=== PATIENT | male | born 1960 | race Caucasian/White ===

== ENCOUNTER 2018-03-21 08:05 | Emergency (ER) | payer MEDICARE ==
--- OUTSIDE RECORDS SUMMARY | 2018-03-21 08:07 | XMS REPORT | Clinical Summary ---
:1960 Author Organization [facility] Address [address] [place] [address] Phone Care Team Providers Name Role Phone Unavailable Primary Care Provider Unavailable Allergies No Known Allergies Current Medications Prescription Sig. Disp. Refills Start Date End Date Status clopidogrel (PLAVIX) 75 mg Take 75 mg by Active tabletIndications: mouth daily. 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) Active Problems Problem Noted Date Coronary artery disease Hypertension Peripheral vascular disease (HCC) Hyperlipidemia Myocardial infarction (HCC) Encounters Date Type Specialty Care Team Description 07/15/2017 Office Visit Cardiology Kristofer Mcclain MD 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) (Primary Dx);Coronary artery disease involving [place] coronary artery of [place] heart with unstable angina pectoris (HCC);Essential hypertension;Peripheral vascular disease (HCC);Hyperlipidemia, unspecified hyperlipidemia type after 03/20/2017 Social History Tobacco Use Types Packs/Day Years Used Date Current Every Day Smoker Cigarettes 1 30 Smokeless Tobacco: Never Used Tobacco Cessation: Ready to Quit: Yes; Counseling Given: Yes Alcohol Use Drinks/Week oz/Week Comments Yes social Sex Assigned at Date Recorded Not on file Last Filed Vital Signs Vital Sign Reading Time Taken Blood Pressure 117/64 07/15/2017 7:25 AM [employer] Pulse 60 07/15/2017 7:25 AM [employer] Temperature 35.8 C (96.4 F) 07/15/2017 7:25 AM [employer] Respiratory Rate 14 07/15/2017 7:25 AM [employer] Oxygen Saturation 99% 07/15/2017 7:25 AM [employer] Inhaled Oxygen Concentration - - Weight 106.6 kg (235 lb) 07/15/2017 7:25 AM [employer] Height 180.3 cm (5' 11") 07/15/2017 7:25 AM [employer] Body Mass Index 32.78 07/15/2017 7:25 AM [employer] Plan of Treatment Health Maintenance Due Date Last Done Comments INFLUENZA VACCINE 06/08/2018 Results Not on fileafter 03/20/2017
[2018-03-21] MEDS ORDERED: NA CHLORIDE 0.9% 1,000 ML ONE (08:39)
[2018-03-21] MEDS ORDERED: FENTANYL CITR 100 MCG/2 ML ONE (08:39)
[2018-03-21] MEDS ORDERED: ONDANSETRON 4 MG/2 ML VIAL ONE (08:39)
[2018-03-21 09:00] LABS: Absolute Lymphocytes (CBC) 2.4 K/uL (0.7-4.9); Absolute Monocytes 0.7 K/uL (0.1-1.3); Absolute Neutrophil 2.9 K/uL (1.8-8.0); Basophils % 0.4 % (0-1.3); Eosinophils % 0.8 % (0-4.4); Hematocrit 43.3 % (39.6-49.0); Lymphocytes % 39.3 % (15.3-44.8); MCH 29.3 pg (27.0-35.0); MCV 85.2 fL (80-100); MPV 8.4 fL (7.6-11.3); Monocytes % 11.3 % (3.3-12.3); RBC Red Blood Cell Count 5.08 M/uL (4.33-5.43)
--- NOTE | 2018-03-21 09:16 | RAD REPORT ---
EXAM DESCRIPTION: CT - Stone Protocol - 03/21/2018 8:53 am CLINICAL HISTORY: Left-sided abdominal pain, left-sided flank pain COMPARISON: CT imaging November 2012 TECHNIQUE: Axial 3 mm thick images were obtained without oral or IV contrast. The [id number] span s the entirety of the system including uppermost abdomen and lung bases. All CT scans are performed using dose optimization technique as appropriate and may include automated exposure control or mA/KV adjustment according to patient size. FINDINGS: Mild left-sided hydronephrosis is present secondary to a 3 mm stone in the mid left ureter . This may not be visible on a KUB examination. From a KUB projection the stone is a few mm lateral t o the inferior endplate L3. Trace amount of perinephric stranding is present in each kidney. Cyst in the lateral mid right kidney has not change from comparison. No additional obstructing or nonobstruct ing calculi. No right-sided hydronephrosis. Urinary bladder is mostly contracted. No bladder calculus . Prostate gland and seminal vesicles are not outside of normal range. No suspicious renal masses. Is odense masses and pyelonephritis are not excluded on a stone protocol CT scan. Imaged portions of the liver, spleen and pancreas show no suspicious findings on non-contrast imaging . No gallbladder or biliary tree abnormality identified. No significant adrenal finding. No suspicious bowel findings. No hernia, mass or bulky lymphadenopathy noted. No free air, free fluid or inflammatory stranding. No significant bony abnormality. IMPRESSION: Mild left-sided hydronephrosis secondary to a 3 mm stone mid left ureter. On a KUB projection this small stone is just lateral to the inferior endplate L3. Isodense masses and pyelonephritis are not excluded on stone protocol imaging. No other acute or significant findings noted.
[2018-03-21 09:17] LABS: Albumin 3.3 g/dL (3.4-5.0); Bilirubin Direct 0.1 mg/dL (0-0.2); Bilirubin Total 0.4 mg/dL (0.2-1.0); Protein, Total 7.5 g/dL (6.4-8.2)
--- NOTE | 2018-03-21 09:46 | EDPHYS ---
Physician Documentation [facility] Name: Pool Aden Age: 58 yrs Sex: Male : 1960 Arrival Date: 03/21/2018 Time: 08:09 Bed 14 Private MD: J Luis Gleason ED Physician Rubio Gutierrez HPI: 03/21 08:27 This 58 yrs old Male presents to ER via Ambulatory with complaints of SIDE sandeep PAIN. 08:27 The patient presents with abdominal pain in the left lower quadrant. Onset: The sandeep symptoms/episode began/occurred just prior to arrival, this morning. The patient presents with pain that is acute, with no known mechanism of injury. The symptoms are located in the left low back and left mid back. Onset: The symptoms/episode began/occurred this morning. The pain does not radiate. Associated signs and symptoms: The patient has no apparent associated signs or symptoms. The problem was sustained from unknown cause. Severity of symptoms: At their worst the symptoms were moderate, in the emergency department the symptoms have improved, moderately. Historical: - Allergies: 08:12 No Known Allergies; rb1 - Home Meds: 08:12 aspirin 81 mg Oral TbEC 1 tab once daily [Active]; atorvastatin 80 mg Oral tab 1 tab rb1 once daily [Active]; lisinopril 10 mg Oral tab 1 tab once daily [Active]; metoprolol tartrate 100 mg Oral tab 1 tab 2 times per day [Active]; Pepcid 20 mg Oral tab 1 tab every 12 hours [Active]; Plavix 75 mg Oral tab 1 tab once daily [Active]; - PMHx: 08:12 Hyperlipidemia; Hypertension; pacemaker/defibrillator; rb1 - PSHx: 08:12 Heart stents; CABG; Knee surgery; Shoulder surgery; rb1 - Immunization history:: Adult Immunizations up to date. - Social history:: Smoking status: Patient uses tobacco products, smokes two packs cigarettes per day. - Ebola Screening: : Patient negative for fever greater than or equal to 101.5 degrees Fahrenheit, and additional compatible Ebola Virus Disease symptoms. - Family history:: not pertinent. ROS: 08:27 Constitutional: Negative for fever, chills, and weight loss, Eyes: Negative for injury, sandeep pain, redness, and discharge, ENT: Negative for injury, pain, and discharge, Neck: Negative for injury, pain, and swelling, Cardiovascular: Negative for chest pain, palpitations, and edema, Respiratory: Negative for shortness of breath, cough, wheezing, and pleuritic chest pain, Abdomen/GI: Negative for abdominal pain, nausea, vomiting, diarrhea, and constipation, : Negative for injury, bleeding, discharge, and swelling, MS/Extremity: Negative for injury and deformity, Skin: Negative for injury, rash, and discoloration, Neuro: Negative for headache, weakness, numbness, tingling, and seizure, Psych: Negative for depression, anxiety, suicide ideation, homicidal ideation, and hallucinations, Allergy/Immunology: Negative for hives, rash, and allergies, Endocrine: Negative for neck swelling, polydipsia, polyuria, polyphagia, and marked weight changes, Hematologic/Lymphatic: Negative for swollen nodes, abnormal bleeding, and unusual bruising. 08:27 Back: Positive for pain at rest, pain with movement, flank pain, on the left. Exam: 08:27 Constitutional: This is a well developed, well nourished patient who is awake, alert, sandeep and in no acute distress. Head/Face: Normocephalic, atraumatic. Eyes: Pupils equal round and reactive to light, extra-ocular motions intact. Lids and lashes normal. Conjunctiva and sclera are non-icteric and not injected. Cornea within normal limits. Periorbital areas with no swelling, redness, or edema. ENT: Nares patent. No nasal discharge, no septal abnormalities noted. Tympanic membranes are normal and external auditory canals are clear. Oropharynx with no redness, swelling, or masses, exudates, or evidence of obstruction, uvula midline. Mucous membranes moist. Neck: Trachea midline, no thyromegaly or masses palpated, and no cervical lymphadenopathy. Supple, full range of motion without nuchal rigidity, or vertebral point tenderness. No Meningismus. Chest/axilla: Normal chest wall appearance and motion. Nontender with no deformity. No lesions are appreciated. Cardiovascular: Regular rate and rhythm with a normal S1 and S2. No gallops, murmurs, or rubs. Normal PMI, no JVD. No pulse deficits. Respiratory: Lungs have equal breath sounds bilaterally, clear to auscultation and percussion. No rales, rhonchi or wheezes noted. No increased work of breathing, no retractions or nasal flaring. Abdomen/GI: Soft, non-tender, with normal bowel sounds. No distension or tympany. No guarding or rebound. No evidence of tenderness throughout. Male : Normal genitalia with no discharge or lesions. Skin: Warm, dry with normal turgor. Normal color with no rashes, no lesions, and no evidence of cellulitis. MS/ Extremity: Pulses equal, no cyanosis. Neurovascular intact. Full, normal range of motion. Neuro: Awake and alert, GCS 15, oriented to person, place, time, and situation. Cranial nerves II-XII grossly intact. Motor strength 5/5 in all extremities. Sensory grossly intact. Cerebellar exam normal. Normal gait. Psych: Awake, alert, with orientation to person, place and time. Behavior, mood, and affect are within normal limits. 08:27 Back: pain, that is mild, that is moderate, ROM is painful, normal spinal alignment noted, CVA tenderness, is absent, vertebral tenderness, is not appreciated. Vital Signs: 08:12 BP 126 / 75; Pulse 60; Resp 19; Temp 97.(TE); Pulse Ox 97% on R/A; Weight 106.59 kg; rb1 Height 5 ft. 11 in. (180.34 cm); Pain 6/10; 09:00 BP 139 / 66; Pulse 60; Resp 19; Pulse Ox 99% on R/A; Pain 3/10; rb1 09:30 BP 125 / 67; Pulse 62; Resp 18; Pulse Ox 98% on R/A; rb1 10:30 BP 133 / 88; Pulse 59; Resp 17; Pulse Ox 99% on R/A; rb1 08:12 Body Mass Index 32.78 (106.59 kg, 180.34 cm) rb1 MDM: 08:19 Patient medically screened. [facility] 08:30 Data reviewed: vital signs, nurses notes, lab test result(s), radiologic studies, CT sandeep scan. 03/21 08:26 Order name: Basic Metabolic Panel; Complete Time: :43 [facility] 03/21 08:26 Order name: CBC with Diff; Complete Time: :43 [facility] 03/21 08:26 Order name: Creatinine for Radiology; Complete Time: :43 [facility] 03/21 08:26 Order name: Hepatic Function; Complete Time: :43 [facility] 03/21 08:26 Order name: Lipase; Complete Time: 09:43 [facility] 03/21 08:26 Order name: Urine Microscopic Only [facility] 03/21 08:26 Order name: CT Stone Protocol; Complete Time: 09:43 [facility] 03/21 10:28 Order name: Urine Dipstick--Ancillary (enter results) 03/21 10:58 Order name: Urine Culture [facility] 03/21 08:26 Order name: IV Saline Lock; Complete Time: 08:47 [facility] 03/21 08:26 Order name: Labs collected and sent; Complete Time: 08:47 [facility] Administered Medications: 08:46 Drug: NS 0.9% 1000 ml Route: IV; Rate: 1 bolus; Site: left wrist; rb1 08:46 Drug: fentaNYL (PF) 25 mcg Route: IVP; Site: left wrist; rb1 09:08 Follow up: Response: No adverse reaction; Pain is decreased rb1 08:46 Drug: Zofran 4 mg Route: IVP; Site: left wrist; rb1 09:08 Follow up: Response: No adverse reaction; Nausea is decreased rb1 10:09 Drug: Rocephin - (cefTRIAXone) 1 grams Route: IVPB; Infused Over: 30 mins; Site: left rb1 wrist; 10:25 Follow up: Response: No adverse reaction; IV Status: Completed infusion rb1 10:09 Drug: Flomax 0.4 mg Route: PO; rb1 10:30 Follow up: Response: No adverse reaction rb1 10:09 Drug: TORadol 30 mg Route: IVP; Site: left wrist; rb1 10:30 Follow up: Response: No adverse reaction; Pain is decreased rb1 Disposition: 03/21/18 09:46 Discharged to Home. Impression: Hydronephrosis with renal and ureteral calculous obstruction. - Condition is Stable. - Discharge Instructions: Kidney Stones, Kidney Stones, [id number], Hydronephrosis, Dietary Guidelines to Help Prevent Kidney Stones. - Prescriptions for Tylenol- Codeine #3 300-30 mg Oral Tablet - take 2 tablet by ORAL route every 6 hours As needed; 30 tablet. Zofran 4 mg Oral Tablet - take 1 tablet by ORAL route every 12 hours As needed; 20 tablet. Flomax 0.4 mg Oral Capsule, Sust. Release 24 hr - take 1 capsule by ORAL route once daily 1/2 hour following the same meal each day; 30 capsule. Cipro 500 mg Oral Tablet - take 1 tablet by ORAL route every 12 hours for 7 days; 14 tablet. - Medication Reconciliation Form, Thank You Letter, Antibiotic Education, Prescription Opioid Use form. - Follow up: J Luis Gleason MD; When: 2 - 3 days; Reason: Recheck today's complaints, Continuance of care, Re-evaluation by your physician. Follow up: Lorri Aguilar MD; When: 2 - 3 days; Reason: Recheck today's complaints, Re-evaluation by your physician. - Problem is new. - Symptoms have improved. Signatures: Dispatcher [employer] EDID Rubio Gutierrez MD MD cha Barber, Rebecca, RN RN rb1 Corrections: (The following items were deleted from the chart) 11:16 09:46 03/21/2018 09:46 Discharged to Home. Impression: Hydronephrosis with renal and rb1 ureteral calculous obstruction. Condition is Stable. Forms are Medication Reconciliation Form, Thank You Letter, Antibiotic Education, Prescription Opioid Use. Follow up: J Luis Gleason; When: 2 - 3 days; Reason: Recheck today's complaints, Continuance of care, Re-evaluation by your physician. Follow up: Lorri Aguilar; When: 2 - 3 days; Reason: Recheck today's complaints, Re-evaluation by your physician. Problem is new. Symptoms have improved. sandeep
--- NOTE | 2018-03-21 09:46 | ER ---
Nurse's Notes [facility] Name: Pool Aden Age: 58 yrs Sex: Male : 1960 Arrival Date: 03/21/2018 Time: 08:09 Bed 14 Private MD: J Luis Gleason Diagnosis: Hydronephrosis with renal and ureteral calculous obstruction Presentation: 03/21 08:12 Presenting complaint: Patient states: He woke up this morning with pain on his left rb1 side. Pt. had 2 BM's this morning. Transition of care: patient was not received from another setting of care. 08:12 Method Of Arrival: Ambulatory rb1 08:12 Onset of symptoms was March 21, 2018. Risk Assessment: Do you want to hurt yourself or rb1 someone else? Patient reports no desire to harm self or others. Initial Sepsis Screen: Does the patient meet any 2 criteria? No. Patient's initial sepsis screen is negative. Does the patient have a suspected source of infection? No. Patient's initial sepsis screen is negative. Care prior to arrival: None. 08:12 Acuity: SUSAN 3 rb1 Triage Assessment: 08:12 General: Appears in no apparent distress. comfortable, Behavior is calm, cooperative, rb1 Denies fever. Pain: Complains of pain in left side Pain currently is 6 out of 10 on a pain scale. Neuro: Level of Consciousness is awake, alert, obeys commands, Oriented to person, place, time, situation. Cardiovascular: Capillary refill < 3 seconds is brisk in bilateral fingers. Respiratory: Airway is patent Respiratory effort is even, unlabored, Respiratory pattern is regular, symmetrical. GI: Abdomen is round. : No signs and/or symptoms were reported regarding the genitourinary system. Derm: Skin is pink, warm \T\ dry. Musculoskeletal: Range of motion: intact in all extremities. Historical: - Allergies: 08:12 No Known Allergies; rb1 - Home Meds: 08:12 aspirin 81 mg Oral TbEC 1 tab once daily [Active]; atorvastatin 80 mg Oral tab 1 tab rb1 once daily [Active]; lisinopril 10 mg Oral tab 1 tab once daily [Active]; metoprolol tartrate 100 mg Oral tab 1 tab 2 times per day [Active]; Pepcid 20 mg Oral tab 1 tab every 12 hours [Active]; Plavix 75 mg Oral tab 1 tab once daily [Active]; - PMHx: 08:12 Hyperlipidemia; Hypertension; pacemaker/defibrillator; rb1 - PSHx: 08:12 Heart stents; CABG; Knee surgery; Shoulder surgery; rb1 - Immunization history:: Adult Immunizations up to date. - Social history:: Smoking status: Patient uses tobacco products, smokes two packs cigarettes per day. - Ebola Screening: : Patient negative for fever greater than or equal to 101.5 degrees Fahrenheit, and additional compatible Ebola Virus Disease symptoms. - Family history:: not pertinent. Screenin:12 Abuse screen: Denies threats or abuse. Nutritional screening: No deficits noted. rb1 Tuberculosis screening: No symptoms or risk factors identified. Fall Risk None identified. Assessment: 08:12 General: See triage assessment. rb1 09:12 Reassessment: Patient appears in no apparent distress at this time. Patient and/or rb1 family updated on plan of care and expected duration. Pain level reassessed. Patient is alert, oriented x 3, equal unlabored respirations, skin warm/dry/pink. Patient states symptoms have improved. 10:10 Reassessment: Patient appears in no apparent distress at this time. No changes from [facility] previously documented assessment. 10:20 Reassessment: Discharge pending due to pt. requesting to speak with Dr. Gutierrez. [facility] Provider notified. 10:43 Reassessment: Notified Dr. Gutierrez that the pt. is still waiting for him to come in [facility] and discuss test results. 10:45 Reassessment: Patient appears in no apparent distress at this time. Patient and/or rb1 family updated on plan of care and expected duration. Pain level reassessed. Patient is alert, oriented x 3, equal unlabored respirations, skin warm/dry/pink. Dr. Gutierrez is at bedside. Vital Signs: 08:12 BP 126 / 75; Pulse 60; Resp 19; Temp 97.(TE); Pulse Ox 97% on R/A; Weight 106.59 kg; rb1 Height 5 ft. 11 in. (180.34 cm); Pain 6/10; 09:00 BP 139 / 66; Pulse 60; Resp 19; Pulse Ox 99% on R/A; Pain 3/10; rb1 09:30 BP 125 / 67; Pulse 62; Resp 18; Pulse Ox 98% on R/A; rb1 10:30 BP 133 / 88; Pulse 59; Resp 17; Pulse Ox 99% on R/A; rb1 08:12 Body Mass Index 32.78 (106.59 kg, 180.34 cm) rb1 ED Course: 08:09 Patient arrived in ED. sb2 08:10 J Luis Gleason MD is Private Physician. sb2 08:12 Patient has correct armband on for positive identification. Bed in low position. Call rb1 light in reach. Side rails up X 1. Pulse ox on. NIBP on. Warm blanket given. Pillow given. 08:12 Arm band placed on left wrist. rb1 08:19 Rubio Gutierrez MD is Attending Physician. sandeep 08:21 Marnie Rodriguez, ZINA is Primary Nurse. rb1 08:24 Triage completed. rb1 08:40 Missed attempt(s): 20 gauge in right antecubital area. Bleeding controlled, band aid em applied, catheter tip intact. 08:45 Initial lab(s) drawn, by me, sent to lab. Inserted saline lock: 22 gauge in left wrist, em using aseptic technique. Blood collected. 08:53 CT Stone Protocol In Process Unspecified. EDMS 08:53 CT completed. Patient tolerated procedure well. Patient moved back from CT. bq 09:45 J Luis Gleason MD is Referral Physician. sandeep 09:45 Lorri Aguilar MD is Referral Physician. sandeep 10:47 No provider procedures requiring assistance completed. IV discontinued, intact, rb1 bleeding controlled, No redness/swelling at site. Pressure dressing applied. Administered Medications: 08:46 Drug: NS 0.9% 1000 ml Route: IV; Rate: 1 bolus; Site: left wrist; rb1 08:46 Drug: fentaNYL (PF) 25 mcg Route: IVP; Site: left wrist; rb1 09:08 Follow up: Response: No adverse reaction; Pain is decreased rb1 08:46 Drug: Zofran 4 mg Route: IVP; Site: left wrist; rb1 09:08 Follow up: Response: No adverse reaction; Nausea is decreased rb1 10:09 Drug: Rocephin - (cefTRIAXone) 1 grams Route: IVPB; Infused Over: 30 mins; Site: left rb1 wrist; 10:25 Follow up: Response: No adverse reaction; IV Status: Completed infusion rb1 10:09 Drug: Flomax 0.4 mg Route: PO; rb1 10:30 Follow up: Response: No adverse reaction rb1 10:09 Drug: TORadol 30 mg Route: IVP; Site: left wrist; rb1 10:30 Follow up: Response: No adverse reaction; Pain is decreased rb1 Outcome: :46 Discharge ordered by . sandeep 10:47 Discharged to home ambulatory, with family. rb1 10:47 Condition: stable 10:47 Discharge instructions given to patient, Instructed on discharge instructions, follow up and referral plans. medication usage, Demonstrated understanding of instructions, follow-up care, medications, Prescriptions given X 4. 11:16 Patient left the ED. rb1 Signatures: Dispatcher [employer] EDRubio Drake MD MD cha Quilty, Betty bq Munoz, Edgar, SPEECH AND LANGUAGE CLINICIAN SPEECH AND LANGUAGE CLINICIAN Marnie Daniel, RN RN rb1 Sagrario Ibarra sb2 Corrections: (The following items were deleted from the chart) 08:49 08:46 NS 0.9% 1000 ml IV at 1 bolus in left hand rb1 rb1 08:50 08:46 Zofran 4 mg IVP in left hand rb1 rb1 08:50 08:46 fentaNYL (PF) 25 mcg IVP in left hand rb1 rb1 09:39 09:15 BP 125 / 67; Pulse 62bpm; Resp 18bpm; Pulse Ox 98% RA; rb1 rb1
[2018-03-21] MEDS ORDERED: TAMSULOSIN 0.4 MG SR CAP ONE (10:03)
[2018-03-21] MEDS ORDERED: KETOROLAC 30 MG/ML INJ ONE (10:03)
[2018-03-21] MEDS ORDERED: CEFTRIAXONE/SWI 1gm 1 GM/10 ML SYR ONE (10:04)
[2018-03-21 10:54] LABS: Urine Bacteria 20-50 /HPF (NONE SEEN); Urine Culture Reflex Order REFLEXED; Urine RBC TNTC /HPF (NONE SEEN)
[2018-03-21 11:20] VITALS: TEMP 97
[2018-03-21 11:23] VITALS: BP 133/88; O2SAT 99
[2018-03-21 14:23] LABS: Urine Blood 3+ (NEG); Urine Glucose 1+ (NEG); Urine Protein 2+ (NEG); Urine pH 5.5 (5.0-7.0)
== END 2018-03-21 11:16 | disposition home or self-care (01) ==
LOC: ER 08:05
DX: N13.2 Hydronephrosis with renal and ureteral calculous obstruction (principal); I10 Essential (primary) hypertension; E78.5 Hyperlipidemia, unspecified; Z95.810 Presence of automatic (implantable) cardiac defibrillator; Z95.1 Presence of aortocoronary bypass graft; Z79.01 Long term (current) use of anticoagulants; Z79.82 Long term (current) use of aspirin; F17.210 Nicotine dependence, cigarettes, uncomplicated
CPT/HCPCS: 36415; 74176; 76377; 80048; 80076; 83690; 85025; 87086; 87088; 96365; 96375; 99284; J0696; J2405; J3010; J7030; 81003; 81015

== ENCOUNTER 2018-03-22 16:32 | Observation (INO) | payer MEDICARE ==
--- OUTSIDE RECORDS SUMMARY | 2018-03-22 16:34 | XMS REPORT | Clinical Summary ---
:1960 Author Organization [facility] Address [address] [place] [address] Phone Care Team Providers Name Role Phone Unavailable Primary Care Provider Unavailable Allergies No Known Allergies Current Medications Prescription Sig. Disp. Refills Start Date End Date Status clopidogrel (PLAVIX) 75 mg Take 75 mg by Active tabletIndications: mouth daily. 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) Active Problems Problem Noted Date Coronary artery disease Hypertension Peripheral vascular disease (HCC) Hyperlipidemia Myocardial infarction (HCC) Encounters Date Type Specialty Care Team Description 07/15/2017 Office Visit Cardiology Kristofer Mcclain MD 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) (Primary Dx);Coronary artery disease involving [place] coronary artery of [place] heart with unstable angina pectoris (HCC);Essential hypertension;Peripheral vascular disease (HCC);Hyperlipidemia, unspecified hyperlipidemia type after 03/21/2017 Social History Tobacco Use Types Packs/Day Years Used Date Current Every Day Smoker Cigarettes 1 30 Smokeless Tobacco: Never Used Tobacco Cessation: Ready to Quit: Yes; Counseling Given: Yes Alcohol Use Drinks/Week oz/Week Comments Yes social Sex Assigned at Date Recorded Not on file Last Filed Vital Signs Vital Sign Reading Time Taken Blood Pressure 117/64 07/15/2017 7:25 AM [employer]ODUCT [employer]ET[employer] SPECIALIST Pulse 60 07/15/2017 7:25 AM [employer] SPECIALIST Temperature 35.8 C (96.4 F) 07/15/2017 7:25 AM [employer]ODUCT [employer] SPECIALIST Respiratory Rate 14 07/15/2017 7:25 AM PRODUCT SAFETY SPECIALIST Oxygen Saturation 99% 07/15/2017 7:25 AM [employer]ODUCT [employer] SPECIALIST Inhaled Oxygen Concentration - - Weight 106.6 kg (235 lb) 07/15/2017 7:25 AM [employer]ODUCT S[employer]ETY SPECIALIST Height 180.3 cm (5' 11") 07/15/2017 7:25 AM [employer]ODUCT S[employer]ETY SPECIALIST Body Mass Index 32.78 07/15/2017 7:25 AM [employer]ODUCT SAF[employer] SPECIALIST Plan of Treatment Health Maintenance Due Date Last Done Comments INFLUENZA VACCINE 06/08/2018 Results Not on fileafter 03/21/2017
[2018-03-22] MEDS ORDERED: NA CHLORIDE 0.9% 500 ML ONE (17:00)
[2018-03-22] MEDS ORDERED: KETOROLAC 30 MG/ML INJ ONE (17:00)
[2018-03-22] MEDS ORDERED: ONDANSETRON 4 MG/2 ML VIAL ONE (17:00)
[2018-03-22 17:35] LABS: Absolute Lymphocytes (CBC) 2.5 K/uL (0.7-4.9); Absolute Monocytes 0.6 K/uL (0.1-1.3); Absolute Neutrophil 4.4 K/uL (1.8-8.0); Basophils % 0.5 % (0-1.3); Eosinophils % 0.4 % (0-4.4); Hematocrit 45.2 % (39.6-49.0); Lymphocytes % 32.7 % (15.3-44.8); MCH 29.3 pg (27.0-35.0); MPV 8.8 fL (7.6-11.3); Monocytes % 8.2 % (3.3-12.3); RBC Red Blood Cell Count 5.26 M/uL (4.33-5.43)
[2018-03-22 17:57] LABS: ALT/SGPT 21 U/L (12-78); AST/SGOT 23 U/L (15-37); Albumin 3.6 g/dL (3.4-5.0); Alkaline Phosphatase 117 U/L (45-117); Amylase Level 37 U/L (25-115); BUN Blood Urea Nitrogen 20 mg/dL (7-18); Bicarbonate 25 mmol/L (21-32); Bilirubin Direct < 0.1 mg/dL (0-0.2); Bilirubin Total 0.4 mg/dL (0.2-1.0); Glucose Level 158 mg/dL (74-106); Lipase 131 U/L (73-393); Potassium 3.7 mmol/L (3.5-5.1); Protein, Total 8.2 g/dL (6.4-8.2); Sodium Level 139 mmol/L (136-145)
[2018-03-22] MEDS ORDERED: Magnesium Sulfate 1gm IVPB 1 GM/50 ML BAG IV ONE (18:47)
--- NOTE | 2018-03-22 18:47 | RAD REPORT ---
EXAM DESCRIPTION: RAD - Abdomen 1 View (KUB) - 03/22/2018 5:54 pm CLINICAL HISTORY: ICD N 20.0 FINDINGS: Air is present within nondilated small bowel and large bowel in a nonspecific fashion. Previously described ureteral calculus adjacent to the left aspect of L3 is not visualized on this ex am. Calcifications in the pelvis represent phleboliths
--- NOTE | 2018-03-22 18:54 | ER ---
Nurse's Notes [facility] Name: Pool Aden Age: 58 yrs Sex: Male : 1960 Arrival Date: 03/22/2018 Time: 16:33 Bed 30 Private MD: J Luis Gleason Diagnosis: Calculus of ureter-Left;Unspecified abdominal pain-Intractable Presentation: 03/22 16:39 Presenting complaint: Patient states: He was seen here yesterday with the same aj1 complaint and diagnosed with a kidney stone. He was sent home with a Rx for Tylenol #3 but he is still hurting. Reports nausea, denies vomiting. Patient refuses having temperature taken, states that he is in too much pain. Transition of care: patient was not received from another setting of care. Onset of symptoms was March 21, 2018. Risk Assessment: Do you want to hurt yourself or someone else? Patient reports no desire to harm self or others. Initial Sepsis Screen: Does the patient meet any 2 criteria? No. Patient's initial sepsis screen is negative. Does the patient have a suspected source of infection? No. Patient's initial sepsis screen is negative. Care prior to arrival: None. 16:39 Method Of Arrival: Wheelchair aj1 16:39 Acuity: SUSAN 3 aj1 Triage Assessment: 16:41 General: Appears uncomfortable, Behavior is agitated, uncooperative. Pain: Complains of aj1 pain in left low back. 16:41 Neuro: Level of Consciousness is awake, alert. Cardiovascular: Denies chest pain, aj1 Patient's skin is warm and dry. Respiratory: Airway is patent Respiratory effort is even, unlabored, Respiratory pattern is regular, symmetrical. Historical: - Allergies: 16:41 No Known Allergies; aj1 - Home Meds: 16:41 aspirin 81 mg Oral TbEC 1 tab once daily [Active]; atorvastatin 80 mg Oral tab 1 tab aj1 once daily [Active]; lisinopril 10 mg Oral tab 1 tab once daily [Active]; metoprolol tartrate 100 mg Oral tab 1 tab 2 times per day [Active]; Pepcid 20 mg Oral tab 1 tab every 12 hours [Active]; Plavix 75 mg Oral tab 1 tab once daily [Active]; - PMHx: 16:41 Hyperlipidemia; Hypertension; pacemaker/defibrillator; aj1 - Immunization history:: Flu vaccine is not up to date. - Social history:: Smoking status: . - Ebola Screening: : Patient negative for fever greater than or equal to 101.5 degrees Fahrenheit, and additional compatible Ebola Virus Disease symptoms Patient denies exposure to infectious person Patient denies travel to an Ebola-affected area in the 21 days before illness onset No symptoms or risks identified at this time. Screenin:39 Abuse screen: Denies threats or abuse. Nutritional screening: No deficits noted. mb3 Tuberculosis screening: No symptoms or risk factors identified. Fall Risk None identified. Assessment: 16:48 Reassessment: During triage assessment patient's becomes agitated, screaming at [facility] staff. States that we need to take her back now, because he has a heart condition. Patient was asked if he was having any chest pain. remains agitated screaming "HE HAS A HEART CONDITION ITS AGGRAVATED BY THINGS!!!" Patient is agitated as well, states "Well I'm in pain!!" Explained to patient that he is being triaged and then we will get him back to a room. Pt's continues yelling "IF HE HAS A HEART ATTACK RIGHT NOW THIS IS ON YOU!!!!! HE NEEDS A COLD RAG RIGHT NOW!!!!" Then begins trying to force her way back into the ER before grabbing a paper towel from behind the triage desk. Patient was asked again if he was having chest pain. Patient denies chest pain, states that he is having pain in his left lower back. Patient refuses to answer any more questions in triage. Patient taken to room 30, placed in stretcher. 17:00 General: Appears distressed, uncomfortable, Behavior is agitated, fussy. Pain: mb3 Complains of pain in left lower quadrant Pain does not radiate. Neuro: No deficits noted. Cardiovascular: No deficits noted. Respiratory: No deficits noted. GI: Bowel sounds present X 4 quads. Abd is soft Abdomen is tender to palpation in left lower quadrant Reports lower abdominal pain, nausea. : Reports pain lower quadrant(s). EENT: No signs and/or symptoms were reported regarding the EENT system. Derm: No signs and/or symptoms reported regarding the dermatologic system. 17:40 Reassessment: Patient and/or family updated on plan of care and expected duration. Pain mb3 level reassessed. Patient is alert, oriented x 3, equal unlabored respirations, skin warm/dry/pink. Patient states feeling better. Patient states symptoms have improved. 18:56 Reassessment: Patient and/or family updated on plan of care and expected duration. Pain mb3 level reassessed. Patient is alert, oriented x 3, equal unlabored respirations, skin warm/dry/pink. 19:54 Reassessment: Patient and/or family updated on plan of care and expected duration. Pain mb3 level reassessed. Patient is alert, oriented x 3, equal unlabored respirations, skin warm/dry/pink. Patient states feeling better. Vital Signs: 16:41 BP 132 / 74; Pulse 74; Resp 18; Pulse Ox 99% on R/A; Pain 10/10; aj1 17:39 BP 166 / 77; Pulse 76; Resp 18; Pulse Ox 100% on R/A; mb3 18:56 BP 131 / 59; Pulse 86; Resp 18; Pulse Ox 100% on R/A; mb3 19:54 BP 110 / 54; Pulse 73; Resp 18; Pulse Ox 93% on R/A; mb3 ED Course: 16:33 Patient arrived in ED. sb2 16:33 J Luis Gleason MD is Private Physician. sb2 16:40 Triage completed. aj1 16:41 Arm band placed on Patient placed in an exam room. aj1 16:43 Isaias Allen, ZINA is Primary Nurse. mb3 16:43 Rubio Michael PA is PHCP. cp 16:43 Keyonna Pierson MD is Attending Physician. cp 17:07 Initial lab(s) drawn, by me, sent to lab. Inserted saline lock: 20 gauge in right cb2 antecubital area, using aseptic technique. Blood collected. 17:39 Patient has correct armband on for positive identification. mb3 17:54 XRAY Abdomen 1 View (KUB) In Process Unspecified. EDMS 18:51 Lorri Aguilar MD is Referral Physician. cp 19:13 Nas Interiano MD is Hospitalizing Provider. cp 20:32 No provider procedures requiring assistance completed. Patient admitted, IV remains in mb3 place. 20:38 Urine Dipstick--Ancillary (enter results) Sent. mb3 20:38 Amylase, Serum Sent. mb3 20:38 Basic Metabolic Panel Sent. mb3 Administered Medications: 17:12 Drug: NS 0.9% 500 ml Route: IV; Rate: bolus; Site: right antecubital; mb3 18:55 Follow up: Response: No adverse reaction; IV Status: Completed infusion; IV Intake: mb3 500ml 17:12 Drug: Zofran 4 mg Route: IVP; Site: right antecubital; mb3 18:55 Follow up: Response: No adverse reaction mb3 17:12 Drug: TORadol 30 mg Route: IVP; Site: right antecubital; mb3 18:55 Follow up: Response: No adverse reaction mb3 18:47 Drug: Magnesium Sulfate 1 grams Route: IVPB; Infused Over: 1 hrs; Site: right rv antecubital; 19:53 Follow up: Response: No adverse reaction; IV Status: Completed infusion; IV Intake: mb3 100ml 19:03 Drug: fentaNYL (PF) 50 mcg Route: IVP; Site: right antecubital; mb3 19:53 Follow up: Response: No adverse reaction mb3 19:19 Drug: Rocephin - (cefTRIAXone) 1 grams Route: IVPB; Infused Over: 30 mins; Site: right rv antecubital; 19:52 Follow up: Response: No adverse reaction; IV Status: Completed infusion; IV Intake: [id number] Intake: 18:55 IV: 500ml; Total: 500ml. mb3 19:52 IV: 50ml; Total: 550ml. mb3 19:53 IV: 100ml; Total: 650ml. mb3 Outcome: 18:54 Discharge ordered by MD. cp 19:14 Decision to Hospitalize by Provider. cp 20:33 Admitted to Med/surg accompanied by tech, via wheelchair, room 429, with chart, Report mb3 called to Archana Mixon RN 20:34 Condition: stable mb3 20:34 Instructed on the need for admit. 20:57 Patient left the ED. mb3 Signatures: Dispatcher [employer] EDSloane Tellez RN RN aj1 Rubio Michael PA PA Kong Raedr Sheri sb2 Isaias Allen, RN RN mb3 Brooks Kyle RN RN rv
--- NOTE | 2018-03-22 18:55 | EDPHYS ---
Physician Documentation [facility] Name: Pool Aden Age: 58 yrs Sex: Male : 1960 Arrival Date: 03/22/2018 Time: 16:33 Bed 30 Private MD: J Luis Gleason ED Physician Keyonna Pierson HPI: 03/22 16:53 This 58 yrs old Male presents to ER via Wheelchair with complaints of cp Possible Kidney Stone. 16:53 The patient presents with abdominal pain left lower back pain. Onset: The cp symptoms/episode began/occurred yesterday, and became worse today. Associated signs and symptoms: Pertinent positives: nausea. 16:53 The patient has been recently seen at the [facility] Emergency cp Department, yesterday, for similar complaints labs were performed, CT scan was performed, diagnosed with left side kidney stone. Historical: - Allergies: 16:41 No Known Allergies; aj1 - Home Meds: 16:41 aspirin 81 mg Oral TbEC 1 tab once daily [Active]; atorvastatin 80 mg Oral tab 1 tab aj1 once daily [Active]; lisinopril 10 mg Oral tab 1 tab once daily [Active]; metoprolol tartrate 100 mg Oral tab 1 tab 2 times per day [Active]; Pepcid 20 mg Oral tab 1 tab every 12 hours [Active]; Plavix 75 mg Oral tab 1 tab once daily [Active]; - PMHx: 16:41 Hyperlipidemia; Hypertension; pacemaker/defibrillator; aj1 - Immunization history:: Flu vaccine is not up to date. - Social history:: Smoking status: . - Ebola Screening: : Patient negative for fever greater than or equal to 101.5 degrees Fahrenheit, and additional compatible Ebola Virus Disease symptoms Patient denies exposure to infectious person Patient denies travel to an Ebola-affected area in the 21 days before illness onset No symptoms or risks identified at this time. ROS: 17:00 Constitutional: Positive for chills, Negative for body aches, fever, poor PO intake. cp 17:00 Eyes: Negative for injury, pain, redness, and discharge. cp 17:00 ENT: Negative for drainage from ear(s), ear pain, sore throat, difficulty swallowing, difficulty handling secretions. 17:00 Cardiovascular: Negative for chest pain, edema, palpitations. 17:00 Respiratory: Negative for cough, shortness of breath, wheezing. 17:00 Abdomen/GI: Positive for abdominal pain, nausea, Negative for vomiting, diarrhea, constipation, black/tarry stool, rectal bleeding. 17:00 Back: Positive for pain at rest, of the left low back. 17:00 : Negative for urinary symptoms. 17:00 Skin: Negative for cellulitis, rash. 17:00 Neuro: Negative for altered mental status, dizziness, headache, weakness. 17:00 All other systems are negative. Exam: 17:05 Constitutional: The patient appears in no acute distress, alert, awake, non-toxic, well cp developed, well nourished, uncomfortable. 17:05 Head/Face: Normocephalic, atraumatic. cp 17:05 Eyes: Periorbital structures: appear normal, Conjunctiva: normal, no exudate, no injection, Sclera: no appreciated abnormality, Lids and lashes: appear normal, bilaterally. 17:05 ENT: External ear(s): are unremarkable, Nose: is normal, Mouth: Lips: moist, Oral mucosa: pink and intact, moist, Posterior pharynx: is normal, airway is patent, no erythema, no exudate. 17:05 Chest/axilla: Inspection: normal, Palpation: is normal, no crepitus, no tenderness. 17:05 Cardiovascular: Rate: normal, Rhythm: regular. 17:05 Respiratory: the patient does not display signs of respiratory distress, Respirations: normal, no use of accessory muscles, no retractions, no splinting, no tachypnea, labored breathing, is not present, Breath sounds: are clear throughout, no decreased breath sounds, no stridor, no wheezing. 17:05 Abdomen/GI: Inspection: abdomen appears normal, Bowel sounds: active, all quadrants, Palpation: moderate abdominal tenderness, in the left upper quadrant and left lower quadrant, rebound tenderness, is not appreciated, voluntary guarding, is not appreciated, involuntary guarding, is not appreciated. 17:05 Skin: cellulitis, is not appreciated, no rash present. 17:05 Neuro: Orientation: to person, place \T\ time. Mentation: lucid, able to follow commands, Cerebellar function: is grossly normal, Motor: moves all fours, strength is normal, Sensation: no obvious gross deficits. Vital Signs: 16:41 BP 132 / 74; Pulse 74; Resp 18; Pulse Ox 99% on R/A; Pain 10/10; aj1 17:39 BP 166 / 77; Pulse 76; Resp 18; Pulse Ox 100% on R/A; mb3 18:56 BP 131 / 59; Pulse 86; Resp 18; Pulse Ox 100% on R/A; mb3 19:54 BP 110 / 54; Pulse 73; Resp 18; Pulse Ox 93% on R/A; mb3 MDM: 16:46 Patient medically screened. cp 17:00 Differential diagnosis: pancreatitis, Pyelonephritis, Ureterolithiasis, urinary tract cp infection, urosepsis. 18:26 Physician consultation: Lorri Aguilar MD was called at 18:26, was contacted at 18:26, regarding patient's condition, and will see patient in office, tomorrow. 18:43 ED course: VSS. Patient reports pain and nausea resolved. Will discharge to home for cp f/u in clinic tomorrow with DR Aguilar. 18:55 Data reviewed: vital signs, nurses notes, old medical records, radiology report, labs cp and note from previous visit lab test result(s), radiologic studies, plain films. 19:12 Physician consultation: Nas Interiano MD was called at 19:12, regarding admission, to the medical/surgical unit. patient's condition. 03/22 16:50 Order name: Amylase, Serum 03/22 16:50 Order name: Basic Metabolic Panel 03/22 16:50 Order name: CBC with Diff; Complete Time: 18:07 03/22 18:08 Interpretation: Reviewed. 03/22 16:50 Order name: Creatinine for Radiology; Complete Time: 18:07 03/22 18:08 Interpretation: GFR 56; Reviewed. 03/22 16:50 Order name: Hepatic Function; Complete Time: 18:07 03/22 18:09 Interpretation: Normal except: GLOB 4.6; A/G 0.8. 03/22 16:50 Order name: Lipase; Complete Time: 18:07 03/22 16:50 Order name: Urine Microscopic Only; Complete Time: 19:14 03/22 16:51 Order name: Amylase Level; Complete Time: 18:07 EDDE 03/22 16:51 Order name: Basic Metabolic Panel; Complete Time: 18:07 EDDE 03/22 18:08 Interpretation: Normal except: GLUC 158; BUN 20; GFR 56. cp 03/22 16:52 Order name: XRAY Abdomen 1 View (KUB); Complete Time: 18:51 03/22 18:26 Order name: Urine Dipstick--Ancillary (enter results) eb 03/22 18:26 Order name: Urine Dipstick-Ancillary; Complete Time: 19:14 EDMS 03/22 16:50 Order name: IV Saline Lock; Complete Time: 17:09 03/22 16:50 Order name: Labs collected and sent; Complete Time: 17:09 03/22 16:50 Order name: Urine Dipstick-Ancillary (obtain specimen); Complete Time: 20:38 03/22 19:38 Order name: CONS Physician Consult; Complete Time: 20:38 EDMS Administered Medications: 17:12 Drug: NS 0.9% 500 ml Route: IV; Rate: bolus; Site: right antecubital; mb3 18:55 Follow up: Response: No adverse reaction; IV Status: Completed infusion; IV Intake: mb3 500ml 17:12 Drug: Zofran 4 mg Route: IVP; Site: right antecubital; mb3 18:55 Follow up: Response: No adverse reaction mb3 17:12 Drug: TORadol 30 mg Route: IVP; Site: right antecubital; mb3 18:55 Follow up: Response: No adverse reaction mb3 18:47 Drug: Magnesium Sulfate 1 grams Route: IVPB; Infused Over: 1 hrs; Site: right rv antecubital; 19:53 Follow up: Response: No adverse reaction; IV Status: Completed infusion; IV Intake: mb3 100ml 19:03 Drug: fentaNYL (PF) 50 mcg Route: IVP; Site: right antecubital; mb3 19:53 Follow up: Response: No adverse reaction mb3 19:19 Drug: Rocephin - (cefTRIAXone) 1 grams Route: IVPB; Infused Over: 30 mins; Site: right rv antecubital; 19:52 Follow up: Response: No adverse reaction; IV Status: Completed infusion; IV Intake: [id number] Disposition: 03/23 20:24 Co-signature as Attending Physician, Keyonna Pierson MD., ma2 Disposition: 07/15/18 19:14 Hospitalization ordered by Nas Interiano for Observation. Preliminary diagnosis are Calculus of ureter - Left, Unspecified abdominal pain - Intractable. - Bed requested for Telemetry/MedSurg (observation). - Status is Observation. mb3 - Condition is Stable. - Problem is an ongoing problem. - Symptoms are unchanged. UTI on Admission? No Signatures: Dispatcher [employer] EDDE Sloane Becker RN RN aj1 Ludy Irvin RN RN Rubio Ortez PA PA cp Keyonna Pierson MD MD ma2 Isaias Allen RN RN mb3 Brooks Kyle RN RN rv Corrections: (The following items were deleted from the chart) 03/22 18:54 18:54 03/22/2018 18:54 Discharged to Home. Impression: Flank Pain with history of cp ureter calculus. Condition is Stable. Prescriptions for ketorolac 10 mg Oral tablet - take 1 tablet by ORAL route every 6 hours As needed for up to 5 days total use; 20 tablet. and Forms are Medication Reconciliation Form, Thank You Letter, Antibiotic Education, Prescription Opioid Use. Follow up: Lorri Aguilar; When: Tomorrow; Reason: in office \T\0800 for reevaluation. Problem is an ongoing problem. Symptoms have improved. cp 18:59 18:54 03/22/2018 18:54 Discharged to Home. Impression: Flank Pain with history of left cp ureter calculus. Condition is Stable. Prescriptions for ketorolac 10 mg Oral tablet - take 1 tablet by ORAL route every 6 hours As needed for up to 5 days total use; 20 tablet. and Forms are Medication Reconciliation Form, Thank You Letter, Antibiotic Education, Prescription Opioid Use. Follow up: Lorri Aguilar; When: Tomorrow; Reason: in office \T\0800 for reevaluation. Problem is an ongoing problem. Symptoms have improved. cp 20:17 19:14 Hospitalization Ordered by Nas Interiano MD for Observation. Preliminary kl diagnosis is Calculus of ureter - Left; Unspecified abdominal pain - Intractable. Bed requested for Telemetry/MedSurg (observation). Status is Observation. Condition is Stable. Problem is an ongoing problem. Symptoms are unchanged. UTI on Admission? No. cp 20:57 20:17 03/22/2018 19:14 Hospitalization Ordered by Nas Interiano MD for Observation. mb3 Preliminary diagnosis is Calculus of ureter - Left; Unspecified abdominal pain - Intractable. Bed requested for Telemetry/MedSurg (observation). Status is Observation. Condition is Stable. Problem is an ongoing problem. Symptoms are unchanged. UTI on Admission? No. kl
[2018-03-22] MEDS ORDERED: FENTANYL CITR 100 MCG/2 ML ONE (19:03)
[2018-03-22 19:10] LABS: Urine Bacteria <20 /HPF (NONE SEEN); Urine Culture Reflex Order NOT NEEDED; Urine RBC TNTC /HPF (NONE SEEN)
[2018-03-22 19:12] LABS: Urine Blood 3+ (NEG); Urine Glucose TRACE (NEG); Urine Protein 2+ (NEG); Urine Specific Gravity 1.025 (1.005-1.030); Urine pH 5.5 (5.0-7.0)
[2018-03-22] MEDS ORDERED: CEFTRIAXONE/SWI 1gm 1 GM/10 ML SYR ONE (19:20)
--- NOTE | 2018-03-22 19:54 | P.HP ---
Certification for Inpatient Patient admitted to: Observation With expected LOS: <2 Midnights Practitioner: I am a practitioner with admitting privileges, knowledge of patient current condition, hospital course, and medical plan of care. Services: Services provided to patient in accordance with Admission requirements found in Title 42 Section 412.3 of the Code of Federal Regulations Patient History Date of Service: 03/22/18 Reason for admission: ureterolithiasis History of Present Illness: Mr Aden is a 58 years old male with history of CAD s/p CABG, ICD placement, HTN, who start with left flank pain yesterday morning. He came to ED and was diagnosed with ureterolithiasis, mild hydronephrosis on the left. He was discharged home with pain medication and advised to follow up with Dr Aguilar on Friday morning. However, the patient pain was not well controlled at home, despite the medication, so he came back to ED for different treatment option. The patient denied fever but has had chills and sweating episodes. He also had nausea but not vomiting. The pain is mostly localized in his right lower quadrant, 10/10 of intensity, colicky like. He has noticed some blood in his urine. WBC WNL, KUB today did not show the stone. Yesterday CT abd/pelvis consistent with 3 mm stone into the left ureter. Allergies No Known Allergies Allergy (Verified 09/09/17 00:51) Home medications list reviewed: Yes Home Medications: Atorvastatin 80 mg PO DAILY 11/29/12 Clopidogrel Bisulfate [Plavix*] 75 mg PO DAILY 07/07/17 Aspirin [Aspirin EC 81 MG] 81 mg PO DAILY #90 tablet. 07/08/17 Lisinopril 20 mg PO DAILY #90 tablet 09/10/17 - Past Medical/Surgical History Diabetic: No -: hypertension -: Coronary artery disease -: Carotid artery disease -: Peripheral arterial disease -: Bilateral knee replacements -: CABG -: Fem-pop bypass -: Carotid artery stent -: Cardiac catheterization -: tumor removed from spine - Family History Father -: Heart disease Brother -: Heart disease Notes: CABG x4 - Social History Smoking Status: Current every day smoker Counseled patient to stop smoking for: less than 10 minutes Smoking therapy provided: Yes Patient receptive to therapy: No Alcohol use: Yes CD- Drugs: No Caffeine use: Yes Place of Residence: Home Review of Systems 10-point ROS is otherwise unremarkable Physical Examination - Physical Exam General: Alert, In no apparent distress HEENT: Atraumatic, PERRLA, Mucous membr. moist/pink, EOMI, Sclerae nonicteric Neck: Supple, 2+ carotid pulse no bruit, No LAD, Without JVD or thyroid abnormality Respiratory: Clear to auscultation bilaterally, Normal air movement Cardiovascular: Regular rate/rhythm, Normal S1 S2 Gastrointestinal: Normal bowel sounds, Tenderness (RLQ, right flank) Musculoskeletal: No tenderness Integumentary: No rashes Neurological: Normal speech, Normal strength at 5/5 x4 extr, Normal tone, Normal affect Lymphatics: No axilla or inguinal lymphadenopathy - Studies Laboratory Data (last 24 hrs) 03/22/18 17:03: Creatinine 1.30 03/22/18 17:03: WBC 7.6 D, Hgb 15.4, Hct 45.2, Plt Count 234 03/22/18 17:03: Sodium 139, Potassium 3.7, BUN 20 H, Creatinine 1.30, Glucose 158 H, Total Bilirubin 0.4, AST 23, ALT 21, Alkaline Phosphatase 117, Amylase 37 , Lipase 131 Assessment and Plan - Problems (Diagnosis) (1) Ureterolithiasis Current Visit: Yes Status: Acute (2) Hydronephrosis Current Visit: Yes Status: Acute Qualifiers: Hydronephrosis type: unspecified Qualified Code(s): N13.30 - Unspecified hydronephrosis (3) CAD (coronary artery disease) Onset Date: 09/10/17 Current Visit: No Status: Acute Qualifiers: Coronary Disease-Associated Artery/Lesion type: bypass graft, autologous vein Associated angina: without angina Qualified Code(s): I25.810 - Atherosclerosis of coronary artery bypass graft(s) without angina pectoris (4) Hx of CABG Onset Date: 09/10/17 Current Visit: No Status: Chronic (5) Hypertension Onset Date: 09/10/17 Current Visit: No Status: Chronic Qualifiers: Hypertension type: essential hypertension (6) Tobacco abuse Onset Date: 09/10/17 Current Visit: No Status: Chronic - Plan The patient will be admitted to the hospital due to uncontrolled pain, secondary to ureterolithiasis. He is not toxic, however, has had chills at home with diaphoretic episodes. Will cover empirically with IV Rocephin, Dr Aguilar was consulted and will see the patient in AM. Will keep NPO after MN for potential invasive procedure. - Advance Directives Does patient have a Living Will: No Does patient have a Durable POA for Healthcare: No - Code Status/Comfort Care Code Status Assessed: Yes Code Status: Full Code
[2018-03-22] MEDS ORDERED: ACETAMINOPHEN 500 MG TAB PO PRN (20:37)
[2018-03-22] MEDS ORDERED: ONDANSETRON 4 MG/2 ML VIAL IV PRN (20:37)
[2018-03-22 21:09] VITALS: BMI 32.7
[2018-03-22] MEDS: KETOROLAC 30 MG/ML INJ IV PRN (21:27)
[2018-03-22] MEDS: NA CHLORIDE 0.9% 1,000 ML IV SCH (21:28)
[2018-03-22] MEDS: MORPHINE 2 MG/ML SYR IV PRN (23:34)
[2018-03-23] MEDS: NA CHLORIDE 0.9% 1,000 ML IV SCH ×2 (05:44→16:37)
[2018-03-23 05:48] LABS: Absolute Lymphocytes (CBC) 2.4 K/uL (0.7-4.9); Absolute Monocytes 0.8 K/uL (0.1-1.3); Absolute Neutrophil 3.3 K/uL (1.8-8.0); Basophils % 0.2 % (0-1.3); Eosinophils % 0.5 % (0-4.4); Hematocrit 42.3 % (39.6-49.0); Lymphocytes % 36.4 % (15.3-44.8); MCH 29.2 pg (27.0-35.0); MCV 84.3 fL (80-100); MPV 8.5 fL (7.6-11.3); Monocytes % 12.1 % (3.3-12.3); RBC Red Blood Cell Count 5.02 M/uL (4.33-5.43)
[2018-03-23 05:57] LABS: Potassium 4.1 mmol/L (3.5-5.1)
[2018-03-23] MEDS: MORPHINE 2 MG/ML SYR IV PRN (07:23)
[2018-03-23] MEDS ORDERED: CEFTRIAXONE 1 GM/NS 50 ML 1 GM/50 ML BAG IV SCH (09:00)
[2018-03-23] MEDS ORDERED: CEFTRIAXONE/SWI 1gm 1 GM/10 ML SYR IV SCH (09:00)
[2018-03-23] MEDS: KETOROLAC 30 MG/ML INJ IV PRN (11:55)
[2018-03-23] MEDS ORDERED: PROPOFOL 200 MG/20 ML VIAL IV ONE (13:03)
[2018-03-23] MEDS ORDERED: MIDAZOLAM HCL 2 MG/2 ML INJ ONE (13:04)
[2018-03-23] MEDS ORDERED: LIDOCAINE 2% MPF 5 ML VIAL ONE (13:04)
[2018-03-23] MEDS ORDERED: FENTANYL CITR 100 MCG/2 ML ONE (13:04)
[2018-03-23] MEDS ORDERED: ONDANSETRON HCL 40 MG/20 ML VIAL ONE (13:05)
[2018-03-23] MEDS ORDERED: GENTAMICIN 100 MG/100 ML BAG 100 MG/100 ML BAG IV ONE (13:18)
[2018-03-23] MEDS ORDERED: Ringers Lactate 1,000 ML IV ONE (13:18)
[2018-03-23] MEDS ORDERED: Mastisol Adhesive Liq ONE (13:55)
[2018-03-23 14:40] VITALS: O2SAT 96
--- NOTE | 2018-03-23 14:55 | RAD REPORT ---
EXAM DESCRIPTION: RAD - Urethrocystogrphy Retrograde - 03/23/2018 2:00 pm CLINICAL HISTORY: Fluoroscopic assisted left ureteral stent placement COMPARISON: CT study March 21. FINDINGS: Three Cine-loop sequences obtained during fluoroscopic assisted placement of a stent and r etrograde ureterogram. Images show placement of the stent. The obstructing mid left ureter calcification not clearly defined on these images. Fluoro time was approximately 40 seconds. Calculated dose was 20.3 mGy. IMPRESSION: Fluoroscopic assisted placement of a left ureteral stent as detailed.
[2018-03-23 16:37] VITALS: BP 158/71; TEMP 96.8
--- NOTE | 2018-03-23 16:46 | CON ---
History Of Present Illness: Mr. 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 He came back yesterday. KUB did not see the stone, but he is still having pain, significant enough. [facility] He was unable to tolerate pain medication in the ER. Because his stone was difficult to see by KUB, difficult to do an ESWL. I gave him the option of placing a stent for a week, then removing th e stent, and hopefully could pass this stone versus doing a cysto retrograde, ESWL tomorrow, and plac ing a stent. Anyway, he wishes to have a stent placed, go home, and then have it removed in a week. 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 Home Medications: Atorvastatin, Plavix, aspirin, lisinopril. Allergies: NO KNOWN DRUG ALLERGIES. Family History: Father had heart disease. Brother, heart disease, CABG x4. Social History: Current everyday smoker. Alcohol use, yes. Drug use, no. Caffeine use, yes. Resi gabrielle at home. Review of Systems: Ten-point review of system is otherwise unremarkable. Physical Examination: General: Alert. Waiting in bed. Said he was waiting for me. HEENT: Atraumatic, normocephalic. Neck: Supple. Respiratory: Clear. Cardiovascular: S1, S2. Gastrointestinal: Bowel sounds. Musculoskeletal: No tenderness. Skin: No rashes. Neurologic: Normal speech. Lymphatic: No lymphadenopathy. Studies: Creatinine 1.3. White count 7.6, H and H 15, hematocrit 45, and count 234. Sodium 139, po tassium 3.1, BUN 20, creatinine 1.3, glucose 158, total bilirubin 0.4, AST 23, ALT 21, alkaline phosp hatase 117, amylase 37, and lipase 31. Assessment And Plan: Urolithiasis, 3 mm on the left at L2. Plan: Cysto and stent placement. Hopefully, the patient can go home from here and follow up with me in a week to have his stent removed. AMARI/KEATON Voice ID: [id number] Report ID: [id number]
== END 2018-03-23 18:44 | disposition home or self-care (01) ==
LOC: ER 16:32 → ERHOLD 19:34 → 4TH 20:48
PROVIDERS: ADMIT Internal Medicine; ATTEND Internal Medicine
PROC: 0T778DZ Dilation of Left Ureter with Intraluminal Device, Via Natural or Artificial Opening Endoscopic (ICD-10-PCS; principal; 2018-03-23 13:00)
DX: N13.2 Hydronephrosis with renal and ureteral calculous obstruction (principal); I25.10 Atherosclerotic heart disease of native coronary artery without angina pectoris; I10 Essential (primary) hypertension; F17.210 Nicotine dependence, cigarettes, uncomplicated; Z96.653 Presence of artificial knee joint, bilateral; Z95.1 Presence of aortocoronary bypass graft
CPT/HCPCS: 36415; 51610; 52332; 74018; 74450; 80048 ×2; 80076; 82150; 83690; 85025 ×2; 96361; 96365; 96375; 99285; J0696 ×2; J1580; J2250; J2270 ×2; J2405 ×2; J3010 ×2; J3475; J7030 ×2; Q9967; 81003; 81015; G0378

== ENCOUNTER 2018-05-22 21:38 | Emergency (ER) | payer MEDICARE ==
--- OUTSIDE RECORDS SUMMARY | 2018-05-22 21:41 | XMS REPORT | Clinical Summary ---
:1960 Author Organization [facility] Address [address] [place] [address] Phone Care Team Providers Name Role Phone Unavailable Primary Care Provider Unavailable Allergies No Known Allergies Current Medications Prescription Sig. Disp. Refills Start Date End Date Status clopidogrel (PLAVIX) 75 mg Take 75 mg by Active tabletIndications: mouth daily. Coronary artery disease of bypass graft of [place] heart with stable angina pectoris (HCC) aspirin 81 MG EC Take 81 mg by Active tabletIndications: mouth daily. Coronary artery disease of bypass graft of [place] heart with stable angina pectoris (HCC) Hospital, Clinic, or Other Ordered Dose Route Frequency Start Date End Date Status Facility Administered Medication chlorhexidine (HIBICLENS) Top Once 07/16/2017 Active external liquid 4%Indications: Coronary artery disease of bypass graft of [place] heart with stable angina pectoris (HCC) chlorhexidine (HIBICLENS) Top Once 07/16/2017 Active external liquid 4%Indications: Coronary artery disease of bypass graft of [place] heart with stable angina pectoris (HCC) Active Problems Problem Noted Date Coronary artery disease Hypertension Peripheral vascular disease (HCC) Hyperlipidemia Myocardial infarction (HCC) Encounters Date Type Specialty Care Team Description 07/15/2017 Office Visit Cardiology Kristofer Mcclain MD Coronary artery disease of bypass graft of [place] heart with stable angina pectoris (HCC) (Primary Dx);Coronary artery disease involving [place] coronary artery of [place] heart with unstable angina pectoris (HCC);Essential hypertension;Peripheral vascular disease (HCC);Hyperlipidemia, unspecified hyperlipidemia type after 05/21/2017 Social History Tobacco Use Types Packs/Day Years Used Date Current Every Day Smoker Cigarettes 1 30 Smokeless Tobacco: Never Used Tobacco Cessation: Ready to Quit: Yes; Counseling Given: Yes Alcohol Use Drinks/Week oz/Week Comments Yes social Sex Assigned at Date Recorded Not on file Last Filed Vital Signs Vital Sign Reading Time Taken Blood Pressure 117/64 07/15/2017 7:25 AM CERTIFIED REGISTERED NURSE ANESTHETIST Pulse 60 07/15/2017 7:25 AM CERTIFIED REGISTERED NURSE ANESTHETIST Temperature 35.8 C (96.4 F) 07/15/2017 7:25 AM CERTIFIED REGISTERED NURSE ANESTHETIST Respiratory Rate 14 07/15/2017 7:25 AM CERTIFIED REGISTERED NURSE ANESTHETIST Oxygen Saturation 99% 07/15/2017 7:25 AM CERTIFIED REGISTERED NURSE ANESTHETIST Inhaled Oxygen Concentration - - Weight 106.6 kg (235 lb) 07/15/2017 7:25 AM CERTIFIED REGISTERED NURSE ANESTHETIST Height 180.3 cm (5' 11") 07/15/2017 7:25 AM CERTIFIED REGISTERED NURSE ANESTHETIST Body Mass Index 32.78 07/15/2017 7:25 AM CERTIFIED REGISTERED NURSE ANESTHETIST Plan of Treatment Health Maintenance Due Date Last Done Comments INFLUENZA VACCINE 06/08/2018 Results Not on fileafter 05/21/2017
[2018-05-22 22:34] LABS: Absolute Lymphocytes (CBC) 3.1 K/uL (0.7-4.9); Absolute Monocytes 0.8 K/uL (0.1-1.3); Absolute Neutrophil 3.6 K/uL (1.8-8.0); Basophils % 0.5 % (0-1.3); Eosinophils % 0.5 % (0-4.4); Hematocrit 43.4 % (39.6-49.0); Lymphocytes % 40.5 % (15.3-44.8); MCH 29.5 pg (27.0-35.0); MCV 85.9 fL (80-100); MPV 8.4 fL (7.6-11.3); Monocytes % 11.1 % (3.3-12.3); RBC Red Blood Cell Count 5.06 M/uL (4.33-5.43)
[2018-05-22 22:46] LABS: Protime INR 1.04
[2018-05-22 23:02] LABS: ALT/SGPT 22 U/L (12-78); AST/SGOT 15 U/L (15-37); Albumin 3.4 g/dL (3.4-5.0); Alkaline Phosphatase 106 U/L (45-117); BUN Blood Urea Nitrogen 21 mg/dL (7-18); Bicarbonate 25 mmol/L (21-32); Bilirubin Direct < 0.1 mg/dL (0-0.2); Bilirubin Total 0.3 mg/dL (0.2-1.0); Glucose Level 210 mg/dL (74-106); NT PRO-BNP 419 pg/mL (<125); Potassium 3.8 mmol/L (3.5-5.1); Protein, Total 7.6 g/dL (6.4-8.2); Sodium Level 136 mmol/L (136-145); Troponin (Emerg Dept Use Only) < 0.02 ng/mL (0.0-0.045)
[2018-05-23 00:52] LABS: Urine Blood TRACE (NEG); Urine Glucose 1+ (NEG); Urine Protein NEGATIVE (NEG); Urine Specific Gravity 1.015 (1.005-1.030); Urine pH 6.5 (5.0-7.0)
--- NOTE | 2018-05-23 01:15 | EDPHYS ---
Physician Documentation [facility] Name: Pool Aden Age: 58 yrs Sex: Male : 1960 Arrival Date: 05/22/2018 Time: 21:39 Bed 8 Private MD: J Luis Gleason ED Physician Tod Steven HPI: 05/23 03:02 This 58 yrs old Male presents to ER via Ambulatory with complaints of sweats, gs Doesn't Feel Right. 03:02 Onset: The symptoms/episode began/occurred gradually, just prior to arrival. Severity gs of symptoms: At their worst the symptoms were moderate in the emergency department the symptoms have improved moderately. The patient has not experienced similar symptoms in the past. says was feeling very bad nauseated sweating chills. Historical: - Allergies: 05/22 21:45 No Known Allergies; aj - Home Meds: 21:45 aspirin 81 mg Oral TbEC 1 tab once daily [Active]; atorvastatin 80 mg Oral tab 1 tab aj once daily [Active]; lisinopril 10 mg Oral tab 1 tab once daily [Active]; metoprolol tartrate 100 mg Oral tab 1 tab 2 times per day [Active]; Pepcid 20 mg Oral tab 1 tab every 12 hours [Active]; Plavix 75 mg Oral tab 1 tab once daily [Active]; - PMHx: 21:45 Hyperlipidemia; Hypertension; pacemaker/defibrillator; aj - PSHx: 21:45 CABG; Heart stents; aj - Immunization history:: Adult Immunizations up to date. - Social history:: Smoking status: Patient uses tobacco products, smokes two packs cigarettes per day. - Ebola Screening: : Patient negative for fever greater than or equal to 101.5 degrees Fahrenheit, and additional compatible Ebola Virus Disease symptoms Patient denies exposure to infectious person Patient denies travel to an Ebola-affected area in the 21 days before illness onset No symptoms or risks identified at this time. ROS: 05/23 03:02 Constitutional: Positive for chills, fatigue, malaise. gs Cardiovascular: Negative for chest pain, palpitations. Respiratory: Negative for pleurisy, shortness of breath. Neuro: Positive for near syncope. All other systems are negative. Exam: 03:02 Head/Face: Normocephalic, atraumatic. Eyes: Pupils equal round and reactive to light, gs extra-ocular motions intact. Lids and lashes normal. Conjunctiva and sclera are non-icteric and not injected. Cornea within normal limits. Periorbital areas with no swelling, redness, or edema. ENT: Nares patent. No nasal discharge, no septal abnormalities noted. Tympanic membranes are normal and external auditory canals are clear. Oropharynx with no redness, swelling, or masses, exudates, or evidence of obstruction, uvula midline. Mucous membranes moist. Neck: Trachea midline, no thyromegaly or masses palpated, and no cervical lymphadenopathy. Supple, full range of motion without nuchal rigidity, or vertebral point tenderness. No Meningismus. Chest/axilla: Normal chest wall appearance and motion. Nontender with no deformity. No lesions are appreciated. 03:02 Respiratory: Lungs have equal breath sounds bilaterally, clear to auscultation and percussion. No rales, rhonchi or wheezes noted. No increased work of breathing, no retractions or nasal flaring. Abdomen/GI: Soft, non-tender, with normal bowel sounds. No distension or tympany. No guarding or rebound. No evidence of tenderness throughout. Back: No spinal tenderness. No costovertebral tenderness. Full range of motion. Skin: Warm, dry with normal turgor. Normal color with no rashes, no lesions, and no evidence of cellulitis. MS/ Extremity: Pulses equal, no cyanosis. Neurovascular intact. Full, normal range of motion. Neuro: Awake and alert, GCS 15, oriented to person, place, time, and situation. Cranial nerves II-XII grossly intact. Motor strength 5/5 in all extremities. Sensory grossly intact. Cerebellar exam normal. Normal gait. 03:02 Constitutional: The patient appears in no acute distress, alert, awake. 03:02 Cardiovascular: Rate: normal, Rhythm: regular, Pulses: no pulse deficits are appreciated, Heart sounds: murmur, systolic, grade 2 over 6, heard in the aortic area, heard in the mitral area. 03:02 ECG was reviewed by the Attending Physician. Vital Signs: 05/22 21:45 BP 127 / 77; Pulse 90; Resp 16; Temp 97.4; Pulse Ox 98% on R/A; Weight 106.59 kg; aj Height 5 ft. 11 in. (180.34 cm); 23:05 BP 131 / 69; Pulse 68; Resp 18; Pulse Ox 99% on R/A; tl2 23:47 BP 109 / 55; Pulse 68; Resp 18; Pulse Ox 97% on R/A; tl2 05/23 01:19 BP 137 / 69; Pulse 64; Resp 20; Pulse Ox 98% on R/A; tl2 05/22 21:45 Body Mass Index 32.78 (106.59 kg, 180.34 cm) aj MDM: 05/22 22:12 Patient medically screened. 05/23 03:02 Differential Diagnosis cad, mi, sepsis. Data reviewed: vital signs, nurses notes. Counseling: I had a detailed discussion with the patient and/or guardian regarding: lab results, radiology results, the need for outpatient follow up, to return to the emergency department if symptoms worsen or persist or if there are any questions or concerns that arise at home. Response to treatment: the patient's symptoms have resolved after treatment, the patient's condition has returned to base line. 05/22 22:05 Order name: Basic Metabolic Panel; Complete Time: 23:08 05/22 22:05 Order name: CBC with Diff; Complete Time: 23:08 05/22 22:05 Order name: LFT's; Complete Time: 23:08 05/22 22:05 Order name: Magnesium; Complete Time: 23:08 05/22 22:05 Order name: NT PRO-BNP; Complete Time: 23:08 05/22 22:05 Order name: PT-INR; Complete Time: 23:08 05/22 22:05 Order name: Troponin (emerg Dept Use Only); Complete Time: 23:08 05/22 22:05 Order name: XRAY Chest (1 view) 05/22 22:05 Order name: EKG; Complete Time: 22:06 05/22 22:05 Order name: Cardiac monitoring; Complete Time: 22:08 05/22 22:05 Order name: EKG - Nurse/Tech; Complete Time: 22:08 05/22 23:49 Order name: Troponin (emerg Dept Use Only) 05/22 23:49 Order name: Troponin (Emerg Dept Use Only); Complete Time: 00:51 EDMS 05/23 00:33 Order name: Urine Dipstick--Ancillary (enter results); Complete Time: 01:14 ms 05/22 22:05 Order name: IV Saline Lock; Complete Time: 22:08 gs 05/22 22:05 Order name: Labs collected and sent; Complete Time: 22: 05/22 22:05 Order name: O2 Per Protocol; Complete Time: 22:08 05/22 22:05 Order name: O2 Sat Monitoring; Complete Time: 22:08 05/22 22:05 Order name: Urine Dipstick-Ancillary (obtain specimen); Complete Time: 00:20 gs EC:02 Rate is 75 beats/min. Rhythm is regular. OH interval is normal. QRS interval is gs prolonged. T waves are Normal. No ST changes noted. Clinical impression: NSR w/ Non-specific ST/T Changes. No change from previous ECG on September 10, 2017. Interpreted by me. Administered Medications: No medications were administered Disposition: 05/23/18 01:14 Discharged to Home. Impression: Weakness. - Condition is Stable. - Discharge Instructions: Weakness, Fatigue. - Medication Reconciliation Form, Thank You Letter, Antibiotic Education, Prescription Opioid Use form. - Follow up: J Luis Gleason MD; When: 2 - 3 days; Reason: Re-evaluation by your physician. Signatures: Dispatcher [employer] EDSavana Huizar RN RN aj Knox, Taylor, RN RN tl2 Tod Steven MD MD Corrections: (The following items were deleted from the chart) 01:22 01:14 05/23/2018 01:14 Discharged to Home. Impression: Weakness. Condition is Stable. tl2 Forms are Medication Reconciliation Form, Thank You Letter, Antibiotic Education, Prescription Opioid Use. Follow up: J Luis Gleason; When: 2 - 3 days; Reason: Re-evaluation by your physician. gs
--- NOTE | 2018-05-23 01:15 | ER ---
Nurse's Notes [facility] Name: Pool Aden Age: 58 yrs Sex: Male : 1960 Arrival Date: 05/22/2018 Time: 21:39 Bed 8 Private MD: J Luis Gleason Diagnosis: Weakness Presentation: 05/22 21:43 Presenting complaint: Patient states: Reports feeling flushed and diaphoretic after aj getting out of the shower at 2100 tonight. Patient reports "not feeling right". Transition of care: patient was not received from another setting of care. Onset of symptoms was May 22, 2018. Risk Assessment: Do you want to hurt yourself or someone else? Patient reports no desire to harm self or others. Initial Sepsis Screen: Does the patient meet any 2 criteria? No. Patient's initial sepsis screen is negative. Does the patient have a suspected source of infection? No. Patient's initial sepsis screen is negative. Care prior to arrival: None. 21:43 Method Of Arrival: Ambulatory aj 21:43 Acuity: SUSAN 3 aj Triage Assessment: 21:45 General: Appears in no apparent distress. comfortable, Behavior is calm, cooperative, aj appropriate for age. Pain: Denies pain. Neuro: Level of Consciousness is awake, alert, obeys commands, Oriented to person, place, time, situation, Appropriate for age. Cardiovascular: Reports diaphoresis, lightheadedness, nausea. Respiratory: Airway is patent Respiratory effort is even, unlabored, Respiratory pattern is regular, symmetrical. Derm: Skin is intact, is healthy with good turgor, Skin is pink, warm \\T\\ dry. normal. Historical: - Allergies: 21:45 No Known Allergies; aj - Home Meds: 21:45 aspirin 81 mg Oral TbEC 1 tab once daily [Active]; atorvastatin 80 mg Oral tab 1 tab aj once daily [Active]; lisinopril 10 mg Oral tab 1 tab once daily [Active]; metoprolol tartrate 100 mg Oral tab 1 tab 2 times per day [Active]; Pepcid 20 mg Oral tab 1 tab every 12 hours [Active]; Plavix 75 mg Oral tab 1 tab once daily [Active]; - PMHx: 21:45 Hyperlipidemia; Hypertension; pacemaker/defibrillator; aj - PSHx: 21:45 CABG; Heart stents; aj - Immunization history:: Adult Immunizations up to date. - Social history:: Smoking status: Patient uses tobacco products, smokes two packs cigarettes per day. - Ebola Screening: : Patient negative for fever greater than or equal to 101.5 degrees Fahrenheit, and additional compatible Ebola Virus Disease symptoms Patient denies exposure to infectious person Patient denies travel to an Ebola-affected area in the 21 days before illness onset No symptoms or risks identified at this time. Screenin:04 Abuse screen: Denies threats or abuse. Nutritional screening: No deficits noted. tl2 Tuberculosis screening: No symptoms or risk factors identified. Fall Risk None identified. Assessment: 21:58 General: Appears in no apparent distress. uncomfortable, Behavior is cooperative, tl2 appropriate for age, anxious. General: Reports feeling flushed and doesn't feel "right". Pain: Denies pain. Neuro: Level of Consciousness is awake, alert, obeys commands, Oriented to person, place, time, situation. Cardiovascular: Denies chest pain, Rhythm is sinus rhythm. 22:04 Respiratory: Airway is patent Respiratory effort is even, unlabored, Respiratory tl2 pattern is regular, symmetrical. GI: No signs and/or symptoms were reported involving the gastrointestinal system. : No signs and/or symptoms were reported regarding the genitourinary system. Derm: Skin is pink, warm \\T\\ dry. 23:05 Reassessment: Patient appears in no apparent distress at this time. Patient and/or tl2 family updated on plan of care and expected duration. Pain level reassessed. Patient is alert, oriented x 3, equal unlabored respirations, skin warm/dry/pink. 23:47 Reassessment: Patient appears in no apparent distress at this time. Patient and/or tl2 family updated on plan of care and expected duration. Pain level reassessed. Patient is alert, oriented x 3, equal unlabored respirations, skin warm/dry/pink. Awaiting further orders. 05/23 00:20 Reassessment: Repeat trop sent to lab. Awaiting results before dispo. tl2 00:52 Reassessment: MD notified of negative repeat troponin. Awaiting dispo orders. tl2 01:19 Reassessment: Patient appears in no apparent distress at this time. Patient and/or tl2 family updated on plan of care and expected duration. Pain level reassessed. Patient is alert, oriented x 3, equal unlabored respirations, skin warm/dry/pink. Pt verbalized understanding of discharge instructions, need for follow up Patient states feeling better. Vital Signs: 05/22 21:45 BP 127 / 77; Pulse 90; Resp 16; Temp 97.4; Pulse Ox 98% on R/A; Weight 106.59 kg; aj Height 5 ft. 11 in. (180.34 cm); 23:05 BP 131 / 69; Pulse 68; Resp 18; Pulse Ox 99% on R/A; tl2 23:47 BP 109 / 55; Pulse 68; Resp 18; Pulse Ox 97% on R/A; tl2 05/23 01:19 BP 137 / 69; Pulse 64; Resp 20; Pulse Ox 98% on R/A; tl2 05/22 21:45 Body Mass Index 32.78 (106.59 kg, 180.34 cm) aj ED Course: 05/22 21:39 Patient arrived in ED. am2 21:39 J Luis Gleason MD is Private Physician. am2 21:45 Triage completed. aj 21:45 Arm band placed on left wrist. Patient placed in an exam room. aj 21:57 Coco Aguirre, RN is Primary Nurse. tl2 22:00 Patient has correct armband on for positive identification. Bed in low position. Call tl2 light in reach. Side rails up X 1. 22:00 Inserted saline lock: 20 gauge in right antecubital area, using aseptic technique. tl2 Blood collected. 22:05 Tod Steven MD is Attending Physician. gs 22:19 XRAY Chest (1 view) In Process Unspecified. EDMS 22:20 X-ray completed. Portable x-ray completed in exam room. Patient tolerated procedure bb2 well. 05/23 00:20 Troponin (emerg Dept Use Only) Sent. tl2 01:14 J Luis Gleason MD is Referral Physician. gs 01:20 No provider procedures requiring assistance completed. IV discontinued, intact, tl2 bleeding controlled, No redness/swelling at site. Pressure dressing applied. Administered Medications: No medications were administered Outcome: 01:14 Discharge ordered by . gs 01:20 Discharged to home ambulatory, with family. tl2 01:20 Condition: stable 01:20 Discharge instructions given to patient, family, Instructed on discharge instructions, follow up and referral plans. Demonstrated understanding of instructions, follow-up care. 01:22 Patient left the ED. tl2 Signatures: Dispatcher [employer] EDSavana Huizar RN RN aj Knox, Taylor, RN RN tl2 Savana Jarquin am2 Tod Steven MD MD Adilene Montero 2 Corrections: (The following items were deleted from the chart) 05/22 22:06 21:58 Cardiovascular: Denies chest pain, tl2 tl2
[2018-05-23 01:35] VITALS: TEMP 97.4
[2018-05-23 01:38] VITALS: BP 137/69; O2SAT 98
--- NOTE | 2018-05-23 07:53 | RAD REPORT ---
EXAM DESCRIPTION: Brain Single View05/22/2018 10:19 pm CLINICAL HISTORY: Chest pain COMPARISON: September 2017 FINDINGS: The lungs appear clear of acute infiltrate. The heart is mildly enlarged. Pacemaker leads are in place. Postsurgical changes involve the chest IMPRESSION: No acute abnormalities displayed
--- NOTE | 2018-05-23 12:09 | EKG ---
Test Date: 2018-05-22 Test Time: 21:53:55 Sign Erector: BP MEASUREMENT RESULTS: Intervals: Rate: 75 CA: 174 QRSD: 116 QT: 412 QTc: 460 [place]: P: 36 CA: 174 QRS: 56 T: 120 INTERPRETIVE STATEMENTS: Normal sinus rhythm Incomplete left bundle branch block Nonspecific ST abnormality Abnormal QRS-T angle, consider primary T wave abnormality Abnormal ECG Compared to ECG 09/10/2017 06:53:51 Left bundle-branch block now present ST (T wave) deviation now present Atrial-paced complex(es) or rhythm no longer present Possible ischemia no longer present Prolonged QT interval no longer present T-wave abnormality still present Electronically Signed On 05-23-18 12:07:24 CDT by Matty Alejandro
== END 2018-05-23 01:22 | disposition home or self-care (01) ==
LOC: ER 21:38
DX: R53.1 Weakness (principal); E78.00 Pure hypercholesterolemia, unspecified; I10 Essential (primary) hypertension; Z95.0 Presence of cardiac pacemaker; Z95.1 Presence of aortocoronary bypass graft
CPT/HCPCS: 36415; 71045; 80048; 80076; 81003; 83735; 83880; 84484; 85025; 85610; 93005; 99284

== ENCOUNTER 2018-06-26 20:35 | Emergency (ER) | payer MEDICARE ==
--- OUTSIDE RECORDS SUMMARY | 2018-06-26 20:37 | XMS REPORT | Clinical Summary ---
:1960 Author Organization [facility] Address [address] [place] [address] Phone Care Team Providers Name Role Phone Unavailable Primary Care Provider Unavailable Allergies No Known Allergies Current Medications Prescription Sig. Disp. Refills Start Date End Date Status clopidogrel (PLAVIX) 75 mg Take 75 mg by Active tabletIndications: mouth daily. Coronary artery disease of bypass graft of [place] heart with stable angina pectoris (HCC) aspirin 81 MG EC Take 81 mg by Active tabletIndications: mouth daily. Coronary artery disease of bypass graft of [place] heart with stable angina pectoris (HCC) Hospital, Clinic, or Other Ordered Dose Route Frequency Start Date End Date Status Facility Administered Medication chlorhexidine (HIBICLENS) Top Once 07/16/2017 Active external liquid 4%Indications: Coronary artery disease of bypass graft of [place] heart with stable angina pectoris (HCC) chlorhexidine (HIBICLENS) Top Once 07/16/2017 Active external liquid 4%Indications: Coronary artery disease of bypass graft of [place] heart with stable angina pectoris (HCC) Active Problems Problem Noted Date Coronary artery disease Hypertension Peripheral vascular disease (HCC) Hyperlipidemia Myocardial infarction (HCC) Encounters Date Type Specialty Care Team Description 07/15/2017 Office Visit Cardiology Kristofer Mcclain MD Coronary artery disease of bypass graft of [place] heart with stable angina pectoris (HCC) (Primary Dx);Coronary artery disease involving [place] coronary artery of [place] heart with unstable angina pectoris (HCC);Essential hypertension;Peripheral vascular disease (HCC);Hyperlipidemia, unspecified hyperlipidemia type after 06/25/2017 Social History Tobacco Use Types Packs/Day Years Used Date Current Every Day Smoker Cigarettes 1 30 Smokeless Tobacco: Never Used Tobacco Cessation: Ready to Quit: Yes; Counseling Given: Yes Alcohol Use Drinks/Week oz/Week Comments Yes social Sex Assigned at Date Recorded Not on file Last Filed Vital Signs Vital Sign Reading Time Taken Blood Pressure 117/64 07/15/2017 7:25 AM REPERTOIRE MANAGER Pulse 60 07/15/2017 7:25 AM REPERTOIRE MANAGER Temperature 35.8 C (96.4 F) 07/15/2017 7:25 AM REPERTOIRE MANAGER Respiratory Rate 14 07/15/2017 7:25 AM REPERTOIRE MANAGER Oxygen Saturation 99% 07/15/2017 7:25 AM REPERTOIRE MANAGER Inhaled Oxygen Concentration - - Weight 106.6 kg (235 lb) 07/15/2017 7:25 AM REPERTOIRE MANAGER Height 180.3 cm (5' 11") 07/15/2017 7:25 AM REPERTOIRE MANAGER Body Mass Index 32.78 07/15/2017 7:25 AM REPERTOIRE MANAGER Plan of Treatment Health Maintenance Due Date Last Done Comments INFLUENZA VACCINE 06/08/2018 Results Not on fileafter 06/25/2017
--- NOTE | 2018-06-26 21:09 | EDPHYS ---
Physician Documentation [facility] Name: Pool Aden Age: 58 yrs Sex: Male : 1960 Arrival Date: 06/26/2018 Time: 20:38 Bed 5 Private MD: J Luis Gleason ED Physician Rubio Gutierrez HPI: 06/26 21:03 This 58 yrs old Male presents to ER via Ambulatory with complaints of Chest sandeep Pain, PREVIOUS HEART ATTACK. 21:03 The patient or guardian reports chest pain that is located primarily in the substernal sandeep area, anterior chest wall, left. Onset: just prior to arrival. The pain does not radiate. Associated signs and symptoms: The patient has no apparent associated signs or symptoms. The chest pain is described as a heaviness, a pressure. Modifying factors: The symptoms are alleviated by nothing. the symptoms are aggravated by nothing. Severity of pain: At its worst the pain was moderate in the emergency department the pain has improved moderately. The patient has experienced similar episodes in the past, multiple times. 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 - Social history:: Smoking status: Patient uses tobacco products, smokes two packs cigarettes per day. - Ebola Screening: : No symptoms or risks identified at this time. - Family history:: not pertinent. ROS: 21:03 Constitutional: Negative for fever, chills, and weight loss, Eyes: Negative for injury, sandeep pain, redness, and discharge, ENT: Negative for injury, pain, and discharge, Neck: Negative for injury, pain, and swelling, Respiratory: Negative for shortness of breath, cough, wheezing, and pleuritic chest pain, Abdomen/GI: Negative for abdominal pain, nausea, vomiting, diarrhea, and constipation, Back: Negative for injury and pain, : Negative for injury, bleeding, discharge, and swelling, MS/Extremity: Negative for injury and deformity, Skin: Negative for injury, rash, and discoloration, Neuro: Negative for headache, weakness, numbness, tingling, and seizure, Psych: Negative for depression, anxiety, suicide ideation, homicidal ideation, and hallucinations, Allergy/Immunology: Negative for hives, rash, and allergies, Endocrine: Negative for neck swelling, polydipsia, polyuria, polyphagia, and marked weight changes, Hematologic/Lymphatic: Negative for swollen nodes, abnormal bleeding, and unusual bruising. 21:03 Cardiovascular: Positive for chest pain, of the left clavicle and anterior aspect of left upper chest. Exam: 21:03 Constitutional: This is a well developed, well nourished patient who is awake, alert, sandeep and in no acute distress. Head/Face: Normocephalic, atraumatic. Eyes: Pupils equal round and reactive to light, extra-ocular motions intact. Lids and lashes normal. Conjunctiva and sclera are non-icteric and not injected. Cornea within normal limits. Periorbital areas with no swelling, redness, or edema. ENT: Nares patent. No nasal discharge, no septal abnormalities noted. Tympanic membranes are normal and external auditory canals are clear. Oropharynx with no redness, swelling, or masses, exudates, or evidence of obstruction, uvula midline. Mucous membranes moist. Neck: Trachea midline, no thyromegaly or masses palpated, and no cervical lymphadenopathy. Supple, full range of motion without nuchal rigidity, or vertebral point tenderness. No Meningismus. Chest/axilla: Normal chest wall appearance and motion. Nontender with no deformity. No lesions are appreciated. Cardiovascular: Regular rate and rhythm with a normal S1 and S2. No gallops, murmurs, or rubs. Normal PMI, no JVD. No pulse deficits. Respiratory: Lungs have equal breath sounds bilaterally, clear to auscultation and percussion. No rales, rhonchi or wheezes noted. No increased work of breathing, no retractions or nasal flaring. Abdomen/GI: Soft, non-tender, with normal bowel sounds. No distension or tympany. No guarding or rebound. No evidence of tenderness throughout. Back: No spinal tenderness. No costovertebral tenderness. Full range of motion. Male : Normal genitalia with no discharge or lesions. Skin: Warm, dry with normal turgor. Normal color with no rashes, no lesions, and no evidence of cellulitis. MS/ Extremity: Pulses equal, no cyanosis. Neurovascular intact. Full, normal range of motion. Neuro: Awake and alert, GCS 15, oriented to person, place, time, and situation. Cranial nerves II-XII grossly intact. Motor strength 5/5 in all extremities. Sensory grossly intact. Cerebellar exam normal. Normal gait. Psych: Awake, alert, with orientation to person, place and time. Behavior, mood, and affect are within normal limits. Vital Signs: 20:40 BP 150 / 77; Pulse 86; Resp 18; Temp 97.4; Pulse Ox 99% on R/A; Weight 108.86 kg; aa1 Height 5 ft. 11 in. (180.34 cm); Pain 2/10; 21:41 BP 140 / 67; Pulse 73; Resp 18; Pulse Ox 99% on R/A; ea 22:00 BP 138 / 70; Pulse 74; Resp 18; Pulse Ox 99% ; ea 23:50 BP 138 / 68; Pulse 70; Resp 18; Temp 98; Pulse Ox 99% on R/A; ea 20:40 Body Mass Index 33.47 (108.86 kg, 180.34 cm) aa1 MDM: 20:55 Patient medically screened. [facility] 21:09 Data reviewed: vital signs, nurses notes, lab test result(s), EKG, radiologic studies, sandeep plain films. 06/26 21: Order name: Basic Metabolic Panel; Complete Time: 22:23 [facility] 06/26 21: Order name: CBC with Diff [facility] 06/26 21: Order name: LFT's; Complete Time: 22:23 [facility] 06/26 21: Order name: Magnesium; Complete Time: 22:23 [facility] 06/26 21: Order name: NT PRO-BNP; Complete Time: 22:23 [facility] 06/26 21: Order name: PT-INR; Complete Time: 21:46 [facility] 06/26 21: Order name: Troponin (emerg Dept Use Only); Complete Time: 22: [facility] 06/26 21: Order name: XRAY Chest (1 view); Complete Time: : [facility] 06/26 21: Order name: Lipase; Complete Time: : [facility] 06/26 21:00 Order name: EKG; Complete Time: 21: [facility] 06/26 21: Order name: EKG - Nurse/Tech; Complete Time: 21: [facility] 06/26 21: Order name: EKG; Complete Time: 21: [facility] 06/26 21: Order name: Cardiac monitoring; Complete Time: : [facility] 06/26 21: Order name: EKG - Nurse/Tech; Complete Time: : [facility] 06/26 21: Order name: IV Saline Lock; Complete Time: : [facility] 06/26 21: Order name: Labs collected and sent; Complete Time: : [facility] 06/26 21: Order name: O2 Per Protocol; Complete Time: : [facility] 06/26 Order name: O2 Sat Monitoring; Complete Time: : [facility] Administered Medications: 21:30 Drug: Heparin (SD-Bolus No thrombolytic) - HEParin 60 units/kg {Co-Signature: josey (Tomas Pierre RN).} Route: IVP; Site: right wrist; 06/27 00:00 Follow up: Response: No adverse reaction 06/26 21:30 Drug: Heparin (SD Drip) 12 units/kg/hr - (HEParin 57343 units, D5W 500 ml) {Co-Signature: josey (Tomas Pierre RN).} Route: IV; Rate: calculated rate; Site: right wrist; 06/27 00:00 Follow up: Response: No adverse reaction; IV Status: Infusion continued upon transfer 06/26 21:30 Drug: Lopressor 25 mg Route: PO; ea 23:00 Follow up: Response: No adverse reaction ea 21:38 Drug: morphine 4 mg Route: IVP; Site: right hand; ea 22:00 Follow up: Response: No adverse reaction ea 21:39 Drug: Zofran 4 mg Route: IVP; Site: right wrist; ea 22:00 Follow up: Response: No adverse reaction ea 21:39 Drug: Pepcid 20 mg Route: IVP; Site: right wrist; ea 06/27 01:17 Follow up: Response: No adverse reaction ea 06/26 21:48 Not Given (Duplicate Order): NS 0.9% 1000 ml IV at 125 ml/hr continuous sandeep 23:19 Not Given (Hemodynamic Parameters): Lopressor 2.5 mg IVP once; Hold for SBP <100 or HR ea <60. 23:19 Not Given (Hemodynamic Parameters): Lopressor 2.5 mg IVP once; Hold for SBP <100 or HR ea <60. Disposition: 06/26/18 21:[address] [facility]. Diagnosis are Angina pectoris, Other chest pain, Essential (primary) hypertension, Unspecified kidney failure. - Reason for transfer: Higher level of care. - Accepting physician is to [facility]. - Condition is Stable. - Problem is new. - Symptoms have improved. Signatures: Dispatcher [employer] EDMS Deja Esquivel RN RN aa1 Anderson, Corey, MD MD cha Antunez, Elena, RN RN ea Alex Ortiz RN ao Corrections: (The following items were deleted from the chart) 21: 21:08 06/26/2018 21:[address] [facility]. Diagnosis is sandeep Angina pectoris; Other chest pain. Reason for transfer: Higher level of care. Accepting physician is to [facility]. Condition is Stable. Problem is new. Symptoms have improved. sandeep :23 21:08 06/26/2018 21:[address] [facility]. Diagnosis is sandeep Angina pectoris; Other chest pain; Essential (primary) hypertension. Reason for transfer: Higher level of care. Accepting physician is to [facility], [facility]. Condition is Stable. Problem is new. Symptoms have improved. sandeep 06/27 00:02 06/26 22:23 06/26/2018 21:[address] [facility]. ea Diagnosis is Angina pectoris; Other chest pain; Essential (primary) hypertension; Unspecified kidney failure. Reason for transfer: Higher level of care. Accepting physician is to [facility], [facility]. Condition is Stable. Problem is new. Symptoms have improved. sandeep
--- NOTE | 2018-06-26 21:09 | ER ---
Nurse's Notes [facility] Name: Pool Aden Age: 58 yrs Sex: Male : 1960 Arrival Date: 06/26/2018 Time: 20:38 Bed 5 Private MD: J Luis Gleason Diagnosis: Angina pectoris;Other chest pain;Essential (primary) hypertension;Unspecified kidney failure Presentation: 06/26 20:40 Presenting complaint: Patient states: he was at the movies and began to have L sided CP aa1 that radiates to his L arm. Reports pain has improved to 2/10 but is still there. Denies N/V, SOB or diaphoresis. Reports hx of previous AL \T\ CABG. Transition of care: patient was not received from another setting of care. Onset of symptoms was June 26, 2018 at 20:00. Risk Assessment: Do you want to hurt yourself or someone else? Patient reports no desire to harm self or others. Initial Sepsis Screen: Does the patient meet any 2 criteria? No. Patient's initial sepsis screen is negative. Does the patient have a suspected source of infection? No. Patient's initial sepsis screen is negative. Care prior to arrival: None. 20:40 Method Of Arrival: Ambulatory aa1 20:40 Acuity: SUSAN 2 aa1 Triage Assessment: 20:40 General: Appears in no apparent distress. comfortable, Behavior is calm, cooperative, aa1 appropriate for age. 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 - Social history:: Smoking status: Patient uses tobacco products, smokes two packs cigarettes per day. - Ebola Screening: : No symptoms or risks identified at this time. - Family history:: not pertinent. Screenin:40 Abuse screen: Denies threats or abuse. Denies injuries from another. Nutritional aa1 screening: No deficits noted. Tuberculosis screening: No symptoms or risk factors identified. Fall Risk None identified. Assessment: 21:10 General: Appears in no apparent distress. Behavior is calm, cooperative, appropriate ea for age. Pain: Complains of pain in chest Pain radiates to anterior aspect of left upper chest and left clavicle Pain currently is 2 out of 10 on a pain scale. Quality of pain is described as aching, Pain began gradually. Neuro: Level of Consciousness is awake, alert, obeys commands, Oriented to person, place, time, situation. Cardiovascular: Patient's skin is warm and dry. Respiratory: Airway is patent Respiratory effort is even, unlabored, Respiratory pattern is regular, symmetrical, Breath sounds are clear bilaterally. GI: No signs and/or symptoms were reported involving the gastrointestinal system. Bowel sounds present X 4 quads. Derm: Skin is pink, warm \T\ dry. 22:00 Reassessment: Patient and/or family updated on plan of care and expected duration. Pain ea level reassessed. Patient is alert, oriented x 3, equal unlabored respirations, skin warm/dry/pink. 23:00 Reassessment: Patient and/or family updated on plan of care and expected duration. Pain ea level reassessed. Patient is alert, oriented x 3, equal unlabored respirations, skin warm/dry/pink. 06/27 00:00 Reassessment: Patient and/or family updated on plan of care and expected duration. Pain ea level reassessed. Patient is alert, oriented x 3, equal unlabored respirations, skin warm/dry/pink. [facility] at facility for transfer, pt left via stretcher with EMS. Vital Signs: 06/26 20:40 BP 150 / 77; Pulse 86; Resp 18; Temp 97.4; Pulse Ox 99% on R/A; Weight 108.86 kg; aa1 Height 5 ft. 11 in. (180.34 cm); Pain 2/10; 21:41 BP 140 / 67; Pulse 73; Resp 18; Pulse Ox 99% on R/A; ea 22:00 BP 138 / 70; Pulse 74; Resp 18; Pulse Ox 99% ; ea 23:50 BP 138 / 68; Pulse 70; Resp 18; Temp 98; Pulse Ox 99% on R/A; ea 20:40 Body Mass Index 33.47 (108.86 kg, 180.34 cm) aa1 ED Course: 20:38 Patient arrived in ED. al2 20:38 J Luis Gleason MD is Private Physician. al2 20:40 Arm band placed on right wrist. Patient placed in an exam room, on a stretcher. aa1 20:40 Patient has correct armband on for positive identification. Placed in gown. Bed in low aa1 position. Call light in reach. quality assurance monitor chassis on. Pulse ox on. NIBP on. 20:40 EKG done, by ED staff, reviewed by Rubio Gutierrez MD. Patient maintains SpO2 saturation aa1 greater than 95% on room air. 20:55 Rubio Gutierrez MD is Attending Physician. [facility] 20:55 Triage completed. aa1 21:03 Veronika Jurado, ZINA is Primary Nurse. ea 21:10 XRAY Chest (1 view) In Process Unspecified. EDMS 21:20 Inserted saline lock: 20 gauge in right wrist, using aseptic technique. aa1 06/27 00:00 No provider procedures requiring assistance completed. Patient transferred, IV remains ea in place. Administered Medications: 06/26 21: Drug: Heparin (AL-Bolus No thrombolytic) - HEParin 60 units/kg {Co-Signature: ao (Tomas Pierre RN).} Route: IVP; Site: right wrist; 06/27 00:00 Follow up: Response: No adverse reaction ea 06/26 Drug: Heparin (AL Drip) 12 units/kg/hr - (HEParin 35591 units, D5W 500 ml) ea {Co-Signature: ao (Tomas Pierre RN).} Route: IV; Rate: calculated rate; Site: right wrist; 06/27 00:00 Follow up: Response: No adverse reaction; IV Status: Infusion continued upon transfer ea 06/26 21:30 Drug: Lopressor 25 mg Route: PO; ea 23:00 Follow up: Response: No adverse reaction ea 21:38 Drug: morphine 4 mg Route: IVP; Site: right hand; ea 22:00 Follow up: Response: No adverse reaction ea 21:39 Drug: Zofran 4 mg Route: IVP; Site: right wrist; ea 22:00 Follow up: Response: No adverse reaction ea 21:39 Drug: Pepcid 20 mg Route: IVP; Site: right wrist; ea 06/27 01:17 Follow up: Response: No adverse reaction ea 06/26 21:48 Not Given (Duplicate Order): NS 0.9% 1000 ml IV at 125 ml/hr continuous sandeep 23:19 Not Given (Hemodynamic Parameters): Lopressor 2.5 mg IVP once; Hold for SBP <100 or HR ea <60. 23:19 Not Given (Hemodynamic Parameters): Lopressor 2.5 mg IVP once; Hold for SBP <100 or HR ea <60. Outcome: 21:08 ER care complete, transfer ordered by . [facility] 22:00 Condition: stable ea 22:00 Instructed on the need for transfer. 06/27 00:00 Transferred by ground EMS to [facility], Transfer form completed. ea 00:02 Patient left the ED. ea Signatures: Dispatcher [employer] Deja Romeo RN RN Rubio Reagan MD MD cha Antunez, Elena, RN RN ea Love, Angelica al2 Alex Ortiz RN ao
[2018-06-26 21:16] LABS: Protime INR 0.96
--- NOTE | 2018-06-26 21:23 | RAD REPORT ---
EXAM DESCRIPTION: RAD - Chest Single View - 06/26/2018 9:10 pm CLINICAL HISTORY: Left-sided chest pain radiating to the arm COMPARISON: May 22 TECHNIQUE: AP portable chest image was obtained 2103 hours . FINDINGS: No focal lung parenchymal process. Interstitial markings are mildly prominent increased sl ightly from comparison. Heart size is upper normal to slightly enlarged but stable. No acute vascular engorgement. Defibrillator is in place. Sternotomy wires noted. No measurable pleural effusion and n o pneumothorax. No acute bony abnormality seen. No acute aortic findings suspected. IMPRESSION: Borderline to mild cardiomegaly similar to comparison. No acute vascular engorgement. Interstitial markings are slightly increased over baseline and could indicate early interstitial mago a.
[2018-06-26] MEDS ORDERED: MORPHINE 4 MG/ML SYR ONE (21:31)
[2018-06-26] MEDS ORDERED: METOPROLOL TAR 25 MG TAB ONE (21:31)
[2018-06-26] MEDS ORDERED: METOPROLOL TARTRATE 5 MG/5 ML INJ IV ONE (21:32)
[2018-06-26] MEDS ORDERED: FAMOTIDINE 20 MG/2 ML VIAL IV ONE (21:32)
[2018-06-26] MEDS ORDERED: NA CHLORIDE 0.9% 1,000 ML ONE (21:32)
[2018-06-26] MEDS ORDERED: ONDANSETRON 4 MG/2 ML VIAL ONE (21:40)
[2018-06-26 21:46] LABS: ALT/SGPT 23 U/L (12-78); AST/SGOT 22 U/L (15-37); Albumin 3.4 g/dL (3.4-5.0); Alkaline Phosphatase 128 U/L (45-117); BUN Blood Urea Nitrogen 24 mg/dL (7-18); Bicarbonate 24 mmol/L (21-32); Bilirubin Direct < 0.1 mg/dL (0-0.2); Bilirubin Total 0.2 mg/dL (0.2-1.0); Glucose Level 163 mg/dL (74-106); Lipase 249 U/L (73-393); Magnesium 2.1 mg/dL (1.8-2.4); NT PRO-BNP 393 pg/mL (<125); Protein, Total 7.7 g/dL (6.4-8.2); Sodium Level 139 mmol/L (136-145); Troponin (Emerg Dept Use Only) < 0.02 ng/mL (0.0-0.045)
[2018-06-26] MEDS ORDERED: HEPARIN 5000 UNIT/ML 1 ML VIAL ONE (21:50)
[2018-06-26] MEDS ORDERED: HEPARIN/D5W 25,000 UNIT/500 ML BAG IV ONE (21:51)
[2018-06-26 23:00] LABS: Absolute Lymphocytes (CBC) 2.6 K/uL (0.7-4.9); Absolute Monocytes 0.7 K/uL (0.1-1.3); Absolute Neutrophil 2.5 K/uL (1.8-8.0); Basophils % 0.4 % (0-1.3); Eosinophils % 0.8 % (0-4.4); Hematocrit 40.8 % (39.6-49.0); Lymphocytes % 44.4 % (15.3-44.8); MCH 29.4 pg (27.0-35.0); MCV 85.2 fL (80-100); Monocytes % 12.4 % (3.3-12.3); RBC Red Blood Cell Count 4.79 M/uL (4.33-5.43)
[2018-06-27 01:04] VITALS: TEMP 97.4; O2SAT 99
[2018-06-27 01:05] VITALS: BP 140/67
--- NOTE | 2018-06-28 17:37 | EKG ---
Test Date: 2018-06-26 Test Time: 20:47:54 Forestry Supervisor: SENDY MEASUREMENT RESULTS: Intervals: Rate: 78 NE: 180 QRSD: 118 QT: 424 QTc: 483 [place]: P: 25 NE: 180 QRS: 54 T: 121 INTERPRETIVE STATEMENTS: Normal sinus rhythm Incomplete left bundle branch block ST & T wave abnormality, consider anterolateral ischemia Prolonged QT Abnormal ECG Compared to ECG 05/22/2018 21:53:55 Possible ischemia now present Prolonged QT interval now present T-wave abnormality no longer present ST (T wave) deviation still present Electronically Signed On 06-28-18 17:33:55 CDT by Matty Alejandro
== END 2018-06-27 00:02 | disposition short-term general hospital (02) ==
LOC: ER 20:35
DX: I20.9 Angina pectoris, unspecified (principal); I10 Essential (primary) hypertension; N19 Unspecified kidney failure; E78.5 Hyperlipidemia, unspecified; F17.210 Nicotine dependence, cigarettes, uncomplicated; Z79.01 Long term (current) use of anticoagulants; Z79.82 Long term (current) use of aspirin; Z95.1 Presence of aortocoronary bypass graft; Z95.810 Presence of automatic (implantable) cardiac defibrillator; Z85.828 Personal history of other malignant neoplasm of skin
CPT/HCPCS: 36415; 71045; 80048; 80076; 83690; 83735; 83880; 84484; 85025; 85610; 93005; 99285; J1644; J2405; J7030

== ENCOUNTER 2018-10-27 21:57 | Observation (INO) | payer MEDICARE ==
--- OUTSIDE RECORDS SUMMARY | 2018-10-27 22:00 | XMS REPORT ---
:1960 [facility] [place] [address] Care Team Providers Name Role Phone KAILA BRAMBILANTH Unavailable Unavailable Problems This patient has no known problems. Allergies, Adverse Reactions, Alerts This patient has no known allergies or adverse reactions. Medications This patient has no known medications. Results Test Description Test Time Test Comments Text Results Atomic Results Result Comments MAGNESIUM 2018-06-30 00:59:00 Test Item Value Reference Range Comments MAGNESIUM (BEAKER) (test zzgz=857) 2.2 mg/dL 1.6-2.6 Specimen slightly hemolyzed BASIC METABOLIC [id number] 00:59:00 Test Item Value Reference Range Comments SODIUM (BEAKER) (test 137 meq/L 136-145 uvze=701) POTASSIUM (BEAKER) (test 3.9 meq/L 3.5-5.1 Specimen slightly ayos=039) hemolyzed CHLORIDE (BEAKER) (test 105 meq/L 98-107 zudm=889) CO2 (BEAKER) (test 22 meq/L 22-29 nvas=522) BLOOD UREA NITROGEN 22 mg/dL 7-21 (BEAKER) (test kldy=044) CREATININE (BEAKER) (test 1.05 mg/dL 0.57-1.25 Specimen slightly zcqw=470) hemolyzed GLUCOSE RANDOM (BEAKER) 181 mg/dL 70-105 (test uizy=285) CALCIUM (BEAKER) (test 9.4 mg/dL 8.4-10.2 wysu=943) EGFR (BEAKER) (test 72 mL/min/1.73 sq m ESTIMATED GFR IS NOT dnpg=2752) ACCURATE CREATININE CLEARANCE IN PREDICTING GLOMERULAR FILTRATION RATE. ESTIMATED GFR IS NOT APPLICABLE FOR DIALYSIS PATIENTS. CBC W/PLT COUNT & AUTO [id number] 00:43:00 Test Item Value Reference Range Comments WHITE BLOOD CELL COUNT (BEAKER) (test wgso=239) 5.0 K/ L 3.5-10.5 RED BLOOD CELL COUNT (BEAKER) (test rmxg=643) 5.30 M/ L 4.63-6.08 HEMOGLOBIN (BEAKER) (test qkqn=398) 14.8 GM/DL 13.7-17.5 HEMATOCRIT (BEAKER) (test gtrh=241) 45.2 % 40.1-51.0 MEAN CORPUSCULAR VOLUME (BEAKER) (test egjc=221) 85.3 fL 79.0-92.2 MEAN CORPUSCULAR HEMOGLOBIN (BEAKER) (test 27.9 pg 25.7-32.2 vzum=689) MEAN CORPUSCULAR HEMOGLOBIN CONC (BEAKER) (test 32.7 GM/DL 32.3-36.5 nyts=971) RED CELL DISTRIBUTION WIDTH (BEAKER) (test 13.7 % 11.6-14.4 meer=273) PLATELET COUNT (BEAKER) (test fjhl=045) 208 K/CU MM 150-450 MEAN PLATELET VOLUME (BEAKER) (test vwvi=528) 10.7 fL 9.4-12.4 NUCLEATED RED BLOOD CELLS (BEAKER) (test 0 /100 WBC 0-0 kijh=707) NEUTROPHILS RELATIVE PERCENT (BEAKER) (test 40 % mfqu=014) LYMPHOCYTES RELATIVE PERCENT (BEAKER) (test 46 % pvje=647) MONOCYTES RELATIVE PERCENT (BEAKER) (test 13 % rcnm=899) EOSINOPHILS RELATIVE PERCENT (BEAKER) (test 0 % wcrc=610) BASOPHILS RELATIVE PERCENT (BEAKER) (test 0 % wqvn=269) NEUTROPHILS ABSOLUTE COUNT (BEAKER) (test 2.02 K/ L 1.78-5.38 nxfq=078) LYMPHOCYTES ABSOLUTE COUNT (BEAKER) (test 2.31 K/ L 1.32-3.57 ovlb=572) MONOCYTES ABSOLUTE COUNT (BEAKER) (test 0.64 K/ L 0.30-0.82 gfeh=079) EOSINOPHILS ABSOLUTE COUNT (BEAKER) (test 0.02 K/ L 0.04-0.54 qzsx=217) BASOPHILS ABSOLUTE COUNT (BEAKER) (test 0.01 K/ L 0.01-0.08 ekwg=783) IMMATURE GRANULOCYTES-RELATIVE PERCENT (BEAKER) 1 % 0-1 (test gqav=0565) [id number] 00:20:00 Test Item Value Reference Range Comments ACTIVATED CLOTTING TIME 109 sec TESTED AT [facility] [address] (BEAKER) (test srbm=583) [place] [id number] 20:55:00 Test Item Value Reference Range Comments ACTIVATED CLOTTING TIME 191 sec TESTED AT [place] [address] [address] (BEAKER) (test qbuh=089) [place] [address] [id number] 18:15:00 Test Item Value Reference Range Comments ACTIVATED CLOTTING TIME 318 sec TESTED AT [place] [address] [address] (BEAKER) (test wyyb=427) [place] [id number]-[id number] [id number] 07:26:00 Test Item Value Reference Range Comments POC-GLUCOSE METER (BEAKER) 113 mg/dL 70-110 TESTED AT [address] (test nskq=7239) [place] [address] [id number] 07:16:00 Test Item Value Reference Range Comments MAGNESIUM (BEAKER) (test ztak=809) 2.0 mg/dL 1.6-2.6 BASIC METABOLIC [id number] 07:16:00 Test Item Value Reference Range Comments SODIUM (BEAKER) (test 138 meq/L 136-145 bqna=910) POTASSIUM (BEAKER) (test 4.2 meq/L 3.5-5.1 sbzx=106) CHLORIDE (BEAKER) (test 105 meq/L 98-107 bysx=155) CO2 (BEAKER) (test 25 meq/L 22-29 gklh=387) BLOOD UREA NITROGEN 20 mg/dL 7-21 (BEAKER) (test sqss=283) CREATININE (BEAKER) (test 1.12 mg/dL 0.57-1.25 xpwe=350) GLUCOSE RANDOM (BEAKER) 126 mg/dL 70-105 (test wplb=089) CALCIUM (BEAKER) (test 9.3 mg/dL 8.4-10.2 zueg=191) EGFR (BEAKER) (test 67 mL/min/1.73 sq m ESTIMATED GFR IS NOT sdaf=6844) ACCURATE CREATININE CLEARANCE IN PREDICTING GLOMERULAR FILTRATION RATE. ESTIMATED GFR IS NOT APPLICABLE FOR DIALYSIS PATIENTS. [id number] 06:58:00 Test Item Value Reference Range Comments PROTIME (BEAKER) (test xcjv=528) 14.5 seconds 11.7-14.7 INR (BEAKER) (test jgzo=567) 1.1 <=5.9 PARTIAL THROMBOPLASTIN TIME (BEAKER) (test 32.7 seconds 22.5-36.0 ugfa=286) RECOMMENDED COUMADIN/WARFARIN INR THERAPY RANGESSTANDARD DOSE: 2.0 - 3.0 Includes: PROPHYLAXIS forvenous thrombosis, systemic embolization; TREATMENT for venous thrombosis and/or pulmonary embolus.HIGH RISK: Target INR is 2.5-3.5 for patients with mechanical heart valves.CBC W/PLT COUNT & AUTO [id number] 06:55:00 Test Item Value Reference Range Comments WHITE BLOOD CELL COUNT (BEAKER) (test fdpx=046) 3.9 K/ L 3.5-10.5 RED BLOOD CELL COUNT (BEAKER) (test yttv=557) 5.18 M/ L 4.63-6.08 HEMOGLOBIN (BEAKER) (test psgm=986) 14.8 GM/DL 13.7-17.5 HEMATOCRIT (BEAKER) (test uoao=385) 44.6 % 40.1-51.0 MEAN CORPUSCULAR VOLUME (BEAKER) (test nhvl=125) 86.1 fL 79.0-92.2 MEAN CORPUSCULAR HEMOGLOBIN (BEAKER) (test 28.6 pg 25.7-32.2 nfjb=094) MEAN CORPUSCULAR HEMOGLOBIN CONC (BEAKER) (test 33.2 GM/DL 32.3-36.5 ooxb=989) RED CELL DISTRIBUTION WIDTH (BEAKER) (test 13.6 % 11.6-14.4 zgfc=848) PLATELET COUNT (BEAKER) (test ajnh=566) 195 K/CU MM 150-450 MEAN PLATELET VOLUME (BEAKER) (test uohl=613) 10.6 fL 9.4-12.4 NUCLEATED RED BLOOD CELLS (BEAKER) (test 0 /100 WBC 0-0 ckmn=849) NEUTROPHILS RELATIVE PERCENT (BEAKER) (test 33 % elvq=569) LYMPHOCYTES RELATIVE PERCENT (BEAKER) (test 51 % xvmm=443) MONOCYTES RELATIVE PERCENT (BEAKER) (test 15 % uftv=221) EOSINOPHILS RELATIVE PERCENT (BEAKER) (test 1 % svrb=804) BASOPHILS RELATIVE PERCENT (BEAKER) (test 1 % epah=278) NEUTROPHILS ABSOLUTE COUNT (BEAKER) (test 1.28 K/ L 1.78-5.38 gvkv=020) LYMPHOCYTES ABSOLUTE COUNT (BEAKER) (test 2.01 K/ L 1.32-3.57 ijfc=055) MONOCYTES ABSOLUTE COUNT (BEAKER) (test 0.57 K/ L 0.30-0.82 bxtc=593) EOSINOPHILS ABSOLUTE COUNT (BEAKER) (test 0.02 K/ L 0.04-0.54 coly=700) BASOPHILS ABSOLUTE COUNT (BEAKER) (test 0.02 K/ L 0.01-0.08 xdtz=163) IMMATURE GRANULOCYTES-RELATIVE PERCENT (BEAKER) 1 % 0-1 (test qjxa=4333) CBC W/PLT COUNT & AUTO [id number] 05:30:00 Test Item Value Reference Range Comments WHITE BLOOD CELL COUNT (BEAKER) (test xqpm=040) 5.2 K/ L 3.5-10.5 RED BLOOD CELL COUNT (BEAKER) (test xoaf=264) 4.84 M/ L 4.63-6.08 HEMOGLOBIN (BEAKER) (test rzrl=470) 13.8 GM/DL 13.7-17.5 HEMATOCRIT (BEAKER) (test rctc=801) 42.4 % 40.1-51.0 MEAN CORPUSCULAR VOLUME (BEAKER) (test esol=826) 87.6 fL 79.0-92.2 MEAN CORPUSCULAR HEMOGLOBIN (BEAKER) (test 28.5 pg 25.7-32.2 fond=393) MEAN CORPUSCULAR HEMOGLOBIN CONC (BEAKER) (test 32.5 GM/DL 32.3-36.5 bjzv=211) RED CELL DISTRIBUTION WIDTH (BEAKER) (test 13.7 % 11.6-14.4 kqln=642) PLATELET COUNT (BEAKER) (test kffr=399) 197 K/CU MM 150-450 MEAN PLATELET VOLUME (BEAKER) (test xlgz=398) 10.5 fL 9.4-12.4 NUCLEATED RED BLOOD CELLS (BEAKER) (test 0 /100 WBC 0-0 bgab=193) NEUTROPHILS RELATIVE PERCENT (BEAKER) (test 42 % hlid=094) LYMPHOCYTES RELATIVE PERCENT (BEAKER) (test 40 % omqe=884) MONOCYTES RELATIVE PERCENT (BEAKER) (test 16 % fcxf=982) EOSINOPHILS RELATIVE PERCENT (BEAKER) (test 1 % bstp=150) BASOPHILS RELATIVE PERCENT (BEAKER) (test 0 % irpf=969) NEUTROPHILS ABSOLUTE COUNT (BEAKER) (test 2.16 K/ L 1.78-5.38 exsz=716) LYMPHOCYTES ABSOLUTE COUNT (BEAKER) (test 2.04 K/ L 1.32-3.57 sqhy=137) MONOCYTES ABSOLUTE COUNT (BEAKER) (test 0.84 K/ L 0.30-0.82 blnr=446) EOSINOPHILS ABSOLUTE COUNT (BEAKER) (test 0.04 K/ L 0.04-0.54 zquc=129) BASOPHILS ABSOLUTE COUNT (BEAKER) (test 0.02 K/ L 0.01-0.08 yalb=679) IMMATURE GRANULOCYTES-RELATIVE PERCENT (BEAKER) 1 % 0-1 (test ezuw=9252) BASIC METABOLIC [id number] 05:12:00 Test Item Value Reference Range Comments SODIUM (BEAKER) (test 139 meq/L 136-145 wbhx=857) POTASSIUM (BEAKER) (test 4.0 meq/L 3.5-5.1 vcno=492) CHLORIDE (BEAKER) (test 107 meq/L 98-107 rcoe=713) CO2 (BEAKER) (test 25 meq/L 22-29 cbcm=226) BLOOD UREA NITROGEN 20 mg/dL 7-21 (BEAKER) (test jdjj=639) CREATININE (BEAKER) (test 1.11 mg/dL 0.57-1.25 wjnc=329) GLUCOSE RANDOM (BEAKER) 130 mg/dL 70-105 (test tbik=138) CALCIUM (BEAKER) (test 9.0 mg/dL 8.4-10.2 maju=522) EGFR (BEAKER) (test 68 mL/min/1.73 sq m ESTIMATED GFR IS NOT yuoe=5600) ACCURATE CREATININE CLEARANCE IN PREDICTING GLOMERULAR FILTRATION RATE. ESTIMATED GFR IS NOT APPLICABLE FOR DIALYSIS PATIENTS. [id number] 15:55:00 Test Item Value Reference Range Comments PARTIAL THROMBOPLASTIN TIME (BEAKER) (test 51.7 seconds 22.5-36.0 dwlk=862) TROPONIN [id number] 14:06:00 Test Item Value Reference Range Comments TROPONIN I (BEAKER) (test hqik=736) 0.01 ng/mL 0.00-0.03 Troponin I (TnI) levels must be interpreted in the context of the presenting symptoms and the clinical findings. Elevated TnI levels indicate myocardial damage, but are not specific for ischemic heart disease. Elevated TnI levels are seen in patients with other cardiac conditions (including myocarditis and congestive heart failure), and slight TnI elevations occur in patients with other conditions, including sepsis, renal failure, acidosis, acute neurological disease, and persistent tachyarrhythmia.HEMOGLOBIN [id number] 11:57:00 Test Item Value Reference Range Comments HEMOGLOBIN A1C (BEAKER) (test oxmd=567) 7.5 % 4.3-6.1 [id number] 09:48:00 Test Item Value Reference Range Comments PARTIAL THROMBOPLASTIN TIME (BEAKER) (test 48.9 seconds 22.5-36.0 fcxe=401) URINALYSIS W/ [id number] 08:06:00 Test Item Value Reference Range Comments COLOR (BEAKER) (test tqqx=498) Light Yellow CLARITY (BEAKER) (test igpe=918) Clear SPECIFIC GRAVITY UA (BEAKER) (test hkgu=796) 1.014 1.001-1.035 PH UA (BEAKER) (test gcek=800) 5.5 5.0-8.0 PROTEIN UA (BEAKER) (test gwmy=232) Negative Negative GLUCOSE UA (BEAKER) (test iciz=406) 70 mg/dL Negative KETONES UA (BEAKER) (test tizk=192) Negative Negative BILIRUBIN UA (BEAKER) (test nxbp=637) Negative Negative BLOOD UA (BEAKER) (test pccr=253) Negative Negative NITRITE UA (BEAKER) (test moht=482) Negative Negative LEUKOCYTE ESTERASE UA (BEAKER) (test ljpg=031) Negative Negative UROBILINOGEN UA (BEAKER) (test hegw=387) 0.2 mg/dL 0.2-1.0 RBC UA (BEAKER) (test fkaj=885) 4 /HPF WBC UA (BEAKER) (test podh=407) 4 /HPF SQUAMOUS EPITHELIAL (BEAKER) (test lorf=809) < /HPF SOURCE(BEAKER) (test xysl=1534) RAD, CHEST, 1 VIEW, NON [id number] 04:11:00Reason for exam:->angina pectorisShould this be performed at the bedside?->YesFINAL REPORT RAD, CHEST, 1 VIEW, NON DEPT INDICATION: angina pectoris COMPARISON : Prior day's exam FINDINGS: Portable frontal view of the chest. IMPRESSION: Support Lines: None. Lungs and pleura: Clear lungs. No pneumothorax. Costophrenic sulci are sharp.Heart and mediastinum: Normal cardiac size. Normal aortic caliber.Additional findings: None. Signed: JR Parsons Robert MDReport Verified Date/Time: 06/27/2018 04:11:12 Reading Location: [address] Body Reading Room CREATINE KINASE (CK), TOTAL AND [id number] 03:24:00 Test Item Value Reference Range Comments CREATINE KINASE TOTAL (BEAKER) (test kori=880) 61 U/L 29-200 CREATINE KINASE-MB (BEAKER) (test cswm=284) 1.5 ng/mL 0.0-6.6 CREATINE KINASE-MB INDEX (BEAKER) (test dgoc=413) 2.5 % CK-MB Reference Range:<6.7 Normal6.7-10.0 Borderline>10.0 AbnormalTROPONIN [id number] 03:24:00 Test Item Value Reference Range Comments TROPONIN I (BEAKER) (test oqbn=064) 0.01 ng/mL 0.00-0.03 Troponin I (TnI) levels must be interpreted in the context of the presenting symptoms and the clinical findings. Elevated TnI levels indicate myocardial damage, but are not specific for ischemic heart disease. Elevated TnI levels are seen in patients with other cardiac conditions (including myocarditis and congestive heart failure), and slight TnI elevations occur in patients with other conditions, including sepsis, renal failure, acidosis, acute neurological disease, and persistent tachyarrhythmia.BASIC METABOLIC [id number] 03:18:00 Test Item Value Reference Range Comments SODIUM (BEAKER) (test 139 meq/L 136-145 zccw=333) POTASSIUM (BEAKER) (test 4.2 meq/L 3.5-5.1 jtav=380) CHLORIDE (BEAKER) (test 107 meq/L 98-107 spgh=251) CO2 (BEAKER) (test 24 meq/L 22-29 soln=353) BLOOD UREA NITROGEN 21 mg/dL 7-21 (BEAKER) (test npwk=278) CREATININE (BEAKER) (test 1.15 mg/dL 0.57-1.25 qzhn=525) GLUCOSE RANDOM (BEAKER) 149 mg/dL 70-105 (test yssz=825) CALCIUM (BEAKER) (test 8.5 mg/dL 8.4-10.2 ypus=888) EGFR (BEAKER) (test 65 mL/min/1.73 sq m ESTIMATED GFR IS NOT myne=9010) ACCURATE CREATININE CLEARANCE IN PREDICTING GLOMERULAR FILTRATION RATE. ESTIMATED GFR IS NOT APPLICABLE FOR DIALYSIS PATIENTS. B-TYPE NATRIURETIC FACTOR (BNP)2018-06-27 03:16:00 Test Item Value Reference Range Comments B-TYPE NATRIURETIC PEPTIDE (BEAKER) (test 122 pg/mL 0-100 njyt=839) CBC W/PLT COUNT & AUTO [id number] 02:58:00 Test Item Value Reference Range Comments WHITE BLOOD CELL COUNT (BEAKER) (test gdsn=404) 6.4 K/ L 3.5-10.5 RED BLOOD CELL COUNT (BEAKER) (test nlig=940) 4.67 M/ L 4.63-6.08 HEMOGLOBIN (BEAKER) (test oqep=704) 13.6 GM/DL 13.7-17.5 HEMATOCRIT (BEAKER) (test derm=094) 41.3 % 40.1-51.0 MEAN CORPUSCULAR VOLUME (BEAKER) (test qeov=468) 88.4 fL 79.0-92.2 MEAN CORPUSCULAR HEMOGLOBIN (BEAKER) (test 29.1 pg 25.7-32.2 khmr=010) MEAN CORPUSCULAR HEMOGLOBIN CONC (BEAKER) (test 32.9 GM/DL 32.3-36.5 hrbh=106) RED CELL DISTRIBUTION WIDTH (BEAKER) (test 14.0 % 11.6-14.4 otsr=324) PLATELET COUNT (BEAKER) (test ymwp=014) 217 K/CU MM 150-450 MEAN PLATELET VOLUME (BEAKER) (test ezxb=287) 10.5 fL 9.4-12.4 NUCLEATED RED BLOOD CELLS (BEAKER) (test 0 /100 WBC 0-0 sgoa=004) NEUTROPHILS RELATIVE PERCENT (BEAKER) (test 31 % totv=033) LYMPHOCYTES RELATIVE PERCENT (BEAKER) (test 56 % xsem=119) MONOCYTES RELATIVE PERCENT (BEAKER) (test 12 % tmjl=819) EOSINOPHILS RELATIVE PERCENT (BEAKER) (test 1 % wygf=509) BASOPHILS RELATIVE PERCENT (BEAKER) (test 0 % kbdx=253) NEUTROPHILS ABSOLUTE COUNT (BEAKER) (test 2.00 K/ L 1.78-5.38 cxux=099) LYMPHOCYTES ABSOLUTE COUNT (BEAKER) (test 3.56 K/ L 1.32-3.57 mcgg=585) MONOCYTES ABSOLUTE COUNT (BEAKER) (test 0.74 K/ L 0.30-0.82 qmwo=936) EOSINOPHILS ABSOLUTE COUNT (BEAKER) (test 0.04 K/ L 0.04-0.54 jkcx=511) BASOPHILS ABSOLUTE COUNT (BEAKER) (test 0.02 K/ L 0.01-0.08 zyzu=670) IMMATURE GRANULOCYTES-RELATIVE PERCENT (BEAKER) 1 % 0-1 (test fnwo=6989) [id number] 02:51:00 Test Item Value Reference Range Comments PARTIAL THROMBOPLASTIN TIME (BEAKER) (test 48.4 seconds 22.5-36.0 qiss=892)
--- OUTSIDE RECORDS SUMMARY | 2018-10-27 22:00 | XMS REPORT | Clinical Summary ---
:1960 Author Organization [facility] Address [address] [place] [address] Care Team Providers Name Role Phone Garrett Primary Care Provider Allergies No Known Allergies Medications Medication Sig Dispensed Refills Start Date End Date Status clopidogrel (PLAVIX) 75 Take 75 mg by 0 Active mg tabletIndications: mouth daily. 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 lisinopril Take 10 mg by 0 Active (PRINIVIL,ZESTRIL) 10 MG mouth daily. tablet metoprolol (LOPRESSOR) Take 100 mg by 0 Active 100 MG tablet mouth 2 (two) times daily. famotidine (PEPCID) 20 Take 20 mg by 0 Active MG tablet mouth 2 (two) times daily. 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) Active Problems Problem Noted Date Angina pectoris 06/27/2018 Coronary artery disease Hypertension Peripheral vascular disease Hyperlipidemia Myocardial infarction Encounters Date Type Specialty Care Team Description 06/29/2018 Surgery Travis Whitlock CATH & PCI MD Jose 06/27/2018 - Hospital Encounter Cardiac Intensive Kamlesh, Angina pectoris ( HCC); 06/30/2018 Care MD Jose Coronary artery disease involving kiana coronary artery of kiana heart without angina pectoris; Essential hypertension; Hx of CABG; History of PTCA; Unstable angina (HCC); Mixed hyperlipidemia 06/27/2018 Orders Only General Internal Medicine after 10/26/2017 Immunizations Name Dates Previously Given Next Due Influenza Four-QIV Non-PF 5+ YR 06/27/2018 Social History Tobacco Use Types Packs/Day Years Used Date Current Every Day Smoker Cigarettes 1 30 Smokeless Tobacco: Never Used Tobacco Cessation: Ready to Quit: Yes; Counseling Given: Yes Alcohol Use Drinks/Week oz/Week Comments Yes social Sex Assigned at Date Recorded Not on file Job Start Date Occupation Industry Not on file Not on file Not on file Travel History Travel Start Travel End No recent travel history available. Last Filed Vital Signs Vital Sign Reading Time Taken Blood Pressure 122/66 06/30/2018 1:00 PM CDT Pulse 75 06/30/2018 1:00 PM CDT Temperature 36.6 C (97.8 F) 06/30/2018 8:00 AM CDT Respiratory Rate 20 06/30/2018 1:00 PM CDT Oxygen Saturation 97% 06/30/2018 4:05 AM CDT Inhaled Oxygen Concentration - - Weight 102.5 kg (225 lb 15.5 oz) 06/30/2018 4:05 AM CDT Height 180.3 cm (5' 11") 06/27/2018 2:00 AM CDT Body Mass Index 31.52 06/30/2018 4:05 AM CDT Plan of Treatment Health Maintenance Due Date Last Done Comments INFLUENZA VACCINE Completed 06/27/2018 Implants Implanted Type Area Market Master Device Shelf Model / Identifier Expiration Serial / Date Lot Synergy Cardiovascular N/A: [place] [id number] 04/07/2020 [id number] / Implanted: Qty: 1 on 06/29/2018 by Jose Whitlock MD Heart [employer] / [id number] Procedures Procedure Name Priority Date/Time Associated Diagnosis Comments CARDIAC CATH REPORT - 07/01/2018 1:31 SCAN PM CDT RHYTHM STRIP - SCAN 07/01/2018 1:31 PM CDT ECHOCARDIOGRAM REPORT 06/30/2018 9:54 - SCAN AM CDT CBC W/PLT COUNT & AUTO Routine 06/30/2018 12:28 Results for this DIFFERENTIAL AM CDT procedure are in the results section. MAGNESIUM Routine 06/30/2018 12:28 Results for this AM CDT procedure are in the results section. BASIC METABOLIC PANEL Routine 06/30/2018 12:28 Results for this (7) AM CDT procedure are in the results section. CBC W/PLT COUNT & AUTO Routine 06/30/2018 12:28 Results for this DIFFERENTIAL AM CDT procedure are in the results section. POCT-ACT Routine 06/30/2018 12:14 Results for this AM CDT procedure are in the results section. POCT-ACT Routine 06/29/2018 8:28 Results for this PM CDT procedure are in the results section. POCT-ACT Routine 06/29/2018 6:07 Results for this PM CDT procedure are in the results section. L CATH & PCI 06/29/2018 5:35 Coronary artery PM CDT disease with angina pectoris, unspecified vessel or lesion type, unspecified whether kiana or transplanted heart (HCC) 2D ECHO W/ DOPPLER Routine 06/29/2018 2:58 Results for this (CW/PW/COLOR) PM CDT procedure are in the results section. POCT-GLUCOSE METER Routine 06/29/2018 7:20 Results for this AM CDT procedure are in the results section. CBC W/PLT COUNT & AUTO Routine 06/29/2018 6:35 Results for this DIFFERENTIAL AM CDT procedure are in the results section. PT/APTT Routine 06/29/2018 6:35 Results for this AM CDT procedure are in the results section. MAGNESIUM Routine 06/29/2018 6:35 Results for this AM CDT procedure are in the results section. BASIC METABOLIC PANEL Routine 06/29/2018 6:35 Results for this (7) AM CDT procedure are in the results section. CBC W/PLT COUNT & AUTO Routine 06/29/2018 6:35 Results for this DIFFERENTIAL AM CDT procedure are in the results section. CBC W/PLT COUNT & AUTO Routine 06/28/2018 4:20 Results for this DIFFERENTIAL AM CDT procedure are in the results section. CBC W/PLT COUNT & AUTO Routine 06/28/2018 4:20 Results for this DIFFERENTIAL AM CDT procedure are in the results section. BASIC METABOLIC PANEL Routine 06/28/2018 4:20 Results for this (7) AM CDT procedure are in the results section. APTT Routine 06/27/2018 3:36 Results for this PM CDT procedure are in the results section. TROPONIN I Routine 06/27/2018 1:29 Results for this PM CDT procedure are in the results section. APTT Routine 06/27/2018 9:28 Results for this AM CDT procedure are in the results section. XR CHEST 1 VIEW Routine 06/27/2018 3:52 Results for this PORTABLE/BEDSIDE AM CDT procedure are in the results section. URINALYSIS W/ Routine 06/27/2018 3:09 Results for this MICROSCOPIC AM CDT procedure are in the results section. ECG 12-LEAD Routine 06/27/2018 2:38 AM CDT Procedure Note - Interface, External Ris In - 06/27/2018 7:44 AM CDT Ventricular Rate 60 BPM Atrial Rate 60 BPM P-R Interval 236 ms QRS Duration 122 ms Q-T Interval 486 ms QTC Calculation(Bazett) 486 ms P [place] 57 degrees R [place] 58 degrees T [place] 125 degrees Atrial-paced rhythm with prolonged AV conduction Non-specific intra-ventricular conduction delay Nonspecific ST and T wave abnormality Abnormal ECG ECG 12-LEAD Routine 06/27/2018 2:38 AM CDT CREATINE KINASE (CK), TOTAL Routine 06/27/2018 2:30 AM CDT Results for this AND MB procedure are in the results section. TROPONIN I Routine 06/27/2018 2:30 AM CDT HEMOGLOBIN A1C Routine 06/27/2018 2:30 AM CDT B-TYPE NATRIURETIC FACTOR Routine 06/27/2018 2:30 AM CDT Results for this (BNP) procedure are in the results section. BASIC METABOLIC PANEL (7) Routine 06/27/2018 2:30 AM CDT CBC W/PLT COUNT & AUTO Routine 06/27/2018 2:22 AM CDT Results for this DIFFERENTIAL procedure are in the results section. APTT Routine 06/27/2018 2:22 AM CDT CBC W/PLT COUNT & AUTO Routine 06/27/2018 2:22 AM CDT Results for this DIFFERENTIAL procedure are in the results section. after 10/26/2017 Results CARDIAC CATH REPORT - SCAN (07/01/2018 1:31 PM CDT) Narrative Performed At RHYTHM STRIP - SCAN (07/01/2018 1:31 PM CDT) Narrative Performed At ECHOCARDIOGRAM REPORT - SCAN (06/30/2018 9:54 AM CDT) Narrative Performed At CBC with platelet count + automated diff (06/30/2018 12:28 AM CDT)Only the most recent of4 resultswithin the time period is included. WBC 5.0 3.5 - 10.5 K/L [facility] RBC 5.30 4.63 - 6.08 M/L [facility] Hemoglobin 14.8 13.7 - 17.5 GM/DL [facility] Hematocrit 45.2 40.1 - 51.0 % [facility] MCV 85.3 79.0 - 92.2 fL [facility] MCH 27.9 25.7 - 32.2 pg [facility] MCHC 32.7 32.3 - 36.5 GM/DL [facility] RDW 13.7 11.6 - 14.4 % [facility] Platelets 208 150 - 450 K/CU MM [facility] MPV 10.7 9.4 - 12.4 fL [facility] nRBC 0 0 - 0 /100 WBC [facility] % Neutros 40 % [facility] % Lymphs 46 % [facility] % Monos 13 % [facility] % Eos 0 % [facility] % Baso 0 % [facility] # Neutros 2.02 1.78 - 5.38 K/L [facility] # Lymphs 2.31 1.32 - 3.57 K/L [facility] # Monos 0.64 0.30 - 0.82 K/L [facility] # Eos 0.02 (L) 0.04 - 0.54 K/L [facility] # Baso 0.01 0.01 - 0.08 K/L [facility] Immature Granulocytes-Relative 1 0 - 1 % [facility] Specimen Blood Performing Organization Address City/[facility]/Zipcode Phone Number [address] [address] GOMER Magnesium (06/30/2018 12:28 AM CDT)Only the most recent of2 resultswithin the time period is included. Magnesium 2.2Comment: Specimen slightly 1.6 - 2.6 mg/dL [facility] Specimen Blood Performing Organization Address City/[facility] Mex[facility]ode Phone Number [address] [phone] GOMER Basic Metabolic Panel (06/30/2018 12:28 AM CDT)Only the most recent of4 resultswithin the time period is included. Sodium 137 136 - 145 meq/L [facility] Potassium 3.9Comment: Specimen slightly 3.5 - 5.1 meq/L [facility] Chloride 105 98 - 107 meq/L [facility] CO2 22 22 - 29 meq/L [facility] BUN 22 (H) 7 - 21 mg/dL [facility] Creatinine 1.05Comment: Specimen 0.57 - 1.25 mg/dL [facility] Glucose 181 (H) 70 - 105 mg/dL [facility] Calcium 9.4 8.4 - 10.2 mg/dL [facility] EGFR 72Comment: ESTIMATED GFR IS mL/min/1.73 sq m [facility] NOT ACCURATE [facility] CLEARANCE IN PREDICTING GLOMERULAR FILTRATION RATE. ESTIMATED GFR IS NOT APPLICABLE FOR DIALYSIS PATIENTS. Specimen Blood Performing Organization Address City/State/Zipcode Phone Number [address] [phone] CENTER POC ACTIVATED CLOTTING TIME (06/30/2018 12:14 AM CDT)Only the most recent of3 resultswithin the time period is included. Activated Clotting Time 109Comment: TESTED AT sec [address] [address] Specimen Blood Performing Organization Address [facility]ode Phone Number [address] [address] [phone] GOMER 2D Echo W/Doppler(CW/PW/Color) (06/29/2018 2:58 PM CDT) Ejection Fraction 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 Clinical History Coronary Artery Disease Hyperlipidemia Hypertension Myocardial Infarction PVD 2010 ACB HGB 14.8 HCT 44.6 % Contrast Medium: Definity. Amount - 2 ml Height: 71 inches Weight: 102.51 kg (226 lbs) BSA: 2.22 m^2 BMI: 31.52 kg/m^2 HR: 70 bpm BP: 124/77 mmHg Summary Technically Difficult Study 1. The left ventricle is chamber size (by vol index) is severely enlarged (male - LVED vol >100ml/m2). Normal LV wall thickness. Good endocardial definition with use of IV Definity contrast. The following segment(s) appear akinetic: anteroseptum, inferoseptum, inferior wall . The other segments are hypokinetic. Global LV systolic function moderately reduced . LVEF by Knox's method of disk assessment is moderately reduced (35-39%) . Grade 1 diastolic dysfunction (impaired relaxation and low-normal LA pressure). 2. LA is dilated. 3. mild thickening and calcification of the aortic valve leaflets noted. Based on Doppler evaluation, there is suggestion of moderate aortic stenosis with AL of 1.2 cm^2 ( low gradients are due to the reduced stroke volume index) 4. Mild TR. Unable to estimate peak systolic PA pressure; inadequate TR velocity signal. Estimated RAP 0-5 mm Hg. 5. No pericardial effusion is visualized. Previous Study No prior studies available for comparison. Signature Findings Rhythm/BPRegular sinus rhythm during the exam. Left Ventricle Technically Difficult Study Th e left ventricle is chamber size (by vol index) is severely enlarged (male - LVED vol >100ml/m2). No rmal LV wall thickness. Good endocardial de finition with use of IV Definity contrast. The fo llowing segment(s) appear akinetic: anteroseptum, in feroseptum, inferior wall . The other segments ar e hypokinetic. Gl obal LV systolic function moderately reduced . LV EF by Knox's method of disk assessment is mo derately reduced (35-39%) . Gr alvni 1 diastolic dysfunction (impaired relaxation an d low-normal LA pressure). Left AtriumImaging is suboptimal for accurate measurement of th e LA volumes. Based on the PLAX diameter of 4.2 cm , the LA is dilated. Right VentricleRV is very poorly imaged and cannot be adequately ev aluated. Suggestion of presence of pacemaker le ad. Right Atrium RA is not well seen. Suggestion of presence of a pa cemaker lead in the RA. Aortic Valve Aortic valve is not well seen in the short axis im ages. Unable to discern number of cusps. Mild th ickening and calcification of the leaflets noted. Ba sed on Doppler evaluation, there is suggestion of mo derate aortic stenosis with AL of 1.2 cm^2 ( low gr adients are due to the reduced stroke volume in dex) Mitral Valve Mild MV leaflet thickening. Mi ld mitral regurgitation. Tricuspid ValveMorphology of the tricuspid valve is not well seen. Mi ld TR. Unable to estimate peak systolic PA pr essure; inadequate TR velocity signal. Estimated RA P 0-5 mm Hg. Pulmonic Valve Normal PV structure and function by limited views an d Doppler. AortaAortic root size (SInus of Valsalva diameter) is no rmal . PericardiumNo pericardial effusion is visualized. IVC/SVC/PA/PV/PleuralThe estimated RA pressure by IVC dynamics 0-5mmHg . Chambers/Structures Left Atrium LA Dimension: 4.2 cm LA Volume: 64 ml LA Vol. Index: 29 ml/m^2 Left Ventricle LVIDd: 6.4 cm LV Septum Diastolic: 0.87 cm LV PW Diastolic: 0.66 cm LVEDV Knox's:226 ml LVESV Knox's:143 ml LVEF Knox's: 36 %L VEDVI: 102 ml/m^2 LVESVI: 64 ml/m^2 LVOT Diameter: 2 cm Right Ventricle RV Diast Dim.: 4.2 cm Aorta Ao Root S of Thao.: 3.6 cm Doppler/Quantitative Measurements Mitral Valve MV Peak E-Wave: 0.5 m/s MV Peak A-Wave: 1 m/s E/A Ratio: 0.5 Peak Gradient: 1 mmHg MV Adan. Peak: Tissue Doppler E' Septal Velocity: 0.06 m/sE/E': 7 E' Lateral Velocity: 0.08 m/s Aortic Valve Peak Velocity: 2.1 m/s Mean Gradient: 10 mmHg Peak Gradient: 17.64 mmHg AV Area (continuity): 1.24 cm^2 AV VTI: 44.2 cm AV DVI: 0.39 LVOT LVOT Diameter: 2 cm LVOT VTI: 17.4 cm LVOT Area: 3.14 cm^2LVOT SV:54.64 ml LVOT CO: 3.82 l/min LVOT CI: 1.72 l/min/m^2 Tricuspid Valve Estimated RAP: 5 mmHg Procedure Note Interface, External Ris In - 06/30/2018 9:23 AM CDT Transthoracic Echocardiography Report (TTE) Demographics Patient Name POOL ARANDA Date of Study 06/29/2018 ZEUS Gender Male Visit Number [id number] Race Unknown Room Number [id number] Number Date of 1960 Referring Physician Age 58 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 Clinical History Coronary Artery Disease Hyperlipidemia Hypertension Myocardial Infarction PVD 2010 ACB HGB 14.8 HCT 44.6 % Contrast Medium: Definity. Amount - 2 ml Height: 71 inches Weight: 102.51 kg (226 lbs) BSA: 2.22 m^2 BMI: 31.52 kg/m^2 HR: 70 bpm BP: 124/77 mmHg Summary Technically Difficult Study 1. The left ventricle is chamber size (by vol index) is severely enlarged (male - LVED vol >100ml/m2). Normal LV wall thickness. Good endocardial definition with use of IV Definity contrast. The following segment(s) appear akinetic: anteroseptum, inferoseptum, inferior wall . The other segments are hypokinetic. Global LV systolic function moderately reduced . LVEF by Knox's method of disk assessment is moderately reduced (35-39%) . Grade 1 diastolic dysfunction (impaired relaxation and low-normal LA pressure). 2. LA is dilated. 3. mild thickening and calcification of the aortic valve leaflets noted. Based on Doppler evaluation, there is suggestion of moderate aortic stenosis with AL of 1.2 cm^2 ( low gradients are due to the reduced stroke volume index) 4. Mild TR. Unable to estimate peak systolic PA pressure; inadequate TR velocity signal. Estimated RAP 0-5 mm Hg. 5. No pericardial effusion is visualized. Previous Study No prior studies available for comparison. Signature Findings Rhythm/BP Regular sinus rhythm during the exam. Left Ventricle Technically Difficult Study The left ventricle is chamber size (by vol index) is severely enlarged (male - LVED vol >100ml/m2). Normal LV wall thickness. Good endocardial definition with use of IV Definity contrast. The following segment(s) appear akinetic: anteroseptum, inferoseptum, inferior wall . The other segments are hypokinetic. Global LV systolic function moderately reduced . LVEF by Knox's method of disk assessment is moderately reduced (35-39%) . Grade 1 diastolic dysfunction (impaired relaxation and low-normal LA pressure). Left Atrium Imaging is suboptimal for accurate measurement of the LA volumes. Based on the PLAX diameter of 4.2 cm, the LA is dilated. Right Ventricle RV is very poorly imaged and cannot be adequately evaluated. Suggestion of presence of pacemaker lead. Right Atrium RA is not well seen. Suggestion of presence of a pacemaker lead in the RA. Aortic Valve Aortic valve is not well seen in the short axis images. Unable to discern number of cusps. Mild thickening and calcification of the leaflets noted. Based on Doppler evaluation, there is suggestion of moderate aortic stenosis with AL of 1.2 cm^2 ( low gradients are due to the reduced stroke volume index) Mitral Valve Mild MV leaflet thickening. Mild mitral regurgitation. Tricuspid Valve Morphology of the tricuspid valve is not well seen. Mild TR. Unable to estimate peak systolic PA pressure; inadequate TR velocity signal. Estimated RAP 0-5 mm Hg. Pulmonic Valve Normal PV structure and function by limited views and Doppler. Aorta Aortic root size (SInus of Valsalva diameter) is normal . Pericardium No pericardial effusion is visualized. IVC/SVC/PA/PV/Pleural The estimated RA pressure by IVC dynamics 0-5mmHg . Chambers/Structures Left Atrium LA Dimension: 4.2 cm LA Volume: 64 ml LA Vol. Index: 29 ml/m^2 Left Ventricle LVIDd: 6.4 cm LV Septum Diastolic: 0.87 cm LV PW Diastolic: 0.66 cm LVEDV Knox's:226 ml LVESV Knox's:143 ml LVEF Knox's: 36 % LVEDVI: 102 ml/m^2 LVESVI: 64 ml/m^2 LVOT Diameter: 2 cm Right Ventricle RV Diast Dim.: 4.2 cm Aorta Ao Root S of Thao.: 3.6 cm Doppler/Quantitative Measurements Mitral Valve MV Peak E-Wave: 0.5 m/s MV Peak A-Wave: 1 m/s E/A Ratio: 0.5 Peak Gradient: 1 mmHg MV Adan. Peak: Tissue Doppler E' Septal Velocity: 0.06 m/s E/E': 7 E' Lateral Velocity: 0.08 m/s Aortic Valve Peak Velocity: 2.1 m/s Mean Gradient: 10 mmHg Peak Gradient: 17.64 mmHg AV Area (continuity): 1.24 cm^2 AV VTI: 44.2 cm AV DVI: 0.39 LVOT LVOT Diameter: 2 cm LVOT VTI: 17.4 cm LVOT Area: 3.14 cm^2 LVOT SV:54.64 ml LVOT CO: 3.82 l/min LVOT CI: 1.72 l/min/m^2 Tricuspid Valve Estimated RAP: 5 mmHg Performing Organization Address City/[facility] Mex[facility]ode Phone Number [facility] POC-Glucose meter (06/29/2018 7:20 AM CDT) POC-Glucose Meter 113 (H)Comment: TESTED AT 70 - 110 mg/dL [address] [address] Specimen Blood Performing Organization Address City/[facility]/Zipcode Phone Number [address] [address] CENTER PT/aPTT (06/29/2018 6:35 AM CDT) Protime 14.5 11.7 - 14.7 seconds [facility] INR 1.1 <=5.9 [facility] PTT 32.7 22.5 - 36.0 seconds [facility] Specimen Blood Narrative Performed At [facility] RECOMMENDED COUMADIN/WARFARIN INR THERAPY RANGES STANDARD DOSE: 2.0 - 3.0 Includes: PROPHYLAXIS for venous thrombosis, systemic embolization; TREATMENT for venous thrombosis and/or pulmonary embolus. HIGH RISK: Target INR is 2.5-3.5 for patients with mechanical heart valves. Performing Organization Address City/State/[facility] Mexicocode Phone Number [address] [address] [phone] CENTER aPTT (06/27/2018 3:36 PM CDT)Only the most recent of3 resultswithin the time period is included. PTT 51.7 (H) 22.5 - 36.0 seconds [facility] Specimen Blood Performing Organization Address [facility] [place]owa Phone Number [address] [phone] GOMER Troponin I (06/27/2018 1:29 PM CDT)Only the most recent of2 resultswithin the time period is included. Troponin I 0.01 0.00 - 0.03 ng/mL [facility] Specimen Blood Narrative Performed At [facility] Troponin I (TnI) levels must be interpreted [...] failure, acidosis, acute neurological disease, and persistent tachyarrhythmia. Performing Organization Address City/[facility] Mex[facility]ode Phone Number [address] [phone] GOMER XR chest 1 view portable / bedside (06/27/2018 3:52 AM CDT) Narrative Performed At FINAL REPORT GE RIS RAD, CHEST, 1 VIEW, NON DEPT INDICATION: angina pectoris COMPARISON: Prior day's exam FINDINGS: Portable frontal view of the chest. IMPRESSION: Support Lines: None. Lungs and pleura: Clear lungs. No pneumothorax. Costophrenic sulci are sharp. Heart and mediastinum: Normal cardiac size. Normal aortic caliber. Additional findings: None. Signed: JR Parsons Robert MD Report Verified Date/Time:06/27/2018 04:11:12 Reading Location: [address] Body Reading Room Procedure Note Interface, External Ris In - 06/27/2018 5:55 AM CDT FINAL REPORT RAD, CHEST, 1 VIEW, NON DEPT INDICATION: angina pectoris COMPARISON: Prior day's exam FINDINGS: Portable frontal view of the chest. IMPRESSION: Support Lines: None. Lungs and pleura: Clear lungs. No pneumothorax. Costophrenic sulci are sharp. Heart and mediastinum: Normal cardiac size. Normal aortic caliber. Additional findings: None. Signed: JR Parsons Robert MD Report Verified Date/Time: 06/27/2018 04:11:12 Reading Location: [facility] Body Reading Room Performing Organization Address City/State/Zipcode Phone Number [facility] Urinalysis w/ Microscopic (06/27/2018 3:09 AM CDT) Color, UA Light Yellow [facility] Clarity, UA Clear [facility] Specific [place], UA 1.014 1.001 - 1.035 [facility] pH, UA 5.5 5.0 - 8.0 [facility] Protein, UA Negative Negative [facility] Glucose, UA 70 mg/dL (A) Negative [facility] Ketones, UA Negative Negative [facility] Bilirubin, UA Negative Negative [facility] [facility] Blood, UA Negative Negative [facility] Nitrite, UA Negative Negative [facility] Leukocytes, UA Negative Negative [facility] Urobilinogen, UA 0.2 0.2 - 1.0 mg/dL [facility] RBC, UA 4 /HPF [facility] WBC, UA 4 /HPF [facility] Squam Epithel, UA <1 /HPF [facility] Specimen Source [facility] Specimen Urine Performing Organization Address City/[facility] Phone Number [facility] [address] [place] [address] CENTER ECG 12 lead (06/27/2018 2:38 AM CDT) Narrative Performed At Ventricular Rate 60 BPM GE MUSE Atrial Rate 60 BPM P-R Interval 236 ms QRS Duration 122 ms Q-T Interval 486 ms QTC Calculation(Bazett) 486 ms P [place] 57 degrees R [place] 58 degrees T [place] 125 degrees Atrial-paced rhythm with prolonged AV conduction Non-specific intra-ventricular conduction delay Nonspecific ST and T wave abnormality Abnormal ECG Confirmed by MD CHAU JOSEPH P ([id number]) on 06/28/2018 6:41:22 AM Procedure Note Interface, External Ris In - 06/28/2018 6:41 AM CDT Ventricular Rate 60 BPM Atrial Rate 60 BPM P-R Interval 236 ms QRS Duration 122 ms Q-T Interval 486 ms QTC Calculation(Bazett) 486 ms P [place] 57 degrees R [place] 58 degrees T [place] 125 degrees Atrial-paced rhythm with prolonged AV conduction Non-specific intra-ventricular conduction delay Nonspecific ST and T wave abnormality Abnormal ECG Confirmed by MD CHAU JOSEPH P ([id number]) on 06/28/2018 6:41:22 AM Performing Organization Address City/State/[facility] Phone Number GE MUSE B-type Natriuretic Factor (BNP) (06/27/2018 2:30 AM CDT) BNP 122 (H) 0 - 100 pg/mL [facility] Specimen Blood Performing Organization Address City/State/Zipcode Phone Number [facility] [address] [place] [address] [phone] [place] Hemoglobin A1c (06/27/2018 2:30 AM CDT) Hemoglobin A1C 7.5 (H) 4.3 - 6.1 % [facility] Specimen Blood Performing Organization Address City/[facility] Phone Number [facility] [address], [place] [phone] [place] Creatine Kinase (CK), Total and MB (06/27/2018 2:30 AM CDT) Total CK 61 29 - 200 U/L [facility] CK-MB 1.5 0.0 - 6.6 ng/mL [facility] MB Relative Index 2.5 % [facility] Specimen Blood Narrative Performed At CK-MB Reference Range: [facility] <6.7Normal 6.7-10.0Borderline >10.0 Abnormal Performing Organization Address City/[facility]/Zipcode Phone Number [facility] [address], [place] [phone] GOMER after 10/26/2017 Insurance Payer Benefit Plan / Group Subscriber ID Type Phone Address [employer] - MEDICARE AARP/MEDICARE COMPLETE xxxxxxxxx [facility] ([place]) [place] [address] Advance Directives For more information, please contact:[address] [phone] Code Status Date Activated Date Inactivated Comments Full Code 06/27/2018 2:44 AM 06/30/2018 4:04 PM This code status was determined by: Patient
[2018-10-27] MEDS ORDERED: NITROGLYCERIN 0.4 MG/TAB SL ONE (22:42)
[2018-10-27 23:00] LABS: Absolute Lymphocytes (CBC) 2.6 K/uL (0.7-4.9); Absolute Monocytes 0.6 K/uL (0.1-1.3); Absolute Neutrophil 1.7 K/uL (1.8-8.0); Basophils % 0.4 % (0-1.3); Hematocrit 42.7 % (39.6-49.0); Monocytes % 11.4 % (3.3-12.3); RBC Red Blood Cell Count 5.03 M/uL (4.33-5.43)
[2018-10-27 23:16] LABS: BUN Blood Urea Nitrogen 21 mg/dL (7-18); Bicarbonate 28 mmol/L (21-32); Glucose Level 255 mg/dL (74-106); Magnesium 2.1 mg/dL (1.8-2.4); NT PRO-BNP 329 pg/mL (<125); Potassium 3.9 mmol/L (3.5-5.1); Sodium Level 139 mmol/L (136-145); Troponin (Emerg Dept Use Only) < 0.02 ng/mL (0.0-0.045)
--- NOTE | 2018-10-27 23:39 | EDPHYS ---
Physician Documentation [facility] Name: Pool Aden Age: 58 yrs Sex: Male : 1960 Arrival Date: 10/27/2018 Time: 22:01 Bed 24 Private MD: J Luis Gleason ED Physician Gerardo Pennington HPI: 10/27 23:35 This 58 yrs old Male presents to ER via Wheelchair with complaints of Chest rn Pain. 23:35 The patient or guardian reports chest pain that is located primarily in the anterior rn aspect of left upper chest. Onset: today. The pain does not radiate. The chest pain is described as aching. Modifying factors: The symptoms are alleviated by nothing. the symptoms are aggravated by nothing. Severity of pain: At its worst the pain was mild in the emergency department the pain is unchanged. The patient has experienced similar episodes in the past. Reports multiple similar episodes in past, reports has had bypass and failed stents, last time ahd pain like this required new stent, pain usually improves with nitro but ran out, today lasting longer. . Historical: - Allergies: 22:21 No Known Allergies; lp1 - Home Meds: 22:21 aspirin 81 mg Oral TbEC 1 tab once daily [Active]; atorvastatin 80 mg Oral tab 1 tab lp1 once daily [Active]; lisinopril 10 mg Oral tab 1 tab once daily [Active]; metoprolol tartrate 100 mg Oral tab 1 tab 2 times per day [Active]; Pepcid 20 mg Oral tab 1 tab every 12 hours [Active]; Plavix 75 mg Oral tab 1 tab once daily [Active]; - PMHx: 22:21 Hyperlipidemia; Hypertension; pacemaker/defibrillator; Myocardial infarction; lp1 - PSHx: 22:21 CABG; Heart stents; lp1 - Immunization history:: Adult Immunizations up to date. - Social history:: Smoking status: Patient uses tobacco products, smokes two packs cigarettes per day. - Ebola Screening: : No symptoms or risks identified at this time. - Family history:: not pertinent. - Hospitalizations: : No recent hospitalization is reported. ROS: 23:35 Constitutional: Negative for fever, chills, and weight loss, Eyes: Negative for injury, rn pain, redness, and discharge, Neck: Negative for injury, pain, and swelling, Cardiovascular: + chest pain Respiratory: Negative for shortness of breath, cough, wheezing, and pleuritic chest pain, Abdomen/GI: Negative for abdominal pain, nausea, vomiting, diarrhea, and constipation, MS/Extremity: Negative for injury and deformity, Skin: Negative for injury, rash, and discoloration, Neuro: Negative for headache, weakness, numbness, tingling, and seizure. Exam: 23:35 Constitutional: This is a well developed, well nourished patient who is awake, alert, rn and in no acute distress. Head/Face: Normocephalic, atraumatic. Eyes: Pupils equal round and reactive to light, extra-ocular motions intact. Lids and lashes normal. Conjunctiva and sclera are non-icteric and not injected. Cornea within normal limits. Periorbital areas with no swelling, redness, or edema. Cardiovascular: Regular rate and rhythm. No pulse deficits. Respiratory: Lungs have equal breath sounds bilaterally, clear to auscultation Abdomen/GI: soft, non-tender Skin: Warm, dry with normal turgor. Normal color with no rashes, no lesions, and no evidence of cellulitis. MS/ Extremity: Pulses equal, no cyanosis. Neurovascular intact. Full, normal range of motion. Equal circumference. Neuro: Awake and alert, GCS 15, oriented to person, place, time, and situation. Cranial nerves II-XII grossly intact. Motor strength 5/5 in all extremities. Sensory grossly intact. Vital Signs: 22:20 BP 142 / 74; Pulse 82; Resp 18; Temp 98.7(O); Pulse Ox 98% on R/A; Pain 0/10; lp1 23:30 BP 117 / 54; Pulse 70; Resp 18 S; Pulse Ox 97% on R/A; rv 23:39 BP 162 / 84; Pulse 72; Resp 11 S; Pulse Ox 98% on R/A; rv MDM: 22:14 Patient medically screened. rn 23:35 Differential diagnosis: acute myocardial infarction, acute pericarditis, coronary rn artery disease chest wall pain, costochondritis, pleurisy, pneumothorax, stable angina, unstable angina. Data reviewed: vital signs, nurses notes, lab test result(s), EKG, radiologic studies, plain films, and as a result, I will admit patient. Counseling: I had a detailed discussion with the patient and/or guardian regarding: the historical points, exam findings, and any diagnostic results supporting the discharge/admit diagnosis, lab results, radiology results, the need for further work-up and treatment in the hospital. Response to treatment: the patient's symptoms have mildly improved after treatment, and as a result, I will admit patient. Admission orders: after a detailed discussion of the patient's condition and case, the admit orders are written by me. 10/27 22:23 Order name: Basic Metabolic Panel; Complete Time: 23:29 rn 10/27 22:23 Order name: CBC with Diff; Complete Time: 23:29 rn 10/27 22:23 Order name: Magnesium; Complete Time: :29 rn 10/27 22:23 Order name: NT PRO-BNP; Complete Time: :29 rn 10/27 22:23 Order name: Troponin (emerg Dept Use Only); Complete Time: 23:29 rn 10/27 22:23 Order name: XRAY Chest (1 view) rn 10/27 22:23 Order name: EKG; Complete Time: 22:24 rn 10/27 22:23 Order name: Cardiac monitoring; Complete Time: 22:40 rn 10/27 22:23 Order name: EKG - Nurse/Tech; Complete Time: 22:40 rn 10/27 22:23 Order name: IV Saline Lock; Complete Time: 22:40 rn 10/27 22:23 Order name: Labs collected and sent; Complete Time: 22:40 rn 10/27 22:23 Order name: O2 Per Protocol; Complete Time: 22:46 rn 10/27 22:23 Order name: O2 Sat Monitoring; Complete Time: 22:46 rn Administered Medications: 22:30 Drug: Nitroglycerin 0.4 mg Route: Sublingual; rv 10/28 02:04 Follow up: Response: Pain is decreased rv Disposition: 10/27/18 23:38 Hospitalization ordered by Nas Interiano for Observation. Preliminary diagnosis is Chest pain, unspecified. - Bed requested for Telemetry/MedSurg (observation). - Status is Observation. rv - Condition is Stable. - Problem is new. - Symptoms have improved. UTI on Admission? No Signatures: Dispatcher [employer] EDMS Jazmyn Junior RN RN mw Nieto, Roman, MD MD rn Pena, Laura, RN RN lp1 Brooks Kyle RN RN rv Corrections: (The following items were deleted from the chart) :57 10/27 23:38 Hospitalization Ordered by Nas Interiano MD for Observation. Preliminary mw diagnosis is Chest pain, unspecified. Bed requested for Telemetry/MedSurg (observation). Status is Observation. Condition is Stable. Problem is new. Symptoms have improved. UTI on Admission? No. rn 10/28 02:50 01:57 10/27/2018 23:38 Hospitalization Ordered by Nas Interiano MD for Observation. rv Preliminary diagnosis is Chest pain, unspecified. Bed requested for Telemetry/MedSurg (observation). Status is Observation. Condition is Stable. Problem is new. Symptoms have improved. UTI on Admission? No. mw
--- NOTE | 2018-10-27 23:39 | ER ---
Nurse's Notes [facility] Name: Pool Aden Age: 58 yrs Sex: Male : 1960 Arrival Date: 10/27/2018 Time: 22:01 Bed 24 Private MD: J Luis Gleason Diagnosis: Chest pain, unspecified Presentation: 10/27 22:18 Presenting complaint: Patient states: chest pain radiating to left shoulder that began lp1 about 30-40 min ago; States talking to someone who is a nurse and given clonidine to lower blood pressure; patient took own medication of lisinopril for BP 190/100; States symptoms resolved at this time. Transition of care: patient was not received from another setting of care. Onset of symptoms was October 27, 2018 at 21:30. Risk Assessment: Do you want to hurt yourself or someone else? Patient reports no desire to harm self or others. Initial Sepsis Screen: Does the patient meet any 2 criteria? No. Patient's initial sepsis screen is negative. Does the patient have a suspected source of infection? No. Patient's initial sepsis screen is negative. Care prior to arrival: None. 22:18 Method Of Arrival: Wheelchair lp1 22:18 Acuity: SUSAN 2 lp1 Historical: - Allergies: 22:21 No Known Allergies; lp1 - Home Meds: 22:21 aspirin 81 mg Oral TbEC 1 tab once daily [Active]; atorvastatin 80 mg Oral tab 1 tab lp1 once daily [Active]; lisinopril 10 mg Oral tab 1 tab once daily [Active]; metoprolol tartrate 100 mg Oral tab 1 tab 2 times per day [Active]; Pepcid 20 mg Oral tab 1 tab every 12 hours [Active]; Plavix 75 mg Oral tab 1 tab once daily [Active]; - PMHx: 22:21 Hyperlipidemia; Hypertension; pacemaker/defibrillator; Myocardial infarction; lp1 - PSHx: 22:21 CABG; Heart stents; lp1 - Immunization history:: Adult Immunizations up to date. - Social history:: Smoking status: Patient uses tobacco products, smokes two packs cigarettes per day. - Ebola Screening: : No symptoms or risks identified at this time. - Family history:: not pertinent. - Hospitalizations: : No recent hospitalization is reported. Screenin:22 Abuse screen: Denies threats or abuse. Denies injuries from another. Nutritional lp1 screening: No deficits noted. Tuberculosis screening: No symptoms or risk factors identified. Fall Risk None identified. Assessment: 22:40 General: Appears in no apparent distress. comfortable, Behavior is calm, cooperative. rv Pain: Complains of pain in chest Pain does not radiate. Pain began suddenly. Neuro: Level of Consciousness is awake, alert, obeys commands, Oriented to person, place, time, situation. Cardiovascular: Capillary refill < 3 seconds Rhythm is regular. Respiratory: Airway is patent. GI: No signs and/or symptoms were reported involving the gastrointestinal system. : No signs and/or symptoms were reported regarding the genitourinary system. EENT: No signs and/or symptoms were reported regarding the EENT system. Derm: Skin is intact. Vital Signs: 22:20 BP 142 / 74; Pulse 82; Resp 18; Temp 98.7(O); Pulse Ox 98% on R/A; Pain 0/10; lp1 23:30 BP 117 / 54; Pulse 70; Resp 18 S; Pulse Ox 97% on R/A; rv 23:39 BP 162 / 84; Pulse 72; Resp 11 S; Pulse Ox 98% on R/A; rv ED Course: 22:01 Patient arrived in ED. es 22:01 J Luis Gleason MD is Private Physician. es 22:14 Gerardo Pennington MD is Attending Physician. rn 22:20 Triage completed. lp1 22:20 Arm band placed on left wrist. lp1 22:22 Patient has correct armband on for positive identification. Placed in gown. Bed in low lp1 position. patient monitor on. Pulse ox on. NIBP on. 22:22 Patient maintains SpO2 saturation greater than 95% on room air. lp1 22:30 Inserted saline lock: 20 gauge in right antecubital area, using aseptic technique. rv Blood collected. 22:50 XRAY Chest (1 view) In Process Unspecified. EDMS 23:38 Nas Interiano MD is Hospitalizing Provider. rn 10/28 02:41 No provider procedures requiring assistance completed. Patient admitted, IV remains in rv place. intact. Administered Medications: 10/27 22:30 Drug: Nitroglycerin 0.4 mg Route: Sublingual; rv 10/28 02:04 Follow up: Response: Pain is decreased rv Outcome: 10/27 23:38 Decision to Hospitalize by Provider. varinder 10/28 02:41 Admitted to Tele accompanied by tech, via wheelchair, room 414, with chart, Report rv called to JAYLENE IZAGUIRRE Condition: good Discharge instructions given to patient, family, Instructed on the need for admit, Demonstrated understanding of instructions. 02:50 Patient left the ED. rv Signatures: Dispatcher [employer] Madonna Morris Roman, MD MD rn Pena, Laura, RN RN lp1 Brooks Kyle RN RN rv
[2018-10-28] MEDS ORDERED: NITROGLYCERIN 0.4 MG/TAB SL PRN (02:44)
[2018-10-28 03:35] VITALS: BMI 32.2
--- NOTE | 2018-10-28 04:38 | P.HP ---
Certification for Inpatient Patient admitted to: Observation With expected LOS: <2 Midnights Practitioner: I am a practitioner with admitting privileges, knowledge of patient current condition, hospital course, and medical plan of care. Services: Services provided to patient in accordance with Admission requirements found in Title 42 Section 412.3 of the Code of Federal Regulations Patient History Date of Service: 10/28/18 Reason for admission: chest pain History of Present Illness: Mr Aden is a 58 years old male with history of HTN, CAD s/p CAGB with ICD placement, who came to ED complaining of chest pain, substernal, started about 40 minutes prior to arrive. The pain is pressure like, associated with SOB, 7/ 10 of intensity. He denied any nausea, vomiting, diaphoresis or palpitations. The pain does not radiate. Lab work shows normal initial trop I, EKG no acute ST -T changes. At my encounter, the patient was chest pain free already. Allergies No Known Allergies Allergy (Verified 09/09/17 00:51) Home medications list reviewed: Yes Home Medications: Atorvastatin Calcium [Lipitor] 80 mg PO BEDTIME 03/23/18 Cephalexin [Keflex] 500 mg PO DAILY #7 cap 03/23/18 Clopidogrel Bisulfate [Plavix] 75 mg PO DAILY 03/23/18 Isosorbide Mononitrate [Isosorbide Mononitrate ER] 30 mg PO DAILY 03/23/18 Lisinopril 20 mg PO DAILY 03/23/18 Oxybutynin Chloride [Oxybutynin Chloride ER] 10 mg PO DAILY #7 tab.er.24 Tamsulosin [Flomax] 0.4 mg PO DAILY 03/23/18 traMADol HCL [Ultram] 50 mg PO Q6H PRN #24 tab 03/23/18 - Past Medical/Surgical History Diabetic: No -: hypertension -: Coronary artery disease -: Carotid artery disease -: Peripheral arterial disease -: Bilateral knee replacements -: CABG -: Fem-pop bypass -: Carotid artery stent multiple -: Cardiac catheterization -: tumor removed from spine - Family History Father -: Heart disease Brother -: Heart disease Notes: CABG x4 - Social History Smoking Status: Current every day smoker Counseled patient to stop smoking for: less than 10 minutes Alcohol use: Yes CD- Drugs: No Caffeine use: Yes Place of Residence: Home Review of Systems 10-point ROS is otherwise unremarkable Physical Examination - Vital Signs Temperature: 97.4 F Blood Pressure: 124/64 Pulse: 76 Respirations: 16 Pulse Ox (%): 98 - Physical Exam General: Alert, In no apparent distress HEENT: Atraumatic, PERRLA, Mucous membr. moist/pink, EOMI, Sclerae nonicteric Neck: Supple, 2+ carotid pulse no bruit, No LAD, Without JVD or thyroid abnormality Respiratory: Clear to auscultation bilaterally, Diminished Cardiovascular: Regular rate/rhythm, Normal S1 S2 Gastrointestinal: Normal bowel sounds, No tenderness Musculoskeletal: No tenderness Integumentary: No rashes Neurological: Normal speech, Normal strength at 5/5 x4 extr, Normal tone, Normal affect Lymphatics: No axilla or inguinal lymphadenopathy - Studies Laboratory Data (last 24 hrs) 10/27/18 22:30: WBC 5.0, Hgb 14.6, Hct 42.7, Plt Count 218 10/27/18 22:30: Sodium 139, Potassium 3.9, BUN 21 H, Creatinine 1.10, Glucose 255 H, Magnesium 2.1 Assessment and Plan - Problems (Diagnosis) (1) Chest pain Current Visit: Yes Status: Acute Qualifiers: Chest pain type: precordial pain Qualified Code(s): R07.2 - Precordial pain (2) CAD (coronary artery disease) Onset Date: 03/23/18 Current Visit: No Status: Acute Qualifiers: Coronary Disease-Associated Artery/Lesion type: bypass graft, autologous vein Associated angina: with unstable angina Qualified Code(s): I25.710 - Atherosclerosis of autologous vein coronary artery bypass graft(s) with unstable angina pectoris (3) Hx of CABG Onset Date: 03/23/18 Current Visit: No Status: Chronic (4) Hypertension Onset Date: 03/23/18 Current Visit: No Status: Chronic Qualifiers: Hypertension type: essential hypertension (5) Tobacco abuse Onset Date: 03/23/18 Current Visit: No Status: Chronic - Plan Will admit the patient due to chest pain, so far initial trop I is negative, EKG without acute changes, will continue ASA, Plavix, beta blockers, and statins. Consult Cardiology. - Advance Directives Does patient have a Living Will: No Does patient have a Durable POA for Healthcare: No - Code Status/Comfort Care Code Status Assessed: Yes Code Status: Full Code
--- NOTE | 2018-10-28 07:47 | EKG ---
Test Date: 2018-10-27 Test Time: 22:17:01 Refinery Operator Light Ends Recovery: ANTOINETTE MEASUREMENT RESULTS: Intervals: Rate: 80 CT: 164 QRSD: 118 QT: 426 QTc: 491 [place]: P: 48 CT: 164 QRS: 60 T: 134 INTERPRETIVE STATEMENTS: Normal sinus rhythm Intraventricular conduction delay Non specific ST and T abnormality Compared to ECG 06/26/2018 20:47:54 Prolonged QT interval no longer present Electronically Signed On 10-28-18 07:46:57 WHARF TENDER HELPER by Terry De León
--- NOTE | 2018-10-28 08:25 | RAD REPORT ---
EXAM DESCRIPTION: Brain Single View10/27/2018 10:51 pm CLINICAL HISTORY: Chest pain COMPARISON: June 2018 FINDINGS: The lungs appear clear of acute infiltrate. The heart is mildly enlarged. Postsurgical changes involve the chest. Pacemaker leads in place. IMPRESSION: No acute abnormalities displayed
[2018-10-28] MEDS: ASPIRIN EC 81 MG TAB PO SCH (08:31)
[2018-10-28] MEDS: CLOPIDOGREL 75 MG TABLET PO SCH (08:32)
[2018-10-28] MEDS: LISINOPRIL 20 MG TAB PO SCH (08:32)
[2018-10-28] MEDS: ISOSORBIDE MONO SR 30 MG TAB PO SCH (08:34)
[2018-10-28 09:39] LABS: Urine Appearance CLEAR; Urine Bilirubin NEGATIVE (NEG); Urine Blood NEGATIVE (NEG); Urine Color YELLOW; Urine Glucose 1+ (NEG); Urine Protein NEGATIVE (NEG); Urine Urobilinogen 0.2 mg/dL (0.2-1.0)
[2018-10-28 09:45] LABS: Urine Microscopic Reflex NO UMIC
[2018-10-28] MEDS: ENOXAPARIN 40 MG/0.4 ML SQ SCH (10:23)
--- NOTE | 2018-10-28 11:43 | ECHO ---
HEIGHT: 5 ft 11 in WEIGHT: 231 lb 0 oz DATE OF STUDY: 10/28/[address]: Nas Stallworth MD 2-DIMENSIONAL: YES M.MODE: YES DOPPLER: YES COLOR FLOW: YES TDS: YES PORTABLE: NO DEFINITY: NO BUBBLE STUDY: NO DIAGNOSIS: CHEST PAIN CARDIAC HISTORY: CATHERIZATION: YES SURGERY: YES PROSTHETIC VALVE: NO PACEMAKER: YES MEASUREMENTS (cm) DIASTOLIC (NORMALS) SYSTOLIC (NORMALS) IVSd 1.0 (0.6-1.2) LA Diam (1.9-4.0) LVEF % LVIDd 5.8 (3.5-5.7) LVIDs 3.7 (2.0-3.5) %FS % LVPWd 1.1 (0.6-1.2) Ao Diam 2.4 (2.0-3.7) 2 DIMENSIONAL ASSESSMENT: RIGHT ATRIUM: NORMAL LEFT ATRIUM: DILATED RIGHT VENTRICLE: NORMAL LEFT VENTRICLE: NORMAL TRICUSPID VALVE: NORMAL MITRAL VALVE: NORMAL PULMONIC VALVE: NORMAL AORTIC VALVE: SCLEROSIS PERICARDIAL EFFUSION: NONE AORTIC ROOT: NORMAL LEFT VENTRICULAR WALL MOTION: NORMAL DOPPLER/COLOR FLOW: NO AORTIC STENOSIS OR AORTIC REGURGITATION. COMMENTS: NORMAL LEFT VENTRICULAR EJECTION FRACTION. DILATED LEFT ATRIUM. AORTIC SCLEROSIS WITH NO AORTIC STENOSIS OR AORTIC REGURGITATION. TECHNOLOGIST: Elvira ROSADO
--- NOTE | 2018-10-28 20:05 | PN ---
Date of Progress Note: 10/28/2018 Subjective: The patient was seen and examined. Chart reviewed and case discussed with RN and Dr. Luis baltazar. The patient states his chest pain has resolved. Medications: List reviewed. Physical Examination: Vital Signs: Temperature 97.1, heart rate 65, blood pressure 96/54, respirations 18, and O2 of 97% o n room air. General: Awake, alert, and oriented x3, not in any acute distress. Obese male, somewhat ill-appeari ng. CV: S1 and S2. Regular rate and rhythm. Peripheral pulses present. Respiratory: Moving air well bilaterally. No wheezing or stridor. Gastrointestinal: Abdomen is soft, nontender, and nondistended. Positive bowel sounds. Extremities: No clubbing, cyanosis, or edema. Neurologic: Nonfocal. Laboratory Data: Troponin levels less than 0.02, 0.03 and 0.03. Triglycerides 202, cholesterol 198, LDL 128, and HDL 30. Echocardiogram shows normal EF, dilated left atrium, aortic sclerosis with no aortic stenosis or aortic regurgitation. Assessment And Plan: A 58-year-old male with, 1.Unstable angina. Cardiac enzymes are negative x3. Acute coronary syndrome has been ruled out. I appreciate Dr. De León' input. Echocardiogram shows normal ejection fraction. Plan is for stress te st in a.m. 2.Coronary artery disease, [place] artery and [place] heart, status post coronary artery bypass grafti ng with unstable angina. 3.Essential hypertension, stable. 4.Nicotine dependence with cigarette smoking, counseled. 5.Dyslipidemia. The patient has elevated triglycerides and low HDL. PLAN: Continue chest pain guidelines with aspirin, statin, Plavix and DANDRE inhibitor. Plan is for a stress test in a.m. Further evaluation and treatment based on those results. /MODL Voice ID: [id number] Report ID: [id number]
[2018-10-28] MEDS ORDERED: ATORVASTATIN 80 MG TAB PO SCH (21:00)
[2018-10-28] MEDS ORDERED: MELATONIN 3 MG TABLET PO PRN (21:10)
[2018-10-29] MEDS: ASPIRIN EC 81 MG TAB PO SCH (08:15)
[2018-10-29] MEDS: ENOXAPARIN 40 MG/0.4 ML SQ SCH (08:15)
[2018-10-29] MEDS: CLOPIDOGREL 75 MG TABLET PO SCH (08:16)
[2018-10-29] MEDS: LISINOPRIL 20 MG TAB PO SCH (08:16)
[2018-10-29] MEDS: ISOSORBIDE MONO SR 30 MG TAB PO SCH (08:16)
[2018-10-29] MEDS ORDERED: REGADENOSON 0.4 MG/5 ML SYR IV ONE (09:15)
[2018-10-29] MEDS ORDERED: ACETAMINOPHEN 500 MG TAB PO PRN (10:52)
[2018-10-29 11:07] VITALS: O2SAT 98
[2018-10-29 12:54] VITALS: BP 116/64; TEMP 97.8
--- NOTE | 2018-10-29 13:00 | RAD REPORT ---
EXAM DESCRIPTION: NM - Rest Stress Cardiac Imaging - 10/29/2018 12:54 pm CLINICAL HISTORY: CP Chest pain. COMPARISON: No comparisons TECHNIQUE: The patient was administered approximately 10mCi of Tc 99m Sestamibi prior to resting SPE CT imaging of the heart. The patient was then administered approximately 30 mCi of Tc 99m Sestamibi f ollowing exercise or pharmacologic stress. Multiplanar SPECT images were reviewed. FINDINGS: No stress induced ischemic defect is seen to suggest stress induced ischemia. A large area of fixed photopenia is seen involving the anterior wall and apex likely representing scar tissue fro m prior infarct. The end diastolic volume is 218 ml, the end systolic volume is 147 ml, and the ejection fraction is 2 0 %. IMPRESSION: No stress induced ischemia. Large area of scar tissue suspected involving the LV apex and anterior wall. This is presumably relat ed to previous infarct. Low ejection fraction of 20%.
--- NOTE | 2018-10-29 13:14 | TREADPHA ---
DX: CHEST PAIN Date of Study: 10/29/2018 Ht: 5 11 Wt: 231 lb 0 oz Consulting Physician: KILLIAN MEDICATIONS: ASPIRIN, LIPITOR, PLAVIX, LOVENOX, PRINIVIL, IMDUR, NITROSTAT HISTORY: 58 YEAR OLD MALE WITH COMPLAINTS CHEST PAIN. MEDICAL HISTORY HYPERLIPIDEMIA, HYPERTENSION, PACEMAKER/DEFIBRILLATOR, MYOCARDIAL INFARCTION, CABG, CARDIAC STENTS AND CURRENT SMOKER. PHYSICIAL EXAMINATION: RESTING B.P.: 118/73 RESTING H.R.: 66 RESTING EKG: SINUS RHYTHM, OLD ANTERIOR MYOCARDIAL INFARCTION. PROTOCOL: LEXISCAN EXERCISE TIME: 3:30 B.P. AT PEAK STRESS: 122/66 IMPRESSION: LEXISCAN INJECTED. CARDIOLITE INJECTED PER PROTOCOL. SEE NUCLEAR MEDICINE REPORT. NO SUPRAVENTRICULAR TACHYCARDIA OR VENTRICULAR TACHYCARDIA NOTED. NO PREMATURE VENTRICULAR COMPLEXES. DENIED CHEST PAIN.
--- NOTE | 2018-10-29 14:59 | PN ---
Date of Progress Note: 10/29/2018 Mr. Aden was admitted yesterday for chest pain. Has a history of defibrillator, pacemaker, CAD sta tus post CABG, and most recently an LAD stent. He has done well. Came in with left-sided chest pain after an episode of hypertension of 180/110 after eating a heavy meal. Troponin is negative. Echo is normal. EKG is paced rhythm. Lexiscan is pending. We will see what that shows prior to making f inal decisions. PABLO/KEATON Voice ID: [id number] Report ID: [id number]
--- NOTE | 2018-10-30 01:34 | DS ---
Date of Discharge: 10/29/2018 Consultants: Dr. Alejandro and Dr. De León with Cardiology. Procedure: Cardiac stress test on October 29, 2018, negative for stress-induced ischemia. Discharge Diagnoses: 1.Unstable angina, acute coronary syndrome ruled out, negative stress test. 2.Coronary artery disease, [place] artery and [place]et heart, status post coronary artery bypass grafti ng with unstable angina, resolved. 3.Essential hypertension, stable. 4.Nicotine dependence with cigarette smoking, counseled. 5.Dyslipidemia, on statin. 6.Obesity, body mass index 32. Hospital Course: The patient is a 58-year-old male with complicated past medical history, coronary a rtery disease with double bypass, CABG x2, and restenoses of bypass, who comes in with chest pain. T he patient was admitted to the hospital, and serum cardiac enzymes were obtained, which were negative . ACS was ruled out. He did have elevated triglyceride levels and low HDL. He is on maximum statin therapy, but is recommended to have diet and exercise changes. The patient was also counseled to st op smoking and drinking. The patient had an echocardiogram, which showed normal EF, dilated left atr ium, aortic sclerosis with no aortic stenosis or aortic regurgitation. The patient's cardiac stress test did not show any stress-induced ischemia, showed large area of scar tissue, suspected involving the left ventricular apex and anterior wall, presumably related to previous infarct. The patient was then cleared for discharge from a cardiac standpoint. The patient was then discharged home in a sta ble condition. Activity: As tolerated. Medications: As per medication reconciliation list. Followup: Follow up with primary care physician 2 to 3 days. Follow up with veneer sheet repairer, Dr. Ashely chapman, in 2 weeks. Return to ER for worsening condition. Diet: Heart healthy. Physical Examination: General: Awake, alert, and oriented x3. No acute distress. CV: S1, S2. No murmurs. Respiratory: Moving air well bilaterally. No wheezing. Gastrointestinal: Abdomen is soft, nontender, nondistended. Positive bowel sounds. Extremities: No clubbing, cyanosis, or edema. Neurologic: Nonfocal. SA/MODL Voice ID: [id number] Report ID: [id number]
== END 2018-10-29 15:06 | disposition home or self-care (01) ==
LOC: ER 21:57 → ERHOLD 10-28 01:40 → 4TH 10-28 02:42
PROVIDERS: ADMIT Internal Medicine; ATTEND Internal Medicine
DX: I25.110 Atherosclerotic heart disease of native coronary artery with unstable angina pectoris (principal); I10 Essential (primary) hypertension; E78.5 Hyperlipidemia, unspecified; E66.9 Obesity, unspecified; Z68.32 Body mass index [BMI] 32.0-32.9, adult; F17.210 Nicotine dependence, cigarettes, uncomplicated; Z95.1 Presence of aortocoronary bypass graft; Z95.810 Presence of automatic (implantable) cardiac defibrillator; Z96.653 Presence of artificial knee joint, bilateral
CPT/HCPCS: 36415; 71045; 78452; 80048; 80061; 81003; 83735; 83880; 84484 ×4; 85025; 87088; 93005; 93017; 93306; 94760 ×2; 99285; A9500; G0378 ×2; J1650 ×2; J2785; 87086

== ENCOUNTER 2019-05-12 15:16 | Inpatient (IN) | payer MEDICARE ==
--- OUTSIDE RECORDS SUMMARY | 2019-05-12 15:18 | XMS REPORT | Clinical Summary ---
:1960 Author Organization [facility] Address [address] [place] [address] Care Team Providers Name Role Phone Garrett Primary Care Provider Allergies No Known Allergies Medications Medication Sig Dispensed Refills Start Date End Date Status clopidogrel (PLAVIX) 75 Take 75 mg by 0 Active mg tabletIndications: mouth daily. Coronary artery disease of bypass graft of yuhaaviatam heart with stable angina pectoris (HCC) aspirin 81 MG EC Take 81 mg by 0 Active tabletIndications: mouth daily. Coronary artery disease of bypass graft of yuhaaviatam heart with stable angina pectoris (HCC) atorvastatin [...] Coronary artery disease of bypass graft of yuhaaviatam heart with stable angina pectoris (HCC) chlorhexidine Top Once 07/16/2017 06/30/2018 Discontinued (HIBICLENS) external liquid 4%Indications: Coronary artery disease of bypass graft of yuhaaviatam heart with stable angina pectoris (HCC) Active Problems Problem Noted Date Angina pectoris 06/27/2018 Coronary artery disease Hypertension Peripheral vascular disease Hyperlipidemia Myocardial infarction Encounters Date Type Specialty Care Team Description 06/29/2018 Surgery Travis Whitlock CATH & PCI MD Jose 06/27/2018 - Hospital Encounter Cardiac Intensive Kamlesh, Angina pectoris ( HCC); 06/30/2018 Care MD Jose Coronary artery disease involving yuhaaviatam coronary artery of yuhaaviatam heart without angina pectoris; Essential hypertension; Hx of CABG; History of PTCA; Unstable angina (HCC); Mixed hyperlipidemia 06/27/2018 Orders Only General Internal Medicine after 05/11/2018 Immunizations Name Dates Previously Given Next Due [...] 06/30/2018 4:05 AM CDT Plan of Treatment Not on file Implants Implanted Type Area Archives Specialist Device Shelf Model / Identifier Expiration Serial / Date Lot Synergy Cardiovascular N/A: [place] [id number] 04/07/2020 [id number] / Implanted: Qty: 1 on 06/29/2018 by Jose Whitlock MD Heart SCIENTIFIC / [id number] Procedures Procedure Name Priority Date/Time Associated Diagnosis [...] unspecified vessel or lesion type, unspecified whether yuhaaviatam or transplanted heart (HCC) 2D ECHO W/ [...] 486 ms QTC Calculation(Bazett) 486 ms P [place] 57 degrees R [place] 58 degrees T [place] 125 degrees Atrial-paced rhythm with prolonged AV [...] procedure are in the results section. after 05/11/2018 Results CARDIAC CATH REPORT - SCAN (07/01/2018 1:31 PM CDT) Narrative Performed At RHYTHM STRIP - SCAN (07/01/2018 1:31 PM CDT) Narrative Performed At ECHOCARDIOGRAM REPORT - SCAN (06/30/2018 9:54 AM CDT) Narrative Performed At CBC with platelet count + automated diff (06/30/2018 12:28 AM CDT)Only the most recent of4 resultswithin the time period is included. WBC 5.0 3.5 - 10.5 K/L [facility] RBC 5.30 4.63 - 6.08 M/L [facility] Hemoglobin 14.8 13.7 - 17.5 GM/DL [facility] Hematocrit 45.2 40.1 - 51.0 % [facility] MCV 85.3 79.0 - 92.2 fL [facility] MCH 27.9 25.7 - 32.2 pg [facility] MCHC 32.7 32.3 - 36.5 GM/DL [facility] RDW 13.7 11.6 - 14.4 % [facility] Platelets 208 150 - 450 K/CU MM [facility] MPV 10.7 9.4 - 12.4 fL [facility] nRBC 0 0 - 0 /100 WBC [facility] % Neutros 40 % [facility] % Lymphs 46 % [facility] % Monos 13 % [facility] % Eos 0 % [facility] % Baso 0 % [facility] # Neutros 2.02 1.78 - 5.38 K/L [facility] # Lymphs 2.31 1.32 - 3.57 K/L [facility] # Monos 0.64 0.30 - 0.82 K/L [facility] # Eos 0.02 (L) 0.04 - 0.54 K/L [facility] # Baso 0.01 0.01 - 0.08 K/L [facility] Immature Granulocytes-Relative 1 0 - 1 % [facility] Specimen Blood Performing Organization Address City/[facility]/Zipcode Phone Number [address] [address] CENTER Magnesium (06/30/2018 12:28 AM CDT)Only the most recent of2 resultswithin the time period is included. Magnesium 2.2Comment: Specimen slightly 1.6 - 2.6 mg/dL [facility] Specimen Blood Performing Organization Address City/[facility] Centercode Phone Number [address] [address] [place] Basic Metabolic Panel (06/30/2018 12:28 AM CDT)Only the most recent of4 resultswithin the time period is included. Sodium 137 136 - 145 meq/L [facility] Potassium 3.9Comment: Specimen slightly 3.5 - 5.1 meq/L [facility] Chloride 105 98 - 107 meq/L [facility] CO2 22 22 - 29 meq/L [facility] BUN 22 (H) 7 - 21 mg/dL [facility] Creatinine 1.05Comment: Specimen 0.57 - 1.25 mg/dL [facility] slightly hemolyzed [facility] Glucose 181 (H) 70 - 105 mg/dL [facility] Calcium 9.4 8.4 - 10.2 mg/dL [facility] EGFR 72Comment: ESTIMATED GFR IS mL/min/1.73 sq m [facility] NOT ACCURATE [facility] CLEARANCE IN PREDICTING GLOMERULAR FILTRATION RATE. ESTIMATED GFR IS NOT APPLICABLE FOR DIALYSIS PATIENTS. Specimen Blood Performing Organization Address City/[facility]/Zipcode Phone Number [facility] [address] [place], [place] [id number] CENTER POC ACTIVATED CLOTTING TIME (06/30/2018 12:14 AM CDT)Only the most recent of3 resultswithin the time period is included. Activated Clotting Time 109Comment: TESTED AT sec [address] [address] Specimen Blood Performing Organization Address City/[facility]/Zipcode Phone Number [facility] [address] [place], [place] [phone] [place] 2D Echo W/Doppler(CW/PW/Color) (06/29/2018 2:58 PM CDT) Ejection Fraction [facility] ECHO [facility] Specimen Narrative Performed At Transthoracic Echocardiography Report (TTE) [facility] Demographics Patient Name POOL ARANDA Date of Study 06/29/2018 ZEUS [id number] GenderMale Visit Number [id number] RaceUnknown [id number] m Number [id number] Number Date of Birth1960 Referring Physician Age58 year(s) Mobile Engineer Qasim Reis [facility] Needs to be Pre Physician Read Anne [...] is mo derately reduced (35-39%) . Gr alvin 1 diastolic dysfunction (impaired relaxation an d [...] Study 06/29/2018 ZEUS Gender Male Visit Number [id number] Race Unknown Room Number 6219 Number Date of 1960 Referring Physician Age 58 year(s) Mobile Engineer Qasim Reis RDCS Interpreting [facility] Needs to [...] Estimated RAP: 5 mmHg Performing Organization Address City/[facility] Cent[facility] Phone Number [facility] ECHO HEART[facility] MKCKESSON CPACS POC-Glucose meter (06/29/2018 7:20 AM CDT) POC-Glucose Meter 113 (H)Comment: TESTED AT 70 - 110 mg/dL [address] [address] Specimen Blood Performing Organization Address City/[facility]/Zipcode Phone Number [address] [address] CENTER PT/aPTT (06/29/2018 6:35 AM CDT) Protime 14.5 11.7 - 14.7 seconds [facility] INR 1.1 <=5.9 [facility] PTT 32.7 22.5 - 36.0 seconds [facility] Specimen Blood Narrative Performed At [facility] RECOMMENDED COUMADIN/WARFARIN INR THERAPY RANGES STANDARD DOSE: 2.0 - 3.0 Includes: PROPHYLAXIS for venous thrombosis, systemic embolization; TREATMENT for venous thrombosis and/or pulmonary embolus. HIGH RISK: Target INR is 2.5-3.5 for patients with mechanical heart valves. Performing Organization Address City/[facility] Centercode Phone Number [address] [address] [phone] [place] aPTT (06/27/2018 3:36 PM CDT)Only the most recent of3 resultswithin the time period is included. PTT 51.7 (H) 22.5 - 36.0 seconds [facility] Specimen Blood Performing Organization Address [facility] Centercova Phone Number [address] [address] [place] Troponin I (06/27/2018 1:29 PM CDT)Only the most recent of2 resultswithin the time period is included. Troponin I 0.01 0.00 - 0.03 ng/mL [facility] Specimen Blood Narrative Performed At [facility] Troponin I (TnI) levels must be [...] disease, and persistent tachyarrhythmia. Performing Organization Address [facility] Centercode Phone Number [address] [phone] [place] XR chest 1 view portable / bedside (06/27/2018 3:52 AM CDT) Specimen Narrative Performed At FINAL REPORT [facility] RAD, CHEST, 1 VIEW, NON DEPT INDICATION: angina pectoris COMPARISON: Prior day's exam FINDINGS: Portable frontal view of the chest. IMPRESSION: Support Lines: None. Lungs and pleura: Clear lungs. No pneumothorax. Costophrenic sulci are sharp. Heart and mediastinum: Normal cardiac size. Normal aortic caliber. Additional findings: None. Signed: JR Parsons Robert MD Report Verified Date/Time:06/27/2018 04:11:12 Reading Location: [address] Body Reading Room Procedure Note [...] Report Verified Date/Time: 06/27/2018 04:11:12 Reading Location: [facility] C[facility] CT Body Reading Room Performing Organization Address City/State/Zipcode Phone Number RIS Urinalysis w/ Microscopic (06/27/2018 3:09 AM CDT) Color, UA Light Yellow [facility] Clarity, UA Clear [facility] Specific [place], UA 1.014 1.001 - 1.035 [facility] pH, UA 5.5 5.0 - 8.0 [facility] Protein, UA Negative Negative [facility] Glucose, UA 70 mg/dL (A) Negative [facility] Ketones, UA Negative Negative [facility] Bilirubin, UA Negative Negative [facility] Blood, UA Negative Negative [facility] Nitrite, UA Negative Negative [facility] Leukocytes, UA Negative Negative [facility] Urobilinogen, UA 0.2 0.2 - 1.0 mg/dL [facility] RBC, UA 4 /HPF [facility] WBC, UA 4 /HPF [facility] Squam Epithel, UA <1 /HPF [facility] Specimen Source [facility] Specimen Urine Performing Organization Address City/[facility] Centercode Phone Number [facility] [address] [place] [address] CENTER ECG 12 lead (06/27/2018 2:38 AM CDT) Specimen Narrative Performed At Ventricular Rate 60 BPM GE MUSE Atrial Rate 60 BPM P-R Interval 236 ms QRS Duration 122 ms Q-T Interval 486 ms QTC Calculation(Bazett) 486 ms P [place] 57 degrees R [place] 58 degrees T [place] 125 degrees Atrial-paced rhythm with prolonged AV [...] 486 ms QTC Calculation(Bazett) 486 ms P [place] 57 degrees R [place] 58 degrees T [place] 125 degrees Atrial-paced rhythm with prolonged AV conduction Non-specific intra-ventricular conduction delay Nonspecific ST and T wave abnormality Abnormal ECG Confirmed by MD CHAU JOSEPH P ([id number]) on 06/28/2018 6:41:22 AM Performing Organization Address City/State/[facility] Centercode Phone Number GE MUSE B-type Natriuretic Factor (BNP) (06/27/2018 2:30 AM CDT) BNP 122 (H) 0 - 100 pg/mL [facility] Specimen Blood Performing Organization Address City/[facility] Centercode Phone Number [facility] [address] [place] Hemoglobin A1c (06/27/2018 2:30 AM CDT) Hemoglobin A1C 7.5 (H) 4.3 - 6.1 % [facility] Specimen Blood Performing Organization Address City/[facility] Cent[facility] Phone Number [address] [address] [phone] [place] Creatine Kinase (CK), Total and MB (06/27/2018 2:30 AM CDT) Total CK 61 29 - 200 U/L [facility] CK-MB 1.5 0.0 - 6.6 ng/mL [facility] MB Relative Index 2.5 % [facility] Specimen Blood Narrative Performed At CK-MB Reference Range: [facility] <6.7Normal 6.7-10.0Borderline >10.0 Abnormal Performing Organization Address City/[facility] Centercode Phone Number [address] [address] [phone] [place] after 05/11/2018 Insurance Payer Benefit Plan / Group Subscriber ID Type Phone Address [facility] - MEDICARE AARP/MEDICARE COMPLETE xxxxxxxxx [facility] ([place]) [place] [address] Advance Directives For more information, please contact:[address] [phone] Code Status Date Activated Date Inactivated Comments Full Code 06/27/2018 2:44 AM 06/30/2018 4:04 PM This code status was determined by: Patient
--- OUTSIDE RECORDS SUMMARY | 2019-05-12 15:19 | XMS REPORT | Continuity of Care Document ---
:1960 Author Organization [facility] Address [address] [place] [address] Care Team Providers Name Role Phone TOWN PHYSICIAN, OUT OF Primary Care Physician Unavailable Piter Clement Admitting Physician Piter Clement Attending Physician Ludy Puente Rounding Physician Allergies, Adverse Reactions, Alerts No known allergies. Medications Active Medications Medication Dose Units Route Sig Qty Days Start Discontinued Status Instructions Date Date Aspirin 325 MG PO Daily March Atorvastatin MG PO Daily March Active Calcium 2018 Clopidogrel 75 MG PO Daily March Bisulfate 2018 Lisinopril 20 MG PO Daily March Metformin 500 MG PO Twice March Daily 2018 Meals Nitroglycerin 0.4 MG SL Every March s PRN For Chest pain Problem List Active Problems Medical Problem Onset Date Status Acute kidney injury Active CAD (coronary artery disease) Active Heat exhaustion Active Tobacco abuse Active Diabetes type 2, controlled Active Weakness Active HTN (hypertension) Active Procedures Procedure Date Status XR Chest 1 View Portable April 05, 2019 completed EKG 12 Lead in Emergency Room April 05, 2019 completed Relevant Diagnostic Tests and/or Laboratory Data Laboratory Results Test Date/Time Result Interp. Ref. Range Result Comment Sodium Level April 06, 2019 140 mmol/L 136-145 2:41am Potassium Level April 06, 2019 4.1 mmol/L 3.5-5.1 2:41am Chloride Level April 06, 2019 108 mmol/L High 98-107 2:41am Carbon Dioxide Level April 06, 2019 25 mmol/L 23-31 2:41am Anion Gap April 06, 2019 11 mmol/L 10-20 2:41am Blood Urea Nitrogen April 06, 2019 23 mg/dL 8.4-25.7 2:41am Creatinine April 06, 2019 1.20 mg/dL 0.7-1.3 2:41am Estimated GFR (MDRD) April 06, 2019 62 Reference Range for Estimated GFR: 2:41am Greater than 90 mL/min/1.73 m2 NOTE: The MDRD equation has not been validated for use with the elderly (over 70 years of age), women, patients with serious comorbid condition or persons with extremes of body size, muscle mass, or nutritional status. Glucose Level April 06, 2019 127 mg/dL High 80-115 2:41am Calcium Level April 06, 2019 8.3 mg/dL 7.8-10.44 2:41am Total Bilirubin April 05, 2019 0.6 mg/dL 0.2-1.2 4:28pm Serum Total Protein April 05, 2019 8.5 g/dL High 5.8-8.1 4:28pm Albumin April 05, 2019 4.7 g/dL 3.4-4.8 4:28pm Globulin April 05, 2019 3.8 g/dL High 2.4-3.5 4:28pm Albumin/Globulin Ratio April 05, 2019 1.2 g/dL 1.2-2.2 4:28pm Alkaline Phosphatase April 05, 2019 137 U/L 40-150 4:28pm Aspartate Amino Transf April 05, 2019 22 U/L 5-34 (AST/SGOT) 4:28pm Creatine Kinase April 05, 2019 75 U/L 30-200 4:28pm Troponin I April 06, 2019 0.013 ng/mL Reference Range 2:41am 0.00 - 0.028 ng/mL Negative 0.029 - 0.29 ng/mL Indeterminate Greater or Equal to 0.3 ng/mL Strongly suggests AL Alanine April 05, 2019 22 U/L 8-55 Aminotransferase 4:28pm (ALT/SGPT) B-Type Natriuretic April 05, 2019 59.8 pg/mL 0-100 Peptide 4:34pm White Blood Count April 05, 2019 9.2 thou/uL 4.8-10.8 4:51pm Red Blood Count April 05, 2019 5.87 mill/uL 4.70-6.10 4:51pm Hemoglobin April 05, 2019 16.8 g/dL 14.0-18.0 4:51pm Hematocrit April 05, 2019 52.5 % High 42.0-52.0 4:51pm Mean Corpuscular April 05, 2019 89.4 fL 78.0-98.0 Volume 4:51pm Mean Corpuscular April 05, 2019 28.5 pg 27.0-31.0 Hemoglobin 4:51pm Mean Corpuscular April 05, 2019 31.9 g/dL Low 32.0-36.0 Hemoglobin Concent 4:51pm Red Cell Distribution April 05, 2019 13.1 % 11.5-14.5 Width 4:51pm Platelet Count April 05, 2019 258 thou/uL 130-400 4:51pm Mean Platelet Volume April 05, 2019 7.9 fL 7.4-10.4 4:51pm Neutrophils % April 05, 2019 69.2 % 42.0-75.0 4:51pm Lymphocytes % April 05, 2019 21.5 % 21.0-51.0 4:51pm Monocytes % April 05, 2019 8.0 % 0.0-10.0 4:51pm Eosinophils % April 05, 2019 0.7 % 0.0-10.0 4:51pm Basophils % April 05, 2019 0.6 % 0.0-1.0 4:51pm Neutrophils # April 05, 2019 6.4 thou/uL 1.40-6.50 4:51pm Lymphocytes # April 05, 2019 2.0 thou/uL 1.20-3.40 4:51pm Monocytes # April 05, 2019 0.7 thou/uL High 0.11-0.59 4:51pm Eosinophils # April 05, 2019 0.1 thou/uL 0.0-0.7 4:51pm Basophils # April 05, 2019 0.1 thou/uL 0.0-0.2 4:51pm Urine Color April 05, 2019 Yellow 5:46pm Urine Clarity April 05, 2019 Clear 5:46pm Urine Specific [place] April 05, 2019 1.023 1.002-1.03 5:46pm 6 Urine pH April 05, 2019 5.5 5.0-9.0 5:46pm Urine Leukocyte April 05, 2019 Negative Esterase 5:46pm Dl/uL Urine Nitrite April 05, 2019 Negative 5:46pm Urine Protein April 05, 2019 30 mg/dL 5:46pm Urine Glucose (UA) April 05, 2019 300 mg/dL 5:46pm Urine Ketones April 05, 2019 Trace mg/dL 5:46pm Urine Urobilinogen April 05, 2019 2.0 mg/dL 5:46pm Urine Bilirubin April 05, 2019 Negative 5:46pm Urine Blood April 05, 2019 Negative 5:46pm Urine RBC April 05, 2019 0-3 HPF 5:46pm Urine WBC April 05, 2019 0-3 HPF 5:46pm Urine Squamous April 05, 2019 0-3 HPF Epithelial Cells 5:46pm Urine Bacteria April 05, 2019 None Seen HPF 5:46pm Urine Hyaline Casts April 05, 2019 11-20 LPF 5:46pm Urine Granular Casts April 05, 2019 4-6 LPF 5:46pm Urine Calcium Oxalate April 05, 2019 1+ HPF Crystals 5:46pm Chief Complaint and Reason for Visit Encounter Admit Date Chief Complaint Reason for Visit Discharged Inpatient April 05, 2019 7:51pm CP R/O AL/ACI Acute kidney injury Coronary artery disease Controlled type 2 diabetes mellitus Hypertension Heat exhaustion Tobacco Abuse Weakness Hospital Discharge Instructions No known hospital discharge instructions. Hospital Discharge Medications Medication Dose Units Route Sig Qty Days Order Status Instructions Date Aspirin 325 MG PO Daily April 05, Active 2019 Atorvastatin MG PO Daily April 05, Active Calcium 2019 Clopidogrel 75 MG PO Daily April 05, Active Bisulfate 2019 Lisinopril 20 MG PO Daily April 05, 2018 Metformin 500 MG PO Twice Daily April 05, Active With Meals 2019 Nitroglycerin 0.4 MG SL Every 5 April 05, Active Minutes PRN 2019 For Chest pain Encounters Encounter Facility Location Admit Date Discharge Date Attending Provider Discharged [place] [id number] April 05, April 06, [address] [facility] N 2019 7:51pm 11:15am Ctr Encounter Diagnosis Onset Date Acute kidney injury Coronary artery disease Controlled type 2 diabetes mellitus Hypertension Heat exhaustion Tobacco Abuse Weakness Family History Query Response Instance Date Recorded Comment Family Stroke No Sister April 05, 2019 8:49pm Family Stroke No Mother April 05, 2019 8:49pm Family Stroke No Father April 05, 2019 8:49pm Family Stroke No Brother April 05, 2019 8:49pm Family Myocardial Infarction No Sister April 05, 2019 8:49pm Family Myocardial Infarction No Mother April 05, 2019 8:49pm Family Myocardial Infarction Yes Father April 05, 2019 8:49pm Family Myocardial Infarction Yes Brother April 05, 2019 8:49pm Family Diabetes No Sister April 05, 2019 8:49pm Family Diabetes Yes Mother April 05, 2019 8:49pm Family Diabetes No Father April 05, 2019 8:49pm Family Diabetes No Brother April 05, 2019 8:49pm Family Coronary Artery Disease No Sister April 05, 2019 8:49pm Family Coronary Artery Disease No Mother April 05, 2019 8:49pm Family Coronary Artery Disease Yes Father April 05, 2019 8:49pm Family Coronary Artery Disease Yes Brother April 05, 2019 8:49pm Family Congenital Heart Disease No Sister April 05, 2019 8:49pm Family Congenital Heart Disease No Mother April 05, 2019 8:49pm Family Congenital Heart Disease No Father April 05, 2019 8:49pm Family Congenital Heart Disease No Brother April 05, 2019 8:49pm Family Colorectal Cancer No Sister April 05, 2019 8:49pm Family Colorectal Cancer No Mother April 05, 2019 8:49pm Family Colorectal Cancer No Father April 05, 2019 8:49pm Family Colorectal Cancer No Brother April 05, 2019 8:49pm Family Breast Cancer No Sister April 05, 2019 8:49pm Family Breast Cancer Yes Mother April 05, 2019 8:49pm Family Breast Cancer No Brother April 05, 2019 8:49pm Functional Status No known functional status. Immunizations No known immunizations. Payers Payer Name Policy Type Covered Covered Relationship Subscriber Subscriber Id Libertarian Libertarian Id [place] Medicare ROSALIO [id number] [facility] ROSALIO ARANDA [id number] [facility] Part A [facility] Plan of Care Instructions Dehydration, Adult, [id number] Dizziness, [id number] Preventing Hyperthermia FOCUS: Transition from Acute Care after Discharge GOAL: Successful transition to care in the community YOUR TASKS: (1) review all information outlined in your discharge packet (2) follow any instructions outlined in your discharge packet (3) contact your primary care provider if you have questions or need additional assistance See patient discharge instruction sheet for detailed teaching. Patient verbalizes understanding of medications and is able to verbalize follow-up care. See Discharge Plan for additional discharge inform ation. Patient secured in private vehicle prior to departure. Social History Query Response Date Recorded Comment Smoking Status Smokes 11 or more cig/day April 05, 2019 9:41pm Vital Signs Vital Reading Result Reference Range Collection Date/Time Height 1.83 m April 06, 2019 4:12am Weight 103.918 kg April 06, 2019 4:12am Temperature 97.4 F 97.6 F-99.6 F April 06, 2019 8:03am Pulse 60 BPM 60-100 April 06, 2019 8:03am Respiration 14 RPM 12-20 April 06, 2019 8:03am Pulse Oximetry 99 % 95-100 April 06, 2019 8:03am Blood Pressure Systolic 106 90-140 April 06, 2019 8:03am Blood Pressure Diastolic 54 60-90 April 06, 2019 8:03am Body Mass Index 31.0 April 06, 2019 4:12am
--- OUTSIDE RECORDS SUMMARY | 2019-05-12 15:19 | XMS REPORT ---
:1960 [facility] Address [address] [place] [address] Dr. Ng [address] [place] [id number] Care Team Providers Name Role Phone Piter Clement Unavailable Unavailable ELENI BRAMBILA Unavailable Unavailable Problems This patient has no known problems. Allergies, Adverse Reactions, Alerts This patient has no known allergies or adverse reactions. Medications This patient has no known medications. Results Test Description Test Time Test Comments Text Results Atomic Results Result Comments Chemistry 2019-04-06 03:24:00 Test Item Value Reference Range Comments Chemistry (test code=NA-T) 140 mmol/L 136-145 Chemistry (test code=K-T) 4.1 mmol/L 3.5-5.1 Chemistry (test code=CL) 108 mmol/L 98-107 Chemistry (test code=CO2) 25 mmol/L 23-31 Chemistry (test code=ANGP) 11 mmol/L 10-20 Chemistry (test code=BUN) 23 mg/dL 8.4-25.7 Chemistry (test code=CREATT) 1.20 mg/dL 0.7-1.3 Chemistry (test code=EGFRMDRD) 62 Reference Range for Estimated GFR: Greater than 90 mL/min/1.73 m2NOTE:The MDRD equation has not been validated for use with theelderly (over 70 years of age), women, patientswith serious comorbid condition or persons with extremes ofbody size, muscle mass, or nutritional status. Chemistry (test code=GLU-T) 127 mg/dL 80-115 Chemistry (test code=CA) 8.3 mg/dL 7.8-10.44 [id number] 03:18:00 Test Item Value Reference Range Comments Chemistry (test 0.013 ng/mL < 0.028 code=TROPI-T) Reference Range 0.00 - 0.028 ng/mL Negative 0.029 - 0.29 ng/mL Indeterminate Greater or Equal to 0.3 ng/mL Strongly suggests TN [id number] 23:53:00 Test Item Value Reference Range Comments Chemistry (test 0.023 ng/mL < 0.028 code=TROPI-T) Reference Range 0.00 - 0.028 ng/mL Negative 0.029 - 0.29 ng/mL Indeterminate Greater or Equal to 0.3 ng/mL Strongly suggests TN [id number] 20:51:00 Test Item Value Reference Range Comments Chemistry (test Less than 0.010 < 0.028 code=TROPI-T) ng/mL Reference Range 0.00 - 0.028 ng/mL Negative 0.029 - 0.29 ng/mL Indeterminate Greater or Equal to 0.3 ng/mL Strongly suggests TN [id number] 18:21:00 Test Item Value Reference Range Comments Urinalysis (test code=UACLR) Yellow Yellow Urinalysis (test code=UACLY) Clear Clear Urinalysis (test code=SPGR) 1.023 1.002-1.036 Urinalysis (test code=PERLITA) 5.5 5.0-9.0 Urinalysis (test code=UALEU) Negative Dl/uL Negative Urinalysis (test code=UANIT) Negative Negative Urinalysis (test code=PROUADIP) 30 mg/dL Neg-Trace Urinalysis (test code=GLUCU) 300 mg/dL Negative Urinalysis (test code=KETU) Trace mg/dL Negative Urinalysis (test code=UAUROB) 2.0 mg/dL Less than 2 Urinalysis (test code=UABIL) Negative Negative Urinalysis (test code=UABLD) Negative Negative Urinalysis (test code=UARBC) 0-3 HPF 0-3 Urinalysis (test code=UAWBC) 0-3 HPF 0-3 Urinalysis (test code=UASQUAM) 0-3 HPF 0-3 Urinalysis (test code=UABAC) None Seen HPF None Seen Urinalysis (test code=UAHYAL) 11-20 LPF 0-3 Urinalysis (test code=UAGRAN) 4-6 LPF None Seen Urinalysis (test code=UACAOX) 1+ HPF None Seen Urine Source: Urine VoidedChemistry - BNP, HgbA1c, [id number] 17:24:00 Test Item Value Reference Range Comments Chemistry - BNP, HgbA1c, PTHi (test code=BNP) 59.8 pg/mL 0-100 [id number] 17:22:00 Test Item Value Reference Range Comments Chemistry (test 0.010 ng/mL < 0.028 code=TROPI-R) Reference Range 0.00 - 0.028 ng/mL Negative 0.029 - 0.29 ng/mL Indeterminate Greater or Equal to 0.3 ng/mL Strongly suggests TN [id number] 17:20:00 Test Item Value Reference Range Comments Chemistry (test code=NA-T) 138 mmol/L 136-145 Chemistry (test code=K-T) 4.4 mmol/L 3.5-5.1 Chemistry (test code=CL) 101 mmol/L 98-107 Chemistry (test code=CO2) 22 mmol/L 23-31 Chemistry (test code=ANGP) 19 mmol/L 10-20 Chemistry (test code=BUN) 24 mg/dL 8.4-25.7 Chemistry (test code=CREATT) 1.74 mg/dL 0.7-1.3 Chemistry (test 40 Reference Range for Estimated code=EGFRMDRD) GFR: Greater than 90 mL/min/1.73 m2NOTE:The MDRD equation has not been validated for use with theelderly (over 70 years of age), women, patientswith serious comorbid condition or persons with extremes ofbody size, muscle mass, or nutritional status. Chemistry (test code=GLU-T) 136 mg/dL 80-115 Chemistry (test code=CA) 10.2 mg/dL 7.8-10.44 Chemistry (test 0.6 mg/dL 0.2-1.2 code=TBILI-T) Chemistry (test code=TP) 8.5 g/dL 5.8-8.1 Chemistry (test code=ALB) 4.7 g/dL 3.4-4.8 Chemistry (test code=GLOB) 3.8 g/dL 2.4-3.5 Chemistry (test code=AG) 1.2 g/dL 1.2-2.2 Chemistry (test code=ALP) 137 U/L 40-150 Chemistry (test code=AST) 22 U/L 5-34 Chemistry (test code=ALT) 22 U/L 8-55 [id number] 17:20:00 Test Item Value Reference Range Comments Chemistry (test code=CK) 75 U/L 30-200 [id number] 16:55:00 Test Item Value Reference Range Comments Hematology (test code=WBCT) 9.2 thou/uL 4.8-10.8 Hematology (test code=RBCT) 5.87 mill/uL 4.70-6.10 Hematology (test code=HGBT) 16.8 g/dL 14.0-18.0 Hematology (test code=HCTT) 52.5 % 42.0-52.0 Hematology (test code=MCV) 89.4 fL 78.0-98.0 Hematology (test code=MCH) 28.5 pg 27.0-31.0 Hematology (test code=MCHC) 31.9 g/dL 32.0-36.0 Hematology (test code=RDW) 13.1 % 11.5-14.5 Hematology (test code=PLTT) 258 thou/uL 130-400 Hematology (test code=MPV) 7.9 fL 7.4-10.4 Hematology (test code=%NEUT) 69.2 % 42.0-75.0 Hematology (test code=%LYMPH) 21.5 % 21.0-51.0 Hematology (test code=%MONO) 8.0 % 0.0-10.0 Hematology (test code=%EOS) 0.7 % 0.0-10.0 Hematology (test code=%BASO) 0.6 % 0.0-1.0 Hematology (test code=NEUT#) 6.4 thou/uL 1.40-6.50 Hematology (test code=LYMPH#) 2.0 thou/uL 1.20-3.40 Hematology (test code=MONO#) 0.7 thou/uL 0.11-0.59 Hematology (test code=EOS#) 0.1 thou/uL 0.0-0.7 Hematology (test code=BASO#) 0.1 thou/uL 0.0-0.2 [id number] 00:59:00 Test Item Value Reference Range Comments MAGNESIUM (BEAKER) (test 2.2 mg/dL 1.6-2.6 Specimen slightly hemolyzed axsu=579) BASIC METABOLIC [id number] 00:59:00 Test Item Value Reference Range Comments SODIUM (BEAKER) (test 137 meq/L 136-145 oqmm=331) POTASSIUM (BEAKER) (test 3.9 meq/L 3.5-5.1 Specimen slightly fybd=161) hemolyzed CHLORIDE (BEAKER) (test 105 meq/L 98-107 dheh=079) CO2 (BEAKER) (test 22 meq/L 22-29 uajd=501) BLOOD UREA NITROGEN 22 mg/dL 7-21 (BEAKER) (test lhrm=030) CREATININE (BEAKER) (test 1.05 mg/dL 0.57-1.25 Specimen slightly ocnt=019) hemolyzed GLUCOSE RANDOM (BEAKER) 181 mg/dL 70-105 (test vsxv=473) CALCIUM (BEAKER) (test 9.4 mg/dL 8.4-10.2 icfh=831) EGFR (BEAKER) (test 72 mL/min/1.73 sq m ESTIMATED GFR IS NOT sdqp=4002) ACCURATE CREATININE CLEARANCE IN PREDICTING GLOMERULAR FILTRATION RATE. ESTIMATED GFR IS NOT APPLICABLE FOR DIALYSIS PATIENTS. CBC W/PLT COUNT & AUTO [id number] 00:43:00 Test Item Value Reference Range Comments WHITE BLOOD CELL COUNT (BEAKER) (test qdak=014) 5.0 K/ L 3.5-10.5 RED BLOOD CELL COUNT (BEAKER) (test drac=691) 5.30 M/ L 4.63-6.08 HEMOGLOBIN (BEAKER) (test srwb=752) 14.8 GM/DL 13.7-17.5 HEMATOCRIT (BEAKER) (test ujis=444) 45.2 % 40.1-51.0 MEAN CORPUSCULAR VOLUME (BEAKER) (test adin=799) 85.3 fL 79.0-92.2 MEAN CORPUSCULAR HEMOGLOBIN (BEAKER) (test 27.9 pg 25.7-32.2 czgg=833) MEAN CORPUSCULAR HEMOGLOBIN CONC (BEAKER) (test 32.7 GM/DL 32.3-36.5 kpng=809) RED CELL DISTRIBUTION WIDTH (BEAKER) (test 13.7 % 11.6-14.4 twdg=247) PLATELET COUNT (BEAKER) (test lokk=352) 208 K/CU MM 150-450 MEAN PLATELET VOLUME (BEAKER) (test vyiu=565) 10.7 fL 9.4-12.4 NUCLEATED RED BLOOD CELLS (BEAKER) (test 0 /100 WBC 0-0 ljts=009) NEUTROPHILS RELATIVE PERCENT (BEAKER) (test 40 % eiig=531) LYMPHOCYTES RELATIVE PERCENT (BEAKER) (test 46 % mucx=347) MONOCYTES RELATIVE PERCENT (BEAKER) (test 13 % cpjw=508) EOSINOPHILS RELATIVE PERCENT (BEAKER) (test 0 % sqsa=753) BASOPHILS RELATIVE PERCENT (BEAKER) (test 0 % jbxr=360) NEUTROPHILS ABSOLUTE COUNT (BEAKER) (test 2.02 K/ L 1.78-5.38 ttws=830) LYMPHOCYTES ABSOLUTE COUNT (BEAKER) (test 2.31 K/ L 1.32-3.57 lkyr=613) MONOCYTES ABSOLUTE COUNT (BEAKER) (test 0.64 K/ L 0.30-0.82 owry=949) EOSINOPHILS ABSOLUTE COUNT (BEAKER) (test 0.02 K/ L 0.04-0.54 nqfx=095) BASOPHILS ABSOLUTE COUNT (BEAKER) (test 0.01 K/ L 0.01-0.08 hcav=349) IMMATURE GRANULOCYTES-RELATIVE PERCENT (BEAKER) 1 % 0-1 (test epxk=6397) [id number] 00:20:00 Test Item Value Reference Range Comments ACTIVATED CLOTTING TIME 109 sec TESTED AT [place] [address] [address] (BEAKER) (test veys=243) [place] [address] [id number] 20:55:00 Test Item Value Reference Range Comments ACTIVATED CLOTTING TIME 191 sec TESTED AT [place] [address] [address] (BEAKER) (test jiop=178) [place] [address] [id number] 18:15:00 Test Item Value Reference Range Comments ACTIVATED CLOTTING TIME 318 sec TESTED AT [place] [address] [address] (BEAKER) (test wluj=220) [place] [address] POCT-GLUCOSE [id number] 07:26:00 Test Item Value Reference Range Comments POC-GLUCOSE METER (BEAKER) 113 mg/dL 70-110 TESTED AT [address] (test ygqr=3280) [place] [address] [id number] 07:16:00 Test Item Value Reference Range Comments MAGNESIUM (BEAKER) (test srae=881) 2.0 mg/dL 1.6-2.6 BASIC METABOLIC [id number] 07:16:00 Test Item Value Reference Range Comments SODIUM (BEAKER) (test 138 meq/L 136-145 yzxg=716) POTASSIUM (BEAKER) (test 4.2 meq/L 3.5-5.1 xsux=036) CHLORIDE (BEAKER) (test 105 meq/L 98-107 gibs=451) CO2 (BEAKER) (test 25 meq/L 22-29 htev=164) BLOOD UREA NITROGEN 20 mg/dL 7-21 (BEAKER) (test mgyi=866) CREATININE (BEAKER) (test 1.12 mg/dL 0.57-1.25 ruid=890) GLUCOSE RANDOM (BEAKER) 126 mg/dL 70-105 (test dppn=601) CALCIUM (BEAKER) (test 9.3 mg/dL 8.4-10.2 xija=212) EGFR (BEAKER) (test 67 mL/min/1.73 sq m ESTIMATED GFR IS NOT dnvn=1580) ACCURATE CREATININE CLEARANCE IN PREDICTING GLOMERULAR FILTRATION RATE. ESTIMATED GFR IS NOT APPLICABLE FOR DIALYSIS PATIENTS. PT/[id number] 06:58:00 Test Item Value Reference Range Comments PROTIME (BEAKER) (test zhys=576) 14.5 seconds 11.7-14.7 INR (BEAKER) (test hnpd=053) 1.1 <=5.9 PARTIAL THROMBOPLASTIN TIME (BEAKER) (test 32.7 seconds 22.5-36.0 qiuq=397) RECOMMENDED COUMADIN/WARFARIN INR THERAPY RANGESSTANDARD DOSE: 2.0 - 3.0 Includes: PROPHYLAXIS forvenous thrombosis, systemic embolization; TREATMENT for venous thrombosis and/or pulmonary embolus.HIGH RISK: Target INR is 2.5-3.5 for patients with mechanical heart valves.CBC W/PLT COUNT & AUTO [id number] 06:55:00 Test Item Value Reference Range Comments WHITE BLOOD CELL COUNT (BEAKER) (test yujg=012) 3.9 K/ L 3.5-10.5 RED BLOOD CELL COUNT (BEAKER) (test sxxb=692) 5.18 M/ L 4.63-6.08 HEMOGLOBIN (BEAKER) (test fxyx=323) 14.8 GM/DL 13.7-17.5 HEMATOCRIT (BEAKER) (test cnhl=359) 44.6 % 40.1-51.0 MEAN CORPUSCULAR VOLUME (BEAKER) (test hmfc=061) 86.1 fL 79.0-92.2 MEAN CORPUSCULAR HEMOGLOBIN (BEAKER) (test 28.6 pg 25.7-32.2 izas=277) MEAN CORPUSCULAR HEMOGLOBIN CONC (BEAKER) (test 33.2 GM/DL 32.3-36.5 wxdi=992) RED CELL DISTRIBUTION WIDTH (BEAKER) (test 13.6 % 11.6-14.4 rovq=074) PLATELET COUNT (BEAKER) (test sudq=730) 195 K/CU MM 150-450 MEAN PLATELET VOLUME (BEAKER) (test udvk=968) 10.6 fL 9.4-12.4 NUCLEATED RED BLOOD CELLS (BEAKER) (test 0 /100 WBC 0-0 wbxc=576) NEUTROPHILS RELATIVE PERCENT (BEAKER) (test 33 % ppnb=556) LYMPHOCYTES RELATIVE PERCENT (BEAKER) (test 51 % vltl=068) MONOCYTES RELATIVE PERCENT (BEAKER) (test 15 % ghzc=385) EOSINOPHILS RELATIVE PERCENT (BEAKER) (test 1 % lsrk=716) BASOPHILS RELATIVE PERCENT (BEAKER) (test 1 % dhbx=512) NEUTROPHILS ABSOLUTE COUNT (BEAKER) (test 1.28 K/ L 1.78-5.38 tyqx=414) LYMPHOCYTES ABSOLUTE COUNT (BEAKER) (test 2.01 K/ L 1.32-3.57 vtmh=272) MONOCYTES ABSOLUTE COUNT (BEAKER) (test 0.57 K/ L 0.30-0.82 pmzw=585) EOSINOPHILS ABSOLUTE COUNT (BEAKER) (test 0.02 K/ L 0.04-0.54 ofgg=599) BASOPHILS ABSOLUTE COUNT (BEAKER) (test 0.02 K/ L 0.01-0.08 nwyv=598) IMMATURE GRANULOCYTES-RELATIVE PERCENT (BEAKER) 1 % 0-1 (test bdet=5846) CBC W/PLT COUNT & AUTO [id number] 05:30:00 Test Item Value Reference Range Comments WHITE BLOOD CELL COUNT (BEAKER) (test smob=592) 5.2 K/ L 3.5-10.5 RED BLOOD CELL COUNT (BEAKER) (test deai=686) 4.84 M/ L 4.63-6.08 HEMOGLOBIN (BEAKER) (test vglx=222) 13.8 GM/DL 13.7-17.5 HEMATOCRIT (BEAKER) (test jomo=464) 42.4 % 40.1-51.0 MEAN CORPUSCULAR VOLUME (BEAKER) (test udnb=540) 87.6 fL 79.0-92.2 MEAN CORPUSCULAR HEMOGLOBIN (BEAKER) (test 28.5 pg 25.7-32.2 gwaa=256) MEAN CORPUSCULAR HEMOGLOBIN CONC (BEAKER) (test 32.5 GM/DL 32.3-36.5 ndls=663) RED CELL DISTRIBUTION WIDTH (BEAKER) (test 13.7 % 11.6-14.4 evmd=255) PLATELET COUNT (BEAKER) (test kfjw=178) 197 K/CU MM 150-450 MEAN PLATELET VOLUME (BEAKER) (test lfhg=660) 10.5 fL 9.4-12.4 NUCLEATED RED BLOOD CELLS (BEAKER) (test 0 /100 WBC 0-0 pirf=040) NEUTROPHILS RELATIVE PERCENT (BEAKER) (test 42 % gimg=867) LYMPHOCYTES RELATIVE PERCENT (BEAKER) (test 40 % ifes=981) MONOCYTES RELATIVE PERCENT (BEAKER) (test 16 % senn=120) EOSINOPHILS RELATIVE PERCENT (BEAKER) (test 1 % vwjq=717) BASOPHILS RELATIVE PERCENT (BEAKER) (test 0 % dobi=462) NEUTROPHILS ABSOLUTE COUNT (BEAKER) (test 2.16 K/ L 1.78-5.38 dlop=982) LYMPHOCYTES ABSOLUTE COUNT (BEAKER) (test 2.04 K/ L 1.32-3.57 ggof=096) MONOCYTES ABSOLUTE COUNT (BEAKER) (test 0.84 K/ L 0.30-0.82 ahpp=710) EOSINOPHILS ABSOLUTE COUNT (BEAKER) (test 0.04 K/ L 0.04-0.54 qdie=068) BASOPHILS ABSOLUTE COUNT (BEAKER) (test 0.02 K/ L 0.01-0.08 zugm=449) IMMATURE GRANULOCYTES-RELATIVE PERCENT (BEAKER) 1 % 0-1 (test dogv=3175) BASIC METABOLIC [id number] 05:12:00 Test Item Value Reference Range Comments SODIUM (BEAKER) (test 139 meq/L 136-145 fsag=601) POTASSIUM (BEAKER) (test 4.0 meq/L 3.5-5.1 duxz=497) CHLORIDE (BEAKER) (test 107 meq/L 98-107 xbgd=499) CO2 (BEAKER) (test 25 meq/L 22-29 crmg=387) BLOOD UREA NITROGEN 20 mg/dL 7-21 (BEAKER) (test mcsm=298) CREATININE (BEAKER) (test 1.11 mg/dL 0.57-1.25 dnhj=551) GLUCOSE RANDOM (BEAKER) 130 mg/dL 70-105 (test rvnt=770) CALCIUM (BEAKER) (test 9.0 mg/dL 8.4-10.2 lgyn=784) EGFR (BEAKER) (test 68 mL/min/1.73 sq m ESTIMATED GFR IS NOT gggj=1116) ACCURATE CREATININE CLEARANCE IN PREDICTING GLOMERULAR FILTRATION RATE. ESTIMATED GFR IS NOT APPLICABLE FOR DIALYSIS PATIENTS. [id number] 15:55:00 Test Item Value Reference Range Comments PARTIAL THROMBOPLASTIN TIME (BEAKER) (test 51.7 seconds 22.5-36.0 utvu=313) TROPONIN [id number] 14:06:00 Test Item Value Reference Range Comments TROPONIN I (BEAKER) (test ncgq=701) 0.01 ng/mL 0.00-0.03 Troponin I (TnI) levels [...] acidosis, acute neurological disease, and persistent tachyarrhythmia.HEMOGLOBIN [id number] 11:57:00 Test Item Value Reference Range Comments HEMOGLOBIN A1C (BEAKER) (test inda=264) 7.5 % 4.3-6.1 [id number] 09:48:00 Test Item Value Reference Range Comments PARTIAL THROMBOPLASTIN TIME (BEAKER) (test 48.9 seconds 22.5-36.0 ddnx=589) URINALYSIS W/ [id number] 08:06:00 Test Item Value Reference Range Comments COLOR (BEAKER) (test owfn=132) Light Yellow CLARITY (BEAKER) (test hyuz=049) Clear SPECIFIC GRAVITY UA (BEAKER) (test jxkb=528) 1.014 1.001-1.035 PH UA (BEAKER) (test ukjc=168) 5.5 5.0-8.0 PROTEIN UA (BEAKER) (test bpqt=424) Negative Negative GLUCOSE UA (BEAKER) (test pfaw=639) 70 mg/dL Negative KETONES UA (BEAKER) (test osnu=222) Negative Negative BILIRUBIN UA (BEAKER) (test ndqu=660) Negative Negative BLOOD UA (BEAKER) (test idfb=907) Negative Negative NITRITE UA (BEAKER) (test ybxx=448) Negative Negative LEUKOCYTE ESTERASE UA (BEAKER) (test izgl=537) Negative Negative UROBILINOGEN UA (BEAKER) (test iojg=546) 0.2 mg/dL 0.2-1.0 RBC UA (BEAKER) (test xgko=812) 4 /HPF WBC UA (BEAKER) (test hdgh=074) 4 /HPF SQUAMOUS EPITHELIAL (BEAKER) (test djpq=163) < /HPF SOURCE(BEAKER) (test cbzf=7091) RAD, CHEST, 1 VIEW, NON [id number] 04:11:00Reason for exam:->angina pectorisShould this be performed [...] MDReport Verified Date/Time: 06/27/2018 04:11:12 Reading Location: [facility] B1 C013Y CT Body Reading Room CREATINE KINASE (CK), TOTAL AND [id number] 03:24:00 Test Item Value Reference Range Comments CREATINE KINASE TOTAL (BEAKER) (test tnsa=687) 61 U/L 29-200 CREATINE KINASE-MB (BEAKER) (test zsam=015) 1.5 ng/mL 0.0-6.6 CREATINE KINASE-MB INDEX (BEAKER) (test juui=562) 2.5 % CK-MB Reference Range:<6.7 Normal6.7-10.0 Borderline>10.0 AbnormalTROPONIN [id number] 03:24:00 Test Item Value Reference Range Comments TROPONIN I (BEAKER) (test rvyk=791) 0.01 ng/mL 0.00-0.03 Troponin I (TnI) levels [...] acute neurological disease, and persistent tachyarrhythmia.BASIC METABOLIC [id number] 03:18:00 Test Item Value Reference Range Comments SODIUM (BEAKER) (test 139 meq/L 136-145 ytfx=381) POTASSIUM (BEAKER) (test 4.2 meq/L 3.5-5.1 jyyl=570) CHLORIDE (BEAKER) (test 107 meq/L 98-107 tsew=022) CO2 (BEAKER) (test 24 meq/L 22-29 matk=033) BLOOD UREA NITROGEN 21 mg/dL 7-21 (BEAKER) (test ijmm=190) CREATININE (BEAKER) (test 1.15 mg/dL 0.57-1.25 rowj=840) GLUCOSE RANDOM (BEAKER) 149 mg/dL 70-105 (test fmkw=796) CALCIUM (BEAKER) (test 8.5 mg/dL 8.4-10.2 neht=714) EGFR (BEAKER) (test 65 mL/min/1.73 sq m ESTIMATED GFR IS NOT ttua=7882) ACCURATE CREATININE CLEARANCE IN PREDICTING GLOMERULAR FILTRATION RATE. ESTIMATED GFR IS NOT APPLICABLE FOR DIALYSIS PATIENTS. B-TYPE NATRIURETIC FACTOR (BNP)2018-06-27 03:16:00 Test Item Value Reference Range Comments B-TYPE NATRIURETIC PEPTIDE (BEAKER) (test 122 pg/mL 0-100 ueoh=297) CBC W/PLT COUNT & AUTO [id number] 02:58:00 Test Item Value Reference Range Comments WHITE BLOOD CELL COUNT (BEAKER) (test dkze=094) 6.4 K/ L 3.5-10.5 RED BLOOD CELL COUNT (BEAKER) (test gbtf=803) 4.67 M/ L 4.63-6.08 HEMOGLOBIN (BEAKER) (test zcsc=070) 13.6 GM/DL 13.7-17.5 HEMATOCRIT (BEAKER) (test rixd=939) 41.3 % 40.1-51.0 MEAN CORPUSCULAR VOLUME (BEAKER) (test pcbx=683) 88.4 fL 79.0-92.2 MEAN CORPUSCULAR HEMOGLOBIN (BEAKER) (test 29.1 pg 25.7-32.2 xloa=773) MEAN CORPUSCULAR HEMOGLOBIN CONC (BEAKER) (test 32.9 GM/DL 32.3-36.5 zmct=699) RED CELL DISTRIBUTION WIDTH (BEAKER) (test 14.0 % 11.6-14.4 qids=785) PLATELET COUNT (BEAKER) (test ssna=469) 217 K/CU MM 150-450 MEAN PLATELET VOLUME (BEAKER) (test mdov=157) 10.5 fL 9.4-12.4 NUCLEATED RED BLOOD CELLS (BEAKER) (test 0 /100 WBC 0-0 npkl=662) NEUTROPHILS RELATIVE PERCENT (BEAKER) (test 31 % hqcp=655) LYMPHOCYTES RELATIVE PERCENT (BEAKER) (test 56 % tfsa=625) MONOCYTES RELATIVE PERCENT (BEAKER) (test 12 % ohkh=698) EOSINOPHILS RELATIVE PERCENT (BEAKER) (test 1 % skja=531) BASOPHILS RELATIVE PERCENT (BEAKER) (test 0 % idro=669) NEUTROPHILS ABSOLUTE COUNT (BEAKER) (test 2.00 K/ L 1.78-5.38 zlrj=899) LYMPHOCYTES ABSOLUTE COUNT (BEAKER) (test 3.56 K/ L 1.32-3.57 xsij=894) MONOCYTES ABSOLUTE COUNT (BEAKER) (test 0.74 K/ L 0.30-0.82 fkhv=177) EOSINOPHILS ABSOLUTE COUNT (BEAKER) (test 0.04 K/ L 0.04-0.54 rtsu=181) BASOPHILS ABSOLUTE COUNT (BEAKER) (test 0.02 K/ L 0.01-0.08 teoh=142) IMMATURE GRANULOCYTES-RELATIVE PERCENT (BEAKER) 1 % 0-1 (test rpfb=5617) [id number] 02:51:00 Test Item Value Reference Range Comments PARTIAL THROMBOPLASTIN TIME (BEAKER) (test 48.4 seconds 22.5-36.0 kato=288) [facility] Pool Aranda [employer] Telephon[employer] Phys: Ludy Puente [place]-Can[place] [id number] : 11/1959 Age: 59 SEX:M [phone] Exam Date: 04/05/19 Status: REG ER Acct : [id number] Loc: ERS Pt Unit #: [id number] Report #: [id number] CC: Ludy Puente PA-C IMAGING SERVICES REPORT Order # Category/Exam [id number] RAD/XR Chest 1 View Portable ([id number]): . Results PORTABLE AP CHEST X-RAY: HISTORY: The patient reports being overheated and dizzy. The patient is having difficulty getting up from a supine position. COMPARISON: None available. FINDINGS: A dual-lead left subclavian AICD is noted in place. Post surgical changes related to median sternotomy are noted. The cardiac silhouette is magnified by projection but is at the upper limits of normal to borderline enlarged. The pulmonary vasculature iswithin normal limits. The lungs are clear. The osseous structures appear intact. IMPRESSION: No acute cardiopulmonary process. POS: [facility] Reported By: Marc Osborne MD Electronically Signed Date/Time: 04/05/191831 Technologist: STEPHAN Dictated Date/Time: 180 Transcribed Date/Time: 04/05/19 182
--- OUTSIDE RECORDS SUMMARY | 2019-05-12 15:19 | XMS REPORT | Continuity of Care Document ---
:1960 Author Organization [facility] Address [address] [place] [address] Care Team Providers Name Role Phone [facility] PHYSICIAN, OUT OF Primary Care Physician Unavailable Lori Sanchez Rounding Physician Piter Clement Admitting Physician Piter Clement Attending Physician Allergies, Adverse Reactions, Alerts No known allergies. Medications No medication information available. Problem List No problem information available. Procedures Procedure Date Status XR Chest 1 View Portable April 05, 2019 completed EKG 12 Lead in Emergency Room April 05, 2019 active Relevant Diagnostic Tests and/or Laboratory Data Laboratory Results Test Date/Time Result Interp. Ref. Range Result Comment Sodium Level April 05, 2019 138 mmol/L 136-145 4:28pm Potassium Level April 05, 2019 4.4 mmol/L 3.5-5.1 4:28pm Chloride Level April 05, 2019 101 mmol/L 98-107 4:28pm Carbon Dioxide Level April 05, 2019 22 mmol/L Low 23-31 4:28pm Anion Gap April 05, 2019 19 mmol/L 10-20 4:28pm Blood Urea Nitrogen April 05, 2019 24 mg/dL 8.4-25.7 4:28pm Creatinine April 05, 2019 1.74 mg/dL High 0.7-1.3 4:28pm Estimated GFR (MDRD) April 05, 2019 40 Reference Range for Estimated GFR: 4:28pm Greater than 90 mL/min/1.73 m2 NOTE: The MDRD equation has not been validated for use with the elderly (over 70 years of age), women, patients with serious comorbid condition or persons with extremes of body size, muscle mass, or nutritional status. Glucose Level April 05, 2019 136 mg/dL High 80-115 4:28pm Calcium Level April 05, 2019 10.2 mg/dL 7.8-10.44 4:28pm Total Bilirubin April 05, 2019 0.6 mg/dL [...] 75 U/L 30-200 4:28pm Troponin I April 05, 2019 Less than Reference Range 8:20pm 0.010 ng/mL 0.00 - 0.028 ng/mL Negative 0.029 - 0.29 ng/mL Indeterminate Greater or Equal to 0.3 ng/mL Strongly suggests ID Alanine April 05, 2019 22 U/L 8-55 [...] April 05, 2019 Clear 5:46pm Urine Specific [place] April 05, 2019 1.023 1.002-1.03 5:46pm 6 [...] Admit Date Chief Complaint Reason for Visit Admitted Inpatient April 05, 2019 7:51pm CP R/O ID/ACI Hospital Discharge Instructions No known hospital discharge instructions. Encounters Encounter Facility Location Admit Date Discharge Date Attending Provider Admitted [place] 2SW/OBSERVAT[facility] April 05 Piter Clement [facility] N 2018 7:51pm Ctr Family History Query Response Instance Date Recorded [...] Type Covered Covered Relationship Subscriber Subscriber Id Constitution Party Constitution Party Id UNITED Medicare ROSALIO [id number] SELF ROSALIO ARANDA [id number] [facility] [place] Part A [place] Plan of Care No known plan of care. Social History No known social history. Vital Signs Vital Reading Result Reference Range Collection Date/Time Height 1.83 m April 05, 2019 8:07pm Weight 103.901 kg April 05, 2019 8:07pm Temperature 97.8 F 97.6 F-99.6 F April 05, 2019 8:08pm Pulse 80 BPM 60-100 April 05, 2019 8:08pm Respiration 16 RPM 12-20 April 05, 2019 8:08pm Pulse Oximetry 98 % 95-100 April 05, 2019 8:08pm Blood Pressure Systolic 100 90-140 April 05, 2019 8:08pm Blood Pressure Diastolic 59 60-90 April 05, 2019 8:08pm Body Mass Index 31.0 April 05, 2019 8:07pm
[2019-05-12] MEDS ORDERED: ASPIRIN 81 MG CHEWABLE TABLET ONE (15:34)
[2019-05-12] MEDS ORDERED: NITROGLYCERIN 0.4 MG/TAB SL ONE (15:34)
--- NOTE | 2019-05-12 15:51 | RAD REPORT ---
EXAM DESCRIPTION: RAD - Chest Single View - 05/12/2019 3:42 pm CLINICAL HISTORY: CHEST PAIN Chest pain. COMPARISON: Chest Single View dated 10/27/2018; Chest Single View dated 06/26/2018; Chest Single View dated 05/22/2018; Abdomen 1 View (KUB) dated 03/22/2018 FINDINGS: Portable technique limits examination quality. The lungs are grossly clear. The heart is mildly prominent in size with a multi lead pacer/defibrilla tor device. No displaced fractures.Sternotomy wires present. IMPRESSION: No acute intrathoracic process suspected.
[2019-05-12] MEDS ORDERED: NA CHLORIDE 0.9% 1,000 ML ONE (16:08)
[2019-05-12 16:14] LABS: Absolute Lymphocytes (CBC) 2.2 K/uL (0.7-4.9); Basophils % 0.3 % (0-1.3); Hematocrit 40.4 % (39.6-49.0); MPV 8.7 fL (7.6-11.3); RBC Red Blood Cell Count 4.64 M/uL (4.33-5.43)
[2019-05-12 16:15] LABS: Protime INR 1.1
[2019-05-12 16:30] LABS: Albumin 3.5 g/dL (3.4-5.0); Bilirubin Direct 0.1 mg/dL (0-0.2); Bilirubin Total 0.4 mg/dL (0.2-1.0); Magnesium 1.9 mg/dL (1.8-2.4); Potassium 4.1 mmol/L (3.5-5.1); Protein, Total 7.4 g/dL (6.4-8.2); Troponin (Emerg Dept Use Only) 0.07 ng/mL (0.0-0.045)
[2019-05-12] MEDS ORDERED: CLOPIDOGREL 75 MG TABLET ONE (16:45)
--- NOTE | 2019-05-12 17:02 | ER ---
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 Transition of care: patient was not received from another setting of care. Onset of symptoms was May 12, 2019. Risk Assessment: Do you want to hurt yourself or someone else? Patient reports no desire to harm self or others. Initial Sepsis Screen: Does the patient meet any 2 criteria? No. Patient's initial sepsis screen is negative. Does the patient have a suspected source of infection? No. Patient's initial sepsis screen is negative. Care prior to arrival: None. 15:24 Method Of Arrival: Ambulatory tw2 15:24 Acuity: SUSAN 2 tw2 15:26 Note pt states "i am out of my nitro and plavix and my Dr. is Dr. Alejandro so I'd like tw2 to stay here and not be transferred". Triage Assessment: 15:26 General: Appears in no apparent distress. Behavior is calm, cooperative, appropriate tw2 for age. Pain: Denies pain. Cardiovascular: Reports chest pain, "pressure or a dullness in my chest". Historical: - Allergies: 15:27 No Known Allergies; tw2 - Home Meds: 15:27 Plavix 75 mg Oral tab 1 tab once daily [Active]; Pepcid 20 mg Oral tab 1 tab every 12 tw2 hours [Active]; lisinopril 10 mg Oral tab 1 tab once daily [Active]; metoprolol tartrate 100 mg Oral tab 1 tab 2 times per day [Active]; atorvastatin 80 mg Oral tab 1 tab once daily [Active]; aspirin 81 mg Oral TbEC 1 tab once daily [Active]; - PMHx: 15:27 Hyperlipidemia; Hypertension; Myocardial infarction; pacemaker/defibrillator; tw2 - PSHx: 15:27 CABG; Heart stents; tw2 - Immunization history:: Adult Immunizations. - Social history:: Smoking status: . - Ebola Screening: : Patient denies travel to an Ebola-affected area in the 21 days before illness onset. Screenin:28 Abuse screen: Denies threats or abuse. Nutritional screening: No deficits noted. tw2 Tuberculosis screening: No symptoms or risk factors identified. Fall Risk None identified. Assessment: 15:28 Pain: Pain does not radiate. Pain began 3 hours ago. tw2 15:30 General: Appears in no apparent distress. comfortable, Behavior is calm, cooperative. rv Neuro: Level of Consciousness is awake, alert, obeys commands, Oriented to person, place, time, situation. Cardiovascular: Patient's skin is warm and dry. Rhythm is regular Chest pain quality is heaviness, pressure, is located in chest wall began suddenly. Respiratory: Airway is patent. GI: No signs and/or symptoms were reported involving the gastrointestinal system. : No signs and/or symptoms were reported regarding the genitourinary system. EENT: No signs and/or symptoms were reported regarding the EENT system. Derm: Skin is intact. Musculoskeletal: No signs and/or symptoms reported regarding the musculoskeletal system. 16:00 Reassessment: patient denies any symptoms. rechecked blood pressure on both arms. rv referred to NARGIS Castillo. started bolus of NS, 500ml. blood pressure able to go up 94/55. denies any symptoms. 16:50 Also complains of no other symptoms. rv 16:50 Reassessment: Patient appears in no apparent distress at this time. Patient and/or rv family updated on plan of care and expected duration. Pain level reassessed. Patient is alert, oriented x 3, equal unlabored respirations, skin warm/dry/pink. NARGIS ACSTILLO TALKED TO THE PATIENT AT BEDSIDE WITH FAMILY PRESENT REGARDING PLAN OF CARE. PATIENT AGREED WITH THE PLAN. Patient states feeling better. Patient states symptoms have improved. 18:38 Reassessment: Patient appears in no apparent distress at this time. Patient and/or rv family updated on plan of care and expected duration. Pain level reassessed. Patient is alert, oriented x 3, equal unlabored respirations, skin warm/dry/pink. awaiting admission orders. Vital Signs: 15:25 BP 110 / 86; Pulse 91; Resp 17; Temp 97.9(TE); Pulse Ox 97% on R/A; Weight 104.2 kg rv (M); Height 5 ft. 11 in. (180.34 cm); Pain 0/10; 16:00 BP 87 / 74 RA; Pulse 74; Resp 14; Pulse Ox 95% ; rv 16:03 BP 86 / 61 RA; Pulse 71; Resp 12; Pulse Ox 97% on R/A; rv 16:07 BP 87 / 56 LA; Pulse 74; Resp 20; Pulse Ox 96% on R/A; rv 16:18 BP 94 / 55 LA Supine; Pulse 74; Resp 15; Pulse Ox 96% on R/A; rv 16:49 BP 109 / 56; Pulse 72; Resp 21; Pulse Ox 98% ; rv 17:00 BP 106 / 65; Pulse 69; Resp 14; Pulse Ox 97% on R/A; rv 17:30 BP 126 / 72; Pulse 74; Resp 23; Pulse Ox 97% on R/A; rv 18:00 BP 138 / 77; Pulse 72; Resp 23; Pulse Ox 97% on R/A; rv 18:30 BP 103 / 55; Pulse 71; Resp 11; Pulse Ox 98% on R/A; rv 19:25 BP 108 / 61; Pulse 76; Resp 14; Pulse Ox 97% on R/A; rv 15:25 Body Mass Index 32.04 (104.20 kg, 180.34 cm) rv 16:00 denies any symptoms rv 16:03 denies any symptoms rv 16:07 denies any symptoms. referred to NARGIS Castillo rv 16:18 post bolus of NS rv ED Course: 15:00 Inserted saline lock:. rv 15:18 Patient arrived in ED. mr 15:18 J Luis Gleason MD is Private Physician. mr 15:20 [facility] pm1 15:20 Gerardo Pennington MD is Attending Physician. pm1 15:24 Arm band placed on. EKG completed in triage. Results shown to . tw2 15:24 Placed in gown. Bed in low position. quality assurance monitor chassis on. Pulse ox on. NIBP on. tw2 15:25 Triage completed. tw2 15:27 EKG done, by occupational health technician. reviewed by Rogelio Gomez NP. sm3 15:28 Patient maintains SpO2 saturation greater than 95% on room air. tw2 15:31 Brooks Kyle, ZINA is Primary Nurse. rv 15:38 Missed attempt(s): 20 gauge in left antecubital area. 22 gauge in right antecubital jp3 area. Bleeding controlled, band aid applied, catheter tip intact. 15:43 XRAY Chest (1 view) In Process Unspecified. EDMS 15:45 Inserted saline lock: 22 gauge in left hand, using aseptic technique. Blood collected. rv 17:01 J Luis Gleason MD is Hospitalizing Provider. pm1 19:26 No provider procedures requiring assistance completed. Patient admitted, IV remains in rv place. Administered Medications: 15:35 Drug: Nitroglycerin 0.4 mg Route: Sublingual; rv 16:47 Follow up: Response: Other; chest tightness/pressure resolved rv 15:35 Drug: Aspirin 162 mg Route: PO; rv 16:48 Follow up: Response: No adverse reaction rv 16:00 Drug: NS 0.9% 500 ml Route: IV; Rate: bolus; Site: left hand; rv 16:46 Follow up: IV Status: Completed infusion; IV Intake: 500ml rv 16:46 Drug: PlaVIX 75 mg Route: PO; rv 16:48 Follow up: Response: No adverse reaction rv 17:09 CANCELLED (Duplicate Order): Heparin (CA-Bolus with thrombolytic) - HEParin 60 units/kg pm1 IVP once; Max 4000 units 17:15 Drug: Heparin (CA Drip) 12 units/kg/hr - (HEParin 58853 units, D5W 500 ml) rv {Co-Signature: samreen (Kendra Inman RN).} Route: IV; Rate: calculated rate; Site: left hand; 19:09 Follow up: IV Status: Infusion continued upon admission rv 17:15 Drug: Heparin (CA-Bolus No thrombolytic) - HEParin 60 units/kg {Co-Signature: samreen (Kendra Inman RN).} Route: IVP; Site: left hand; 19:09 Follow up: Response: No adverse reaction rv Intake: 16:46 IV: 500ml; Total: 500ml. rv Outcome: 17:01 Decision to Hospitalize by Provider. pm1 19:26 Admitted to ICU accompanied by nurse, accompanied by tech, via stretcher, room 7, on rv monitor, with chart, Report called to MARIANA IZAGUIRRE 19:26 Condition: improved 19:26 Instructed on the need for admit. 19:32 Patient left the ED. rv Signatures: Dispatcher [employer] ROBERTH Shady Maritza GomezRogelio, CONFIDENTIAL SECRETARY CONFIDENTIAL SECRETARY pm1 Viv Sanchez RN RN tw2 Debbi Farnsworth sm3 Brooks Kyle RN RN rv Mando Fernandez 3 Kendra Inman RN iw Corrections: (The following items were deleted from the chart) 17:03 15:25 BP 110 / 86; Pulse 91bpm; Resp 17bpm; Pulse Ox 97% RA; Temp 97.9F Temporal; rv 102.06 kg Reported; Height 5 ft. 11 in.; BMI: 31.3; Pain 0/10; tw2
--- NOTE | 2019-05-12 17:03 | EDPHYS ---
Physician Documentation [facility] Name: Pool Aden Age: 59 yrs Sex: Male : 1960 Arrival Date: 05/12/2019 Time: 15:18 Bed 28 Private MD: J Luis Gleason ED Physician Gerardo Pennington HPI: 05/12 15:49 This 59 yrs old Male presents to ER via Ambulatory with complaints of Chest pm1 Tightness. 15:49 The patient or guardian reports chest pain that is located primarily in the anterior pm1 aspect of left upper chest and mid-sternal area. Onset: today, at 13:00. The pain does not radiate. Associated signs and symptoms: Pertinent negatives: abdominal pain, cough, dizziness, headache, nausea, vomiting, Baseline shortness of breath. The chest pain is described as Tightness. Duration: The patient or guardian reports a single episode, that is still ongoing, but improving. Modifying factors: The symptoms are alleviated by ASA, the symptoms are aggravated by nothing. Severity of pain: in the emergency department the pain has improved. The patient has experienced similar episodes in the past, a few times. The patient has not recently seen a physician. Patient has been out of Plavix for 3 days. Out of his nitro since March. Patient with CABG x 3 and history of at least 3 stents. Historical: - Allergies: 15:27 No Known Allergies; tw2 - Home Meds: 15:27 Plavix 75 mg Oral tab 1 tab once daily [Active]; Pepcid 20 mg Oral tab 1 tab every 12 tw2 hours [Active]; lisinopril 10 mg Oral tab 1 tab once daily [Active]; metoprolol tartrate 100 mg Oral tab 1 tab 2 times per day [Active]; atorvastatin 80 mg Oral tab 1 tab once daily [Active]; aspirin 81 mg Oral TbEC 1 tab once daily [Active]; - PMHx: 15:27 Hyperlipidemia; Hypertension; Myocardial infarction; pacemaker/defibrillator; tw2 - PSHx: 15:27 CABG; Heart stents; tw2 - Immunization history:: Adult Immunizations. - Social history:: Smoking status: . - Ebola Screening: : Patient denies travel to an Ebola-affected area in the 21 days before illness onset. ROS: 15:49 Constitutional: Negative for fever, chills, and weight loss, Eyes: Negative for injury, pm1 pain, redness, and discharge, ENT: Negative for injury, pain, and discharge, Neck: Negative for injury, pain, and swelling. 15:49 Respiratory: Negative for shortness of breath, cough, wheezing, and pleuritic chest pain, Abdomen/GI: Negative for abdominal pain, nausea, vomiting, diarrhea, and constipation, Back: Negative for injury and pain, MS/Extremity: Negative for injury and deformity, Skin: Negative for injury, rash, and discoloration, Neuro: Negative for headache, weakness, numbness, tingling, and seizure. 15:49 Cardiovascular: Positive for chest pain, Negative for edema, orthopnea, palpitations. Exam: 15:49 Constitutional: This is a well developed, well nourished patient who is awake, alert, pm1 and in no acute distress. Head/Face: Normocephalic, atraumatic. Eyes: Pupils equal round and reactive to light, extra-ocular motions intact. Lids and lashes normal. Conjunctiva and sclera are non-icteric and not injected. Cornea within normal limits. Periorbital areas with no swelling, redness, or edema. ENT: Nares patent. No nasal discharge, no septal abnormalities noted. Tympanic membranes are normal and external auditory canals are clear. Oropharynx with no redness, swelling, or masses, exudates, or evidence of obstruction, uvula midline. Mucous membranes moist. Neck: Trachea midline, no thyromegaly or masses palpated, and no cervical lymphadenopathy. Supple, full range of motion without nuchal rigidity, or vertebral point tenderness. No Meningismus. Chest/axilla: Normal chest wall appearance and motion. Nontender with no deformity. No lesions are appreciated. Cardiovascular: Regular rate and rhythm with a normal S1 and S2. No gallops, murmurs, or rubs. Normal PMI, no JVD. No pulse deficits. Respiratory: Lungs have equal breath sounds bilaterally, clear to auscultation and percussion. No rales, rhonchi or wheezes noted. No increased work of breathing, no retractions or nasal flaring. Abdomen/GI: Soft, non-tender, with normal bowel sounds. No distension or tympany. No guarding or rebound. No evidence of tenderness throughout. Back: No spinal tenderness. No costovertebral tenderness. Full range of motion. Skin: Warm, dry with normal turgor. Normal color with no rashes, no lesions, and no evidence of cellulitis. MS/ Extremity: Pulses equal, no cyanosis. Neurovascular intact. Full, normal range of motion. 15:49 Neuro: Orientation: is normal, Motor: moves all fours. Vital Signs: 15:25 BP 110 / 86; Pulse 91; Resp 17; Temp 97.9(TE); Pulse Ox 97% on R/A; Weight 104.2 kg rv (M); Height 5 ft. 11 in. (180.34 cm); Pain 0/10; 16:00 BP 87 / 74 RA; Pulse 74; Resp 14; Pulse Ox 95% ; rv 16:03 BP 86 / 61 RA; Pulse 71; Resp 12; Pulse Ox 97% on R/A; rv 16:07 BP 87 / 56 LA; Pulse 74; Resp 20; Pulse Ox 96% on R/A; rv 16:18 BP 94 / 55 LA Supine; Pulse 74; Resp 15; Pulse Ox 96% on R/A; rv 16:49 BP 109 / 56; Pulse 72; Resp 21; Pulse Ox 98% ; rv 17:00 BP 106 / 65; Pulse 69; Resp 14; Pulse Ox 97% on R/A; rv 17:30 BP 126 / 72; Pulse 74; Resp 23; Pulse Ox 97% on R/A; rv 18:00 BP 138 / 77; Pulse 72; Resp 23; Pulse Ox 97% on R/A; rv 18:30 BP 103 / 55; Pulse 71; Resp 11; Pulse Ox 98% on R/A; rv 19:25 BP 108 / 61; Pulse 76; Resp 14; Pulse Ox 97% on R/A; rv 15:25 Body Mass Index 32.04 (104.20 kg, 180.34 cm) rv 16:00 denies any symptoms rv 16:03 denies any symptoms rv 16:07 denies any symptoms. referred to NARGIS Mercado rv 16:18 post bolus of NS rv MDM: 15:21 Patient medically screened. pm1 15:53 Data reviewed: vital signs. pm1 15:53 The patient was given aspirin in the Emergency Department. pm1 16:40 Data interpreted: Pulse oximetry: on room air is 96 %. Interpretation: normal. pm1 Counseling: I had a detailed discussion with the patient and/or guardian regarding: the historical points, exam findings, and any diagnostic results supporting the discharge/admit diagnosis, lab results, radiology results, the need for further work-up and treatment in the hospital. 16:50 Physician consultation: J Luis Gleason MD was called at 16:50, was contacted at 16:50, pm1 regarding admission, patient's condition, and will see patient would like consultation with Cardiology. 16:57 Physician consultation: Terry De León MD was called at 16:57, was contacted at 16:57, pm1 regarding consult, patient's condition, and will see patient would like medications started, Heparin Drip, NPO. 05/12 15:22 Order name: Basic Metabolic Panel; Complete Time: 16:38 pm05/12 15:22 Order name: CBC with Diff; Complete Time: 16:38 pm05/12 15:22 Order name: LFT's; Complete Time: 16:38 pm05/12 15:22 Order name: Magnesium; Complete Time: 16:38 pm05/12 15:22 Order name: NT PRO-BNP; Complete Time: 16:38 pm05/12 15:22 Order name: PT-INR; Complete Time: 16:38 pm05/12 15:22 Order name: Troponin (emerg Dept Use Only); Complete Time: 16:38 pm05/12 15:22 Order name: XRAY Chest (1 view); Complete Time: 16:38 pm05/12 17:17 Order name: Ptt, Activated; Complete Time: 17:49 aa5 05/12 15:22 Order name: EKG; Complete Time: 15:22 pm05/12 15:22 Order name: Cardiac monitoring; Complete Time: 16:16 pm05/12 15:22 Order name: EKG - Nurse/Tech; Complete Time: 16:16 pm05/12 15:22 Order name: IV Saline Lock; Complete Time: 16:16 pm05/12 15:22 Order name: Labs collected and sent; Complete Time: 16:16 pm05/12 15:22 Order name: O2 Per Protocol; Complete Time: 16:16 pm05/12 15:22 Order name: O2 Sat Monitoring; Complete Time: 16:16 pm05/12 16:59 Order name: NPO; Complete Time: 17:20 pm1 Administered Medications: 15:35 Drug: Nitroglycerin 0.4 mg Route: Sublingual; rv 16:47 Follow up: Response: Other; chest tightness/pressure resolved rv 15:35 Drug: Aspirin 162 mg Route: PO; rv 16:48 Follow up: Response: No adverse reaction rv 16:00 Drug: NS 0.9% 500 ml Route: IV; Rate: bolus; Site: left hand; rv 16:46 Follow up: IV Status: Completed infusion; IV Intake: 500ml rv 16:46 Drug: PlaVIX 75 mg Route: PO; rv 16:48 Follow up: Response: No adverse reaction rv 17:09 CANCELLED (Duplicate Order): Heparin (MA-Bolus with thrombolytic) - HEParin 60 units/kg pm1 IVP once; Max 4000 units 17:15 Drug: Heparin (MA Drip) 12 units/kg/hr - (HEParin 93087 units, D5W 500 ml) rv {Co-Signature: iw (Kendra Inman RN).} Route: IV; Rate: calculated rate; Site: left hand; 19:09 Follow up: IV Status: Infusion continued upon admission rv 17:15 Drug: Heparin (MA-Bolus No thrombolytic) - HEParin 60 units/kg {Co-Signature: iw (Kendra Inman RN).} Route: IVP; Site: left hand; 19:09 Follow up: Response: No adverse reaction rv Disposition: 05/13 06:59 Co-signature as Attending Physician, Gerardo Pennington MD. rn Disposition: 05/12/19 17:01 Hospitalization ordered by J Luis Gleason for Inpatient Admission. Preliminary diagnosis is Non-ST elevation (NSTEMI) myocardial infarction. - Bed requested for Intensive Care Unit. - Status is Inpatient Admission. rv - Condition is Stable. - Problem is new. - Symptoms have improved. UTI on Admission? No Signatures: Dispatcher [employer] EDMS Gerardo Pennington MD MD rn Martinez, Eric em1 Rogelio Gomez, NARGIS SENIOR PAYROLL MANAGER pm1 Viv Sanchez, RN RN tw2 Brooks Kyle, RN RN rv Kendra Inman RN iw Corrections: (The following items were deleted from the chart) 05/12 17:04 17:01 Hospitalization Ordered by J Luis Gleason MD for Inpatient Admission. Preliminary pm1 diagnosis is Non-ST elevation (NSTEMI) myocardial infarction. Bed requested for Telemetry/MedSurg (Inpatient). Status is Inpatient Admission. Condition is Stable. Problem is new. Symptoms have improved. UTI on Admission? No. pm1 17:09 16:59 Heparin (MA-Bolus with thrombolytic) - HEParin 60 units/kg IVP once; Max 4000 pm1 units ordered. pm1 17:29 17:04 05/12/2019 17:01 Hospitalization Ordered by J Luis Gleason MD for Inpatient pm1 Admission. Preliminary diagnosis is Non-ST elevation (NSTEMI) myocardial infarction. Bed requested for Telemetry/MedSurg (Inpatient). Status is Inpatient Admission. Condition is Stable. Problem is new. Symptoms have improved. UTI on Admission? No. pm1 18:59 17:29 05/12/2019 17:01 Hospitalization Ordered by J Luis Gleaosn MD for Inpatient em1 Admission. Preliminary diagnosis is Non-ST elevation (NSTEMI) myocardial infarction. Bed requested for Intensive Care Unit. Status is Inpatient Admission. Condition is Stable. Problem is new. Symptoms have improved. UTI on Admission? No. pm1 19:32 18:59 05/12/2019 17:01 Hospitalization Ordered by J Luis Gleason MD for Inpatient rv Admission. Preliminary diagnosis is Non-ST elevation (NSTEMI) myocardial infarction. Bed requested for Intensive Care Unit. Status is Inpatient Admission. Condition is Stable. Problem is new. Symptoms have improved. UTI on Admission? No. em1
[2019-05-12] MEDS ORDERED: HEPARIN/D5W 25,000 UNIT/500 ML BAG IV ONE (17:06)
[2019-05-12] MEDS ORDERED: HEPARIN 5000 UNIT/ML 1 ML VIAL ONE (17:06)
[2019-05-12] MEDS ORDERED: HEPARIN/D5W 25,000 UNIT/500 ML BAG IV SCH (19:55)
--- NOTE | 2019-05-13 01:31 | CON ---
Identification: A 59-year-old man. Chief Complaint: Chest pain. History Of Present Illness: Mr. Aden started having chest pain today at 1 o'clock. He was at work . He decided to seek help. Eventually, he went to our emergency room, where EKGs are unremarkable. Chest pain continued central chest pressure-like, went away with nitroglycerin and morphine. He is pain-free now. Had about 4 hours of chest pain altogether and troponin level was 0.07. Patient has a history of heart disease with coronary artery bypass surgery roughly 10 years ago. He has had juani ral stents placed in his heart. He thinks they were placed in saphenous vein grafts. I am not sure. We do not have any of the records. The last one was about 11 months ago. The patient has underlyi ng diabetes, hypertension, obesity, history of vascular disease including stents in his legs, stents in heart arteries, bypass surgery and a history of cigarette smoking which he continues. Allergies: HE DOES NOT HAVE ANY ALLERGIES. Medications: The patient is on heparin now. Physical Examination: General: He is obese, alert, oriented, pleasant, cooperative, appears to be his stated age, not in a ny distress. Heart: Within normal limits. Abdomen: Soft. Extremities: Normal. Lungs: Clear. There is no carotid bruit. Laboratory Data: Includes hemoglobin of 13.6, white blood cell count 5.8, platelet count 207, creati nine 1.09, blood sugar 108. N-terminal proBNP 589. Impression: The patient has unstable angina and it would be in his interest to undergo a cardiac cat h. We will do that tomorrow. Dr. Alejandro will be the physician. He will be n.p.o. after midnight. He will be on heparin until an hour before his procedure. ECTOR/KEATON Voice ID: [id number] Report ID: [id number]
[2019-05-13 05:01] LABS: Basophils % 0.4 % (0-1.3); Hematocrit 40.3 % (39.6-49.0); MPV 8.4 fL (7.6-11.3); RBC Red Blood Cell Count 4.56 M/uL (4.33-5.43)
[2019-05-13] MEDS ORDERED: HEPA 1000U/500MLS 1,000 UNIT/500 ML BAG IV ONE ×2 (06:28→06:42)
[2019-05-13] MEDS ORDERED: ATROPINE SULF 1 MG/10 ML SYR IV ONE (06:29)
[2019-05-13] MEDS ORDERED: MIDAZOLAM HCL 2 MG/2 ML INJ ONE ×2 (06:29→07:12)
[2019-05-13] MEDS ORDERED: NA CHLORIDE 0.9% 50 ML ONE (06:29)
[2019-05-13] MEDS ORDERED: FENTANYL CITR 100 MCG/2 ML ONE ×2 (06:29→08:30)
[2019-05-13] MEDS ORDERED: LIDOCAINE 1% MPF 30 ML VIAL ONE (06:29)
[2019-05-13] MEDS: CLOPIDOGREL 75 MG TABLET PO SCH (06:32)
[2019-05-13] MEDS ORDERED: NA CHLORIDE 0.9% 500 ML ONE (07:00)
--- NOTE | 2019-05-13 07:35 | EKG ---
Test Date: 2019-05-12 Test Time: 15:24:07 Primary Care Coordinator: JACQUES MEASUREMENT RESULTS: Intervals: Rate: 78 MI: 164 QRSD: 116 QT: 396 QTc: 451 [place]: P: 40 MI: 164 QRS: 56 T: 125 INTERPRETIVE STATEMENTS: Normal sinus rhythm ST & T wave abnormality, consider lateral ischemia Abnormal ECG Compared to ECG 10/27/2018 22:17:01 ST (T wave) deviation now present Possible ischemia now present Intraventricular conduction delay no longer present T-wave abnormality no longer present Electronically Signed On 05-13-19 07:35:02 CDT by Terry De León
[2019-05-13] MEDS ORDERED: PRASUGREL (EFFIENT) 10 MG TAB ONE (07:52)
[2019-05-13] MEDS ORDERED: PNEUMOCOCCAL VACCINE 0.5 ML IMVAC ONE (08:00)
[2019-05-13] MEDS ORDERED: ASPIRIN EC 81 MG TAB PO SCH (09:00)
[2019-05-13] MEDS ORDERED: ZOLPIDEM TARTRATE 5 MG TABLET PO PRN (09:12)
[2019-05-13] MEDS: MORPHINE 4 MG/ML SYR IV PRN ×2 (09:56→20:27)
[2019-05-13] MEDS ORDERED: NA CHLORIDE 0.9% 1,000 ML IV SCH (10:00)
[2019-05-13] MEDS ORDERED: NITROGLYCERIN 0.4 MG/TAB SL PRN (10:00)
[2019-05-13] MEDS ORDERED: ACETAMINOPHEN 325 MG TABLET PO PRN (10:00)
--- NOTE | 2019-05-13 11:50 | ECHO ---
HEIGHT: 5 ft 11 in WEIGHT: 229 lb 0 oz DATE OF STUDY: 05/13/[address]: Rogelio Gomez NP 2-DIMENSIONAL: YES M.MODE: YES DOPPLER: YES COLOR FLOW: YES TDS: NO PORTABLE: YES DEFINITY: NO BUBBLE STUDY: NO DIAGNOSIS: NSTEMI CARDIAC HISTORY: CATHERIZATION: YES SURGERY: YES PROSTHETIC VALVE: NO PACEMAKER: NO MEASUREMENTS (cm) DIASTOLIC (NORMALS) SYSTOLIC (NORMALS) IVSd (0.6-1.2) LA Diam (1.9-4.0) LVEF % LVIDd (3.5-5.7) LVIDs (2.0-3.5) %FS % LVPWd (0.6-1.2) Ao Diam 2.7 (2.0-3.7) 2 DIMENSIONAL ASSESSMENT: RIGHT ATRIUM: NORMAL LEFT ATRIUM: NORMAL RIGHT VENTRICLE: NORMAL LEFT VENTRICLE: NORMAL TRICUSPID VALVE: NORMAL MITRAL VALVE: NORMAL PULMONIC VALVE: NORMAL AORTIC VALVE: NORMAL PERICARDIAL EFFUSION: NONE AORTIC ROOT: NORMAL LEFT VENTRICULAR WALL MOTION: NORMAL DOPPLER/COLOR FLOW: COMMENTS: TECHNICALLY DIFFICULT STUDY. GROSSLY NORMAL LEFT VENTRICULAR EJECTION FRACTION AND SIZE. NO EFFUSION. TECHNOLOGIST: Elvira ROSADO
[2019-05-14 05:11] VITALS: BMI 30.5
[2019-05-14 05:37] LABS: Absolute Lymphocytes (CBC) 2.2 K/uL (0.7-4.9); Basophils % 0.4 % (0-1.3); Hematocrit 39.3 % (39.6-49.0); Lymphocytes % 42.3 % (15.3-44.8); MPV 8.4 fL (7.6-11.3); RBC Red Blood Cell Count 4.54 M/uL (4.33-5.43)
[2019-05-14 05:57] LABS: Potassium 3.8 mmol/L (3.5-5.1)
--- NOTE | 2019-05-14 06:06 | OP ---
Date of Procedure: 05/13/2019 Surgeon: Matty Alejandro MD Plaster Pattern Caster: Neli Serrano. Patient will stay in the hospital overnight and he will go home tomorrow. He is on Lipitor, Plavix, lisinopril, aspirin. Metformin will be held for 48 hours. Discussion regarding him quitting tobacco was done with him and his . Procedure: Left heart catheterization, selective coronary arteriogram, NATACHA injection, angioplasty o f the proximal LAD. Indication: Non-ST elevation myocardial infarction with coronary artery disease. History Of Present Illness: Mr. Aden is 59-year-old, has history of chronic CAD status post bypass surgery at least x2, status post multiple angioplasties and stents before the last stent was in his LAD approximately 2-1/2 years ago. Had a negative stress test in October 2018, but came in with a s ubendocardial [place]. Description Of Procedure: Taken to the [facility] as an inpatient, prepped and draped in the routine s terile fashion. A 6-[place] sheath introduced in the right common femoral artery successfully. A 6-F rench Agustín catheter first introduced into the left main injection. There showed mild plaquing of the circumflex. He had 99% in-stent restenosis in the proximal LAD. JR4 catheter was used to cannul ate the [place] right coronary artery was completely occluded. The Agustín catheter was then advanced into the right subclavian and injection of the right internal mammary artery was done that was compl etely occluded. Following that, the Agustín catheter was placed in the left internal mammary artery, which shows widely patent, but it goes to the obtuse marginal branch, which is unusual. An XB 3.5 L AD with side holes was used for the intervention. A [place] wire was used to cross the lesion success fully. A 2.5 x 12 Emerge balloon was used. Multiple dilatations were done along the proximal LAD st ent and stenosis. There was 0% residual. No complications. Blood Loss: 5 cc. Anesthesia: Total conscious sedation was 45 minutes. The patient received aspirin, Effient, and Ang iomax during the procedure. Complications: There were no complications. PABLO/KEATON Voice ID: [id number] Report ID: [id number]
[2019-05-14 06:46] LABS: Blood Morphology Comment NOT SEEN (NOT SEEN); Platelet Estimate ADEQ; Urine White Blood Cell Casts OK
[2019-05-14] MEDS: CLOPIDOGREL 75 MG TABLET PO SCH (08:29)
[2019-05-14] MEDS ORDERED: ATORVASTATIN 80 MG TAB PO SCH (08:45)
[2019-05-14] MEDS ORDERED: ASPIRIN 81 MG CHEWABLE TABLET PO SCH (09:00)
[2019-05-14 09:16] VITALS: BP 125/68
[2019-05-14 09:46] VITALS: O2SAT 97
[2019-05-14 09:50] VITALS: TEMP 97.4
--- NOTE | 2019-05-14 10:42 | PN ---
Mr. Aden is stable. He had a balloon angioplasty within a previous stent in his LAD. Excellent an giographic result. He is asymptomatic. He will be discharged home, taking Lipitor 80, aspirin 81, P lavix 75, lisinopril 10, metformin 500 and a followup with Dr. Alejandro in about 2 weeks. His right f emoral access site looks good. There is no hematoma or evidence of a thrill or bruit. He feels well . Vital signs are good and he is ready to be discharged. ECTOR/KEATON Voice ID: [id number] Report ID: [id number]
--- NOTE | 2019-05-14 13:45 | PN ---
Date of Progress Note: 05/13/2019 Patient was seen in the ICU postprocedure which had angioplasty was done with no stent insertion. Th e patient is asymptomatic at this time. We will await Cardiology for final disposition. HR/MODL Voice ID: [id number] Report ID: [id number]
--- NOTE | 2019-05-17 17:00 | EKG ---
Test Date: 2019-05-14 Test Time: 07:27:24 Vp Production: ROSENDO MEASUREMENT RESULTS: Intervals: Rate: 65 IL: 166 QRSD: 126 QT: 444 QTc: 461 Jarales: P: 11 IL: 166 QRS: -6 T: -59 INTERPRETIVE STATEMENTS: Normal sinus rhythm Nonspecific intraventricular block T wave abnormality, consider inferior ischemia Abnormal ECG Compared to ECG 05/12/2019 15:24:07 T-wave abnormality now present ST (T wave) deviation no longer present Possible ischemia still present Electronically Signed On 05-17-19 16:55:49 CDT by Matty Alejandro
== END 2019-05-14 09:13 | disposition home or self-care (01) | DRG 247 ==
LOC: ER 15:16 → ERHOLD 17:15 → 3RD-ICU 19:25
PROVIDERS: ADMIT Family Medicine; ATTEND Family Medicine
PROC: 027034Z Dilation of Coronary Artery, One Artery with Drug-eluting Intraluminal Device, Percutaneous Approach (ICD-10-PCS; principal; 2019-05-13)
PROC: B201YZZ Plain Radiography of Multiple Coronary Arteries using Other Contrast (ICD-10-PCS; 2019-05-13)
PROC: B208YZZ Plain Radiography of Left Internal Mammary Bypass Graft using Other Contrast (ICD-10-PCS; 2019-05-13)
PROC: B202YZZ Plain Radiography of Single Coronary Artery Bypass Graft using Other Contrast (ICD-10-PCS; 2019-05-13)
DX: I21.4 Non-ST elevation (NSTEMI) myocardial infarction (principal); I25.110 Atherosclerotic heart disease of native coronary artery with unstable angina pectoris; I25.720 Atherosclerosis of autologous artery coronary artery bypass graft(s) with unstable angina pectoris; E78.5 Hyperlipidemia, unspecified; I10 Essential (primary) hypertension; Z95.810 Presence of automatic (implantable) cardiac defibrillator; Z28.82 Immunization not carried out because of caregiver refusal
CPT/HCPCS: 36415; 71045; 80048; 80061; 80076; 83735; 83880; 84484; 85025; 85347; 85610; 85730; 93005; 93306; 93455; 96361; 96365; 96366; 99285; C1725; C1760; C1877; C1893; C9600; J0583; J1644; J2250; J3010; J7030

== ENCOUNTER 2019-07-19 23:24 | Inpatient (IN) | payer MEDICARE ==
--- OUTSIDE RECORDS SUMMARY | 2019-07-19 23:28 | XMS REPORT ---
:1960 [facility] Address [address] [place] [address] Dr. Ng [address] [place] [id number] Care Team Providers Name Role Phone Piter [...] 80-115 Chemistry (test code=CA) 8.3 mg/dL 7.8-10.44 [id number] 03:18:00 Test Item Value Reference Range Comments Chemistry (test 0.013 ng/mL < 0.028 code=TROPI-T) Reference Range 0.00 - 0.028 ng/mL Negative 0.029 - 0.29 ng/mL Indeterminate Greater or Equal to 0.3 ng/mL Strongly suggests ME [id number] 23:53:00 Test Item Value Reference Range Comments Chemistry (test 0.023 ng/mL < 0.028 code=TROPI-T) Reference Range 0.00 - 0.028 ng/mL Negative 0.029 - 0.29 ng/mL Indeterminate Greater or Equal to 0.3 ng/mL Strongly suggests ME [id number] 20:51:00 Test Item Value Reference Range Comments Chemistry (test Less than 0.010 < 0.028 code=TROPI-T) ng/mL Reference Range 0.00 - 0.028 ng/mL Negative 0.029 - 0.29 ng/mL Indeterminate Greater or Equal to 0.3 ng/mL Strongly suggests ME [id number] 18:21:00 Test Item Value Reference Range Comments [...] Urine Source: Urine VoidedChemistry - BNP, HgbA1c, [id number] 17:24:00 Test Item Value Reference Range Comments Chemistry - BNP, HgbA1c, PTHi (test code=BNP) 59.8 pg/mL 0-100 [id number] 17:22:00 Test Item Value Reference Range Comments Chemistry (test 0.010 ng/mL < 0.028 code=TROPI-R) Reference Range 0.00 - 0.028 ng/mL Negative 0.029 - 0.29 ng/mL Indeterminate Greater or Equal to 0.3 ng/mL Strongly suggests ME [id number] 17:20:00 Test Item Value Reference Range Comments [...] 5-34 Chemistry (test code=ALT) 22 U/L 8-55 [id number] 17:20:00 Test Item Value Reference Range Comments Chemistry (test code=CK) 75 U/L 30-200 [id number] 16:55:00 Test Item Value Reference Range Comments [...] 0.0-0.7 Hematology (test code=BASO#) 0.1 thou/uL 0.0-0.2 [id number] 00:59:00 Test Item Value Reference Range Comments MAGNESIUM (BEAKER) (test 2.2 mg/dL 1.6-2.6 Specimen slightly hemolyzed sseu=832) BASIC METABOLIC [id number] 00:59:00 Test Item Value Reference Range Comments SODIUM (BEAKER) (test 137 meq/L 136-145 orev=002) POTASSIUM (BEAKER) (test 3.9 meq/L 3.5-5.1 Specimen slightly jbvc=282) hemolyzed CHLORIDE (BEAKER) (test 105 meq/L 98-107 ejkx=124) CO2 (BEAKER) (test 22 meq/L 22-29 kjdo=314) BLOOD UREA NITROGEN 22 mg/dL 7-21 (BEAKER) (test edea=566) CREATININE (BEAKER) (test 1.05 mg/dL 0.57-1.25 Specimen slightly nqke=280) hemolyzed GLUCOSE RANDOM (BEAKER) 181 mg/dL 70-105 (test wtdi=931) CALCIUM (BEAKER) (test 9.4 mg/dL 8.4-10.2 vwlb=990) EGFR (BEAKER) (test 72 mL/min/1.73 sq m ESTIMATED GFR IS NOT fxjc=1338) ACCURATE CREATININE CLEARANCE IN PREDICTING GLOMERULAR FILTRATION RATE. ESTIMATED GFR IS NOT APPLICABLE FOR DIALYSIS PATIENTS. CBC W/PLT COUNT & AUTO [id number] 00:43:00 Test Item Value Reference Range Comments WHITE BLOOD CELL COUNT (BEAKER) (test asfr=518) 5.0 K/ L 3.5-10.5 RED BLOOD CELL COUNT (BEAKER) (test ijez=822) 5.30 M/ L 4.63-6.08 HEMOGLOBIN (BEAKER) (test wdga=860) 14.8 GM/DL 13.7-17.5 HEMATOCRIT (BEAKER) (test zcis=624) 45.2 % 40.1-51.0 MEAN CORPUSCULAR VOLUME (BEAKER) (test bupx=575) 85.3 fL 79.0-92.2 MEAN CORPUSCULAR HEMOGLOBIN (BEAKER) (test 27.9 pg 25.7-32.2 hris=033) MEAN CORPUSCULAR HEMOGLOBIN CONC (BEAKER) (test 32.7 GM/DL 32.3-36.5 qbsd=441) RED CELL DISTRIBUTION WIDTH (BEAKER) (test 13.7 % 11.6-14.4 ters=343) PLATELET COUNT (BEAKER) (test tumo=031) 208 K/CU MM 150-450 MEAN PLATELET VOLUME (BEAKER) (test ndtn=234) 10.7 fL 9.4-12.4 NUCLEATED RED BLOOD CELLS (BEAKER) (test 0 /100 WBC 0-0 nolg=455) NEUTROPHILS RELATIVE PERCENT (BEAKER) (test 40 % ezoq=088) LYMPHOCYTES RELATIVE PERCENT (BEAKER) (test 46 % afrm=115) MONOCYTES RELATIVE PERCENT (BEAKER) (test 13 % lpnc=281) EOSINOPHILS RELATIVE PERCENT (BEAKER) (test 0 % ipca=079) BASOPHILS RELATIVE PERCENT (BEAKER) (test 0 % viru=108) NEUTROPHILS ABSOLUTE COUNT (BEAKER) (test 2.02 K/ L 1.78-5.38 bmpl=163) LYMPHOCYTES ABSOLUTE COUNT (BEAKER) (test 2.31 K/ L 1.32-3.57 wjkn=955) MONOCYTES ABSOLUTE COUNT (BEAKER) (test 0.64 K/ L 0.30-0.82 twnr=742) EOSINOPHILS ABSOLUTE COUNT (BEAKER) (test 0.02 K/ L 0.04-0.54 gxrx=865) BASOPHILS ABSOLUTE COUNT (BEAKER) (test 0.01 K/ L 0.01-0.08 fzqx=567) IMMATURE GRANULOCYTES-RELATIVE PERCENT (BEAKER) 1 % 0-1 (test pzds=5522) [id number] 00:20:00 Test Item Value Reference Range Comments ACTIVATED CLOTTING TIME 109 sec TESTED AT [place] [address] [address] (BEAKER) (test xwxx=187) [place] [address] [id number] 20:55:00 Test Item Value Reference Range Comments ACTIVATED CLOTTING TIME 191 sec TESTED AT [place] [address] [address] (BEAKER) (test oysp=215) [place] [address] [id number] 18:15:00 Test Item Value Reference Range Comments ACTIVATED CLOTTING TIME 318 sec TESTED AT [place] [address] [address] (BEAKER) (test eerp=001) [place] [address] POCT-GLUCOSE [id number] 07:26:00 Test Item Value Reference Range Comments POC-GLUCOSE METER (BEAKER) 113 mg/dL 70-110 TESTED AT [address] (test tgxx=1272) [place] [address] [id number] 07:16:00 Test Item Value Reference Range Comments MAGNESIUM (BEAKER) (test avou=869) 2.0 mg/dL 1.6-2.6 BASIC METABOLIC [id number] 07:16:00 Test Item Value Reference Range Comments SODIUM (BEAKER) (test 138 meq/L 136-145 xlla=253) POTASSIUM (BEAKER) (test 4.2 meq/L 3.5-5.1 menj=185) CHLORIDE (BEAKER) (test 105 meq/L 98-107 yloq=769) CO2 (BEAKER) (test 25 meq/L 22-29 qfve=698) BLOOD UREA NITROGEN 20 mg/dL 7-21 (BEAKER) (test hdwg=942) CREATININE (BEAKER) (test 1.12 mg/dL 0.57-1.25 cmcy=583) GLUCOSE RANDOM (BEAKER) 126 mg/dL 70-105 (test ouoy=301) CALCIUM (BEAKER) (test 9.3 mg/dL 8.4-10.2 erew=100) EGFR (BEAKER) (test 67 mL/min/1.73 sq m ESTIMATED GFR IS NOT itun=2832) ACCURATE CREATININE CLEARANCE IN PREDICTING GLOMERULAR FILTRATION RATE. ESTIMATED GFR IS NOT APPLICABLE FOR DIALYSIS PATIENTS. [id number] 06:58:00 Test Item Value Reference Range Comments PROTIME (BEAKER) (test gqft=669) 14.5 seconds 11.7-14.7 INR (BEAKER) (test pwei=076) 1.1 <=5.9 PARTIAL THROMBOPLASTIN TIME (BEAKER) (test 32.7 seconds 22.5-36.0 ppio=194) RECOMMENDED COUMADIN/WARFARIN INR THERAPY RANGESSTANDARD DOSE: 2.0 - 3.0 Includes: PROPHYLAXIS forvenous thrombosis, systemic embolization; TREATMENT for venous thrombosis and/or pulmonary embolus.HIGH RISK: Target INR is 2.5-3.5 for patients with mechanical heart valves.CBC W/PLT COUNT & AUTO [id number] 06:55:00 Test Item Value Reference Range Comments WHITE BLOOD CELL COUNT (BEAKER) (test rijm=082) 3.9 K/ L 3.5-10.5 RED BLOOD CELL COUNT (BEAKER) (test nhuq=505) 5.18 M/ L 4.63-6.08 HEMOGLOBIN (BEAKER) (test rinm=700) 14.8 GM/DL 13.7-17.5 HEMATOCRIT (BEAKER) (test ohdo=803) 44.6 % 40.1-51.0 MEAN CORPUSCULAR VOLUME (BEAKER) (test nyoc=320) 86.1 fL 79.0-92.2 MEAN CORPUSCULAR HEMOGLOBIN (BEAKER) (test 28.6 pg 25.7-32.2 bfml=475) MEAN CORPUSCULAR HEMOGLOBIN CONC (BEAKER) (test 33.2 GM/DL 32.3-36.5 dpmi=916) RED CELL DISTRIBUTION WIDTH (BEAKER) (test 13.6 % 11.6-14.4 oyeq=056) PLATELET COUNT (BEAKER) (test dgxo=522) 195 K/CU MM 150-450 MEAN PLATELET VOLUME (BEAKER) (test gkeo=639) 10.6 fL 9.4-12.4 NUCLEATED RED BLOOD CELLS (BEAKER) (test 0 /100 WBC 0-0 cmll=229) NEUTROPHILS RELATIVE PERCENT (BEAKER) (test 33 % gcep=960) LYMPHOCYTES RELATIVE PERCENT (BEAKER) (test 51 % zdyz=905) MONOCYTES RELATIVE PERCENT (BEAKER) (test 15 % qbgx=224) EOSINOPHILS RELATIVE PERCENT (BEAKER) (test 1 % duqh=564) BASOPHILS RELATIVE PERCENT (BEAKER) (test 1 % lxed=401) NEUTROPHILS ABSOLUTE COUNT (BEAKER) (test 1.28 K/ L 1.78-5.38 yeos=090) LYMPHOCYTES ABSOLUTE COUNT (BEAKER) (test 2.01 K/ L 1.32-3.57 ejth=097) MONOCYTES ABSOLUTE COUNT (BEAKER) (test 0.57 K/ L 0.30-0.82 uwkc=488) EOSINOPHILS ABSOLUTE COUNT (BEAKER) (test 0.02 K/ L 0.04-0.54 nhzs=725) BASOPHILS ABSOLUTE COUNT (BEAKER) (test 0.02 K/ L 0.01-0.08 bhsm=591) IMMATURE GRANULOCYTES-RELATIVE PERCENT (BEAKER) 1 % 0-1 (test eyns=9557) CBC W/PLT COUNT & AUTO [id number] 05:30:00 Test Item Value Reference Range Comments WHITE BLOOD CELL COUNT (BEAKER) (test xwnn=953) 5.2 K/ L 3.5-10.5 RED BLOOD CELL COUNT (BEAKER) (test ydvo=189) 4.84 M/ L 4.63-6.08 HEMOGLOBIN (BEAKER) (test rsqn=615) 13.8 GM/DL 13.7-17.5 HEMATOCRIT (BEAKER) (test fdnj=170) 42.4 % 40.1-51.0 MEAN CORPUSCULAR VOLUME (BEAKER) (test uuys=398) 87.6 fL 79.0-92.2 MEAN CORPUSCULAR HEMOGLOBIN (BEAKER) (test 28.5 pg 25.7-32.2 xokd=392) MEAN CORPUSCULAR HEMOGLOBIN CONC (BEAKER) (test 32.5 GM/DL 32.3-36.5 gqnu=647) RED CELL DISTRIBUTION WIDTH (BEAKER) (test 13.7 % 11.6-14.4 xbxm=367) PLATELET COUNT (BEAKER) (test kqao=452) 197 K/CU MM 150-450 MEAN PLATELET VOLUME (BEAKER) (test sbor=610) 10.5 fL 9.4-12.4 NUCLEATED RED BLOOD CELLS (BEAKER) (test 0 /100 WBC 0-0 rxxd=990) NEUTROPHILS RELATIVE PERCENT (BEAKER) (test 42 % tmsp=959) LYMPHOCYTES RELATIVE PERCENT (BEAKER) (test 40 % fpcs=188) MONOCYTES RELATIVE PERCENT (BEAKER) (test 16 % jbfl=332) EOSINOPHILS RELATIVE PERCENT (BEAKER) (test 1 % isxi=476) BASOPHILS RELATIVE PERCENT (BEAKER) (test 0 % nsmf=011) NEUTROPHILS ABSOLUTE COUNT (BEAKER) (test 2.16 K/ L 1.78-5.38 zofs=647) LYMPHOCYTES ABSOLUTE COUNT (BEAKER) (test 2.04 K/ L 1.32-3.57 igzk=884) MONOCYTES ABSOLUTE COUNT (BEAKER) (test 0.84 K/ L 0.30-0.82 tjtb=945) EOSINOPHILS ABSOLUTE COUNT (BEAKER) (test 0.04 K/ L 0.04-0.54 uksl=554) BASOPHILS ABSOLUTE COUNT (BEAKER) (test 0.02 K/ L 0.01-0.08 hnhy=307) IMMATURE GRANULOCYTES-RELATIVE PERCENT (BEAKER) 1 % 0-1 (test azfk=3130) BASIC METABOLIC [id number] 05:12:00 Test Item Value Reference Range Comments SODIUM (BEAKER) (test 139 meq/L 136-145 pwcq=326) POTASSIUM (BEAKER) (test 4.0 meq/L 3.5-5.1 fsgn=998) CHLORIDE (BEAKER) (test 107 meq/L 98-107 iyks=840) CO2 (BEAKER) (test 25 meq/L 22-29 qnue=193) BLOOD UREA NITROGEN 20 mg/dL 7-21 (BEAKER) (test lmlq=053) CREATININE (BEAKER) (test 1.11 mg/dL 0.57-1.25 nzzw=744) GLUCOSE RANDOM (BEAKER) 130 mg/dL 70-105 (test hziq=037) CALCIUM (BEAKER) (test 9.0 mg/dL 8.4-10.2 ewtz=602) EGFR (BEAKER) (test 68 mL/min/1.73 sq m ESTIMATED GFR IS NOT otkr=0242) ACCURATE CREATININE CLEARANCE IN PREDICTING GLOMERULAR FILTRATION RATE. ESTIMATED GFR IS NOT APPLICABLE FOR DIALYSIS PATIENTS. [id number] 15:55:00 Test Item Value Reference Range Comments PARTIAL THROMBOPLASTIN TIME (BEAKER) (test 51.7 seconds 22.5-36.0 rkpg=989) TROPONIN [id number] 14:06:00 Test Item Value Reference Range Comments TROPONIN I (BEAKER) (test ipgf=640) 0.01 ng/mL 0.00-0.03 Troponin I (TnI) levels [...] acidosis, acute neurological disease, and persistent tachyarrhythmia.HEMOGLOBIN [id number] 11:57:00 Test Item Value Reference Range Comments HEMOGLOBIN A1C (BEAKER) (test ccse=047) 7.5 % 4.3-6.1 [id number] 09:48:00 Test Item Value Reference Range Comments PARTIAL THROMBOPLASTIN TIME (BEAKER) (test 48.9 seconds 22.5-36.0 naar=928) URINALYSIS W/ [id number] 08:06:00 Test Item Value Reference Range Comments COLOR (BEAKER) (test dggt=862) Light Yellow CLARITY (BEAKER) (test rmcr=056) Clear SPECIFIC GRAVITY UA (BEAKER) (test kbxa=538) 1.014 1.001-1.035 PH UA (BEAKER) (test plai=611) 5.5 5.0-8.0 PROTEIN UA (BEAKER) (test zmky=296) Negative Negative GLUCOSE UA (BEAKER) (test kqrs=992) 70 mg/dL Negative KETONES UA (BEAKER) (test kpvi=847) Negative Negative BILIRUBIN UA (BEAKER) (test open=949) Negative Negative BLOOD UA (BEAKER) (test fxcn=158) Negative Negative NITRITE UA (BEAKER) (test sffu=919) Negative Negative LEUKOCYTE ESTERASE UA (BEAKER) (test mymb=387) Negative Negative UROBILINOGEN UA (BEAKER) (test oyqd=875) 0.2 mg/dL 0.2-1.0 RBC UA (BEAKER) (test hoze=769) 4 /HPF WBC UA (BEAKER) (test mgsp=598) 4 /HPF SQUAMOUS EPITHELIAL (BEAKER) (test uqkk=927) < /HPF SOURCE(BEAKER) (test tjry=4972) RAD, CHEST, 1 VIEW, NON [id number] 04:11:00Reason for exam:->angina pectorisShould this be performed [...] MDReport Verified Date/Time: 06/27/2018 04:11:12 Reading Location: [facility] B1 C013Y CT Body Reading Room CREATINE KINASE (CK), TOTAL AND [id number] 03:24:00 Test Item Value Reference Range Comments CREATINE KINASE TOTAL (BEAKER) (test xsfo=866) 61 U/L 29-200 CREATINE KINASE-MB (BEAKER) (test zorf=663) 1.5 ng/mL 0.0-6.6 CREATINE KINASE-MB INDEX (BEAKER) (test jmvr=348) 2.5 % CK-MB Reference Range:<6.7 Normal6.7-10.0 Borderline>10.0 AbnormalTROPONIN [id number] 03:24:00 Test Item Value Reference Range Comments TROPONIN I (BEAKER) (test bckh=782) 0.01 ng/mL 0.00-0.03 Troponin I (TnI) levels [...] acute neurological disease, and persistent tachyarrhythmia.BASIC METABOLIC [id number] 03:18:00 Test Item Value Reference Range Comments SODIUM (BEAKER) (test 139 meq/L 136-145 mqxj=506) POTASSIUM (BEAKER) (test 4.2 meq/L 3.5-5.1 wezv=196) CHLORIDE (BEAKER) (test 107 meq/L 98-107 zjbv=261) CO2 (BEAKER) (test 24 meq/L 22-29 dare=525) BLOOD UREA NITROGEN 21 mg/dL 7-21 (BEAKER) (test aroc=067) CREATININE (BEAKER) (test 1.15 mg/dL 0.57-1.25 mevw=059) GLUCOSE RANDOM (BEAKER) 149 mg/dL 70-105 (test cbvn=465) CALCIUM (BEAKER) (test 8.5 mg/dL 8.4-10.2 jodx=121) EGFR (BEAKER) (test 65 mL/min/1.73 sq m ESTIMATED GFR IS NOT suyt=7037) ACCURATE CREATININE CLEARANCE IN PREDICTING GLOMERULAR FILTRATION RATE. ESTIMATED GFR IS NOT APPLICABLE FOR DIALYSIS PATIENTS. B-TYPE NATRIURETIC FACTOR (BNP)2018-06-27 03:16:00 Test Item Value Reference Range Comments B-TYPE NATRIURETIC PEPTIDE (BEAKER) (test 122 pg/mL 0-100 cyyo=635) CBC W/PLT COUNT & AUTO [id number] 02:58:00 Test Item Value Reference Range Comments WHITE BLOOD CELL COUNT (BEAKER) (test yver=890) 6.4 K/ L 3.5-10.5 RED BLOOD CELL COUNT (BEAKER) (test rvej=888) 4.67 M/ L 4.63-6.08 HEMOGLOBIN (BEAKER) (test paef=893) 13.6 GM/DL 13.7-17.5 HEMATOCRIT (BEAKER) (test ppqt=413) 41.3 % 40.1-51.0 MEAN CORPUSCULAR VOLUME (BEAKER) (test xmsr=604) 88.4 fL 79.0-92.2 MEAN CORPUSCULAR HEMOGLOBIN (BEAKER) (test 29.1 pg 25.7-32.2 fcgp=790) MEAN CORPUSCULAR HEMOGLOBIN CONC (BEAKER) (test 32.9 GM/DL 32.3-36.5 rlis=658) RED CELL DISTRIBUTION WIDTH (BEAKER) (test 14.0 % 11.6-14.4 htxq=069) PLATELET COUNT (BEAKER) (test umht=790) 217 K/CU MM 150-450 MEAN PLATELET VOLUME (BEAKER) (test qzyo=940) 10.5 fL 9.4-12.4 NUCLEATED RED BLOOD CELLS (BEAKER) (test 0 /100 WBC 0-0 alwd=128) NEUTROPHILS RELATIVE PERCENT (BEAKER) (test 31 % sdoi=285) LYMPHOCYTES RELATIVE PERCENT (BEAKER) (test 56 % nvzk=310) MONOCYTES RELATIVE PERCENT (BEAKER) (test 12 % efum=777) EOSINOPHILS RELATIVE PERCENT (BEAKER) (test 1 % hnzb=707) BASOPHILS RELATIVE PERCENT (BEAKER) (test 0 % ojyt=586) NEUTROPHILS ABSOLUTE COUNT (BEAKER) (test 2.00 K/ L 1.78-5.38 chno=675) LYMPHOCYTES ABSOLUTE COUNT (BEAKER) (test 3.56 K/ L 1.32-3.57 bjij=093) MONOCYTES ABSOLUTE COUNT (BEAKER) (test 0.74 K/ L 0.30-0.82 ibrj=522) EOSINOPHILS ABSOLUTE COUNT (BEAKER) (test 0.04 K/ L 0.04-0.54 ccyv=841) BASOPHILS ABSOLUTE COUNT (BEAKER) (test 0.02 K/ L 0.01-0.08 ubwv=505) IMMATURE GRANULOCYTES-RELATIVE PERCENT (BEAKER) 1 % 0-1 (test jzic=0805) [id number] 02:51:00 Test Item Value Reference Range Comments PARTIAL THROMBOPLASTIN TIME (BEAKER) (test 48.4 seconds 22.5-36.0 rlye=983) [facility] Pool Aranda AkesoGenX Phys: Ludy Puente PA-CanBRET [id number] : 11/1959 Age: 59 SEX:M [phone] Exam Date: 04/05/19 Status: REG ER Acct : [id number] Loc: ERS Pt Unit #: [id number] Report #: [id number] CC: Ludy Puente PA-C IMAGING SERVICES REPORT Order # Category/Exam [id number] RAD/XR Chest 1 View Portable ([id number]): . Results PORTABLE AP CHEST X-RAY: HISTORY: [...]
[2019-07-20 00:06] LABS: Absolute Lymphocytes (CBC) 2.8 K/uL (0.7-4.9); Basophils % 0.4 % (0-1.3); Hematocrit 40.5 % (39.6-49.0); Lymphocytes % 43.3 % (15.3-44.8); MPV 8.8 fL (7.6-11.3); RBC Red Blood Cell Count 4.64 M/uL (4.33-5.43)
[2019-07-20 00:34] LABS: ALT/SGPT 23 U/L (12-78); AST/SGOT 21 U/L (15-37); Albumin 3.6 g/dL (3.4-5.0); Alkaline Phosphatase 98 U/L (45-117); BUN Blood Urea Nitrogen 31 mg/dL (7-18); Bicarbonate 25 mmol/L (21-32); Bilirubin Direct < 0.1 mg/dL (0-0.2); Bilirubin Total 0.3 mg/dL (0.2-1.0); Glucose Level 175 mg/dL (74-106); Magnesium 1.9 mg/dL (1.8-2.4); NT PRO-BNP 285 pg/mL (<125); Potassium 3.7 mmol/L (3.5-5.1); Protein, Total 7.1 g/dL (6.4-8.2); Sodium Level 139 mmol/L (136-145); Troponin (Emerg Dept Use Only) 0.04 ng/mL (0.0-0.045)
--- NOTE | 2019-07-20 00:48 | ER ---
Nurse's Notes [facility] Name: Pool Aden Age: 59 yrs Sex: Male : 1960 Arrival Date: 07/19/2019 Time: 23:33 Bed 6 Private MD: Diagnosis: Chest pain, unspecified Presentation: 07/19 23:47 Presenting complaint: Patient states: I started having left sided chest pain approx 40 tl1 minutes [employer]. I had a balloon stent placed in May. after my stent collapsed. Transition of care: patient was not received from another setting of care. Onset of symptoms was July 19, 2019. Risk Assessment: Do you want to hurt yourself or someone else? Patient reports no desire to harm self or others. Initial Sepsis Screen: Does the patient meet any 2 criteria? No. Patient's initial sepsis screen is negative. Does the patient have a suspected source of infection? No. Patient's initial sepsis screen is negative. Care prior to arrival: Medication(s) given: ASA, 325 mg, x 2. 23:47 Method Of Arrival: Ambulatory tl1 23:47 Acuity: SUSAN 2 tl1 Historical: - Allergies: 23:53 No Known Allergies; tl1 - Home Meds: 23:53 aspirin 81 mg Oral TbEC 1 tab once daily [Active]; atorvastatin 80 mg Oral tab 1 tab tl1 once daily [Active]; lisinopril 10 mg Oral tab 1 tab once daily [Active]; Pepcid 20 mg Oral tab 1 tab every 12 hours [Active]; Plavix 75 mg Oral tab 1 tab once daily [Active]; Metformin Oral [Active]; Nitroglycerin SL [Active]; - PMHx: 23:53 Hyperlipidemia; Hypertension; Myocardial infarction; pacemaker/defibrillator; tl1 - PSHx: 23:53 cardiac stent; Angioplasty; CABG; tl1 - Immunization history:: Adult Immunizations up to date. - Ebola Screening: : No symptoms or risks identified at this time. Screenin:54 Abuse screen: Denies threats or abuse. Nutritional screening: No deficits noted. ea Tuberculosis screening: No symptoms or risk factors identified. Fall Risk IV access (20 points). Assessment: 23:54 General: Appears in no apparent distress. Behavior is appropriate for age. Pain: Denies ea pain. Complains of pain in chest Pain currently is 0 out of 10 on a pain scale. Neuro: Level of Consciousness is awake, alert, obeys commands, Oriented to person, place, time, situation. Cardiovascular: Patient's skin is warm and dry. Respiratory: Airway is patent Respiratory effort is even, unlabored, Respiratory pattern is regular, symmetrical. Derm: Skin is pink, warm \T\ dry. Musculoskeletal: Circulation, motion, and sensation intact. 07/20 00:30 Reassessment: Patient and/or family updated on plan of care and expected duration. Pain ea level reassessed. Patient is alert, oriented x 3, equal unlabored respirations, skin warm/dry/pink. 01:30 Reassessment: Patient and/or family updated on plan of care and expected duration. Pain ea level reassessed. Patient is alert, oriented x 3, equal unlabored respirations, skin warm/dry/pink. Patient denies pain at this time. 02:17 Reassessment: Patient and/or family updated on plan of care and expected duration. Pain ea level reassessed. Patient is alert, oriented x 3, equal unlabored respirations, skin warm/dry/pink. Report called to receiving nurse on fourth floor Patient denies pain at this time. 02:37 Reassessment: Patient and/or family updated on plan of care and expected duration. Pain ea level reassessed. Patient is alert, oriented x 3, equal unlabored respirations, skin warm/dry/pink. Pt taken via stretcher per tech, tolerating well Patient denies pain at this time. Vital Signs: 07/19 23:53 BP 123 / 68; Pulse 75; Resp 17; Temp 98.2(O); Pulse Ox 98% on R/A; Weight 102.06 kg; tl1 Height 6 ft. 0 in. (182.88 cm); Pain 0/10; 07/20 00:31 BP 111 / 48; Pulse 72; Resp 20; Pulse Ox 95% on R/A; ea 01:30 BP 108 / 61; Pulse 65; Resp 18; Temp 98.1; Pulse Ox 98% on R/A; ea 02:19 BP 93 / 62; Pulse 69; Resp 18; Pulse Ox 97% on R/A; ea 07/19 23:53 Body Mass Index 30.52 (102.06 kg, 182.88 cm) tl1 ED Course: 07/19 23:33 Patient arrived in ED. cl3 23:37 Rogelio Gomez NP is PHCP. pm1 23:37 [place] MD is Attending Physician. pm1 23:45 Arm band placed on right wrist. EKG completed in triage. Results shown to MD. tl1 23:49 Triage completed. tl1 23:53 Veronika Jurado, RN is Primary Nurse. ea 23:54 Patient has correct armband on for positive identification. Bed in low position. Call ea light in reach. Side rails up X2. campus monitor on. Pulse ox on. NIBP on. 23:54 Inserted saline lock: 20 gauge in right antecubital area, using aseptic technique. ea Blood collected. 23:57 Patient maintains SpO2 saturation greater than 95% on room air. ea 07/20 00:46 Nathna Clemens is Hospitalizing Provider. pm1 00:47 XRAY Chest (1 view) In Process Unspecified. EDMS 02:15 No provider procedures requiring assistance completed. Patient admitted, IV remains in ea place. Administered Medications: No medications were administered Outcome: 00:47 Decision to Hospitalize by Provider. pm1 01:00 Admitted to Med/surg accompanied by tech, via stretcher, with chart, Report called to ea Receiving nurse on fourth floor 01:00 Condition: stable 01:00 Instructed on the need for admit. 02:38 Patient left the ED. ea Signatures: Dispatcher [employer] EDTN Elen Dunham RN RN tl1 Rogelio Gomez, NARGIS DOCUMENTATION COORDINATOR pm1 Veronika Jurado RN RN ea Lewis, Charde cl3 Corrections: (The following items were deleted from the chart) 00:32 00:30 BP 107 / 35; Pulse 73bpm; Resp 18bpm; Pulse Ox 96%; ea ea
--- NOTE | 2019-07-20 00:48 | EDPHYS ---
Physician Documentation [facility] Name: Pool Aden Age: 59 yrs Sex: Male : 1960 Arrival Date: 07/19/2019 Time: 23:33 Bed 6 Private MD: ED Physician [place] HPI: 07/20 00:00 This 59 yrs old Male presents to ER via Ambulatory with complaints of Chest pm1 Pain. 00:00 The patient or guardian reports chest pain that is located primarily in the anterior pm1 aspect of left upper chest. Onset: 1 hour(s) ago. The pain does not radiate. Associated signs and symptoms: Pertinent negatives: dizziness, headache, nausea, shortness of breath, vomiting. The chest pain is described as a pressure. Duration: The patient or guardian reports a single episode, that is now resolved. Severity of pain: in the emergency department the pain is a 0 / 10. The patient has experienced similar episodes in the past, today's symptoms are similar, to previous [place]. The patient has not recently seen a physician, Sees Dr. Ames for cardiology. Historical: - Allergies: 07/19 23:53 No Known Allergies; tl1 - Home Meds: 23:53 aspirin 81 mg Oral TbEC 1 tab once daily [Active]; atorvastatin 80 mg Oral tab 1 tab tl1 once daily [Active]; lisinopril 10 mg Oral tab 1 tab once daily [Active]; Pepcid 20 mg Oral tab 1 tab every 12 hours [Active]; Plavix 75 mg Oral tab 1 tab once daily [Active]; Metformin Oral [Active]; Nitroglycerin SL [Active]; - PMHx: 23:53 Hyperlipidemia; Hypertension; Myocardial infarction; pacemaker/defibrillator; tl1 - PSHx: 23:53 cardiac stent; Angioplasty; CABG; tl1 - Immunization history:: Adult Immunizations up to date. - Ebola Screening: : No symptoms or risks identified at this time. ROS: 07/20 00:00 Constitutional: Negative for fever, chills, and weight loss, Eyes: Negative for injury, pm1 pain, redness, and discharge, ENT: Negative for injury, pain, and discharge, Neck: Negative for injury, pain, and swelling. Respiratory: Negative for shortness of breath, cough, wheezing, and pleuritic chest pain, Abdomen/GI: Negative for abdominal pain, nausea, vomiting, diarrhea, and constipation, Back: Negative for injury and pain, MS/Extremity: Negative for injury and deformity, Skin: Negative for injury, rash, and discoloration. Neuro: Negative for headache, weakness, numbness, tingling, and seizure. Cardiovascular: Positive for chest pain, Negative for edema, orthopnea, palpitations. Exam: 00:00 Constitutional: This is a well developed, well nourished patient who is awake, alert, pm1 and in no acute distress. Head/Face: Normocephalic, atraumatic. Eyes: Pupils equal round and reactive to light, extra-ocular motions intact. Lids and lashes normal. Conjunctiva and sclera are non-icteric and not injected. Cornea within normal limits. Periorbital areas with no swelling, redness, or edema. ENT: Nares patent. No nasal discharge, no septal abnormalities noted. Tympanic membranes are normal and external auditory canals are clear. Oropharynx with no redness, swelling, or masses, exudates, or evidence of obstruction, uvula midline. Mucous membranes moist. Neck: Trachea midline, no thyromegaly or masses palpated, and no cervical lymphadenopathy. Supple, full range of motion without nuchal rigidity, or vertebral point tenderness. No Meningismus. Chest/axilla: Normal chest wall appearance and motion. Nontender with no deformity. No lesions are appreciated. Cardiovascular: Regular rate and rhythm with a normal S1 and S2. No gallops, murmurs, or rubs. Normal PMI, no JVD. No pulse deficits. Respiratory: Lungs have equal breath sounds bilaterally, clear to auscultation and percussion. No rales, rhonchi or wheezes noted. No increased work of breathing, no retractions or nasal flaring. Abdomen/GI: Soft, non-tender, with normal bowel sounds. No distension or tympany. No guarding or rebound. No evidence of tenderness throughout. Back: No spinal tenderness. No costovertebral tenderness. Full range of motion. Skin: Warm, dry with normal turgor. Normal color with no rashes, no lesions, and no evidence of cellulitis. MS/ Extremity: Pulses equal, no cyanosis. Neurovascular intact. Full, normal range of motion. 00:00 Neuro: Orientation: is normal, Motor: is normal, moves all fours. Vital Signs: 07/19 23:53 BP 123 / 68; Pulse 75; Resp 17; Temp 98.2(O); Pulse Ox 98% on R/A; Weight 102.06 kg; tl1 Height 6 ft. 0 in. (182.88 cm); Pain 0/10; 07/20 00:31 BP 111 / 48; Pulse 72; Resp 20; Pulse Ox 95% on R/A; ea 01:30 BP 108 / 61; Pulse 65; Resp 18; Temp 98.1; Pulse Ox 98% on R/A; ea 02:19 BP 93 / 62; Pulse 69; Resp 18; Pulse Ox 97% on R/A; ea 07/19 23:53 Body Mass Index 30.52 (102.06 kg, 182.88 cm) tl1 MDM: 07/19 23:37 Patient medically screened. pm1 23:59 Data reviewed: vital signs. Data interpreted: Pulse oximetry: on room air is 98 %. pm1 Interpretation: normal. 07/20 00:00 ED course: patient took 325 mg x 2 aspirin prior to arrival. pm1 00:45 Counseling: I had a detailed discussion with the patient and/or guardian regarding: the pm1 historical points, exam findings, and any diagnostic results supporting the discharge/admit diagnosis, lab results, radiology results, the need for further work-up and treatment in the hospital. 01:02 Physician consultation: Nathan Sarath was called at 01:02, was contacted at 01:02, pm1 regarding admission, patient's condition, and will see patient. 07/19 23:38 Order name: Basic Metabolic Panel; Complete Time: 00:45 pm1 07/19 23:38 Order name: CBC with Diff; Complete Time: 00:24 pm1 07/19 23:38 Order name: LFT's; Complete Time: 00:45 pm1 07/19 23:38 Order name: Magnesium; Complete Time: 00:45 pm1 07/19 23:38 Order name: NT PRO-BNP; Complete Time: 00:45 pm1 07/19 23:38 Order name: PT-INR; Complete Time: 00:45 pm1 07/19 23:38 Order name: Troponin (emerg Dept Use Only); Complete Time: 00:45 pm1 07/19 23:38 Order name: XRAY Chest (1 view) pm1 07/19 23:38 Order name: EKG; Complete Time: 23:38 pm1 07/19 23:38 Order name: Cardiac monitoring; Complete Time: 23:58 pm1 07/19 23:38 Order name: EKG - Nurse/Tech; Complete Time: 23:58 pm1 07/19 23:38 Order name: IV Saline Lock; Complete Time: 23:58 pm1 07/19 23:38 Order name: Labs collected and sent; Complete Time: 23:58 pm1 07/19 23:38 Order name: O2 Per Protocol; Complete Time: 23:58 pm1 07/19 23:38 Order name: O2 Sat Monitoring; Complete Time: 23:58 pm1 EC:00 Rate is 70 beats/min. Rhythm is regular. Clinical impression: NSR with LVH. Abnormal pm1 ECG. Changes noted from previous ECG on May 14, 2019. Previous findings: Inverted T waves present on 05/14/2019 are not present on ECG today. Administered Medications: No medications were administered Disposition: 04:55 Co-signature as Attending Physician, [place] MD I agree with the assessment and tw4 plan of care. Disposition: 07/20/19 00:47 Hospitalization ordered by Nathan Clemens for Observation. Preliminary diagnosis is Chest pain, unspecified. - Bed requested for Telemetry/MedSurg (observation). - Status is Observation. ea - Condition is Stable. - Problem is new. - Symptoms have improved. UTI on Admission? No Signatures: Dispatcher [employer] EDKY Kandi Figueroa RN RN bb Elen Duhnam RN RN tl1 Rogelio Gomez, NARGIS CENA pm1 Veronika Jurado RN RN ea Wadley, Terrence, MD MD tw4 Corrections: (The following items were deleted from the chart) 01:58 00:47 Hospitalization Ordered by Nathan Clemens for Observation. Preliminary diagnosis bb is Chest pain, unspecified. Bed requested for Telemetry/MedSurg (observation). Status is Observation. Condition is Stable. Problem is new. Symptoms have improved. UTI on Admission? No. pm1 02:38 01:58 07/20/2019 00:47 Hospitalization Ordered by Nathan Clemens for Observation. ea Preliminary diagnosis is Chest pain, unspecified. Bed requested for Telemetry/MedSurg (observation). Status is Observation. Condition is Stable. Problem is new. Symptoms have improved. UTI on Admission? No. bb
--- NOTE | 2019-07-20 01:31 | P.HP ---
Certification for Inpatient Patient admitted to: Observation With expected LOS: <2 Midnights Practitioner: I am a practitioner with admitting privileges, knowledge of patient current condition, hospital course, and medical plan of care. Services: Services provided to patient in accordance with Admission requirements found in Title 42 Section 412.3 of the Code of Federal Regulations Patient History Date of Service: 07/20/19 Reason for admission: Chest pain History of Present Illness: 59-year-old gentleman with a history of coronary disease status post CABG, recently admitted for chest pain and noted to have LAD InStent stenosis which was corrected presented to the emergency department with a complaint of chest pain of sudden onset, rated at 8/10 in maximum severity, located in the anterior chest, no associated sweating or diaphoresis or lightheadedness, or nausea. He took a dose of aspirin but no nitroglycerin. He stated the chest pain lasted for about 20 min. It was resolved by the time he got to the ED. Initial troponin in the ED is negative. EKG demonstrated no new changes from prior EKG. Chest x-ray shows no acute disease. He continues to smoke. Patient with high CAD risk factors. He is placed under observation for ACS rule out. Allergies No Known Allergies Allergy (Verified 09/09/17 00:51) Home Medications: Clopidogrel Bisulfate [Plavix*] 75 mg PO DAILY 10/28/18 Lisinopril 20 mg PO DAILY 10/28/18 Aspirin [Aspirin EC 325 MG] 325 mg PO DAILY 05/12/19 Metformin HCl 500 mg PO BID 05/12/19 Atorvastatin Calcium [Lipitor] 80 mg PO BEDTIME #30 tab 05/14/19 Nitroglycerin [Nitrostat*] 0.4 mg SL PRN PRN 07/20/19 - Past Medical/Surgical History Diabetic: No -: hypertension -: Coronary artery disease -: Carotid artery disease -: Peripheral arterial disease -: Bilateral knee replacements -: pacemaker/defibrillator -: CABG -: Fem-pop bypass -: Carotid artery stent multiple -: Cardiac catheterization -: tumor removed from spine - Family History Father -: Heart disease Brother -: Heart disease Notes: CABG x4 Mother -: Diabetes - Social History Smoking Status: Current every day smoker Alcohol use: Yes CD- Drugs: No Caffeine use: Yes Review of Systems Other: General: No fever, no malaise, no unintentional weight loss. Eyes: No eye discharge, Respiratory: No cough, no shortness of breath. GI: No abdominal pain, no nausea no vomit, no constipation, no diarrhea. Genitourinary: No dysuria, no urinary frequency, no incontinence, no hematuria. Musculoskeletal: No joint pains, or joint swelling, no gait instability. Neurology: No headache, no asymmetric, weakness, no problem with swallowing. Except as documented, all other systems reviewed and negative. Physical Examination - Physical Exam General: Alert, In no apparent distress, Oriented x3 HEENT: Atraumatic, Normocephalic, PERRLA, Mucous membr. moist/pink, Sclerae nonicteric Neck: Supple, JVD not distended, No Thyromegaly Respiratory: Clear to auscultation bilaterally, Normal air movement Cardiovascular: No edema, Normal pulses, Regular rate/rhythm, Normal S1 S2, Systolic murmur Capillary refill: <2 Seconds Gastrointestinal: Normal bowel sounds, Soft and benign, Non-distended, No tenderness Musculoskeletal: No swelling Integumentary: No rashes Neurological: Normal speech, Normal strength at 5/5 x4 extr, Cranial nerves 3- 12 intact - Studies Laboratory Data (last 24 hrs) 07/19/19 23:57: PT 11.8, INR 1.00 07/19/19 23:57: WBC 6.4, Hgb 14.0, Hct 40.5, Plt Count 197 07/19/19 23:57: Sodium 139, Potassium 3.7, BUN 31 H, Creatinine 1.11, Glucose 175 H, Magnesium 1.9, Total Bilirubin 0.3, AST 21, ALT 23, Alkaline Phosphatase 98 Assessment and Plan - Problems (Diagnosis) (1) Chest pain Current Visit: Yes Status: Acute Qualifiers: (2) CAD (coronary artery disease) Onset Date: 03/23/18 Current Visit: No Status: Acute Qualifiers: (3) Hx of CABG Onset Date: 03/23/18 Current Visit: No Status: Chronic (4) Hypertension Onset Date: 03/23/18 Current Visit: No Status: Chronic Qualifiers: (5) Tobacco abuse Onset Date: 03/23/18 Current Visit: No Status: Chronic - Plan Place patient under observation Telemetry Trend troponin x3 Aspirin, Plavix, Lipitor. Metoprolol if his BP will tolerate it NTG p.r.n. Cardiology consult Hold lisinopril Insulin sliding scale for glucose management Hold metformin. Patient advised to quit smoking. - Advance Directives Does patient have a Living Will: No Does patient have a Durable POA for Healthcare: No
[2019-07-20] MEDS ORDERED: NITROGLYCERIN 0.4 MG/TAB SL PRN (02:40)
[2019-07-20] MEDS ORDERED: MORPHINE 4 MG/ML SYR IV PRN (02:40)
[2019-07-20 03:25] VITALS: BMI 30.5
[2019-07-20 04:12] LABS: Troponin I 0.42 ng/mL (0.0-0.045)
[2019-07-20 05:30] LABS: Urine Appearance CLEAR; Urine Bilirubin NEGATIVE (NEG); Urine Blood NEGATIVE (NEG); Urine Color YELLOW; Urine Glucose NEGATIVE (NEG); Urine Protein NEGATIVE (NEG); Urine Urobilinogen 0.2 mg/dL (0.2-1.0); Urine pH 5.5 (5.0-7.0)
[2019-07-20 05:32] LABS: Urine Microscopic Reflex NO UMIC
[2019-07-20] MEDS ORDERED: METOPROLOL TAR 25 MG TAB PO SCH (06:00)
[2019-07-20] MEDS: INSULIN -REGULAR HUMAN 50 UNIT/0.5 ML ML SQ SCH ×4 (07:30→21:00)
[2019-07-20] MEDS ORDERED: LIDOCAINE 1% MPF 30 ML VIAL ONE (07:59)
[2019-07-20] MEDS ORDERED: HEPA 1000U/500MLS 1,000 UNIT/500 ML BAG IV ONE ×2 (07:59→08:41)
[2019-07-20] MEDS: CLOPIDOGREL 75 MG TABLET PO SCH (08:22)
--- NOTE | 2019-07-20 08:31 | RAD REPORT ---
EXAM DESCRIPTION: RAD - Chest Single View - 07/20/2019 12:46 am CLINICAL HISTORY: Chest pain, history of coronary artery balloon stenting COMPARISON: May 12, 2019 TECHNIQUE: AP portable chest image was obtained 0002 hours . FINDINGS: Lungs are clear. No failure or volume overload. Left subclavian pacemaker/defibrillator re jose in place. Sternotomy wires are in place. Heart size is prominent but stable. No acute vascular engorgement. No measurable pleural effusion and no pneumothorax. No acute bony abnormality seen. No a cute aortic findings suspected. IMPRESSION: No acute cardiopulmonary process. No suspicious changes from comparison.
[2019-07-20] MEDS ORDERED: FENTANYL CITR 100 MCG/2 ML ONE ×2 (08:38→11:59)
[2019-07-20] MEDS ORDERED: NA CHLORIDE 0.9% 100 ML IV ONE (08:38)
[2019-07-20] MEDS ORDERED: ATROPINE SULF 1 MG/10 ML SYR IV ONE (08:38)
[2019-07-20] MEDS ORDERED: MIDAZOLAM HCL 2 MG/2 ML INJ ONE ×2 (08:38→09:27)
--- NOTE | 2019-07-20 08:46 | EKG ---
Test Date: 2019-07-19 Test Time: 23:43:37 [employer] Agent: CARLITO MEASUREMENT RESULTS: Intervals: Rate: 70 AK: 180 QRSD: 124 QT: 430 QTc: 464 [place]: P: 36 AK: 180 QRS: 63 T: 121 INTERPRETIVE STATEMENTS: Normal sinus rhythm Left ventricular hypertrophy with QRS widening and repolarization abnormality Abnormal ECG Compared to ECG 05/14/2019 07:27:24 Left ventricular hypertrophy now present Early repolarization now present T-wave abnormality no longer present Possible ischemia no longer present Electronically Signed On 07-20-19 08:45:19 VEHICLE SALES PROFESSIONAL by Matty Alejandro
[2019-07-20] MEDS ORDERED: ASPIRIN EC 81 MG TAB PO SCH (09:00)
[2019-07-20] MEDS: ENOXAPARIN 100 MG/ML SYR SQ SCH (09:00)
[2019-07-20] MEDS ORDERED: ENOXAPARIN 40 MG/0.4 ML SQ SCH (09:00)
[2019-07-20] MEDS ORDERED: NA CHLORIDE 0.9% 500 ML ONE (09:15)
[2019-07-20] MEDS ORDERED: ONDANSETRON 4 MG/2 ML VIAL ONE (09:28)
[2019-07-20] MEDS ORDERED: PRASUGREL (EFFIENT) 10 MG TAB ONE (10:33)
[2019-07-20] MEDS ORDERED: ZOLPIDEM TARTRATE 5 MG TABLET PO PRN (11:34)
[2019-07-20] MEDS ORDERED: NA CHLORIDE 0.9% 1,000 ML IV SCH (12:00)
[2019-07-20] MEDS ORDERED: ACETAMINOPHEN 325 MG TABLET PO PRN (12:00)
[2019-07-20] MEDS: MORPHINE 4 MG/ML SYR IV PRN (13:43)
[2019-07-20 19:43] VITALS: O2SAT 99
--- NOTE | 2019-07-20 20:37 | CON ---
Date of Consultation: 07/20/2019 Reason For Consultation: Non-ST elevation myocardial infarction. History Of Present Illness: Mr. Aden is 59 who just recently over the last 2 months underwent jose oplasty of an in-stent restenosis of LAD. He comes back with chest pain and positive enzymes. Sympt oms have been going on for about 2 days. Denied PND, orthopnea, pedal edema, palpitation, or syncope . Had nausea, diaphoresis, shortness of breath, and substernal chest pressure. EKG showed anterior ischemia and LVH. Troponin was 0.42. His glucose was 175. His blood pressure was 95/55. When I sa w him, he was still having pain. Past Medical History: Includes CAD, status post CABG and stent, AICD, pacemaker, diabetes, hypertens ion, dyslipidemia, and continued tobacco use. Allergies: NONE. Review of Systems: Negative. Social History: Positive for tobacco. Family History: Positive for heart disease. Medications: At home include aspirin, Plavix, Lipitor, metformin, and lisinopril. Physical Examination: Vital Signs: Blood pressure is 95/55. His other vital signs were stable, afebrile. General: In no acute distress. HEENT: Negative. Neck: Supple with no bruit. Chest: Clear to auscultation and percussion. Cardiac: Revealed regular rhythm and rate. No murmurs, gallops, or rubs. Abdomen: Benign. Extremities: No clubbing, cyanosis, or edema. Diagnostic Data: As stated above. Impression And Plan: 1.Sqn-[id number]-[id number] myocardial infarction. I will take him to the operations label clerk today urgently to define his coronary anatomy and see if we can help him. 2.Coronary artery disease, status post coronary artery bypass grafting x2. On his last catheterizat ion, his NATACHA was occluded. His RCA was occluded. He has collaterals to the RCA from the LAD. His circumflex is patent. He has an OM that is occluded. His PERLA goes to the OM. His LAD is [place] wi thout any bypass. Has had 1 stent and 1 angioplasty within the stent in the past. He was sent to [facility] at one point for bypass surgery, but he was found not to be a candidate. His other issues i nclude status post defibrillator and pacemaker which is stable, diabetes, hypertension, dyslipidemia, all of which are stable. He continued to smoke. He was counseled on that again. We will see what the catheterization shows prior to making final decisions. If he has restenosis this time, we may pu t another stent but we should consider him for either therapy or brachytherapy down the road. HARINDER Voice ID: [id number] Report ID: [id number]
--- NOTE | 2019-07-20 20:59 | PN ---
Date of Progress Note: 07/20/2019 Patient was seen post stent placement. States he feels fine and is hungry. Discussion was held in r emelyn to smoking cessation and generalized scenario for his diabetes is concerned, but actually josephte r he has been doing quite well. HR/MODL Voice ID: [id number] Report ID: [id number]
--- NOTE | 2019-07-20 21:20 | OP ---
Surgeon: Matty Alejandro MD Tax Senior Associate: Neli Serrano. The patient will go home tomorrow on aspirin, Plavix, Lipitor. Hopefully, he will quit smoking and h e can see me in the office in 2 weeks. Admitted on 07/20/2019, as an inpatient with a tun-PU-xygcqknmq myocardial infarction. He was shashank t to the sugar laboratory assistant today as an inpatient. Procedure Performed: Left heart catheterization, selective coronary arteriogram, angioplasty and donita nt of the proximal and the mid LAD. Indication: Drm-SE-urfbwfhng myocardial infarction, previous history of coronary artery disease and stent and CABG. History Of Present Illness: Mr. Aden is 59, recently had an angioplasty of his in-stent restenosis in the LAD. Came back with chest pain and a positive troponin. He was brought to the sugar laboratory assistant. History Of Present Illness: Mr. Aden has a very complicated past cardiac history, but he has had b ypass surgery x2. His final result was PERLA that was open to the OM, a NATACHA that was sent to the RCA , but that was completely occluded. A completely occluded [place] RCA, circumflex that is patent with an occluded OM-1 and a PERLA that is open to the OM. He is not a candidate for redo bypass surgery. He has no more access between the PERLA and NATACHA and his veins from the legs have been taken. He has had the last stent 3 years ago, restenosed about 2 months ago, was re-dilated, now he comes back wit h chest pain. Description Of Procedure: He was prepped and draped in the routine sterile fashion. A 6-Sudanese padilla th was introduced in the right common femoral artery. A 6-Sudanese Agustín catheter was inserted on e left main. Angiography there showed patent circumflex with a completely occluded OM. I did not ta ke picture of the NATACHA or the PERLA as I just saw those. The RCA appears to be completely occluded wi collaterals from the LAD to it. The LAD itself the proximal RCA and the proximal LAD stent has a 90% stenosis. There was a new lesion distal to the LAD. I pre-dilated with a 2.5 x 12 Emerge balloo n at multiple dilatation, maximum pressure of 11 for 30 seconds each after which a 2.25 x 24 stent Sy nergy was introduced distally to the proximal stent with 0% residual and excellent results, then a ne w stent 3.0 x 12 Synergy was placed in the proximal in-stent restenosis with excellent results. The patient tolerated the procedure well. There were no complications. Blood Loss: 5 mL. Final Diagnoses: Coronary artery disease status post successful stent of the proximal and mid LAD as well as angioplasty. The patient received Angiomax, Effient, aspirin, and Lipitor. Anesthesia: Total conscious sedation was 1 hour. PABLO/KEATON Voice ID: [id number] Report ID: [id number]
[2019-07-21] MEDS: MORPHINE 4 MG/ML SYR IV PRN (01:12)
[2019-07-21 04:29] LABS: Basophils % 0.4 % (0-1.3); Hematocrit 40.5 % (39.6-49.0); Lymphocytes % 38.5 % (15.3-44.8); MPV 8.6 fL (7.6-11.3); RBC Red Blood Cell Count 4.63 M/uL (4.33-5.43)
[2019-07-21 04:41] LABS: Potassium 4.5 mmol/L (3.5-5.1)
[2019-07-21] MEDS: INSULIN -REGULAR HUMAN 50 UNIT/0.5 ML ML SQ SCH (07:30)
[2019-07-21 08:34] VITALS: BP 112/65; TEMP 97
[2019-07-21] MEDS: CLOPIDOGREL 75 MG TABLET PO SCH (08:50)
[2019-07-21] MEDS ORDERED: ASPIRIN 81 MG CHEWABLE TABLET PO SCH (09:00)
--- NOTE | 2019-07-21 13:36 | PN ---
Mr. Aden had unstable angina yesterday and underwent cardiac cath and stent, previous history of by pass surgery. He is stable today, great angiographic result, very good looking. In the femoral tyrell ry entry site, no evidence of hematoma or AV fistula. I think he can be discharged home. He has bee n given instructions to quit smoking. He will continue to take his Lipitor, aspirin, atorvastatin, l isinopril, and other outpatient medications for diabetes. He will see Dr. Alejandro in 2 weeks. ECTOR/KEATON Voice ID: [id number] Report ID: [id number]
[2019-07-21] MEDS ORDERED: ATORVASTATIN 80 MG TAB PO SCH (21:00)
--- NOTE | 2019-07-22 20:52 | PN ---
Date of Progress Note: 07/21/2019 Mr. Aden was admitted on 07/20/2019, with a non-ST elevation myocardial infarction, taken to the mi th lab, underwent angioplasty and stent of the proximal and mid LAD with 0% residual. Overnight, the re was no reported chest pain or arrhythmia or groin complaint. No reports of shortness of breath. The patient will be sent home today on his home medications included aspirin, Plavix, Lipitor 80 mg d aily and he was seen in the office in the next 2 weeks. PABLO/KEATON Voice ID: [id number] Report ID: [id number]
== END 2019-07-21 09:40 | disposition home or self-care (01) | DRG 247 ==
LOC: ER 23:24 → ERHOLD 07-20 01:32 → 4TH 07-20 02:16 → OBSVTOIN 07-20 15:23
PROVIDERS: ADMIT Internal Medicine; ATTEND Internal Medicine
PROC: 027135Z Dilation of Coronary Artery, Two Arteries with Two Drug-eluting Intraluminal Devices, Percutaneous Approach (ICD-10-PCS; principal; 2019-07-20)
PROC: 4A023N7 Measurement of Cardiac Sampling and Pressure, Left Heart, Percutaneous Approach (ICD-10-PCS; 2019-07-20)
PROC: B201YZZ Plain Radiography of Multiple Coronary Arteries using Other Contrast (ICD-10-PCS; 2019-07-20)
DX: I21.4 Non-ST elevation (NSTEMI) myocardial infarction (principal); I25.10 Atherosclerotic heart disease of native coronary artery without angina pectoris; E11.9 Type 2 diabetes mellitus without complications; I10 Essential (primary) hypertension; E78.5 Hyperlipidemia, unspecified; F17.210 Nicotine dependence, cigarettes, uncomplicated; Z79.82 Long term (current) use of aspirin; Z96.653 Presence of artificial knee joint, bilateral; Z95.0 Presence of cardiac pacemaker; Z95.5 Presence of coronary angioplasty implant and graft; Z95.1 Presence of aortocoronary bypass graft
CPT/HCPCS: 36415; 71045; 80048; 80061; 80076; 81003; 82947; 83735; 83880; 84484; 85025; 85347; 85610; 93005; 93454; 94760; 99285; C1725; C1760; C1877; C1893; C9600; G0378; J0583; J1650; J2250; J2405; J3010; J7030; J7040

== ENCOUNTER 2019-12-09 06:29 | Day surgery (SDC) | payer MEDICARE ==
--- OUTSIDE RECORDS SUMMARY | 2019-12-09 06:32 | XMS REPORT ---
:1960 Author Organization [facility] Address [address] [place] [address] Dr. Ng [address] [place] [address] Care Team Providers Name Role Phone Piter [...] 80-115 Chemistry (test code=CA) 8.3 mg/dL 7.8-10.44 [id number] 03:18:00 Test Item Value Reference Range Comments Chemistry (test 0.013 ng/mL < 0.028 code=TROPI-T) Reference Range 0.00 - 0.028 ng/mL Negative 0.029 - 0.29 ng/mL Indeterminate Greater or Equal to 0.3 ng/mL Strongly suggests [place] [id number] 23:53:00 Test Item Value Reference Range Comments Chemistry (test 0.023 ng/mL < 0.028 code=TROPI-T) Reference Range 0.00 - 0.028 ng/mL Negative 0.029 - 0.29 ng/mL Indeterminate Greater or Equal to 0.3 ng/mL Strongly suggests [place] [id number] 20:51:00 Test Item Value Reference Range Comments Chemistry (test Less than 0.010 < 0.028 code=TROPI-T) ng/mL Reference Range 0.00 - 0.028 ng/mL Negative 0.029 - 0.29 ng/mL Indeterminate Greater or Equal to 0.3 ng/mL Strongly suggests [place] [id number] 18:21:00 Test Item Value Reference Range Comments [...] Urine Source: Urine VoidedChemistry - BNP, HgbA1c, [id number] 17:24:00 Test Item Value Reference Range Comments Chemistry - BNP, HgbA1c, PTHi (test code=BNP) 59.8 pg/mL 0-100 [id number] 17:22:00 Test Item Value Reference Range Comments Chemistry (test 0.010 ng/mL < 0.028 code=TROPI-R) Reference Range 0.00 - 0.028 ng/mL Negative 0.029 - 0.29 ng/mL Indeterminate Greater or Equal to 0.3 ng/mL Strongly suggests [place] [id number] 17:20:00 Test Item Value Reference Range Comments [...] 5-34 Chemistry (test code=ALT) 22 U/L 8-55 [id number] 17:20:00 Test Item Value Reference Range Comments Chemistry (test code=CK) 75 U/L 30-200 [id number] 16:55:00 Test Item Value Reference Range Comments [...] 0.0-0.7 Hematology (test code=BASO#) 0.1 thou/uL 0.0-0.2 [id number] 00:59:00 Test Item Value Reference Range Comments MAGNESIUM (BEAKER) (test 2.2 mg/dL 1.6-2.6 Specimen slightly hemolyzed czor=294) BASIC METABOLIC [id number] 00:59:00 Test Item Value Reference Range Comments SODIUM (BEAKER) (test 137 meq/L 136-145 ygfm=264) POTASSIUM (BEAKER) (test 3.9 meq/L 3.5-5.1 Specimen slightly zpll=182) hemolyzed CHLORIDE (BEAKER) (test 105 meq/L 98-107 uphv=204) CO2 (BEAKER) (test 22 meq/L 22-29 lmay=654) BLOOD UREA NITROGEN 22 mg/dL 7-21 (BEAKER) (test esxh=494) CREATININE (BEAKER) (test 1.05 mg/dL 0.57-1.25 Specimen slightly drlp=754) hemolyzed GLUCOSE RANDOM (BEAKER) 181 mg/dL 70-105 (test qmxi=251) CALCIUM (BEAKER) (test 9.4 mg/dL 8.4-10.2 cfyb=576) EGFR (BEAKER) (test 72 mL/min/1.73 sq m ESTIMATED GFR IS NOT xtaw=2871) ACCURATE CREATININE CLEARANCE IN PREDICTING GLOMERULAR FILTRATION RATE. ESTIMATED GFR IS NOT APPLICABLE FOR DIALYSIS PATIENTS. CBC W/PLT COUNT & AUTO [id number] 00:43:00 Test Item Value Reference Range Comments WHITE BLOOD CELL COUNT (BEAKER) (test pftc=856) 5.0 K/ L 3.5-10.5 RED BLOOD CELL COUNT (BEAKER) (test jqia=774) 5.30 M/ L 4.63-6.08 HEMOGLOBIN (BEAKER) (test yzxj=911) 14.8 GM/DL 13.7-17.5 HEMATOCRIT (BEAKER) (test sdhy=733) 45.2 % 40.1-51.0 MEAN CORPUSCULAR VOLUME (BEAKER) (test pexk=758) 85.3 fL 79.0-92.2 MEAN CORPUSCULAR HEMOGLOBIN (BEAKER) (test 27.9 pg 25.7-32.2 hfbr=141) MEAN CORPUSCULAR HEMOGLOBIN CONC (BEAKER) (test 32.7 GM/DL 32.3-36.5 jwpy=135) RED CELL DISTRIBUTION WIDTH (BEAKER) (test 13.7 % 11.6-14.4 syee=248) PLATELET COUNT (BEAKER) (test dmuj=698) 208 K/CU MM 150-450 MEAN PLATELET VOLUME (BEAKER) (test xefa=457) 10.7 fL 9.4-12.4 NUCLEATED RED BLOOD CELLS (BEAKER) (test 0 /100 WBC 0-0 xspy=485) NEUTROPHILS RELATIVE PERCENT (BEAKER) (test 40 % jpqv=446) LYMPHOCYTES RELATIVE PERCENT (BEAKER) (test 46 % gxku=015) MONOCYTES RELATIVE PERCENT (BEAKER) (test 13 % edvl=425) EOSINOPHILS RELATIVE PERCENT (BEAKER) (test 0 % bkjf=395) BASOPHILS RELATIVE PERCENT (BEAKER) (test 0 % sezm=791) NEUTROPHILS ABSOLUTE COUNT (BEAKER) (test 2.02 K/ L 1.78-5.38 uxae=866) LYMPHOCYTES ABSOLUTE COUNT (BEAKER) (test 2.31 K/ L 1.32-3.57 rwyu=189) MONOCYTES ABSOLUTE COUNT (BEAKER) (test 0.64 K/ L 0.30-0.82 efsv=158) EOSINOPHILS ABSOLUTE COUNT (BEAKER) (test 0.02 K/ L 0.04-0.54 bwyv=084) BASOPHILS ABSOLUTE COUNT (BEAKER) (test 0.01 K/ L 0.01-0.08 vcth=417) IMMATURE GRANULOCYTES-RELATIVE PERCENT (BEAKER) 1 % 0-1 (test ccvv=9797) [id number] 00:20:00 Test Item Value Reference Range Comments ACTIVATED CLOTTING TIME 109 sec TESTED AT [place] [address] [address] (BEAKER) (test azre=883) [place] [address] [id number] 20:55:00 Test Item Value Reference Range Comments ACTIVATED CLOTTING TIME 191 sec TESTED AT [place] [address] [address] (BEAKER) (test gjba=101) [place] [address] [id number] 18:15:00 Test Item Value Reference Range Comments ACTIVATED CLOTTING TIME 318 sec TESTED AT [place] [address] [address] (BEAKER) (test tycd=852) [place] [address] POCT-GLUCOSE [id number] 07:26:00 Test Item Value Reference Range Comments POC-GLUCOSE METER (BEAKER) 113 mg/dL 70-110 TESTED AT [address] (test uvpc=6765) [place] [address] [id number] 07:16:00 Test Item Value Reference Range Comments MAGNESIUM (BEAKER) (test nrrg=449) 2.0 mg/dL 1.6-2.6 BASIC METABOLIC [id number] 07:16:00 Test Item Value Reference Range Comments SODIUM (BEAKER) (test 138 meq/L 136-145 lcdg=645) POTASSIUM (BEAKER) (test 4.2 meq/L 3.5-5.1 ntrn=250) CHLORIDE (BEAKER) (test 105 meq/L 98-107 rbuq=557) CO2 (BEAKER) (test 25 meq/L 22-29 zgtk=790) BLOOD UREA NITROGEN 20 mg/dL 7-21 (BEAKER) (test sqir=786) CREATININE (BEAKER) (test 1.12 mg/dL 0.57-1.25 marv=827) GLUCOSE RANDOM (BEAKER) 126 mg/dL 70-105 (test dkfw=285) CALCIUM (BEAKER) (test 9.3 mg/dL 8.4-10.2 vaxh=486) EGFR (BEAKER) (test 67 mL/min/1.73 sq m ESTIMATED GFR IS NOT cojr=6007) ACCURATE CREATININE CLEARANCE IN PREDICTING GLOMERULAR FILTRATION RATE. ESTIMATED GFR IS NOT APPLICABLE FOR DIALYSIS PATIENTS. [id number] 06:58:00 Test Item Value Reference Range Comments PROTIME (BEAKER) (test htcs=916) 14.5 seconds 11.7-14.7 INR (BEAKER) (test gpve=864) 1.1 <=5.9 PARTIAL THROMBOPLASTIN TIME (BEAKER) (test 32.7 seconds 22.5-36.0 mcbk=645) RECOMMENDED COUMADIN/WARFARIN INR THERAPY RANGESSTANDARD DOSE: 2.0 - 3.0 Includes: PROPHYLAXIS forvenous thrombosis, systemic embolization; TREATMENT for venous thrombosis and/or pulmonary embolus.HIGH RISK: Target INR is 2.5-3.5 for patients with mechanical heart valves.CBC W/PLT COUNT & AUTO [id number] 06:55:00 Test Item Value Reference Range Comments WHITE BLOOD CELL COUNT (BEAKER) (test pdnn=690) 3.9 K/ L 3.5-10.5 RED BLOOD CELL COUNT (BEAKER) (test jssc=000) 5.18 M/ L 4.63-6.08 HEMOGLOBIN (BEAKER) (test dbdg=413) 14.8 GM/DL 13.7-17.5 HEMATOCRIT (BEAKER) (test ojyh=150) 44.6 % 40.1-51.0 MEAN CORPUSCULAR VOLUME (BEAKER) (test nmtb=983) 86.1 fL 79.0-92.2 MEAN CORPUSCULAR HEMOGLOBIN (BEAKER) (test 28.6 pg 25.7-32.2 yxfo=818) MEAN CORPUSCULAR HEMOGLOBIN CONC (BEAKER) (test 33.2 GM/DL 32.3-36.5 xyjf=350) RED CELL DISTRIBUTION WIDTH (BEAKER) (test 13.6 % 11.6-14.4 czhy=176) PLATELET COUNT (BEAKER) (test qeja=966) 195 K/CU MM 150-450 MEAN PLATELET VOLUME (BEAKER) (test xjpb=589) 10.6 fL 9.4-12.4 NUCLEATED RED BLOOD CELLS (BEAKER) (test 0 /100 WBC 0-0 kndi=512) NEUTROPHILS RELATIVE PERCENT (BEAKER) (test 33 % ksef=134) LYMPHOCYTES RELATIVE PERCENT (BEAKER) (test 51 % irot=479) MONOCYTES RELATIVE PERCENT (BEAKER) (test 15 % lilq=449) EOSINOPHILS RELATIVE PERCENT (BEAKER) (test 1 % ojil=572) BASOPHILS RELATIVE PERCENT (BEAKER) (test 1 % lpio=885) NEUTROPHILS ABSOLUTE COUNT (BEAKER) (test 1.28 K/ L 1.78-5.38 jauo=762) LYMPHOCYTES ABSOLUTE COUNT (BEAKER) (test 2.01 K/ L 1.32-3.57 cxnp=524) MONOCYTES ABSOLUTE COUNT (BEAKER) (test 0.57 K/ L 0.30-0.82 cvvz=991) EOSINOPHILS ABSOLUTE COUNT (BEAKER) (test 0.02 K/ L 0.04-0.54 rxwv=953) BASOPHILS ABSOLUTE COUNT (BEAKER) (test 0.02 K/ L 0.01-0.08 ofdq=919) IMMATURE GRANULOCYTES-RELATIVE PERCENT (BEAKER) 1 % 0-1 (test bnch=7749) CBC W/PLT COUNT & AUTO [id number] 05:30:00 Test Item Value Reference Range Comments WHITE BLOOD CELL COUNT (BEAKER) (test mame=013) 5.2 K/ L 3.5-10.5 RED BLOOD CELL COUNT (BEAKER) (test cnsq=745) 4.84 M/ L 4.63-6.08 HEMOGLOBIN (BEAKER) (test gtls=808) 13.8 GM/DL 13.7-17.5 HEMATOCRIT (BEAKER) (test zlff=849) 42.4 % 40.1-51.0 MEAN CORPUSCULAR VOLUME (BEAKER) (test gujk=657) 87.6 fL 79.0-92.2 MEAN CORPUSCULAR HEMOGLOBIN (BEAKER) (test 28.5 pg 25.7-32.2 rldh=586) MEAN CORPUSCULAR HEMOGLOBIN CONC (BEAKER) (test 32.5 GM/DL 32.3-36.5 ejsz=870) RED CELL DISTRIBUTION WIDTH (BEAKER) (test 13.7 % 11.6-14.4 ldls=563) PLATELET COUNT (BEAKER) (test cmnu=790) 197 K/CU MM 150-450 MEAN PLATELET VOLUME (BEAKER) (test guob=357) 10.5 fL 9.4-12.4 NUCLEATED RED BLOOD CELLS (BEAKER) (test 0 /100 WBC 0-0 fdol=033) NEUTROPHILS RELATIVE PERCENT (BEAKER) (test 42 % whgg=338) LYMPHOCYTES RELATIVE PERCENT (BEAKER) (test 40 % aqvg=430) MONOCYTES RELATIVE PERCENT (BEAKER) (test 16 % hzdq=647) EOSINOPHILS RELATIVE PERCENT (BEAKER) (test 1 % byee=905) BASOPHILS RELATIVE PERCENT (BEAKER) (test 0 % kpes=768) NEUTROPHILS ABSOLUTE COUNT (BEAKER) (test 2.16 K/ L 1.78-5.38 ntyu=900) LYMPHOCYTES ABSOLUTE COUNT (BEAKER) (test 2.04 K/ L 1.32-3.57 mamx=121) MONOCYTES ABSOLUTE COUNT (BEAKER) (test 0.84 K/ L 0.30-0.82 wtqi=462) EOSINOPHILS ABSOLUTE COUNT (BEAKER) (test 0.04 K/ L 0.04-0.54 ehup=120) BASOPHILS ABSOLUTE COUNT (BEAKER) (test 0.02 K/ L 0.01-0.08 cwda=312) IMMATURE GRANULOCYTES-RELATIVE PERCENT (BEAKER) 1 % 0-1 (test tojv=3439) BASIC METABOLIC [id number] 05:12:00 Test Item Value Reference Range Comments SODIUM (BEAKER) (test 139 meq/L 136-145 wfdg=527) POTASSIUM (BEAKER) (test 4.0 meq/L 3.5-5.1 yqqf=688) CHLORIDE (BEAKER) (test 107 meq/L 98-107 lrtu=308) CO2 (BEAKER) (test 25 meq/L 22-29 oddz=908) BLOOD UREA NITROGEN 20 mg/dL 7-21 (BEAKER) (test nbov=872) CREATININE (BEAKER) (test 1.11 mg/dL 0.57-1.25 iutt=809) GLUCOSE RANDOM (BEAKER) 130 mg/dL 70-105 (test iwdi=414) CALCIUM (BEAKER) (test 9.0 mg/dL 8.4-10.2 tlxc=592) EGFR (BEAKER) (test 68 mL/min/1.73 sq m ESTIMATED GFR IS NOT tssk=8366) ACCURATE CREATININE CLEARANCE IN PREDICTING GLOMERULAR FILTRATION RATE. ESTIMATED GFR IS NOT APPLICABLE FOR DIALYSIS PATIENTS. [id number] 15:55:00 Test Item Value Reference Range Comments PARTIAL THROMBOPLASTIN TIME (BEAKER) (test 51.7 seconds 22.5-36.0 gwgj=241) TROPONIN [id number] 14:06:00 Test Item Value Reference Range Comments TROPONIN I (BEAKER) (test rxep=576) 0.01 ng/mL 0.00-0.03 Troponin I (TnI) levels [...] acidosis, acute neurological disease, and persistent tachyarrhythmia.HEMOGLOBIN [id number] 11:57:00 Test Item Value Reference Range Comments HEMOGLOBIN A1C (BEAKER) (test kdbg=013) 7.5 % 4.3-6.1 [id number] 09:48:00 Test Item Value Reference Range Comments PARTIAL THROMBOPLASTIN TIME (BEAKER) (test 48.9 seconds 22.5-36.0 qamq=823) URINALYSIS W/ [id number] 08:06:00 Test Item Value Reference Range Comments COLOR (BEAKER) (test gnjz=893) Light Yellow CLARITY (BEAKER) (test wbjn=610) Clear SPECIFIC GRAVITY UA (BEAKER) (test diya=343) 1.014 1.001-1.035 PH UA (BEAKER) (test zdck=360) 5.5 5.0-8.0 PROTEIN UA (BEAKER) (test obnu=372) Negative Negative GLUCOSE UA (BEAKER) (test kwcr=253) 70 mg/dL Negative KETONES UA (BEAKER) (test ivgt=592) Negative Negative BILIRUBIN UA (BEAKER) (test rrbp=454) Negative Negative BLOOD UA (BEAKER) (test ykox=868) Negative Negative NITRITE UA (BEAKER) (test nzss=408) Negative Negative LEUKOCYTE ESTERASE UA (BEAKER) (test qigx=947) Negative Negative UROBILINOGEN UA (BEAKER) (test vvaw=192) 0.2 mg/dL 0.2-1.0 RBC UA (BEAKER) (test vyuo=373) 4 /HPF WBC UA (BEAKER) (test nikd=886) 4 /HPF SQUAMOUS EPITHELIAL (BEAKER) (test ahdq=299) < /HPF SOURCE(BEAKER) (test jbzk=4594) RAD, CHEST, 1 VIEW, NON [id number] 04:11:00Reason for exam:->angina pectorisShould this be performed [...] MDReport Verified Date/Time: 06/27/2018 04:11:12 Reading Location: [facility] B1 C013Y CT Body Reading Room CREATINE KINASE (CK), TOTAL AND [id number] 03:24:00 Test Item Value Reference Range Comments CREATINE KINASE TOTAL (BEAKER) (test xbep=708) 61 U/L 29-200 CREATINE KINASE-MB (BEAKER) (test rtyf=108) 1.5 ng/mL 0.0-6.6 CREATINE KINASE-MB INDEX (BEAKER) (test qmno=024) 2.5 % CK-MB Reference Range:<6.7 Normal6.7-10.0 Borderline>10.0 AbnormalTROPONIN [id number] 03:24:00 Test Item Value Reference Range Comments TROPONIN I (BEAKER) (test amvr=088) 0.01 ng/mL 0.00-0.03 Troponin I (TnI) levels [...] acute neurological disease, and persistent tachyarrhythmia.BASIC METABOLIC [id number] 03:18:00 Test Item Value Reference Range Comments SODIUM (BEAKER) (test 139 meq/L 136-145 sdcq=361) POTASSIUM (BEAKER) (test 4.2 meq/L 3.5-5.1 nikd=749) CHLORIDE (BEAKER) (test 107 meq/L 98-107 bllb=869) CO2 (BEAKER) (test 24 meq/L 22-29 grbx=818) BLOOD UREA NITROGEN 21 mg/dL 7-21 (BEAKER) (test ixmf=864) CREATININE (BEAKER) (test 1.15 mg/dL 0.57-1.25 ozgl=837) GLUCOSE RANDOM (BEAKER) 149 mg/dL 70-105 (test ulcg=218) CALCIUM (BEAKER) (test 8.5 mg/dL 8.4-10.2 tngj=166) EGFR (BEAKER) (test 65 mL/min/1.73 sq m ESTIMATED GFR IS NOT hzhc=0453) ACCURATE CREATININE CLEARANCE IN PREDICTING GLOMERULAR FILTRATION RATE. ESTIMATED GFR IS NOT APPLICABLE FOR DIALYSIS PATIENTS. B-TYPE NATRIURETIC FACTOR (BNP)2018-06-27 03:16:00 Test Item Value Reference Range Comments B-TYPE NATRIURETIC PEPTIDE (BEAKER) (test 122 pg/mL 0-100 puat=562) CBC W/PLT COUNT & AUTO [id number] 02:58:00 Test Item Value Reference Range Comments WHITE BLOOD CELL COUNT (BEAKER) (test vlry=398) 6.4 K/ L 3.5-10.5 RED BLOOD CELL COUNT (BEAKER) (test qhbe=516) 4.67 M/ L 4.63-6.08 HEMOGLOBIN (BEAKER) (test gjxr=751) 13.6 GM/DL 13.7-17.5 HEMATOCRIT (BEAKER) (test irny=406) 41.3 % 40.1-51.0 MEAN CORPUSCULAR VOLUME (BEAKER) (test bwsb=812) 88.4 fL 79.0-92.2 MEAN CORPUSCULAR HEMOGLOBIN (BEAKER) (test 29.1 pg 25.7-32.2 kxvo=966) MEAN CORPUSCULAR HEMOGLOBIN CONC (BEAKER) (test 32.9 GM/DL 32.3-36.5 inpv=040) RED CELL DISTRIBUTION WIDTH (BEAKER) (test 14.0 % 11.6-14.4 ohuo=899) PLATELET COUNT (BEAKER) (test rvzd=787) 217 K/CU MM 150-450 MEAN PLATELET VOLUME (BEAKER) (test ibkb=010) 10.5 fL 9.4-12.4 NUCLEATED RED BLOOD CELLS (BEAKER) (test 0 /100 WBC 0-0 gyrk=554) NEUTROPHILS RELATIVE PERCENT (BEAKER) (test 31 % bdcb=980) LYMPHOCYTES RELATIVE PERCENT (BEAKER) (test 56 % wnbx=063) MONOCYTES RELATIVE PERCENT (BEAKER) (test 12 % qmtp=203) EOSINOPHILS RELATIVE PERCENT (BEAKER) (test 1 % tpdl=245) BASOPHILS RELATIVE PERCENT (BEAKER) (test 0 % ufav=163) NEUTROPHILS ABSOLUTE COUNT (BEAKER) (test 2.00 K/ L 1.78-5.38 rukd=347) LYMPHOCYTES ABSOLUTE COUNT (BEAKER) (test 3.56 K/ L 1.32-3.57 itbm=332) MONOCYTES ABSOLUTE COUNT (BEAKER) (test 0.74 K/ L 0.30-0.82 dwii=934) EOSINOPHILS ABSOLUTE COUNT (BEAKER) (test 0.04 K/ L 0.04-0.54 lsyc=298) BASOPHILS ABSOLUTE COUNT (BEAKER) (test 0.02 K/ L 0.01-0.08 gpkq=442) IMMATURE GRANULOCYTES-RELATIVE PERCENT (BEAKER) 1 % 0-1 (test qyqf=4913) [id number] 02:51:00 Test Item Value Reference Range Comments PARTIAL THROMBOPLASTIN TIME (BEAKER) (test 48.4 seconds 22.5-36.0 zoed=716) [facility] Pool Aranda [email or web address] Phys: Ludy Puente PA-CanBRET [id number] : 11/1959 Age: 59 SEX:M [phone] Exam Date: 04/05/19 Status: REG ER Acct : [id number] Loc: ERS Pt Unit #: [id number] Report #: [id number] CC: Ludy Puente PA-C IMAGING SERVICES REPORT Order # Category/Exam [id number] RAD/XR Chest 1 View Portable ([id number]): . Results PORTABLE AP CHEST X-RAY: HISTORY: [...]
[2019-12-09] MEDS ORDERED: NA CHLORIDE 0.9% 500 ML ONE (06:38)
[2019-12-09] MEDS ORDERED: HEPA 1000U/500MLS 1,000 UNIT/500 ML BAG IV ONE (06:45)
[2019-12-09] MEDS ORDERED: LIDOCAINE 1% MPF 30 ML VIAL ONE (06:45)
[2019-12-09] MEDS ORDERED: MIDAZOLAM HCL 5 MG/5 ML INJ ONE (07:20)
[2019-12-09] MEDS ORDERED: ATROPINE SULF 1 MG/10 ML SYR IV ONE (07:20)
[2019-12-09] MEDS ORDERED: FENTANYL CITR 100 MCG/2 ML ONE (07:20)
[2019-12-09 08:33] VITALS: TEMP 98.1
[2019-12-09 09:34] VITALS: O2SAT 98
[2019-12-09 09:52] VITALS: BP 116/54
--- NOTE | 2019-12-09 13:06 | OP ---
Date of Procedure: 12/09/2019 Surgeon: Matty Alejandro MD Lumber Tailer: Cosmo Johnson. Total conscious sedation was 45 minutes. The patient will be going home today after [address] and I will see him in the office in the next 2 to 4 weeks. Procedure: Selective bilateral carotid angiogram. Indication: Abnormal carotid arterial Doppler with documented severe carotid stenosis. History Of Present Illness: Mr. Aden is 59, has had a history of CVD, status post left ICA stent, has had a history of CAD, status post 2 separate CABGs and multiple stents in his LAD. He is not a c andidate for coronary artery bypass. He has done well from a coronary standpoint recently. He had a n abnormal carotid Doppler on the right side and he was scheduled for an outpatient carotid angiogram . He was brought to the bolt labeler as an outpatient. He was prepped and draped in the routine sterile fashion. A 6-Yakut sheath was introduced in the right common femoral artery and Angio-Seal was use d to close the case. A JR4 Agustín catheter was used to selectively cannulate the right carotid and the left carotid. The right common carotid was normal. The right external carotid was normal. He h ad about 63% stenosis . On the left side, his common carotid was normal. He had an 80 to 90% stenosis of the left external carotid artery. There was about 30 to 40% stenosis within the sten t on the left internal carotid. There were no complications. Blood Loss: 5 cc. Diagnosis: Moderate to severe cerebrovascular disease. Plan: To continue medical therapy. PABLO/KEATON Voice ID: [id number] Report ID: [id number]
== END 2019-12-09 09:57 | disposition home or self-care (01) ==
LOC: PRE 06:29
DX: I65.23 Occlusion and stenosis of bilateral carotid arteries (principal); T82.856A Stenosis of peripheral vascular stent, initial encounter; I25.10 Atherosclerotic heart disease of native coronary artery without angina pectoris; I70.209 Unspecified atherosclerosis of native arteries of extremities, unspecified extremity; I10 Essential (primary) hypertension; I25.5 Ischemic cardiomyopathy; E78.5 Hyperlipidemia, unspecified; E11.9 Type 2 diabetes mellitus without complications; F17.210 Nicotine dependence, cigarettes, uncomplicated; Z95.1 Presence of aortocoronary bypass graft; Z95.810 Presence of automatic (implantable) cardiac defibrillator; Z82.49 Family history of ischemic heart disease and other diseases of the circulatory system
CPT/HCPCS: 82947 ×2; 36222; C1893; C1760; J2250; J3010; J7040

== ENCOUNTER 2020-04-09 20:54 | Emergency (ER) | payer MEDICARE ==
--- OUTSIDE RECORDS SUMMARY | 2020-04-09 20:57 | XMS REPORT | Clinical Summary ---
:1960 Author Organization [facility] Address [address] [place] [address] Care Team Providers Name Role Phone Garrett Primary Care Provider Allergies No Known Allergies Medications Medication Sig Dispensed Refills Start Date End Date Status clopidogrel (PLAVIX) 75 Take 75 mg by 0 Active mg tabletIndications: mouth daily. 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 lisinopril Take 10 mg by 0 Activ e (PRINIVIL,ZESTRIL) 10 MG mouth daily. tablet metoprolol (LOPRESSOR) Take 100 mg by 0 Active 100 MG tablet mouth 2 (two) times daily. famotidine (PEPCID) 20 Take 20 mg by 0 Active MG tablet mouth 2 (two) times daily. Active Problems Problem Noted Date Angina pectoris 06/27/2018 Coronary artery disease Hypertension Peripheral vascular disease Hyperlipidemia Myocardial infarction Immunizations Name Dates Previously Given Next Due Influenza Four-QIV Non-PF 5+ YR 06/27/2018 Social History Tobacco Use Types Packs/Day Years Used Date Current Every Day Smoker Cigarettes 1 30 Smokeless Tobacco: Never Used Tobacco Cessation: Ready to Quit: Yes; C ounseling Given: Yes Alcohol Use Drinks/Week oz/Week Comments Yes social Sex Assigned at Date Recorded Not on file Job Start Date Occupation Industry Not on file Not on file Not on file Travel History Travel Start Travel End No recent travel history available. Last Filed Vital Signs Not on file Plan of Treatment Health Maintenance Due Date Last Done Comments COLON CANCER SCREENING COLONOSCOPY 1960 PNEUMOCOCCAL VACCINE 2-64 YEARS AT RISK ( - 1966 PPSV23) MEDICARE ANNUAL WELLNESS (YEAR 2 or FIRST YEAR if no 09/09/2017 IPPE) INFLUENZA VACCINE (#1) 2020 06/27/2018 Implants Implanted Type Area Hand Stitcher Device Shelf Model / Identifier Expiration Serial / Date Lot [employer]nergy [employer] N/A: DEVIN [id number] 04/07/2020 [id number] / Implanted: Qty: 1 on 06/29/2018 by Jose Whitlock MD [employer] / [id number] Results Not on fileafter 04/09/2019 Insurance Payer Benefit Plan / Group Subscriber ID Type Phone A ddress [employer] - MEDICARE AAR/MEDICARE COMPLETE xxxxxxxxx MGD CARE Advance Directives For more information, please contact:[address] [phone] Code Status Date Activated Date Inactivated Comments Full Code 06/27/2018 2:44 AM 06/30/2018 4:04 PM This code status was determined by: Patient
--- OUTSIDE RECORDS SUMMARY | 2020-04-09 20:58 | XMS REPORT | Continuity of Care Document ---
:1960 Author Organization [facility] t Address [address] [place] [address] Care Team Providers Name Role Phone Sharpless Primary Care Physician Urbano Attending Clinician Unavailable PATTY Attending Clinician Unavailable Urbano Admitting Clinician Unavailable PATTY Admitting Clinician Unavailable Problems Condition Condition Condition Status Onset Resolution Last Treating Co mments Source Name Details Category Date Date Treatment Clinician Date Angina Angina Disease Active 2017-[address] [facility] [facility]is [facility]20 [facility] - [facility] Medical [address] [place] [address] Coronary Coronary Disease Active [facility] artery [facility] Hypertensi Hypertensi Disease Active [facility] Peripheral Peripheral Disease Active [facility] vascular vascular [facility] Hyperlipid Hyperlipid Disease Active [facility] emia emia [facility] Myocardial Myocardial Disease Active [facility] infarction infarction [facility] Allergies, Adverse Reactions, Alerts This patient has no known allergies or adverse reactions. Social History Social Habit Start Date Stop Date Quantity Comments Source History of tobacco Cigarette Smoker [facility] - use [facility] Sex Assigned At [facility] Cigarettes smoked 2018-06-30 2018-06-30 [facility] - current (pack per 00:00:00 00:00:00 [facility] Center day) - Reported Cigarette 2018-06-30 2018-06-30 [facility] - pack-years 00:00:00 00:00:00 [facility] Alcohol Comment 2017-07-15 2017-07-15 social [facility] - 00:00:00 00:00:00 [facility] Smoking Status Start Date Stop Date Source Current every day smoker 2018-06-30 00:00:[address] [facility] Center Medications Ordered Filled Start Stop Current Ordering Indication Dosage Frequency Signature Comments Components Source Medication Medication Date Date Medication? Clinician (SIG) Name Name lisinopril 2017-09 Yes 10mg QD Take [address] (PRINIVIL,Z 0-20 by mouth [facility] - ESTRIL) 10 01:46: daily. Medic al MG tablet 41 Center metoprolol 2017-09 Yes 100mg Q.5D Take [address] (LOPRESSOR) 0-20 mg by [facility] - 100 MG 01:46: mouth 2 Medical tablet 41 (two) Center times daily. famotidine 2017-09 Yes 20mg Q.5D Take [address] (PEPCID) 20 0-20 by mouth 2 Daysi kes - MG tablet 01:46: (two) Medical 41 times Center daily. atorvastati 2017-09 Yes 80mg QD Take [address] [facility] (LIPITOR) 0-20 by mouth [facility] - 80 MG 01:45: daily. Medical tablet 19 Center clopidogrel 2016-09 Yes Coronary 75mg QD Take [address] (PLAVIX) 75 1-07 artery by mouth Daysi kes - mg tablet 07:28: disease of daily. 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 Plan of Care Planned Activity Planned Date Details Comments Source Future Scheduled 2020-05-09 INFLUENZA VACCINE (#1) [facility] - Test 00:00:00 [code = INFLUENZA Medical Ce nter VACCINE (#1)] Future Scheduled 2017-09-[address] [facility] - Test 00:00:00 WELLNESS (YEAR 2 or Medical Center FIRST YEAR if no IPPE) [code = MEDICARE ANNUAL WELLNESS (YEAR 2 or FIRST YEAR if no IPPE)] Future Scheduled [address] [facility] - Test 00:00:00 2-64 YEARS AT RISK ([facility] 1 - PPSV23) [code = PNEUMOCOCCAL VACCINE 2-64 YEARS AT RISK (1 of 1 - PPSV23)] Future Scheduled 1960 Screening for TERENCE Willson es - Test 00:00:[address] [facility] colon (procedure) [code = 853794002] Results Test Description Test Time Test Comments Results Result Comments Source Chemistry 2019-04-06 03:24:00 Test Item Value Reference Range Interpretation Comme nts Chemistry (test code = NA-T) 140 mmol/L 136-145 N Chemistry (test code = K-T) 4.1 mmol/L 3.5-5.1 N Chemistry (test code = CL) 108 mmol/L 98-107 H Chemistry (test code = CO2) 25 mmol/L 23-31 N Chemistry (test code = ANGP) 11 mmol/L 10-20 N Chemistry (test code = BUN) 23 mg/dL 8.4-25.7 N Chemistry (test code = CREATT) 1.20 mg/dL 0.7-1.3 N Chemistry (test code = 62 Refer ence Range for Estimated EGFRMDRD) GFR: Greater than 90 mL/min/ 1.73 m2NOTE:The MDRD equation h as not been validated for u se with theelderly (ove r 70 years of age), women, patientswith se rious comorbid condition or pe rsons with extremes ofbody size, muscle mass, or nutrit ional status. Chemistry (test code = GLU-T) 127 mg/dL 80-115 H Chemistry (test code = CA) 8.3 mg/dL 7.8-10.44 N [id number] 03:18:00 Test Item Value Reference Range Interpretation Comments Chemistry (test 0.013 ng/mL < 0.028 code = TROPI-T) Reference Ra nge 0.0 0 - 0.028 ng/mL Negative 0.0 29 - 0.29 ng/mL Indeterminate Greater or Equal to 0.3 ng/mL Strongly sugge sts [place] [id number] 23:53:00 Test Item Value Reference Range Interpretation Comments Chemistry (test 0.023 ng/mL < 0.028 code = TROPI-T) Reference Ra nge 0.0 0 - 0.028 ng/mL Negative 0.0 29 - 0.29 ng/mL Indeterminate Greater or Equal to 0.3 ng/mL Strongly sugge sts [place] [id number] 20:51:00 Test Item Value Reference Range Interpretation Comments Chemistry (test Less than < 0.028 code = TROPI-T) 0.010 ng/mL Reference Ra nge 0. 00 - 0.028 ng/mL Negative 0.029 - 0.29 n g/mL Indeterminate Greater or Equa l to 0.3 ng/mL St rongly suggests [place] [id number] 18:21:00 Test Item Value Reference Range Interpretation Comments Urinalysis (test code = Yellow Yellow UACLR) Urinalysis (test code = Clear Clear UACLY) Urinalysis (test code = SPGR) 1.023 1.002-1.036 N Urinalysis (test code = PERLITA) 5.5 5.0-9.0 N Urinalysis (test code = Negative Dl/uL Negative UALEU) Urinalysis (test code = Negative Negative UANIT) Urinalysis (test code = 30 mg/dL Neg-Trace A PROUADIP) Urinalysis (test code = 300 mg/dL Negative GLUCU) Urinalysis (test code = KETU) Trace mg/dL Negative A Urinalysis (test code = 2.0 mg/dL Less than 2 A UAUROB) Urinalysis (test code = Negative Negative UABIL) Urinalysis (test code = Negative Negative UABLD) Urinalysis (test code = 0-3 HPF 0-3 UARBC) Urinalysis (test code = 0-3 HPF 0-3 UAWBC) Urinalysis (test code = 0-3 HPF 0-3 UASQUAM) Urinalysis (test code = None Seen HPF None Seen UABAC) Urinalysis (test code = 11-20 LPF 0-3 A UAHYAL) Urinalysis (test code = 4-6 LPF None Seen A UAGRAN) Urinalysis (test code = 1+ HPF None Seen A UACAOX) Urine Source: Urine VoidedChemistry - BNP, HgbA1c, [id number] 17:24:00 Test Item Value Reference Range Interpretation Comments Chemistry - BNP, HgbA1c, PTHi 59.8 pg/mL 0-100 N (test code = BNP) [id number] 17:22:00 Test Item Value Reference Range Interpretation Comments Chemistry (test 0.010 ng/mL < 0.028 code = TROPI-R) Reference Ra nge 0.0 0 - 0.028 ng/mL Negative 0.0 29 - 0.29 ng/mL Indeterminate Greater or Equal to 0.3 ng/mL Strongly sugge sts [place] [id number] 17:20:00 Test Item Value Reference Range Interpretation Comments Chemistry (test code 138 mmol/L 136-145 N = NA-T) Chemistry (test code 4.4 mmol/L 3.5-5.1 N = K-T) Chemistry (test code 101 mmol/L 98-107 N = CL) Chemistry (test code 22 mmol/L 23-31 L = CO2) Chemistry (test code 19 mmol/L 10-20 N = ANGP) Chemistry (test code 24 mg/dL 8.4-25.7 N = BUN) Chemistry (test code 1.74 mg/dL 0.7-1.3 H = CREATT) Chemistry (test code 40 Referen ce Range for = EGFRMDRD) Estimated GFR: Great er than 90 mL/min/1.73 m2NOTE:The MDRD equation has no t been validated for u se with theelderly (ove r 70 years of age), women, patientswith se rious comorbid condit ion or persons with ex tremes ofbody size, mu scle mass, or nutrit ional status. Chemistry (test code 136 mg/dL 80-115 H = GLU-T) Chemistry (test code 10.2 mg/dL 7.8-10.44 N = CA) Chemistry (test code 0.6 mg/dL 0.2-1.2 N = TBILI-T) Chemistry (test code 8.5 g/dL 5.8-8.1 H = TP) Chemistry (test code 4.7 g/dL 3.4-4.8 N = ALB) Chemistry (test code 3.8 g/dL 2.4-3.5 H = GLOB) Chemistry (test code 1.2 g/dL 1.2-2.2 N = AG) Chemistry (test code 137 U/L 40-150 N = ALP) Chemistry (test code 22 U/L 5-34 N = AST) Chemistry (test code 22 U/L 8-55 N = ALT) [id number] 17:20:00 Test Item Value Reference Range Interpretation Comments Chemistry (test code = CK) 75 U/L 30-200 N [id number] 16:55:00 Test Item Value Reference Range Interpretation Comments Hematology (test code = WBCT) 9.2 thou/uL 4.8-10.8 N Hematology (test code = RBCT) 5.87 mill/uL 4.70-6.10 N Hematology (test code = HGBT) 16.8 g/dL 14.0-18.0 N Hematology (test code = HCTT) 52.5 % 42.0-52.0 H Hematology (test code = MCV) 89.4 fL 78.0-98.0 N Hematology (test code = MCH) 28.5 pg 27.0-31.0 N Hematology (test code = MCHC) 31.9 g/dL 32.0-36.0 L Hematology (test code = RDW) 13.1 % 11.5-14.5 N Hematology (test code = PLTT) 258 thou/uL 130-400 N Hematology (test code = MPV) 7.9 fL 7.4-10.4 N Hematology (test code = %NEUT) 69.2 % 42.0-75.0 N Hematology (test code = %LYMPH) 21.5 % 21.0-51.0 N Hematology (test code = %MONO) 8.0 % 0.0-10.0 N Hematology (test code = %EOS) 0.7 % 0.0-10.0 N Hematology (test code = %BASO) 0.6 % 0.0-1.0 N Hematology (test code = NEUT#) 6.4 thou/uL 1.40-6.50 N Hematology (test code = LYMPH#) 2.0 thou/uL 1.20-3.40 N Hematology (test code = MONO#) 0.7 thou/uL 0.11-0.59 H Hematology (test code = EOS#) 0.1 thou/uL 0.0-0.7 N Hematology (test code = BASO#) 0.1 thou/uL 0.0-0.2 N [id number] 00:59:00 Test Item Value Reference Range Interpretation Comments MAGNESIUM (BEAKER) 2.2 mg/dL 1.6-2.6 Specimen slightly (test code = 627) hemolyzed BASIC METABOLIC [id number] 00:59:00 Test Item Value Reference Range Interpretation Comments SODIUM (BEAKER) 137 meq/L 136-145 (test code = 381) POTASSIUM (BEAKER) 3.9 meq/L 3.5-5.1 Specimen slightly (test code = 379) hemolyzed CHLORIDE (BEAKER) 105 meq/L 98-107 (test code = 382) CO2 (BEAKER) (test 22 meq/L 22-29 code = 355) BLOOD UREA NITROGEN 22 mg/dL 7-21 H (BEAKER) (test code = 354) CREATININE (BEAKER) 1.05 mg/dL 0.57-1.25 Specimen slightly (test code = 358) hemolyzed GLUCOSE RANDOM 181 mg/dL 70-105 H (BEAKER) (test code = 652) CALCIUM (BEAKER) 9.4 mg/dL 8.4-10.2 (test code = 697) EGFR (BEAKER) (test 72 mL/min/1.73 ESTIMA MARÍA ELENA GFR IS code = 1092) sq m NOT ACCURATE CREATININE CLEARANCE IN PREDICTING GLOMERULAR FILTRATION RATE . ESTIMATED GFR I S NOT APPLICABLE FOR DIALYSIS PATIEN TS. CBC W/PLT COUNT & AUTO [id number] 00:43:00 Test Item Value Reference Range Interpretation Comments WHITE BLOOD CELL COUNT (BEAKER) 5.0 K/ L 3.5-10.5 (test code = 775) RED BLOOD CELL COUNT (BEAKER) 5.30 M/ L 4.63-6.08 (test code = 761) HEMOGLOBIN (BEAKER) (test code = 14.8 GM/DL 13.7-17.5 410) HEMATOCRIT (BEAKER) (test code = 45.2 % 40.1-51.0 411) MEAN CORPUSCULAR VOLUME (BEAKER) 85.3 fL 79.0-92.2 (test code = 753) MEAN CORPUSCULAR HEMOGLOBIN 27.9 pg 25.7-32.2 (BEAKER) (test code = 751) MEAN CORPUSCULAR HEMOGLOBIN CONC 32.7 GM/DL 32.3-36.5 (BEAKER) (test code = 752) RED CELL DISTRIBUTION WIDTH 13.7 % 11.6-14.4 (BEAKER) (test code = 412) PLATELET COUNT (BEAKER) (test 208 K/CU MM 150-450 code = 756) MEAN PLATELET VOLUME (BEAKER) 10.7 fL 9.4-12.4 (test code = 754) NUCLEATED RED BLOOD CELLS 0 /100 WBC 0-0 (BEAKER) (test code = 413) NEUTROPHILS RELATIVE PERCENT 40 % (BEAKER) (test code = 429) LYMPHOCYTES RELATIVE PERCENT 46 % (BEAKER) (test code = 430) MONOCYTES RELATIVE PERCENT 13 % (BEAKER) (test code = 431) EOSINOPHILS RELATIVE PERCENT 0 % (BEAKER) (test code = 432) BASOPHILS RELATIVE PERCENT 0 % (BEAKER) (test code = 437) NEUTROPHILS ABSOLUTE COUNT 2.02 K/ L 1.78-5.38 (BEAKER) (test code = 670) LYMPHOCYTES ABSOLUTE COUNT 2.31 K/ L 1.32-3.57 (BEAKER) (test code = 414) MONOCYTES ABSOLUTE COUNT (BEAKER) 0.64 K/ L 0.30-0.82 (test code = 415) EOSINOPHILS ABSOLUTE COUNT 0.02 K/ L 0.04-0.54 L (BEAKER) (test code = 416) BASOPHILS ABSOLUTE COUNT (BEAKER) 0.01 K/ L 0.01-0.08 (test code = 417) IMMATURE GRANULOCYTES-RELATIVE 1 % 0-1 PERCENT (BEAKER) (test code = 2801) [id number] 00:20:00 Test Item Value Reference Range Interpretation Comments ACTIVATED CLOTTING TIME 109 sec TEST ED AT [place] [address] ([facility]) (test code = RACHEL Rios [facility] 441) [id number] 20:55:00 Test Item Value Reference Range Interpretation Comments ACTIVATED CLOTTING TIME 191 sec TEST ED AT [place] [address] ([facility]) (test code = RACHEL Rios [facility] 441) [id number] 18:15:00 Test Item Value Reference Range Interpretation Comments ACTIVATED CLOTTING TIME 318 sec TEST ED AT [place] [address] ([facility]) (test code = RACHEL Rios [facility] 441) [id number] POCT-GLUCOSE [id number] 07:26:00 Test Item Value Reference Range Interpretation Comments POC-GLUCOSE METER 113 mg/dL 70-110 H TESTED AT [place] [address] ([facility]) (test code = RACHEL Rios [facility] 1538) [id number] 07:16:00 Test Item Value Reference Range Interpretation Comments MAGNESIUM (BEAKER) (test code = 2.0 mg/dL 1.6-2.6 627) BASIC METABOLIC [id number] 07:16:00 Test Item Value Reference Range Interpretation Comments SODIUM (BEAKER) 138 meq/L 136-145 (test code = 381) POTASSIUM (BEAKER) 4.2 meq/L 3.5-5.1 (test code = 379) CHLORIDE (BEAKER) 105 meq/L 98-107 (test code = 382) CO2 (BEAKER) (test 25 meq/L 22-29 code = 355) BLOOD UREA NITROGEN 20 mg/dL 7-21 (BEAKER) (test code = 354) CREATININE (BEAKER) 1.12 mg/dL 0.57-1.25 (test code = 358) GLUCOSE RANDOM 126 mg/dL 70-105 H (BEAKER) (test code = 652) CALCIUM (BEAKER) 9.3 mg/dL 8.4-10.2 (test code = 697) EGFR (BEAKER) (test 67 mL/min/1.73 ESTIMA MARÍA ELENA GFR IS code = 1092) sq m NOT ACCURATE CREATININE CLEARANCE IN PREDICTING GLOMERULAR FILTRATION RATE . ESTIMATED GFR I S NOT APPLICABLE FOR DIALYSIS PATIEN TS. [id number] 06:58:00 Test Item Value Reference Range Interpretation Comments PROTIME (BEAKER) (test code = 14.5 seconds 11.7-14.7 759) INR (BEAKER) (test code = 370) 1.1 <=5.9 PARTIAL THROMBOPLASTIN TIME 32.7 seconds 22.5-36.0 (BEAKER) (test code = 760) RECOMMENDED COUMADIN/WARFARIN INR THERAPY RANGESSTANDARD DOSE: 2.0 - 3.0 Includes: PROPHYLAXIS forvenous thrombosis, systemic embolization; TREATMENT for venous thrombosis and/or pulmonary embolus.HIGH RISK: Target INR is 2.5-3.5 for patients with mechanical heart valves.CBC W/PLT COUNT & AUTO DIFFERENTIAL 2018-06-29 06:55:00 Test Item Value Reference Range Interpretation Comments WHITE BLOOD CELL COUNT (BEAKER) 3.9 K/ L 3.5-10.5 (test code = 775) RED BLOOD CELL COUNT (BEAKER) 5.18 M/ L 4.63-6.08 (test code = 761) HEMOGLOBIN (BEAKER) (test code = 14.8 GM/DL 13.7-17.5 410) HEMATOCRIT (BEAKER) (test code = 44.6 % 40.1-51.0 411) MEAN CORPUSCULAR VOLUME (BEAKER) 86.1 fL 79.0-92.2 (test code = 753) MEAN CORPUSCULAR HEMOGLOBIN 28.6 pg 25.7-32.2 (BEAKER) (test code = 751) MEAN CORPUSCULAR HEMOGLOBIN CONC 33.2 GM/DL 32.3-36.5 (BEAKER) (test code = 752) RED CELL DISTRIBUTION WIDTH 13.6 % 11.6-14.4 (BEAKER) (test code = 412) PLATELET COUNT (BEAKER) (test 195 K/CU MM 150-450 code = 756) MEAN PLATELET VOLUME (BEAKER) 10.6 fL 9.4-12.4 (test code = 754) NUCLEATED RED BLOOD CELLS 0 /100 WBC 0-0 (BEAKER) (test code = 413) NEUTROPHILS RELATIVE PERCENT 33 % (BEAKER) (test code = 429) LYMPHOCYTES RELATIVE PERCENT 51 % (BEAKER) (test code = 430) MONOCYTES RELATIVE PERCENT 15 % (BEAKER) (test code = 431) EOSINOPHILS RELATIVE PERCENT 1 % (BEAKER) (test code = 432) BASOPHILS RELATIVE PERCENT 1 % (BEAKER) (test code = 437) NEUTROPHILS ABSOLUTE COUNT 1.28 K/ L 1.78-5.38 L (BEAKER) (test code = 670) LYMPHOCYTES ABSOLUTE COUNT 2.01 K/ L 1.32-3.57 (BEAKER) (test code = 414) MONOCYTES ABSOLUTE COUNT (BEAKER) 0.57 K/ L 0.30-0.82 (test code = 415) EOSINOPHILS ABSOLUTE COUNT 0.02 K/ L 0.04-0.54 L (BEAKER) (test code = 416) BASOPHILS ABSOLUTE COUNT (BEAKER) 0.02 K/ L 0.01-0.08 (test code = 417) IMMATURE GRANULOCYTES-RELATIVE 1 % 0-1 PERCENT (BEAKER) (test code = 2801) CBC W/PLT COUNT & AUTO [id number] 05:30:00 Test Item Value Reference Range Interpretation Comments WHITE BLOOD CELL COUNT (BEAKER) 5.2 K/ L 3.5-10.5 (test code = 775) RED BLOOD CELL COUNT (BEAKER) 4.84 M/ L 4.63-6.08 (test code = 761) HEMOGLOBIN (BEAKER) (test code = 13.8 GM/DL 13.7-17.5 410) HEMATOCRIT (BEAKER) (test code = 42.4 % 40.1-51.0 411) MEAN CORPUSCULAR VOLUME (BEAKER) 87.6 fL 79.0-92.2 (test code = 753) MEAN CORPUSCULAR HEMOGLOBIN 28.5 pg 25.7-32.2 (BEAKER) (test code = 751) MEAN CORPUSCULAR HEMOGLOBIN CONC 32.5 GM/DL 32.3-36.5 (BEAKER) (test code = 752) RED CELL DISTRIBUTION WIDTH 13.7 % 11.6-14.4 (BEAKER) (test code = 412) PLATELET COUNT (BEAKER) (test 197 K/CU MM 150-450 code = 756) MEAN PLATELET VOLUME (BEAKER) 10.5 fL 9.4-12.4 (test code = 754) NUCLEATED RED BLOOD CELLS 0 /100 WBC 0-0 (BEAKER) (test code = 413) NEUTROPHILS RELATIVE PERCENT 42 % (BEAKER) (test code = 429) LYMPHOCYTES RELATIVE PERCENT 40 % (BEAKER) (test code = 430) MONOCYTES RELATIVE PERCENT 16 % (BEAKER) (test code = 431) EOSINOPHILS RELATIVE PERCENT 1 % (BEAKER) (test code = 432) BASOPHILS RELATIVE PERCENT 0 % (BEAKER) (test code = 437) NEUTROPHILS ABSOLUTE COUNT 2.16 K/ L 1.78-5.38 (BEAKER) (test code = 670) LYMPHOCYTES ABSOLUTE COUNT 2.04 K/ L 1.32-3.57 (BEAKER) (test code = 414) MONOCYTES ABSOLUTE COUNT (BEAKER) 0.84 K/ L 0.30-0.82 H (test code = 415) EOSINOPHILS ABSOLUTE COUNT 0.04 K/ L 0.04-0.54 (BEAKER) (test code = 416) BASOPHILS ABSOLUTE COUNT (BEAKER) 0.02 K/ L 0.01-0.08 (test code = 417) IMMATURE GRANULOCYTES-RELATIVE 1 % 0-1 PERCENT (BEAKER) (test code = 2801) BASIC METABOLIC [id number] 05:12:00 Test Item Value Reference Range Interpretation Comments SODIUM (BEAKER) 139 meq/L 136-145 (test code = 381) POTASSIUM (BEAKER) 4.0 meq/L 3.5-5.1 (test code = 379) CHLORIDE (BEAKER) 107 meq/L 98-107 (test code = 382) CO2 (BEAKER) (test 25 meq/L 22-29 code = 355) BLOOD UREA NITROGEN 20 mg/dL 7-21 (BEAKER) (test code = 354) CREATININE (BEAKER) 1.11 mg/dL 0.57-1.25 (test code = 358) GLUCOSE RANDOM 130 mg/dL 70-105 H (BEAKER) (test code = 652) CALCIUM (BEAKER) 9.0 mg/dL 8.4-10.2 (test code = 697) EGFR (BEAKER) (test 68 mL/min/1.73 ESTIMA MARÍA ELENA GFR IS code = 1092) sq m NOT ACCURATE CREATININE CLEARANCE IN PREDICTING GLOMERULAR FILTRATION RATE . ESTIMATED GFR I S NOT APPLICABLE FOR DIALYSIS SERGIO FANG. [id number] 15:55:00 Test Item Value Reference Range Interpretation Comments PARTIAL THROMBOPLASTIN TIME 51.7 seconds 22.5-36.0 H (BEAKER) (test code = 760) TROPONIN [id number] 14:06:00 Test Item Value Reference Range Interpretation Comments TROPONIN I (BEAKER) (test code = 0.01 ng/mL 0.00-0.03 397) Troponin I (TnI) levels must be interpreted [...] acidosis, acute neurological disease, and persistent tachyarrhythmia.HEMOGLOBIN [id number] 11:57:00 Test Item Value Reference Range Interpretation Comments HEMOGLOBIN A1C (BEAKER) (test code = 7.5 % 4.3-6.1 H 368) [id number] 09:48:00 Test Item Value Reference Range Interpretation Comments PARTIAL THROMBOPLASTIN TIME 48.9 seconds 22.5-36.0 H (BEAKER) (test code = 760) URINALYSIS W/ [id number] 08:06:00 Test Item Value Reference Range Interpretation Comments COLOR (BEAKER) (test code = 470) Light Yellow CLARITY (BEAKER) (test code = Clear 469) SPECIFIC GRAVITY UA (BEAKER) 1.014 1.001-1.035 (test code = 468) PH UA (BEAKER) (test code = 467) 5.5 5.0-8.0 PROTEIN UA (BEAKER) (test code = Negative Negative 464) GLUCOSE UA (BEAKER) (test code = 70 mg/dL Negative A 365) KETONES UA (BEAKER) (test code = Negative Negative 371) BILIRUBIN UA (BEAKER) (test code Negative Negative = 462) BLOOD UA (BEAKER) (test code = Negative Negative 461) NITRITE UA (BEAKER) (test code = Negative Negative 465) LEUKOCYTE ESTERASE UA (BEAKER) Negative Negative (test code = 466) UROBILINOGEN UA (BEAKER) (test 0.2 mg/dL 0.2-1.0 code = 463) RBC UA (BEAKER) (test code = 4 /HPF 519) WBC UA (BEAKER) (test code = 4 /HPF 520) SQUAMOUS EPITHELIAL (BEAKER) < /HPF (test code = 516) SOURCE(BEAKER) (test code = 2795) RAD, CHEST, 1 VIEW, NON [id number] 04:11:00Reason for exam:->angina pectorisShould this be performed [...] MDReport Verified Date/Time: 06/27/2018 04:11:12 Reading Location: [address] Body Reading Room CREATINE KINASE (CK), TOTAL AND [id number] 03:24:00 Test Item Value Reference Range Interpretation Comments CREATINE KINASE TOTAL (BEAKER) 61 U/L 29-200 (test code = 380) CREATINE KINASE-MB (BEAKER) (test 1.5 ng/mL 0.0-6.6 code = 750) CREATINE KINASE-MB INDEX (BEAKER) 2.5 % (test code = 395) CK-MB Reference Range:<6.7 Normal6.7-10.0 Borderline>10.0 AbnormalTROPONIN [id number] 03:24:00 Test Item Value Reference Range Interpretation Comments TROPONIN I (BEAKER) (test code = 0.01 ng/mL 0.00-0.03 397) Troponin I (TnI) levels must be interpreted [...] acute neurological disease, and persistent tachyarrhythmia.BASIC METABOLIC [id number] 03:18:00 Test Item Value Reference Range Interpretation Comments SODIUM (BEAKER) 139 meq/L 136-145 (test code = 381) POTASSIUM (BEAKER) 4.2 meq/L 3.5-5.1 (test code = 379) CHLORIDE (BEAKER) 107 meq/L 98-107 (test code = 382) CO2 (BEAKER) (test 24 meq/L 22-29 code = 355) BLOOD UREA NITROGEN 21 mg/dL 7-21 (BEAKER) (test code = 354) CREATININE (BEAKER) 1.15 mg/dL 0.57-1.25 (test code = 358) GLUCOSE RANDOM 149 mg/dL 70-105 H (BEAKER) (test code = 652) CALCIUM (BEAKER) 8.5 mg/dL 8.4-10.2 (test code = 697) EGFR (BEAKER) (test 65 mL/min/1.73 ESTIMA MARÍA ELENA GFR IS code = 1092) sq m NOT ACCURATE CREATININE CLEARANCE IN PREDICTING GLOMERULAR FILTRATION RATE . ESTIMATED GFR I S NOT APPLICABLE FOR DIALYSIS PATIEN TS. B-TYPE NATRIURETIC FACTOR (BNP)2018-06-27 03:16:00 Test Item Value Reference Range Interpretation Comments B-TYPE NATRIURETIC PEPTIDE (BEAKER) 122 pg/mL 0-100 H (test code = 700) CBC W/PLT COUNT & AUTO [id number] 02:58:00 Test Item Value Reference Range Interpretation Comments WHITE BLOOD CELL COUNT (BEAKER) 6.4 K/ L 3.5-10.5 (test code = 775) RED BLOOD CELL COUNT (BEAKER) 4.67 M/ L 4.63-6.08 (test code = 761) HEMOGLOBIN (BEAKER) (test code = 13.6 GM/DL 13.7-17.5 L 410) HEMATOCRIT (BEAKER) (test code = 41.3 % 40.1-51.0 411) MEAN CORPUSCULAR VOLUME (BEAKER) 88.4 fL 79.0-92.2 (test code = 753) MEAN CORPUSCULAR HEMOGLOBIN 29.1 pg 25.7-32.2 (BEAKER) (test code = 751) MEAN CORPUSCULAR HEMOGLOBIN CONC 32.9 GM/DL 32.3-36.5 (BEAKER) (test code = 752) RED CELL DISTRIBUTION WIDTH 14.0 % 11.6-14.4 (BEAKER) (test code = 412) PLATELET COUNT (BEAKER) (test 217 K/CU MM 150-450 code = 756) MEAN PLATELET VOLUME (BEAKER) 10.5 fL 9.4-12.4 (test code = 754) NUCLEATED RED BLOOD CELLS 0 /100 WBC 0-0 (BEAKER) (test code = 413) NEUTROPHILS RELATIVE PERCENT 31 % (BEAKER) (test code = 429) LYMPHOCYTES RELATIVE PERCENT 56 % (BEAKER) (test code = 430) MONOCYTES RELATIVE PERCENT 12 % (BEAKER) (test code = 431) EOSINOPHILS RELATIVE PERCENT 1 % (BEAKER) (test code = 432) BASOPHILS RELATIVE PERCENT 0 % (BEAKER) (test code = 437) NEUTROPHILS ABSOLUTE COUNT 2.00 K/ L 1.78-5.38 (BEAKER) (test code = 670) LYMPHOCYTES ABSOLUTE COUNT 3.56 K/ L 1.32-3.57 (BEAKER) (test code = 414) MONOCYTES ABSOLUTE COUNT (BEAKER) 0.74 K/ L 0.30-0.82 (test code = 415) EOSINOPHILS ABSOLUTE COUNT 0.04 K/ L 0.04-0.54 (BEAKER) (test code = 416) BASOPHILS ABSOLUTE COUNT (BEAKER) 0.02 K/ L 0.01-0.08 (test code = 417) IMMATURE GRANULOCYTES-RELATIVE 1 % 0-1 PERCENT (BEAKER) (test code = 2801) [id number] 02:51:00 Test Item Value Reference Range Interpretation Comments PARTIAL THROMBOPLASTIN TIME 48.4 seconds 22.5-36.0 H (BEAKER) (test code = 760) XR Chest [address] [facility] Pt Name: Rosalio Aranda Lalina Phys: [place] [address] : 1960 Age: 59 SEX:M [phone] Exam Date: 04/05/19 Status: REG ER Acct: [id number] Loc: ERS Pt Unit #: [id number] Report #: [id number] CC: Puente,Ludy PA-C IMAGING SERVICES REPORT Order # Category/Exam [id number] RAD/XR Chest 1 View Portable ([id number]): . Results PORTABLE AP CHEST X-RAY: HISTORY: The patient reports being overheated and dizzy. The patient is having difficulty getting up from a supine position. CO MPARISON: None available. FINDINGS: A dual-lead left subclavian [...] By: Marc Osborne MD Electronically Signed Date/Time: 04/05/19 183 Technologist: STEPHAN Dictated Date/Time: 04/05/19 180 Transcribed Date/Time: 04/05/19 1828
[2020-04-09 22:07] LABS: ALT/SGPT 25 U/L (12-78); AST/SGOT 21 U/L (15-37); Albumin 3.3 g/dL (3.4-5.0); Alkaline Phosphatase 106 U/L (45-117); BUN Blood Urea Nitrogen 19 mg/dL (7-18); Bicarbonate 25 mmol/L (21-32); Bilirubin Direct < 0.1 mg/dL (0-0.2); Bilirubin Total 0.3 mg/dL (0.2-1.0); Glucose Level 224 mg/dL (74-106); NT PRO-BNP 309 pg/mL (<125); Potassium 3.9 mmol/L (3.5-5.1); Protein, Total 7.5 g/dL (6.4-8.2); Sodium Level 138 mmol/L (136-145); Troponin (Emerg Dept Use Only) < 0.02 ng/mL (0.0-0.045)
[2020-04-09 22:08] LABS: Magnesium 1.8 mg/dL (1.8-2.4)
[2020-04-09 22:41] LABS: Absolute Lymphocytes (CBC) 2.5 K/uL (0.7-4.9); Basophils % 0.3 % (0-1.3); Hematocrit 43.6 % (39.6-49.0); MPV 9.1 fL (7.6-11.3); RBC Red Blood Cell Count 5.15 M/uL (4.33-5.43)
[2020-04-09 23:14] LABS: Protime INR 1.07
--- NOTE | 2020-04-09 23:59 | ER ---
Nurse's Notes [facility] Name: Pool Aden Age: 60 yrs Sex: Male : 1960 Arrival Date: 04/09/2020 Time: 20:55 Bed 20 Private MD: Diagnosis: Palpitations Presentation: 04/09 21:00 Initial Sepsis Screen: Does the patient have a suspected source of infection? Yes:. mt2 21:02 Chief complaint: Patient states: Fatigue this morning after doing yard work. Finished ll1 his yard work this evening. Started to feel lightheaded, flushed, chest heaviness, and palpitations for about 1 hour. Took 2 nitro's, no CP now. Coronavirus screen: Client denies travel out of the [place] in the last 14 days. At this time, the client does not indicate any symptoms associated with coronavirus-19. Ebola Screen: Patient denies travel to an Ebola-affected area in the 21 days before illness onset. Initial Sepsis Screen: Does the patient meet any 2 criteria? HR > 90 bpm. Risk Assessment: Do you want to hurt yourself or someone else? Patient reports no desire to harm self or others. Onset of symptoms was April 09, 2020. 21:02 Method Of Arrival: Ambulatory ll1 21:02 Acuity: SUSAN 3 ll1 Historical: - Allergies: 21:06 No Known Allergies; ll1 - Home Meds: 23:56 aspirin 81 mg Oral TbEC 1 tab once daily [Active]; atorvastatin 80 mg Oral tab 1 tab mt2 once daily [Active]; lisinopril 10 mg Oral tab 1 tab once daily [Active]; Metformin Oral [Active]; metoprolol tartrate 100 mg Oral tab 1 tab 2 times per day [Active]; Nitroglycerin SL [Active]; Pepcid 20 mg Oral tab 1 tab every 12 hours [Active]; Plavix 75 mg Oral tab 1 tab once daily [Active]; - PMHx: 21:06 Myocardial infarction; Hypertension; pacemaker/defibrillator; Hyperlipidemia; ll1 - PSHx: 21:06 cardiac stent; Angioplasty; CABG; ll1 - Immunization history:: Flu vaccine is not up to date. - Social history:: Smoking status: Patient reports the use of cigarette tobacco products, smokes one pack cigarettes per day. Patient/guardian denies using alcohol, street drugs. Screenin:56 Abuse screen: Denies threats or abuse. Nutritional screening: No deficits noted. mt2 Tuberculosis screening: No symptoms or risk factors identified. Fall Risk None identified. Assessment: 21:56 Reassessment: Patient and/or family updated on plan of care and expected duration. Pain mt2 level reassessed. Patient is alert, oriented x 3, equal unlabored respirations, skin warm/dry/pink. General: Appears uncomfortable, Behavior is cooperative. Pain:. Neuro: Reports dizziness, since TODAY. Cardiovascular: No deficits noted. Respiratory: Reports shortness of breath on exertion. GI: No deficits noted. : No deficits noted. EENT: No deficits noted. Derm: No deficits noted. Musculoskeletal: No deficits noted. 22:00 Reassessment: Patient and/or family updated on plan of care and expected duration. Pain mt2 level reassessed. Patient is alert, oriented x 3, equal unlabored respirations, skin warm/dry/pink. Patient denies pain at this time. General: Appears comfortable, Behavior is cooperative. 23:00 Reassessment: Patient and/or family updated on plan of care and expected duration. Pain mt2 level reassessed. Patient is alert, oriented x 3, equal unlabored respirations, skin warm/dry/pink. Patient denies pain at this time. General: Appears in no apparent distress. Behavior is cooperative. 04/10 00:25 Reassessment: Patient and/or family updated on plan of care and expected duration. Pain mt2 level reassessed. Patient is alert, oriented x 3, equal unlabored respirations, skin warm/dry/pink. Patient denies pain at this time. General: Appears in no apparent distress. Behavior is cooperative. Vital Signs: 04/09 21:02 BP 117 / 80; Pulse 96; Resp 18; Temp 98.1; Pulse Ox 98% ; Weight 103.42 kg; Height 6 ll1 ft. (182.88 cm); Pain 0/10; 22:00 BP 101 / 66; Pulse 78; Resp 16; Pulse Ox 99% ; Pain 0/10; mt2 23:00 BP 95 / 60; Pulse 67; Resp 17; Pulse Ox 95% on R/A; Pain 0/10; mt2 04/10 00:25 BP 106 / 61; Pulse 69; Resp 16; Pulse Ox 96% on R/A; Pain 0/10; mt2 04/09 21:02 Body Mass Index 30.92 (103.42 kg, 182.88 cm) 1 ED Course: 04/09 20:55 Patient arrived in ED. cl3 21:05 Triage completed. ll1 21:06 Arm band placed on Patient placed in an exam room, on a stretcher. ll1 21:26 [place] North MD is Attending Physician. tw4 21:29 EKG completed in triage. Results shown to . ll1 21:30 Marla Kelley, ZINA is Primary Nurse. mt2 21:56 XRAY Chest (1 view) In Process Unspecified. EDMS 21:56 Bed in low position. Call light in reach. Side rails up X 1. mt2 21:56 Inserted saline lock: 20 gauge in left ,using aseptic technique. POSTERIOR AC. mt2 22:57 Marla Kelley RN is Primary Nurse. mt2 23:55 No provider procedures requiring assistance completed. mt2 04/10 00:25 IV discontinued, intact, bleeding controlled, No redness/swelling at site. Pressure mt2 dressing applied. Administered Medications: No medications were administered Outcome: 04/09 23:59 Discharge ordered by . tw4 04/10 00:25 Discharged to home ambulatory. mt2 Condition: good Discharge instructions given to patient, Instructed on discharge instructions, follow up and referral plans. Demonstrated understanding of instructions, follow-up care. 00:27 Patient left the ED. mt2 Signatures: Dispatcher [employer] [facility] Chapincito North MD MD 4 Dinora Irvin 3 Elpidio Irvin, RN RN 1 Marla Kelley, ZINA RN mt2
--- NOTE | 2020-04-10 | EDPHYS ---
Physician Documentation [facility] Name: Pool Aden Age: 60 yrs Sex: Male : 1960 Arrival Date: 04/09/2020 Time: 20:55 Bed 20 Private MD: ED Physician Chapincito North HPI: 04/10 04:09 This 60 yrs old Male presents to ER via Ambulatory with complaints of tw4 Dizziness, Heart Racing. 04:09 The patient presents with a history of heart racing. Context: The symptoms occur at tw4 rest. Onset: The symptoms/episode began/occurred today. Duration: The patient or guardian reports a single episode. Modifying factors: The symptoms are aggravated by nothing. The symptoms are alleviated by nothing. Severity of symptoms: At their worst the symptoms were moderate in the emergency department the symptoms have resolved. The patient has not experienced similar symptoms in the past. 04:11 Associated signs and symptoms: Pertinent positives: lightheadedness, Pertinent tw4 negatives: chest pain, SOB. Historical: - Allergies: 04/09 21:06 No Known Allergies; ll1 - Home Meds: 23:56 aspirin 81 mg Oral TbEC 1 tab once daily [Active]; atorvastatin 80 mg Oral tab 1 tab mt2 once daily [Active]; lisinopril 10 mg Oral tab 1 tab once daily [Active]; Metformin Oral [Active]; metoprolol tartrate 100 mg Oral tab 1 tab 2 times per day [Active]; Nitroglycerin SL [Active]; Pepcid 20 mg Oral tab 1 tab every 12 hours [Active]; Plavix 75 mg Oral tab 1 tab once daily [Active]; - PMHx: 21:06 Myocardial infarction; Hypertension; pacemaker/defibrillator; Hyperlipidemia; ll1 - PSHx: 21:06 cardiac stent; Angioplasty; CABG; ll1 - Immunization history:: Flu vaccine is not up to date. - Social history:: Smoking status: Patient reports the use of cigarette tobacco products, smokes one pack cigarettes per day. Patient/guardian denies using alcohol, street drugs. ROS: 04/10 04:11 Constitutional: Negative for fever, chills, and weight loss, Eyes: Negative for injury, tw4 pain, redness, and discharge, Respiratory: Negative for shortness of breath, cough, wheezing, and pleuritic chest pain, Abdomen/GI: Negative for abdominal pain, nausea, vomiting, diarrhea, and constipation, Back: Negative for injury and pain, MS/Extremity: Negative for injury and deformity, Skin: Negative for injury, rash, and discoloration, Neuro: Negative for headache, weakness, numbness, tingling, and seizure. Cardiovascular: Positive for chest pain, Negative for edema, orthopnea, palpitations, paroxysmal nocturnal dyspnea. Exam: 04:11 Constitutional: This is a well developed, well nourished patient who is awake, alert, tw4 and in no acute distress. Head/Face: Normocephalic, atraumatic. Chest/axilla: Normal chest wall appearance and motion. Nontender with no deformity. No lesions are appreciated. Respiratory: Lungs have equal breath sounds bilaterally, clear to auscultation and percussion. No rales, rhonchi or wheezes noted. No increased work of breathing, no retractions or nasal flaring. Abdomen/GI: Soft, non-tender, with normal bowel sounds. No distension or tympany. No guarding or rebound. No evidence of tenderness throughout. Back: No spinal tenderness. No costovertebral tenderness. Full range of motion. MS/ Extremity: Pulses equal, no cyanosis. Neurovascular intact. Full, normal range of motion. Neuro: Awake and alert, GCS 15, oriented to person, place, time, and situation. Cranial nerves II-XII grossly intact. Motor strength 5/5 in all extremities. Sensory grossly intact. Cerebellar exam normal. Normal gait. Psych: Awake, alert, with orientation to person, place and time. Behavior, mood, and affect are within normal limits. 04:11 Cardiovascular: Regular rate and rhythm with a normal S1 and S2. No gallops, murmurs, or rubs. Normal PMI, no JVD. No pulse deficits. Vital Signs: 04/09 21:02 BP 117 / 80; Pulse 96; Resp 18; Temp 98.1; Pulse Ox 98% ; Weight 103.42 kg; Height 6 ll1 ft. (182.88 cm); Pain 0/10; 22:00 BP 101 / 66; Pulse 78; Resp 16; Pulse Ox 99% ; Pain 0/10; mt2 23:00 BP 95 / 60; Pulse 67; Resp 17; Pulse Ox 95% on R/A; Pain 0/10; mt2 04/10 00:25 BP 106 / 61; Pulse 69; Resp 16; Pulse Ox 96% on R/A; Pain 0/10; mt2 04/09 21:02 Body Mass Index 30.92 (103.42 kg, 182.88 cm) ll1 MDM: 04/09 21:26 Patient medically screened. 4 04/10 04:11 Differential diagnosis: stress disorder. Data reviewed: vital signs, nurses notes. Data tw4 interpreted: Pulse oximetry: Interpretation: normal. Counseling: I had a detailed discussion with the patient and/or guardian regarding: the historical points, exam findings, and any diagnostic results supporting the discharge/admit diagnosis. Special discussion: I discussed with the patient/guardian in detail that at this point there is no indication for admission to the hospital. It is understood, however, that if the symptoms persist or worsen the patient needs to return immediately for re-evaluation. 04/09 21:27 Order name: Basic Metabolic Panel; Complete Time: 23:54 [facility] 04/09 23:54 Interpretation: Normal except: GLUC 224; GFR 62; BUN 19. [facility] 04/09 21:27 Order name: CBC with Diff; Complete Time: 23:54 [facility] 04/09 23:55 Interpretation: Within normal limits. [facility] 04/09 21:27 Order name: LFT's; Complete Time: 23:54 [facility] 04/09 23:54 Interpretation: Normal except: ALB 3.3; GLOB 4.2; A/G 0.8. [facility] 04/09 21:27 Order name: Magnesium; Complete Time: 23:54 [facility] 04/09 23:55 Interpretation: Within normal limits: MG 1.8. [facility] 04/09 21:27 Order name: NT PRO-BNP; Complete Time: 23:54 [facility] 04/09 23:55 Interpretation: Normal except: NT PRO-BNP 309. [facility] 04/09 21:27 Order name: PT-INR; Complete Time: 23:54 [facility] 04/09 23:55 Interpretation: Abnormal: PT 12.6. [facility] 04/09 21:27 Order name: Troponin (emerg Dept Use Only); Complete Time: 23:54 [facility] 04/09 23:55 Interpretation: Within normal limits: TROPED < 0.02. [facility] 04/09 21:27 Order name: XRAY Chest (1 view) tw4 04/09 21:27 Order name: EKG; Complete Time: 21:27 tw4 04/09 21:27 Order name: Cardiac monitoring; Complete Time: 21:33 tw4 04/09 21:27 Order name: EKG - Nurse/Tech; Complete Time: 21:30 tw4 04/09 21:27 Order name: IV Saline Lock; Complete Time: 21:58 tw4 04/09 21:27 Order name: Labs collected and sent; Complete Time: 21:58 tw4 04/09 21:27 Order name: O2 Per Protocol; Complete Time: 21:30 tw4 04/09 21:27 Order name: O2 Sat Monitoring; Complete Time: 21:30 tw4 EC:11 Rate is 94 beats/min. Rhythm is regular with Left bundle branch block. QRS [place] is tw4 Normal. MA interval is normal. QRS interval is normal. QT interval is normal. No Q waves. T waves are Normal. No ST changes noted. Clinical impression: NSR w/ Non-specific ST/T Changes. Interpreted by me. Reviewed by me. Administered Medications: No medications were administered Disposition: 04/09/20 23:59 Discharged to Home. Impression: Palpitations. - Condition is Stable. - Discharge Instructions: Palpitations. - Medication Reconciliation Form, Thank You Letter, Antibiotic Education, Prescription Opioid Use form. - Follow up: Private Physician; When: Upon discharge from the Emergency Department; Reason: Recheck today's complaints, Continuance of care, Re-evaluation by your physician. - Problem is new. - Symptoms have improved. Signatures: Dispatcher [employer] [facility] Chap[place] MD MD tw4 Elpidio Irvin RN RN ll1 Marla Kelley RN RN mt2 Corrections: (The following items were deleted from the chart) 00:27 08 23:59 04/09/2020 23:59 Discharged to Home. Impression: Palpitations. Condition is mt2 Stable. Discharge Instructions: Palpitations. Forms are Medication Reconciliation Form, Thank You Letter, Antibiotic Education, Prescription Opioid Use. Follow up: Private Physician; When: Upon discharge from the Emergency Department; Reason: Recheck today's complaints, Continuance of care, Re-evaluation by your physician. Problem is new. Symptoms have improved. tw4
[2020-04-10 00:39] VITALS: TEMP 98.1
[2020-04-10 00:44] VITALS: BP 106/61; O2SAT 96
--- NOTE | 2020-04-10 07:03 | RAD REPORT ---
EXAM DESCRIPTION: RAD - Chest Single View - 04/09/2020 9:56 pm CLINICAL HISTORY: CHEST PAIN, weakness, chest heaviness COMPARISON: July 2019 TECHNIQUE: AP portable chest image was obtained 04/09/2020 9:56 pm . FINDINGS: Lungs are clear. Heart upper normal in size, stable with vasculature normal. No measurable pleural effusion and no pneumothorax. No acute bony abnormality seen. No acute aortic finding. Mccabe otomy wires are in place. Defibrillator is in place. IMPRESSION: No acute cardiopulmonary process. Chest is not clearly different from prior imaging.
== END 2020-04-10 00:27 | disposition home or self-care (01) ==
LOC: ER 20:54
DX: R00.2 Palpitations (principal); I10 Essential (primary) hypertension; E78.5 Hyperlipidemia, unspecified; F17.210 Nicotine dependence, cigarettes, uncomplicated; Z95.1 Presence of aortocoronary bypass graft; Z79.01 Long term (current) use of anticoagulants; Z79.82 Long term (current) use of aspirin; Z95.810 Presence of automatic (implantable) cardiac defibrillator
CPT/HCPCS: 36415; 71045; 80048; 80076; 83735; 83880; 84484; 85025; 85610; 93005; 99283

== ENCOUNTER 2020-07-20 15:18 | Observation (INO) | payer MEDICARE ==
--- OUTSIDE RECORDS SUMMARY | 2020-07-20 15:20 | XMS REPORT | Clinical Summary ---
:1960 Author Organization [facility] Address [address] [place] [address] Care Team Providers Name Role Phone Garrett Primary Care Provider Allergies No Known Allergies Medications Medication Sig Dispensed Refills Start Date End Date Status clopidogrel (PLAVIX) 75 Take 75 mg by 0 Active mg tabletIndications: mouth daily. 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) atorvastatin [...] vascular disease Hyperlipidemia Myocardial infarction Immunizations Name Administration Dates Next Due Influenza Four-QIV Non-PF 5+ YR 06/27/2018 Social History Tobacco Use Types Packs/Day Years Used Date Current Every Day Smoker Cigarettes 1 30 Smokeless Tobacco: Never Used Tobacco Cessation: Ready to Quit: Yes; C ounseling Given: Yes Alcohol Use Drinks/Week oz/Week Comments Yes social Sex Assigned at Date Recorded Not on file Last Filed Vital Signs Not on file Plan of Treatment Health Maintenance Due Date Last Done Comments COLON CANCER SCREENING COLONOSCOPY 1960 PNEUMOCOCCAL VACCINE 0-64 YRS (1 of 1 - PPSV23) 1964 LIPID PANEL 1993 MEDICARE ANNUAL WELLNESS (YEAR 2 or FIRST YEAR if no 09/09/2017 IPPE) INFLUENZA VACCINE (#1) 2020 06/27/2018 Implants Implanted Type Area Memory Care Program Director Device Shelf Model / Identifier Expiration Serial / Date Lot Synergy Cardiovascular N/A: [place] [id number] 04/07/2020 [id number] / Implanted: Qty: 1 on 06/29/2018 by Jose Romero MD at [facility] [employer] / [id number] Description:PROXIMAL LAD Results Not on fileafter 07/20/2019 Insurance Payer Benefit Plan / Subscriber ID Effective Dates Phone Addre ss Type Group [facility]/MEDICARE [id number] 2016-Present MEDICARE MGD CARE COMPLETE Advance Directives For more information, please contact: [phone] Code Status Date Activated Date Inactivated Comments Full Code 06/27/2018 2:44 AM 06/30/2018 4:04 PM This code status was determined by: Patient
--- OUTSIDE RECORDS SUMMARY | 2020-07-20 15:21 | XMS REPORT | Continuity of Care Document ---
:1960 Author Organization [facility] t Address [address] [place] [address] Care Team Providers Name Role Phone Sharpless Primary Care Physician Urbano Attending Clinician Unavailable PATTY Attending Clinician Unavailable Urbano Admitting Clinician Unavailable PATTY Admitting Clinician Unavailable Problems Condition Condition Condition Status Onset Resolution Last Treating Co mments Source Name Details Category Date Date Treatment Clinician Date Angina Angina Disease Active 2017-[address] [facility] [address] pectoris pectoris 0-20 [facility] - 00:[facility]: Medical [address] [place] [address] Coronary Coronary Disease Active [facility] artery artery [facility] Hypertensi Hypertensi Disease Active C [facility] on on [facility] Peripheral Peripheral Disease Active C [facility] vascular vascular [facility] Hyperlipid Hyperlipid Disease Active C [facility] emia emia [facility] Myocardial Myocardial Disease Active C [facility] infarction infarction [facility] Allergies, Adverse Reactions, Alerts This patient has no known allergies or adverse reactions. Social History Social Habit Start Date Stop Date Quantity Comments Source History of tobacco Cigarette Smoker [facility] - use [facility] Sex Assigned At [facility] Cigarettes smoked 2018-06-30 2018-06-30 [facility] - current (pack per 00:00:00 00:00:00 [facility] day) - Reported Cigarette 2018-06-30 2018-06-30 [facility] - pack-years 00:00:00 00:00:00 [facility] Tobacco use and 2018-06-30 2018-06-30 Never used [facility] - exposure 00:00:00 00:00:00 [facility] Alcohol intake 2018-06-30 2018-06-30 Current drinker [facility] S t [facility] - 00:00:00 00:00:00 of alcohol [facility] (finding) Alcohol Comment 2017-07-15 2017-07-[address] [facility] - 00:00[facility]00 [facility]:00 [facility] Smoking Status Start Date Stop Date Source Current every day smoker 2018-06-30 00:00:00 [facility] Medications Ordered Filled Start Stop Current Ordering Indication Dosage Frequency Signature Comments Components Source Medication Medication Date Date Medication? Clinician (SIG) Name Name clopidogrel 2017-09 Yes Coronary 75mg QD Take [address] [facility] [address] (PLAVIX) 75 0-23 artery by mouth [facility]i [facility] - mg tablet 14:03: disease of daily. Medical 59 bypass Center graft of [place] heart with stable angina pectoris (HCC) aspirin 81 2017-09 Yes Coronary 81mg QD Take [address] MG EC 0-23 artery by mouth [facility] - tablet 14:03: disease of daily. Med ical 59 bypass Center graft of [place] heart with stable angina pectoris (HCC) atorvastati 2017-09 Yes 80mg QD Take [address] n (LIPITOR) 0-23 by mouth Luke s - 80 MG 14:03: daily. Medical tablet 59 Center lisinopril 2017-09 Yes 10mg QD Take [address] (PRINIVIL,Z 0-23 by mouth Luke s - ESTRIL) 10 14:03: daily. Medic al MG tablet 59 Center metoprolol 2017-09 Yes 100mg Q.5D Take [address] (LOPRESSOR) 0-23 mg by [facility] - 100 MG 14:03: mouth 2 Medical tablet 59 (two) Center times daily. famotidine 2017-09 Yes 20mg Q.5D Take [address] (PEPCID) 20 0-23 by mouth 2 [facility]i [facility] - MG tablet 14:03: (two) Medical 59 times Center daily. Immunizations Ordered Immunization Filled Immunization Date Status [...] FIRST YEAR if no IPPE)] Future Scheduled [address] [facility] - Test 00:00:00 (procedure) [code = Medical Center 83707617] Future Scheduled [address] [facility] - Test 00:00:00 0-64 YRS (1 of 1 - Medical C enter PPSV23) [code = PNEUMOCOCCAL VACCINE 0-64 YRS (1 of 1 - PPSV23)] Future Scheduled [address] [facility] - Test 00:00:00 malignant neoplasm of Medica l Center colon (procedure) [code = 885313800] Results Test Description Test Time Test Comments [...] code = CA) 8.3 mg/dL 7.8-10.44 N [id number] 03:18:00 Test Item Value Reference Range Interpretation Comments Chemistry (test 0.013 ng/mL < 0.028 code = TROPI-T) Reference Ra nge 0.0 0 - 0.028 ng/mL Negative 0.0 29 - 0.29 ng/mL Indeterminate Greater or Equal to 0.3 ng/mL Strongly sugge [facility] [id number] 23:53:00 Test Item Value Reference Range Interpretation Comments Chemistry (test 0.023 ng/mL < 0.028 code = TROPI-T) Reference Ra nge 0.0 0 - 0.028 ng/mL Negative 0.0 29 - 0.29 ng/mL Indeterminate Greater or Equal to 0.3 ng/mL [facility] [id number] 20:51:00 Test Item Value Reference Range Interpretation Comments Chemistry (test Less than < 0.028 code = TROPI-T) 0.010 ng/mL Reference Ra nge 0. 00 - 0.028 ng/mL Negative 0.029 - 0.29 n g/mL Indeterminate Greater or Equa l to 0.3 ng/mL [facility] [id number] 18:21:00 Test Item Value Reference Range Interpretation [...] Urine Source: Urine VoidedChemistry - BNP, HgbA1c, [id number] 17:24:00 Test Item Value Reference Range Interpretation Comments Chemistry - BNP, HgbA1c, PTHi 59.8 pg/mL 0-100 N (test code = BNP) [id number] 17:22:00 Test Item Value Reference Range Interpretation Comments Chemistry (test 0.010 ng/mL < 0.028 code = TROPI-R) Reference Ra nge 0.0 0 - 0.028 ng/mL Negative 0.0 29 - 0.29 ng/mL Indeterminate Greater or Equal to 0.3 ng/mL Strongly sugge sts DE [id number] 17:20:00 Test Item Value Reference Range Interpretation [...] code 22 U/L 8-55 N = ALT) [id number] 17:20:00 Test Item Value Reference Range Interpretation Comments Chemistry (test code = CK) 75 U/L 30-200 N [id number] 16:55:00 Test Item Value Reference Range Interpretation [...] code = BASO#) 0.1 thou/uL 0.0-0.2 N [id number] 00:59:00 Test Item Value Reference Range Interpretation Comments MAGNESIUM (BEAKER) 2.2 mg/dL 1.6-2.6 Specimen slightly (test code = 627) hemolyzed BASIC METABOLIC [id number] 00:59:00 Test Item Value Reference Range Interpretation [...] PATIEN TS. CBC W/PLT COUNT & AUTO [id number] 00:43:00 Test Item Value Reference Range Interpretation [...] 0-1 PERCENT (BEAKER) (test code = 2801) [id number] 00:20:00 Test Item Value Reference Range Interpretation Comments ACTIVATED CLOTTING TIME 109 sec TEST ED AT [place] [address] (BEAKER) (test code = RACHEL Rios [facility] 441) [id number] 20:55:00 Test Item Value Reference Range Interpretation Comments ACTIVATED CLOTTING TIME 191 sec TEST ED AT [place] [address] [facility] (test code = RACHEL Rios [facility] 441) [id number] 18:15:00 Test Item Value Reference Range Interpretation Comments ACTIVATED CLOTTING TIME 318 sec TEST ED AT [place] [address] (BEAKER) (test code = RACHEL Rios [facility] 441) [id number] POCT-GLUCOSE [id number] 07:26:00 Test Item Value Reference Range Interpretation Comments POC-GLUCOSE METER 113 mg/dL 70-110 H TESTED AT [place] [address] (BEAKER) (test code = RACHEL Rios [facility] [place] 1538) [id number] 07:16:00 Test Item Value Reference Range Interpretation Comments MAGNESIUM (BEAKER) (test code = 2.0 mg/dL 1.6-2.6 627) BASIC METABOLIC [id number] 07:16:00 Test Item Value Reference Range Interpretation [...] S NOT APPLICABLE FOR DIALYSIS PATIEN TS. [id number] 06:58:00 Test Item Value Reference Range Interpretation [...] = 2801) CBC W/PLT COUNT & AUTO [id number] 05:30:00 Test Item Value Reference Range Interpretation [...] (BEAKER) (test code = 2801) BASIC METABOLIC [id number] 05:12:00 Test Item Value Reference Range Interpretation [...] S NOT APPLICABLE FOR DIALYSIS PATIEN TS. [id number] 15:55:00 Test Item Value Reference Range Interpretation Comments PARTIAL THROMBOPLASTIN TIME 51.7 seconds 22.5-36.0 H (BEAKER) (test code = 760) TROPONIN [id number] 14:06:00 Test Item Value Reference Range Interpretation [...] acidosis, acute neurological disease, and persistent tachyarrhythmia.HEMOGLOBIN [id number] 11:57:00 Test Item Value Reference Range Interpretation Comments HEMOGLOBIN A1C (BEAKER) (test code = 7.5 % 4.3-6.1 H 368) [id number] 09:48:00 Test Item Value Reference Range Interpretation Comments PARTIAL THROMBOPLASTIN TIME 48.9 seconds 22.5-36.0 H (BEAKER) (test code = 760) URINALYSIS W/ [id number] 08:06:00 Test Item Value Reference Range Interpretation [...] = 2795) RAD, CHEST, 1 VIEW, NON [id number] 04:11:00Reason for exam:->angina pectorisShould this be performed [...] MDReport Verified Date/Time: 06/27/2018 04:11:12 Reading Location: [place] [address] CT Body Reading Room CREATINE KINASE (CK), TOTAL AND [id number] 03:24:00 Test Item Value Reference Range Interpretation Comments CREATINE KINASE TOTAL (BEAKER) 61 U/L 29-200 (test code = 380) CREATINE KINASE-MB (BEAKER) (test 1.5 ng/mL 0.0-6.6 code = 750) CREATINE KINASE-MB INDEX (BEAKER) 2.5 % (test code = 395) CK-MB Reference Range:<6.7 Normal6.7-10.0 Borderline>10.0 AbnormalTROPONIN [id number] 03:24:00 Test Item Value Reference Range Interpretation [...] acute neurological disease, and persistent tachyarrhythmia.BASIC METABOLIC [id number] 03:18:00 Test Item Value Reference Range Interpretation [...] = 700) CBC W/PLT COUNT & AUTO [id number] 02:58:00 Test Item Value Reference Range Interpretation [...] 0-1 PERCENT (BEAKER) (test code = 2801) [id number] 02:51:00 Test Item Value Reference Range Interpretation Comments PARTIAL THROMBOPLASTIN TIME 48.4 seconds 22.5-36.0 H (BEAKER) (test code = 760) XR Chest 1 View [facility] Pt Name: Pool Aranda [employer] Phys: Ludy Puente PA-C BRET Michele [id number] : 1960 Age: 59 SEX:M [phone] Exam Date: 04/05/19 Status: REG ER Acct: [id number] Loc: ERS Pt Unit #: [id number] Report #: [id number] CC: Ludy Puente PA-C IMAGING SERVICES REPORT Order # Category/Exam [id number] RAD/XR Chest 1 View Portable ([id number]): . Results PORTABLE AP CHEST X-RAY: HISTORY: [...] STEPHAN Dictated Date/Time: 04/05/19 180 Transcribed Date/Time: 04/05/191822
[2020-07-20 16:09] LABS: Absolute Lymphocytes (CBC) 3.2 K/uL (0.7-4.9); Basophils % 0.6 % (0-1.3); Lymphocytes % 48.9 % (15.3-44.8); Protime INR 1.05; RBC Red Blood Cell Count 5.25 M/uL (4.33-5.43)
--- NOTE | 2020-07-20 16:25 | RAD REPORT ---
EXAM DESCRIPTION: Brain Single View07/20/2020 4:00 pm CLINICAL HISTORY: Chest pain COMPARISON: April 2020 FINDINGS: The lungs appear clear of acute infiltrate. The heart is mildly enlarged. Pacemaker leads are in place. Postsurgical changes involve the chest IMPRESSION: No acute abnormalities displayed
[2020-07-20 16:48] LABS: ALT/SGPT 24 U/L (12-78); AST/SGOT 22 U/L (15-37); Albumin 3.8 g/dL (3.4-5.0); Alkaline Phosphatase 113 U/L (45-117); BUN Blood Urea Nitrogen 17 mg/dL (7-18); Bicarbonate 26 mmol/L (21-32); Bilirubin Direct < 0.1 mg/dL (0-0.2); Bilirubin Total 0.4 mg/dL (0.2-1.0); Glucose Level 126 mg/dL (74-106); Magnesium 1.8 mg/dL (1.8-2.4); NT PRO-BNP 544 pg/mL (<125); Potassium 3.8 mmol/L (3.5-5.1); Protein, Total 8.3 g/dL (6.4-8.2); Sodium Level 139 mmol/L (136-145); Troponin (Emerg Dept Use Only) < 0.02 ng/mL (0.0-0.045)
[2020-07-20] MEDS ORDERED: ONDANSETRON 4 MG/2 ML VIAL ONE (17:28)
[2020-07-20] MEDS ORDERED: MORPHINE 4 MG/ML SYR ONE (17:28)
--- NOTE | 2020-07-20 17:39 | EDPHYS ---
Physician Documentation [facility] Name: Pool Aden Age: 60 yrs Sex: Male : 1960 Arrival Date: 07/20/2020 Time: 15:19 Bed 5 Private MD: ED Physician Bishop Shelton HPI: 07/20 15:34 This 60 yrs old Male presents to ER via Ambulatory with complaints of Chest jmm Tightness. 15:34 The patient or guardian reports chest pain that is located primarily in the anterior [facility] chest wall. Onset: acutely, 4 day(s) ago. The pain radiates to jaw. Associated signs and symptoms: Pertinent positives: shortness of breath. The chest pain is described as a pressure. Duration: The patient or guardian reports multiple episodes. Modifying factors: The symptoms are alleviated by nothing. the symptoms are aggravated by nothing. This is a 60 year old male with a history of CAD, NV, HTN that presents to the ED with complaints of chest tightness which radiates up his chest. Symptoms have been ongoing for 4 days. . Historical: - Allergies: 15:25 No Known Allergies; hb - PMHx: 15:25 Hyperlipidemia; pacemaker/defibrillator; Myocardial infarction; Hypertension; hb - PSHx: 15:25 cardiac stent; Angioplasty; CABG; hb - Immunization history:: Adult Immunizations up to date. - Social history:: Smoking status: Patient reports the use of cigarette tobacco products, smokes two packs cigarettes per day. ROS: 15:34 Constitutional: Negative for fever, chills, and weight loss. [facility] 15:34 Cardiovascular: Positive for chest pain. 15:34 Respiratory: Positive for shortness of breath. 15:34 All other systems are negative. Exam: 15:34 Constitutional: This is a well developed, well nourished patient who is awake, alert, jmm and in no acute distress. Head/Face: atraumatic. Eyes: EOMI, no conjunctival erythema appreciated ENT: Moist Mucus Membranes Neck: Trachea midline, Supple Chest/axilla: Normal chest wall appearance and motion. Cardiovascular: Regular rate and rhythm. No edema appreciated Respiratory: Normal respirations, no respiratory distress appreciated Abdomen/GI: Non distended, soft Back: Normal ROM Skin: General appearance color normal MS/ Extremity: Moves all extremities, no obvious deformities appreciated, no edema noted to the lower extremities Neuro: Awake and alert, normal gait Psych: Behavior is normal, Mood is normal, Patient is cooperative and pleasant 15:34 ECG was reviewed by the Attending Physician. Vital Signs: 15:22 BP 132 / 82; Pulse 81; Resp 16; Temp 97.9; Pulse Ox 100% on R/A; Pain 2/10; hb 16:58 BP 156 / 76; Pulse 74; Resp 16 S; Pulse Ox 98% on R/A; Pain 6/10; iw 19:15 BP 122 / 75; Pulse 70; Resp 19; Temp 98.5; Pulse Ox 99% ; rr5 20:30 BP 120 / 79; Pulse 73; Resp 17; Pulse Ox 99% ; rr5 21:41 BP 111 / 70; Pulse 65; Resp 16; Pulse Ox 99% ; rr5 MDM: 16:29 Patient medically screened. [facility] 17:37 The patient was not given aspirin in the Emergency Department. Patient reports taking [facility] aspirin within the past 24 hours. Data reviewed: vital signs, nurses notes, lab test result(s), EKG, radiologic studies, plain films. ED course: I discussed the patient with Dr. Gleason whom accepted admission. . 07/20 15:34 Order name: Basic Metabolic Panel; Complete Time: 16:49 [facility] 07/20 15:34 Order name: CBC with Diff; Complete Time: 16:29 [facility] 07/20 15:34 Order name: LFT's; Complete Time: 16:49 [facility] 07/20 15:34 Order name: Magnesium; Complete Time: 16:49 [facility] 07/20 15:34 Order name: NT PRO-BNP; Complete Time: 16:49 [facility] 07/20 15:34 Order name: PT-INR; Complete Time: 16:29 [facility] 07/20 15:34 Order name: Troponin (emerg Dept Use Only); Complete Time: 16:49 [facility] 07/20 17:46 Order name: Basic Metabolic Panel [facility] 07/20 17:46 Order name: Basic Metabolic Panel [facility] 07/20 17:46 Order name: CBC with Automated Diff [facility] 07/20 17:46 Order name: CBC with Automated Diff [facility] 07/20 17:46 Order name: Troponin I [facility] 07/20 17:46 Order name: Troponin I; Complete Time: 19:17 [facility] 07/20 17:46 Order name: Troponin I [facility] 07/20 15:34 Order name: XRAY Chest (1 view); Complete Time: 16:29 [facility] 07/20 15:34 Order name: EKG; Complete Time: 15:35 [facility] 07/20 15:34 Order name: Cardiac monitoring; Complete Time: 16:57 [facility] 07/20 15:34 Order name: EKG - Nurse/Tech; Complete Time: 15:49 [facility] 07/20 15:34 Order name: IV Saline Lock; Complete Time: 16:13 [facility] 07/20 15:34 Order name: Labs collected and sent; Complete Time: 16:13 [facility] 07/20 17:45 Order name: CONS Physician Consult [facility] 07/20 17:45 Order name: Regular [facility] 07/20 17:46 Order name: EKG Electrocardiogram [facility] 07/20 17:46 Order name: EKG Electrocardiogram [facility] 07/20 17:46 Order name: EKG Electrocardiogram [facility] 07/20 17:46 Order name: EKG Electrocardiogram [facility] 07/20 20:27 Order name: COVID-19 07/20 15:34 Order name: O2 Per Protocol; Complete Time: 16:13 [facility] 07/20 15:34 Order name: O2 Sat Monitoring; Complete Time: 16:13 [facility] EC:34 Rate is 113 beats/min. Reviewed by me. [facility] Administered Medications: 17:20 Drug: morphine 4 mg Route: IVP; Site: right antecubital; iw 17:20 Drug: Zofran (Ondansetron) 4 mg Route: IVP; Site: right antecubital; iw 18:05 Not Given (pt had 2 full strength asp[irin this morning): Aspirin Chewable Tablet 324 iw mg PO once; 81 mg tablets x 4 Disposition: 07/21 05:06 Co-signature as Attending Physician, Bishop Shelton MD I agree with the assessment and kdr plan of care. Disposition: 07/20/20 17:38 Hospitalization ordered by J Luis Gleason for Observation. Preliminary diagnosis is Chest pain, unspecified. - Bed requested for Telemetry/MedSurg (observation). - Status is Observation. rr5 - Condition is Stable. - Problem is new. - Symptoms are unchanged. Signatures: Dispatcher [employer] EDBishop Barnett MD MD [facility] Brad Blanchard PA PA [facility] Kendra Inman, ZINA IZAGUIRRE Mercedes Gonzalez, ZINA RN Courtney Amezcua, ZINA IZAGUIRRE Balaji Brizuela, ZINA RN rr5 Corrections: (The following items were deleted from the chart) 07/20 20:38 17:38 Hospitalization Ordered by J Luis Gleason MD for Observation. Preliminary cg diagnosis is Chest pain, unspecified. Bed requested for Telemetry/MedSurg (observation). Status is Observation. Condition is Stable. Problem is new. Symptoms are unchanged. [facility] 21:31 20:38 07/20/2020 17:38 Hospitalization Ordered by J Luis Gleason MD for Observation. rr5 Preliminary diagnosis is Chest pain, unspecified. Bed requested for Telemetry/MedSurg (observation). Status is Observation. Condition is Stable. Problem is new. Symptoms are unchanged. cg
--- NOTE | 2020-07-20 17:39 | ER ---
Nurse's Notes [facility] Name: Pool Aden Age: 60 yrs Sex: Male : 1960 Arrival Date: 07/20/2020 Time: 15:19 Bed 5 Private MD: Diagnosis: Chest pain, unspecified Presentation: 07/20 15:22 Chief complaint: Intermittent substernal chest tightness and SOB x 3-4 days, became hb constant today. Pain was partially relieved by Nitro x 1. Coronavirus screen: At this time, the client does not indicate any symptoms associated with coronavirus-19. Ebola Screen: No symptoms or risks identified at this time. Initial Sepsis Screen: Does the patient meet any 2 criteria? No. Patient's initial sepsis screen is negative. Does the patient have a suspected source of infection? No. Patient's initial sepsis screen is negative. Risk Assessment: Do you want to hurt yourself or someone else? Patient reports no desire to harm self or others. Onset of symptoms was July 16, 2020. 15:22 Method Of Arrival: Ambulatory hb 15:22 Acuity: SUSAN 3 hb Historical: - Allergies: 15:25 No Known Allergies; hb - PMHx: 15:25 Hyperlipidemia; pacemaker/defibrillator; Myocardial infarction; Hypertension; hb - PSHx: 15:25 cardiac stent; Angioplasty; CABG; hb - Immunization history:: Adult Immunizations up to date. - Social history:: Smoking status: Patient reports the use of cigarette tobacco products, smokes two packs cigarettes per day. Screenin:02 Abuse screen: Denies threats or abuse. Denies injuries from another. Nutritional iw screening: No deficits noted. Tuberculosis screening: No symptoms or risk factors identified. Fall Risk None identified. Assessment: 16:13 Reassessment: Patient appears in no apparent distress at this time. Patient and/or iw family updated on plan of care and expected duration. Pain level reassessed. Patient is alert, oriented x 3, equal unlabored respirations, skin warm/dry/pink. 16:57 Reassessment: Patient appears in no apparent distress at this time. Pain: Complains of iw pain in mid-sternal area Pain does not radiate. Pain currently is 6 out of 10 on a pain scale. Quality of pain is described as burning, pressure, Pain began. Cardiovascular: Patient's skin is warm and dry. 17:08 Reassessment: verbal order received for Morphine 4 mg IVP and Zofran 4 mg IVP, per iw CORTEZ [place]. 17:33 Reassessment: Patient appears in no apparent distress at this time. Patient and/or iw family updated on plan of care and expected duration. Pain level reassessed. pt has been medicated for pain, family at bedside. 19:15 General: Appears in no apparent distress. comfortable, Behavior is calm, cooperative, rr5 appropriate for age, awaiting for room assignment. Pain: Complains of pain in chest Quality of pain is described as burning, pressure, Pain began gradually. Neuro: Level of Consciousness is awake, alert, obeys commands, Oriented to person, place, time. Cardiovascular: with pacemaker. Respiratory: Airway is patent Respiratory effort is even, unlabored, Respiratory pattern is regular, symmetrical. GI: No signs and/or symptoms were reported involving the gastrointestinal system. : No signs and/or symptoms were reported regarding the genitourinary system. EENT: No signs and/or symptoms were reported regarding the EENT system. Derm: Skin is intact, is healthy with good turgor, Skin temperature is warm. Musculoskeletal: Capillary refill < 3 seconds. 20:15 Reassessment: Patient appears in no apparent distress at this time. Patient and/or rr5 family updated on plan of care and expected duration. Pain level reassessed. Patient is alert, oriented x 3, equal unlabored respirations, skin warm/dry/pink. 21:30 Reassessment: Patient appears in no apparent distress at this time. Patient is alert, rr5 oriented x 3, equal unlabored respirations, skin warm/dry/pink. awake alert vital signs taken and recorded with IV cannula intact. Vital Signs: 15:22 BP 132 / 82; Pulse 81; Resp 16; Temp 97.9; Pulse Ox 100% on R/A; Pain 2/10; hb 16:58 BP 156 / 76; Pulse 74; Resp 16 S; Pulse Ox 98% on R/A; Pain 6/10; iw 19:15 BP 122 / 75; Pulse 70; Resp 19; Temp 98.5; Pulse Ox 99% ; rr5 20:30 BP 120 / 79; Pulse 73; Resp 17; Pulse Ox 99% ; rr5 21:41 BP 111 / 70; Pulse 65; Resp 16; Pulse Ox 99% ; rr5 ED Course: 15:19 Patient arrived in ED. ds1 15:24 Triage completed. hb 15:25 Arm band placed on. hb 15:33 Brad Blanchard PA is PHCP. [facility] 15:33 Bishop Shelton MD is Attending Physician. [facility] 15:37 Kendra Inman, RN is Primary Nurse. iw 15:48 EKG done, by ED staff, reviewed by Brad TORO. [facility] 16:00 XRAY Chest (1 view) In Process Unspecified. EDMS 16:02 Initial lab(s) drawn, by nv, sent to lab. Inserted saline lock: 20 gauge in left iw antecubital area, using aseptic technique. Blood collected. 17:38 J Luis Gleason MD is Hospitalizing Provider. [facility] 18:34 Troponin I Sent. [facility] 19:15 Patient has correct armband on for positive identification. Bed in low position. Call rr5 light in reach. cigarette lighter repairer on. Pulse ox on. NIBP on. 20:30 covid. rr5 21:10 No provider procedures requiring assistance completed. Patient admitted, IV remains in rr5 place. intact, No redness/swelling at site. Patient maintains SpO2 saturation greater than 95% on room air. Administered Medications: 17:20 Drug: morphine 4 mg Route: IVP; Site: right antecubital; iw 17:20 Drug: Zofran (Ondansetron) 4 mg Route: IVP; Site: right antecubital; iw 18:05 Not Given (pt had 2 full strength asp[irin this morning): Aspirin Chewable Tablet 324 iw mg PO once; 81 mg tablets x 4 Outcome: 17:38 Decision to Hospitalize by Provider. [facility] 21:30 Admitted to Med/surg accompanied by nurse, via wheelchair, room 214, with chart, Report rr5 called to carmi 21:30 Condition: stable rr5 21:30 Instructed on the need for admit. 21:31 Patient left the ED. rr5 Signatures: Dispatcher [employer] EDMS Brad Blanchard PA PA [facility] Katie Walker ds1 Kendra Inman, ZINA IZAGUIRRE Courtney Amezcua RN RN Johanny Kemp 3 Brizuela, Balaji, RN RN rr5
[2020-07-20] MEDS ORDERED: ACETAMINOPHEN 500 MG TAB PO PRN (17:43)
[2020-07-20] MEDS ORDERED: MORPHINE 4 MG/ML SYR IV PRN (17:43)
[2020-07-20] MEDS ORDERED: ONDANSETRON 4 MG/2 ML VIAL IV PRN (17:43)
[2020-07-20] MEDS: HYDROCODONE/APAP 5/325 MG TAB PO PRN (22:45)
[2020-07-21 00:11] VITALS: BMI 38.2
[2020-07-21 05:54] LABS: Absolute Lymphocytes (CBC) 2.8 K/uL (0.7-4.9); Basophils % 0.3 % (0-1.3); Hematocrit 41.1 % (39.6-49.0); Lymphocytes % 47.3 % (15.3-44.8); MPV 8.8 fL (7.6-11.3)
[2020-07-21 06:04] LABS: Potassium 3.9 mmol/L (3.5-5.1)
[2020-07-21] MEDS ORDERED: ASPIRIN EC 81 MG TAB PO SCH (09:00)
[2020-07-21] MEDS: METOPROLOL TAR 50 MG TAB PO SCH ×2 (16:48→20:17)
[2020-07-21] MEDS: HYDROCODONE/APAP 5/325 MG TAB PO PRN (20:17)
[2020-07-21] MEDS ORDERED: ATORVASTATIN 80 MG TAB PO SCH (21:00)
--- NOTE | 2020-07-21 22:22 | HP ---
Date of Admission: 07/20/2020 Chief Complaint: Chest discomfort. History Of Present Illness: The patient presented to the emergency room stating he had a 2 to 3 day history of some funny feelings in the central part of his chest, was not associated with any other sy mptoms; however, due to the persistence and the increased frequency of this, he decided to come to [facility] emergency room to be evaluated. In the ER, there were no significant physical findings and cardiac enzymes were negative. However, as mentioned, it started 3 or 4 days earlier and his EKG was basica lly normal other than slight tachycardia on telemetry. The patient states he had a pacemaker defibri llator for a while now. He is not sure the last time he had been checked, some question whether in f act that had been done. Past History: The patient has significant coronary artery disease necessitating surgical procedures and stents, some of presentation which are typical, some of which are atypical. The patient also has a history of hyperlipidemia and type 2 diabetes was controlled fairly well on medication and diet, h ypertension and states has been controlled fairly as well. Social History: Nonsmoker. Nondrinker. Family History: Coronary artery disease. Physical Examination: General: The patient is a well-built elderly male, in no acute distress with stable vital signs. Head and Neck: Normocephalic. Pupils equal and reactive to light and accommodation. Fundi negative . Trachea midline. Thyroid not palpable. ENT: Negative. Chest: Clear to P and A. Cardiovascular: PMI in the midclavicular line. Heart: Sounds normal. Peripheral pulses present and equal bilaterally. Abdomen: No organomegaly. Bowel sounds present. Extremities: Good tone and movement bilaterally. Reflexes physiologic. Rectal: Deferred. Impression: 1.Chest pain, atypical. 2.Hypertension, controlled. 3.Elh-wcuytcu-obaeccadh diabetes mellitus, controlled. 4.Hyperlipidemia. Plan: The patient will be admitted, placed on telemetry. Aspirin will be given. He was seen by Stan max during his hospital stay. HR/MODL Voice ID: [id number]
--- NOTE | 2020-07-22 02:47 | PN ---
Date of Progress Note: 07/21/2020 The patient states he has had minimal episodes that related to what brought him to the [facility] room; however, there has been some with no significant telemetric changes. However, he has be en basically at bedrest, instructed to increase his activity. Discussion of the case with cardiologi who knows him quite well, suggested putting him back on beta crystal in the form of metoprolol, wh ich I suspect he has been on in the past, but not sure why it was discontinued taking it. In any emmanuel nt, put him on a couple doses, keep him overnight and monitor him, and if there are no significant ch anges, discharge him in the a.m. The patient apparently presented to the car rental manager a number of wee ks ago with somewhat similar symptoms. No specific diagnosis was made at that time. He was actually placed on a monitor as an outpatient, which he stated back a couple of days ago. Of cour se, these results are not available to us at the present time. In fact, he remains asymptomatic and we will keep him on beta-crystal until the monitor results are available. HR/MODL Voice ID: [id number] Report ID: [id number]
[2020-07-22 04:52] VITALS: BP 104/56
[2020-07-22] MEDS ORDERED: METFORMIN HCL 500 MG TAB PO SCH (08:00)
[2020-07-22] MEDS: METOPROLOL TAR 50 MG TAB PO SCH (08:09)
[2020-07-22] MEDS ORDERED: ASPIRIN EC 325 MG TABLET PO SCH (09:00)
[2020-07-22] MEDS ORDERED: lisinopriL 20 MG TAB PO SCH (09:00)
[2020-07-22] MEDS ORDERED: CLOPIDOGREL 75 MG TABLET PO SCH (09:00)
[2020-07-22 09:13] VITALS: TEMP 97
[2020-07-22 10:17] VITALS: O2SAT 97
--- NOTE | 2020-07-22 19:15 | CON ---
Date of Consultation: 07/21/2020 Reason For Consultation: Chest pain and presyncope. History Of Present Illness: Mr. Aden was admitted to Dr. Gleason. Mr. Aden is a 60-year-old whi te male, who is very well known to me from previous office visits and admissions. He has a very comp licated past medical history. He has had bypass surgery twice and he is not a candidate for any furt her bypass surgery. His PERLA was used. His NATACHA was used. His vein grafts were used. He has had m ultiple angioplasties and stent on the ostial and proximal LAD. His last intervention was about a ye ar ago. He has been having these episodes where he has a fainting sensation, flushing sensation that starts in the chest and goes up to the neck with and without exertion with diaphoresis and nausea, b ut no syncope. I had ordered an event monitor on him a week ago. He had just sent his monitor to [employer] that were read and interpreted, but have not received it as of this dictation. He denied P ND, orthopnea, pedal edema, palpitation, or syncope. He is already ruled out for PA. My biggest con cern is that he may be having atrial fibrillation, atrial flutter, or ventricular tachycardia knowing his previous anatomy. He does have a pacemaker and defibrillator, but those have not shocked him ye t. Investigation of the pacemaker and defibrillator are pending in my office in the near future. Allergies: NONE. Past Medical History: Include CAD, status post CABG, status post multiple stents. He has history of tobacco abuse, hypertension, dyslipidemia, pacemaker defibrillator. Allergies: NONE. Family History: Negative. Social History: Positive for tobacco. Review of Systems: Noncontributory. Medications: At home include lisinopril, aspirin, Plavix, Lipitor, and metformin. Physical Examination: Vital Signs: Stable. He was afebrile. HEENT: Negative. Neck: Supple. No bruit. He was in sinus rhythm. Chest: Clear. Cardiac: Normal. Abdomen: Benign. Extremities: No clubbing, cyanosis, or edema. Diagnostic Data: His EKG was nonspecific. All his laboratory evaluation was fairly unremarkable. H is glucose was 126. BNP was 544. His troponin is negative. Impression And Plan: I am concerned that Mr. Aden's episodes of flushing sensation and presyncope with and without exertion may be secondary to an arrhythmia, such as atrial fibrillation, atrial flut ter, or ventricular tachycardia. Pacemaker defibrillator check is pending. His event monitor has be en sent and we do not have the result for that yet. He has not had any arrhythmias on telemetry. It is remotely possible that he may be having an atypical type of angina, although he states that it fe els different than his usual angina. His last catheterization and stents were about a year ago. I w ill continue his present regimen. I am going to start him on metoprolol 50 b.i.d. and he can go home if he does not have any further episodes and I will evaluate him more as an outpatient. The case wa s discussed with Dr. Gleason. His blood pressure, diabetes, and dyslipidemia are very well controlbrittney SHAH/KEATON Voice ID: [id number] Report ID: [id number]
--- NOTE | 2020-07-22 21:24 | PN ---
Date of Progress Note: 07/22/2020 Mr. Aden had came in with nonspecific symptoms of some chest discomfort with flushing sensation and weakness that covers his entire body. His flushing sensation starts in the chest and goes up to the neck with and without exertion. Arrhythmias is being ruled out. So far on monitor, he did not show anything. We have an event monitor pending. We have an AICD and defibrillator check and pacemaker check pending for next week in the office. He was started on metoprolol 50 b.i.d. No further episod es since we started the metoprolol. The patient wants to go home. If all the monitors are negative, I am going to do another catheterization on him. He will see me in the office next week. Continue his home medications otherwise except for the metoprolol. PABLO/KEATON Voice ID: [id number] Report ID: [id number]
--- NOTE | 2020-07-23 07:47 | EKG ---
Test Date: 2020-07-21 Test Time: 10:50:30 Senior Logistics Manager: ROSENDO MEASUREMENT RESULTS: Intervals: Rate: 60 NE: 142 QRSD: 120 QT: 482 QTc: 482 [place]: P: 59 NE: 142 QRS: 72 T: 125 INTERPRETIVE STATEMENTS: Electronic atrial pacemaker Nonspecific intraventricular conduction delay Nonspecific ST abnormality Abnormal ECG Compared to ECG 07/20/2020 15:45:02 Intraventricular conduction delay now present ST (T wave) deviation now present Ventricular-paced complex(es) or rhythm no longer present Electronically Signed On 07-23-20 07:41:27 BUSHEL GIRL by Matty Alejandro
--- NOTE | 2020-07-23 07:49 | EKG ---
Test Date: 2020-07-20 Test Time: 15:45:02 Solar Electric Installer: NITA MEASUREMENT RESULTS: Intervals: Rate: 113 HI: QRSD: 182 QT: 434 QTc: 595 [place]: P: HI: QRS: -89 T: 84 INTERPRETIVE STATEMENTS: Electronic ventricular pacemaker Compared to ECG 04/09/2020 21:26:14 Sinus rhythm no longer present Left bundle-branch block no longer present ST (T wave) deviation no longer present Electronically Signed On 07-23-20 07:41:53 STUDENT ACCOUNTS MANAGER by Matty Alejandro
== END 2020-07-22 10:59 | disposition home or self-care (01) ==
LOC: ER 15:18 → ERHOLD 17:42 → 2ND 21:20
PROVIDERS: ADMIT Family Medicine; ATTEND Family Medicine
DX: U07.1 COVID-19 (principal); R07.89 Other chest pain; Z95.810 Presence of automatic (implantable) cardiac defibrillator; I25.10 Atherosclerotic heart disease of native coronary artery without angina pectoris; Z95.1 Presence of aortocoronary bypass graft; Z95.5 Presence of coronary angioplasty implant and graft; I10 Essential (primary) hypertension; Z79.02 Long term (current) use of antithrombotics/antiplatelets; Z79.82 Long term (current) use of aspirin; E11.9 Type 2 diabetes mellitus without complications; E78.5 Hyperlipidemia, unspecified; Z79.84 Long term (current) use of oral hypoglycemic drugs; I25.2 Old myocardial infarction; F17.210 Nicotine dependence, cigarettes, uncomplicated
CPT/HCPCS: 93005 ×2; 85025 ×2; 80048 ×2; 36415; 83735; 85610; 80076; 84484 ×3; 83880; 71045; 96375; 96374; 99285; U0002; J2405

== ENCOUNTER 2020-07-28 22:40 | Observation (INO) | payer MEDICARE ==
--- OUTSIDE RECORDS SUMMARY | 2020-07-28 22:41 | XMS REPORT | Clinical Summary ---
:1960 Author Organization [facility] Address [address] [place] [address] Care Team Providers Name Role Phone Garrett Primary Care Provider Allergies No Known Allergies Medications Medication Sig Dispensed Refills Start Date End Date Status clopidogrel (PLAVIX) 75 Take 75 mg by 0 Active mg tabletIndications: mouth daily. 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) atorvastatin [...] (#1) 2020 06/27/2018 Implants Implanted Type Area Figure Model Device Shelf Model / Identifier Expiration Serial / Date Lot Synergy Cardiovascular N/A: [place] [id number] 04/07/2020 [id number] / Implanted: Qty: 1 on 06/29/2018 by Jose Romero MD at [facility] Heart [employer] / [id number] Description:PROXIMAL LAD Results Not on fileafter 07/28/2019 Insurance Payer Benefit Plan / Subscriber ID Effective Dates Phone Addre ss Type Group [facility]/MEDICARE [id number] 2016-Present MEDICARE MGD CARE COMPLETE Advance Directives For more information, please contact: [phone] Code Status Date Activated Date Inactivated Comments Full Code 06/27/2018 2:44 AM 06/30/2018 4:04 PM This code status was determined by: Patient
--- OUTSIDE RECORDS SUMMARY | 2020-07-28 22:42 | XMS REPORT | Continuity of Care Document ---
:1960 Author Organization [facility] t Address [address] [place] [address] Care Team Providers Name Role Phone Sharpless Primary Care Physician Urbano Attending Clinician Unavailable PATTY Attending Clinician Unavailable Urbano Admitting Clinician Unavailable PATTY Admitting Clinician Unavailable Problems Condition Condition Condition Status Onset Resolution Last Treating Co mments Source Name Details Category Date Date Treatment Clinician Date Angina Angina Disease Active 2017-[address] [facility] p[facility]is pectoris 0-20 [facility] - [facility]: Medical [address] [place] [address] Coronary Coronary Disease Active [facility] artery [facility] Hypertensi Hypertensi Disease Active [facility] Peripheral Peripheral Disease Active [facility] vascular vascular [facility] Hyperlipid Hyperlipid Disease Active [facility] em[facility] emia [facility] Myocardial Myocardial Disease Active C [facility] infarction infarction [facility] Allergies, Adverse Reactions, Alerts This patient has no known allergies or adverse reactions. Social History Social Habit Start Date Stop Date Quantity Comments Source History of tobacco Cigarette Smoker [facility] - use [facility] Sex Assigned At [facility] Cigarettes smoked 2018-06-30 2018-06-30 [facility] - current (pack per 00:00:00 00:00:00 [facility] day) - Reported Cigarette 2018-06-30 2018-06-30 [facility] - pack-years 00:00:00 00:00:00 [facility] Tobacco use and 2018-06-30 2018-06-30 Never used [facility] - exposure 00:00:00 00:00:00 [facility] Alcohol intake 2018-06-30 2018-06-30 Current drinker [facility] - 00:00:00 00:00:00 of alcohol [facility] (finding) Alcohol Comment 2017-07-15 2017-07-[address] [facility] - 00:00:00 00:00:00 [facility] Center Smoking Status Start Date Stop Date Source Current every day smoker 2018-06-30 00:00:00 [facility] Medications Ordered Filled Start Stop Current Ordering Indication Dosage Frequency Signature Comments Components Source Medication Medication Date Date Medication? Clinician (SIG) Name Name clopidogrel 2017-09 Yes Coronary 75mg QD Take [address] (PLAVIX) 75 0-23 artery by mouth [facility] - mg tablet 14:03: disease of daily. Medical [facility] bypass Center graft of [place] heart with stable angina pectoris (HCC) aspirin 81 2017-09 Yes Coronary 81mg QD Take [address] [facility] EC 0-23 artery by mouth [facility] - tablet 14:03: disease of daily. Med ical 59 bypass Center graft of [place] heart with stable angina pectoris (HCC) atorvastati [...] Test 00:00:00 (procedure) [code = Medical Center 18615109] Future Scheduled [address] [facility] - Test 00:00:00 0-64 YRS (1 of 1 - Medical C enter PPSV23) [code = PNEUMOCOCCAL VACCINE 0-64 YRS (1 of 1 - PPSV23)] Future Scheduled [address] [facility] - Test 00:00:00 malignant neoplasm of Medica l Center colon (procedure) [code = 086442181] Results Test Description Test Time Test Comments [...] code = CA) 8.3 mg/dL 7.8-10.44 N [id number] 03:18:00 Test Item Value Reference Range Interpretation Comments Chemistry (test 0.013 ng/mL < 0.028 code = TROPI-T) Reference Ra nge 0.0 0 - 0.028 ng/mL Negative 0.0 29 - 0.29 ng/mL Indeterminate Greater or Equal to 0.3 ng/mL Strongly sugge [facility] [id number] 23:53:00 Test Item Value Reference Range Interpretation Comments Chemistry (test 0.023 ng/mL < 0.028 code = TROPI-T) Reference Ra nge 0.0 0 - 0.028 ng/mL Negative 0.0 29 - 0.29 ng/mL Indeterminate Greater or Equal to 0.3 ng/mL [facility] [id number] 20:51:00 Test Item Value Reference Range Interpretation Comments Chemistry (test Less than < 0.028 code = TROPI-T) 0.010 ng/mL Reference Ra nge 0. 00 - 0.028 ng/mL Negative 0.029 - 0.29 n g/mL Indeterminate Greater or Equa l to 0.3 ng/[facility] [id number] 18:21:00 Test Item Value Reference Range Interpretation [...] Urine Source: Urine VoidedChemistry - BNP, HgbA1c, [id number] 17:24:00 Test Item Value Reference Range Interpretation Comments Chemistry - BNP, HgbA1c, PTHi 59.8 pg/mL 0-100 N (test code = BNP) [id number] 17:22:00 Test Item Value Reference Range Interpretation Comments Chemistry (test 0.010 ng/mL < 0.028 code = TROPI-R) Reference Ra nge 0.0 0 - 0.028 ng/mL Negative 0.0 29 - 0.29 ng/mL Indeterminate Greater or Equal to 0.3 ng/mL Strongly sugge [facility] [id number] 17:20:00 Test Item Value Reference Range Interpretation [...] code 22 U/L 8-55 N = ALT) [id number] 17:20:00 Test Item Value Reference Range Interpretation Comments Chemistry (test code = CK) 75 U/L 30-200 N [id number] 16:55:00 Test Item Value Reference Range Interpretation [...] code = BASO#) 0.1 thou/uL 0.0-0.2 N [id number] 00:59:00 Test Item Value Reference Range Interpretation Comments MAGNESIUM (BEAKER) 2.2 mg/dL 1.6-2.6 Specimen slightly (test code = 627) hemolyzed BASIC METABOLIC [id number] 00:59:00 Test Item Value Reference Range Interpretation [...] PATIEN TS. CBC W/PLT COUNT & AUTO [id number] 00:43:00 Test Item Value Reference Range Interpretation [...] 0-1 PERCENT (BEAKER) (test code = 2801) [id number] 00:20:00 Test Item Value Reference Range Interpretation Comments ACTIVATED CLOTTING TIME 109 sec TEST ED AT [place] [address] (BEAKER) (test code = RACHEL Rios [facility] 441) [id number] 20:55:00 Test Item Value Reference Range Interpretation Comments ACTIVATED CLOTTING TIME 191 sec TEST ED AT [place] [address] [facility] (test code = RACHEL Rios [facility] 441) [address] [id number] 18:15:00 Test Item Value Reference Range Interpretation Comments ACTIVATED CLOTTING TIME 318 sec TEST ED AT [place] [address] (BEAKER) (test code = RACHEL Rios [facility] 441) [address] POCT-GLUCOSE [id number] 07:26:00 Test Item Value Reference Range Interpretation Comments POC-GLUCOSE METER 113 mg/dL 70-110 H TESTED AT [place] [address] (BEAKER) (test code = RACHEL Rios [employer] [place] 1538) [address] [id number] 07:16:00 Test Item Value Reference Range Interpretation Comments MAGNESIUM (BEAKER) (test code = 2.0 mg/dL 1.6-2.6 627) BASIC METABOLIC [id number] 07:16:00 Test Item Value Reference Range Interpretation [...] S NOT APPLICABLE FOR DIALYSIS PATIEN TS. [id number] 06:58:00 Test Item Value Reference Range Interpretation [...] = 2801) CBC W/PLT COUNT & AUTO [id number] 05:30:00 Test Item Value Reference Range Interpretation [...] (BEAKER) (test code = 2801) BASIC METABOLIC [id number] 05:12:00 Test Item Value Reference Range Interpretation [...] S NOT APPLICABLE FOR DIALYSIS PATIEN TS. [id number] 15:55:00 Test Item Value Reference Range Interpretation Comments PARTIAL THROMBOPLASTIN TIME 51.7 seconds 22.5-36.0 H (BEAKER) (test code = 760) TROPONIN [id number] 14:06:00 Test Item Value Reference Range Interpretation [...] acidosis, acute neurological disease, and persistent tachyarrhythmia.HEMOGLOBIN [id number] 11:57:00 Test Item Value Reference Range Interpretation Comments HEMOGLOBIN A1C (BEAKER) (test code = 7.5 % 4.3-6.1 H 368) [id number] 09:48:00 Test Item Value Reference Range Interpretation Comments PARTIAL THROMBOPLASTIN TIME 48.9 seconds 22.5-36.0 H (BEAKER) (test code = 760) URINALYSIS W/ [id number] 08:06:00 Test Item Value Reference Range Interpretation [...] = 2795) RAD, CHEST, 1 VIEW, NON [id number] 04:11:00Reason for exam:->angina pectorisShould this be performed [...] MDReport Verified Date/Time: 06/27/2018 04:11:12 Reading Location: [place] [address] [place] Body Reading Room CREATINE KINASE (CK), TOTAL AND [id number] 03:24:00 Test Item Value Reference Range Interpretation Comments CREATINE KINASE TOTAL (BEAKER) 61 U/L 29-200 (test code = 380) CREATINE KINASE-MB (BEAKER) (test 1.5 ng/mL 0.0-6.6 code = 750) CREATINE KINASE-MB INDEX (BEAKER) 2.5 % (test code = 395) CK-MB Reference Range:<6.7 Normal6.7-10.0 Borderline>10.0 AbnormalTROPONIN [id number] 03:24:00 Test Item Value Reference Range Interpretation [...] acute neurological disease, and persistent tachyarrhythmia.BASIC METABOLIC [id number] 03:18:00 Test Item Value Reference Range Interpretation [...] = 700) CBC W/PLT COUNT & AUTO [id number] 02:58:00 Test Item Value Reference Range Interpretation [...] 0-1 PERCENT (BEAKER) (test code = 2801) [id number] 02:51:00 Test Item Value Reference Range Interpretation Comments PARTIAL THROMBOPLASTIN TIME 48.4 seconds 22.5-36.0 H (BEAKER) (test code = 760) XR Chest [address] [facility] Pt Name: Pool Aranda [address]fgy Phys: Ludy Puente PA-C [place] [id number] : 1960 Age: 59 SEX:M [phone] Exam Date: 04/05/19 Status: REG ER Acct: [id number] Loc: ERS Pt Unit #: [id number] Report #: [id number] CC: Ludy Puente PA-C IMAGING SERVICES REPORT Order # Category/Exam [id number] RAD/XR Chest 1 View Portable ([id number]): . Results PORTABLE AP CHEST X-RAY: HISTORY: [...]
[2020-07-28] MEDS ORDERED: ASPIRIN 81 MG CHEWABLE TABLET ONE (23:24)
[2020-07-28 23:32] LABS: Basophils % 0.6 % (0-1.3); Hematocrit 41.9 % (39.6-49.0); Lymphocytes % 39.7 % (15.3-44.8); MPV 9.2 fL (7.6-11.3); RBC Red Blood Cell Count 4.87 M/uL (4.33-5.43)
[2020-07-28 23:34] LABS: Protime INR 0.97
[2020-07-29 00:01] LABS: ALT/SGPT 25 U/L (12-78); AST/SGOT 20 U/L (15-37); Albumin 3.3 g/dL (3.4-5.0); Alkaline Phosphatase 97 U/L (45-117); BUN Blood Urea Nitrogen 17 mg/dL (7-18); Bicarbonate 27 mmol/L (21-32); Bilirubin Direct 0.1 mg/dL (0-0.2); Bilirubin Total 0.2 mg/dL (0.2-1.0); Glucose Level 133 mg/dL (74-106); NT PRO-BNP 1127 pg/mL (<125); Protein, Total 7.4 g/dL (6.4-8.2); Sodium Level 144 mmol/L (136-145); Troponin (Emerg Dept Use Only) < 0.02 ng/mL (0.0-0.045)
[2020-07-29] MEDS ORDERED: MORPHINE 2 MG/ML SYR ONE (00:38)
--- NOTE | 2020-07-29 00:45 | ER ---
Nurse's Notes [facility] Name: Pool Aden Age: 60 yrs Sex: Male : 1960 Arrival Date: 07/28/2020 Time: 22:42 Bed 20 Private MD: Diagnosis: Chest pain, unspecified Presentation: 07/28 22:54 Chief complaint: Patient states: chest pain started this evening. Took 2 nitro at home dm5 within an hour and last one was 20 min [employer]. Seen here from last for similar symptoms and admitted. Coronavirus screen: Client denies travel out of the [place] in the last 14 days. At this time, the client does not indicate any symptoms associated with coronavirus-19. Ebola Screen: Patient negative for fever greater than or equal to 101.5 degrees Fahrenheit, and additional compatible Ebola Virus Disease symptoms Patient denies exposure to infectious person. Patient denies travel to an Ebola-affected area in the 21 days before illness onset. No symptoms or risks identified at this time. Initial Sepsis Screen: Does the patient meet any 2 criteria? No. Patient's initial sepsis screen is negative. Does the patient have a suspected source of infection? No. Patient's initial sepsis screen is negative. Risk Assessment: Do you want to hurt yourself or someone else? Patient reports no desire to harm self or others. Onset of symptoms was July 28, 2020. 22:54 Method Of Arrival: Ambulatory dm5 22:54 Acuity: SUSAN 2 dm5 Triage Assessment: 22:57 General: Appears in no apparent distress. Behavior is cooperative, anxious. Pain: dm5 Complains of pain in mid-sternal area Pain does not radiate. Pain currently is 5 out of 10 on a pain scale. Neuro: Level of Consciousness is awake, alert, obeys commands, Oriented to person, place, time, situation. Cardiovascular: Reports chest pain. Respiratory: Airway is patent Respiratory effort is even, unlabored. Derm: Skin is pink, warm \T\ dry. Historical: - Allergies: 22:57 No Known Allergies; dm5 Screenin:00 Abuse screen: Denies threats or abuse. Nutritional screening: No deficits noted. jb4 Tuberculosis screening: No symptoms or risk factors identified. Fall Risk None identified. Assessment: 23:00 General: Appears in no apparent distress. uncomfortable, Behavior is calm, cooperative, jb4 appropriate for age. Pain: Complains of pain in mid-sternal area Pain does not radiate. Pain currently is 7 out of 10 on a pain scale. Quality of pain is described as Muscle strain Pain began 1 hour ago. Is intermittent. Neuro: Level of Consciousness is awake, alert, obeys commands, Oriented to person, place, time, situation. Cardiovascular: Reports chest pain, Patient's skin is warm and dry. Respiratory: Airway is patent Respiratory effort is even, unlabored, Respiratory pattern is regular, symmetrical. GI: No signs and/or symptoms were reported involving the gastrointestinal system. : No signs and/or symptoms were reported regarding the genitourinary system. EENT: No signs and/or symptoms were reported regarding the EENT system. Derm: Skin is intact, Skin is pink, warm \T\ dry. Musculoskeletal: Circulation, motion, and sensation intact. Range of motion: intact in all extremities. 07/29 00:00 Reassessment: Patient appears in no apparent distress at this time. Patient and/or jb4 family updated on plan of care and expected duration. Pain level reassessed. Patient is alert, oriented x 3, equal unlabored respirations, skin warm/dry/pink. 01:00 Reassessment: Patient appears in no apparent distress at this time. Patient and/or jb4 family updated on plan of care and expected duration. Pain level reassessed. Patient is alert, oriented x 3, equal unlabored respirations, skin warm/dry/pink. 01:45 Reassessment: Attempted to call report, was told the nurse was not ready and instructed jb4 to wait for call back. 01:57 Reassessment: Patient appears in no apparent distress at this time. Patient and/or jb4 family updated on plan of care and expected duration. Pain level reassessed. Patient is alert, oriented x 3, equal unlabored respirations, skin warm/dry/pink. 02:46 Reassessment: Patient appears in no apparent distress at this time. Patient and/or jb4 family updated on plan of care and expected duration. Pain level reassessed. Patient is alert, oriented x 3, equal unlabored respirations, skin warm/dry/pink. Attempted to call report, informed the nurse still is not ready, instructed to wait for call back. 03:22 Reassessment: Patient appears in no apparent distress at this time. Patient and/or jb4 family updated on plan of care and expected duration. Pain level reassessed. Patient is alert, oriented x 3, equal unlabored respirations, skin warm/dry/pink. Report given to ZINA Long. Vital Signs: 07/28 22:54 BP 148 / 76; Pulse 61; Resp 18; Temp 97.3; Pulse Ox 100% on R/A; Pain 5/10; dm5 07/29 00:00 BP 136 / 67; Pulse 60; Resp 17; Pulse Ox 99% on R/A; Pain 6/10; jb4 01:00 BP 133 / 64; Pulse 60; Resp 16; Pulse Ox 97% on R/A; jb4 01:45 BP 134 / 56; Pulse 60; Resp 16; Pulse Ox 97% on R/A; jb4 02:45 BP 142 / 72; Pulse 60; Resp 16; Pulse Ox 98% on R/A; jb4 ED Course: 07/28 22:42 Patient arrived in ED. bp1 22:45 Long Giron RN is Primary Nurse. jb4 22:47 Campos Parmar MD is Attending Physician. 7 22:57 Triage completed. dm5 22:57 Arm band placed on right wrist. Patient placed in an exam room, on a stretcher, on dm5 library monitor, on pulse oximetry. 23:00 Patient has correct armband on for positive identification. Placed in gown. Bed in low jb4 position. Call light in reach. Side rails up X 1. pvc monitor on. Pulse ox on. NIBP on. 23:00 EKG done, by ED staff, reviewed by Campos Parmar MD. Patient maintains SpO2 saturation jp3 greater than 95% on room air. 23:10 Missed attempt(s): 20 gauge in right antecubital area. Bleeding controlled, band aid jp3 applied, catheter tip intact. 23:30 Initial lab(s) drawn, by ED staff, sent to lab. Inserted saline lock: 22 gauge in right jb4 antecubital area, using aseptic technique. Blood collected. 23:34 XRAY Chest (1 view) In Process Unspecified. EDMS 07/29 00:44 Keyonna Vaughn MD is Hospitalizing Provider. 7 01:56 No provider procedures requiring assistance completed. Patient admitted, IV remains in jb4 place. Administered Medications: 07/28 23:04 Not Given (Duplicate Order): Aspirin Chewable Tablet 324 mg PO once; 81 mg tablets x 4 dm5 23:05 CANCELLED (Duplicate Order): Aspirin 81 mg PO once dm5 23:25 Drug: Aspirin 243 mg Route: PO; dm5 07/29 00:00 Follow up: Response: No adverse reaction jb4 00:32 Drug: morphine 2 mg Route: IVP; Site: right antecubital; jb4 01:00 Follow up: Response: No adverse reaction; Pain is decreased; RASS: Alert and Calm (0) jb4 00:53 Not Given (Duplicate Order): morphine 2 mg IVP once; RASS on ADMIN: Combtv4, Very jb4 Agttd3, Agttd2, Rstlss1, AlertClm0, Drwsy-1, Lt Sdtn-2, Mod Sdtn-3, Dp Sdtn-4, UnArsble-5 Outcome: 00:44 Decision to Hospitalize by Provider. 7 02:45 Admitted to ICU accompanied by nurse, via wheelchair, room 8, with chart, Report called jb4 to ZINA Long 02:45 Condition: stable 02:45 Discharge instructions given to patient, family, Instructed on the need for admit, Demonstrated understanding of instructions. 03:50 Patient left the ED. 4 Signatures: Dispatcher [employer] EDMS Marta Ashford RN RN dm5 Long Giron RN RN jb4 Mando Fernandez jp3 Adilene Oswald Maurice, MD MD 7 Corrections: (The following items were deleted from the chart) 00:53 00:32 morphine 2 mg IVP in right antecubital jb4 jb4 02:46 01:57 Reassessment: Patient appears in no apparent distress at this time. Patient jb4 and/or family updated on plan of care and expected duration. Pain level reassessed. Patient is alert, oriented x 3, equal unlabored respirations, skin warm/dry/pink. jb4
--- NOTE | 2020-07-29 00:45 | EDPHYS ---
Physician Documentation [facility] Name: Pool Aden Age: 60 yrs Sex: Male : 1960 Arrival Date: 07/28/2020 Time: 22:42 Bed 20 Private MD: ED Physician Campos Parmar HPI: 07/28 23:04 This 60 yrs old Male presents to ER via Ambulatory with complaints of Chest mh7 Pain > 30 y/o. 23:04 The patient or guardian reports chest pain that is located primarily in the substernal mh7 area. Onset: just prior to arrival, today. The pain does not radiate. Associated signs and symptoms: Pertinent negatives: abdominal pain, cough, diaphoresis, dizziness, headache, lower extremity pain, lower extremity swelling, lightheadedness, nausea, near syncope, palpitations, recent travel, shortness of breath, syncope, vomiting. The chest pain is described as aching, dull. Duration: The patient or guardian reports multiple episodes, that are intermittent, that wax and wane, with no pattern. Modifying factors: The symptoms are alleviated by nothing. the symptoms are aggravated by nothing. Severity of pain: At its worst the pain was moderate today, in the emergency department the pain has improved moderately. Historical: - Allergies: 22:57 No Known Allergies; dm5 ROS: 23:04 Constitutional: Negative for fever, chills, and weight loss, Eyes: Negative for injury, mh7 pain, redness, and discharge, ENT: Negative for injury, pain, and discharge, Neck: Negative for injury, pain, and swelling, Respiratory: Negative for shortness of breath, cough, wheezing, and pleuritic chest pain, Abdomen/GI: Negative for abdominal pain, nausea, vomiting, diarrhea, and constipation, Back: Negative for injury and pain, : Negative for injury, bleeding, discharge, and swelling, MS/Extremity: Negative for injury and deformity, Skin: Negative for injury, rash, and discoloration, Neuro: Negative for headache, weakness, numbness, tingling, and seizure, Psych: Negative for depression, anxiety, suicide ideation, homicidal ideation, and hallucinations, Allergy/Immunology: Negative for hives, rash, and allergies, Endocrine: Negative for neck swelling, polydipsia, polyuria, polyphagia, and marked weight changes, Hematologic/Lymphatic: Negative for swollen nodes, abnormal bleeding, and unusual bruising. Exam: 23:04 Constitutional: This is a well developed, well nourished patient who is awake, alert, mh7 and in no acute distress. Head/Face: Normocephalic, atraumatic. Eyes: Pupils equal round and reactive to light, extra-ocular motions intact. Lids and lashes normal. Conjunctiva and sclera are non-icteric and not injected. Cornea within normal limits. Periorbital areas with no swelling, redness, or edema. Neck: Trachea midline, no thyromegaly or masses palpated, and no cervical lymphadenopathy. Supple, full range of motion without nuchal rigidity, or vertebral point tenderness. No Meningismus. Chest/axilla: Normal chest wall appearance and motion. Nontender with no deformity. No lesions are appreciated. Cardiovascular: Regular rate and rhythm with a normal S1 and S2. No gallops, murmurs, or rubs. Normal PMI, no JVD. No pulse deficits. Respiratory: Lungs have equal breath sounds bilaterally, clear to auscultation and percussion. No rales, rhonchi or wheezes noted. No increased work of breathing, no retractions or nasal flaring. Abdomen/GI: Soft, non-tender, with normal bowel sounds. No distension or tympany. No guarding or rebound. No evidence of tenderness throughout. Back: No spinal tenderness. No costovertebral tenderness. Full range of motion. Skin: Warm, dry with normal turgor. Normal color with no rashes, no lesions, and no evidence of cellulitis. MS/ Extremity: Pulses equal, no cyanosis. Neurovascular intact. Full, normal range of motion. Neuro: Awake and alert, GCS 15, oriented to person, place, time, and situation. Cranial nerves II-XII grossly intact. Motor strength 5/5 in all extremities. Sensory grossly intact. Cerebellar exam normal. Normal gait. Psych: Awake, alert, with orientation to person, place and time. Behavior, mood, and affect are within normal limits. Vital Signs: 22:54 BP 148 / 76; Pulse 61; Resp 18; Temp 97.3; Pulse Ox 100% on R/A; Pain 5/10; dm5 07/29 00:00 BP 136 / 67; Pulse 60; Resp 17; Pulse Ox 99% on R/A; Pain 6/10; jb4 01:00 BP 133 / 64; Pulse 60; Resp 16; Pulse Ox 97% on R/A; jb4 01:45 BP 134 / 56; Pulse 60; Resp 16; Pulse Ox 97% on R/A; jb4 02:45 BP 142 / 72; Pulse 60; Resp 16; Pulse Ox 98% on R/A; jb4 MDM: 00:42 Differential diagnosis: abnormal EKG, acute myocardial infarction, acute pericarditis, mh7 anxiety, coronary artery disease chest wall pain, congestive heart failure costochondritis, pneumonia, pneumothorax, stable angina, unstable angina. HEART Score: History: Moderately Suspicious (1), ECG: Non specific repolarization disturbance / LBTB / PM (1), Age: > 45 and < 65 years (1), Risk Factors: > or = 3 Risk factors for atherosclerotic disease (2), [Hypercholesterolemia] [Hypertension] [DM] [Active Smoker] Troponin: < or = 1 x Normal Limit (0), Total Score = 5. The patient was given aspirin in the Emergency Department. Data reviewed: vital signs, nurses notes, old medical records, lab test result(s), cardiac enzymes, CBC, electrolytes, urinalysis, EKG, radiologic studies, plain films. Data interpreted: Pulse oximetry: on room air is 99 %. Interpretation: normal. Counseling: I had a detailed discussion with the patient and/or guardian regarding: the historical points, exam findings, and any diagnostic results supporting the discharge/admit diagnosis, the presence of at least one elevated blood pressure reading (>120/80) during this emergency department visit, lab results, radiology results, the need for further work-up and treatment in the hospital. 00:44 Patient medically screened. 7 07/28 22:53 Order name: Basic Metabolic Panel; Complete Time: 00:5 07/28 22:53 Order name: CBC with Diff; Complete Time: 00:5 07/28 22:53 Order name: LFT's; Complete Time: 00:5 07/28 22:53 Order name: Magnesium; Complete Time: 00:5 07/28 22:53 Order name: NT PRO-BNP; Complete Time: 00:5 07/28 22:53 Order name: PT-INR; Complete Time: 00:5 07/28 22:53 Order name: Troponin (emerg Dept Use Only); Complete Time: 00:23 5 07/28 22:53 Order name: XRAY Chest (1 view) [facility] 07/28 22:53 Order name: EKG; Complete Time: 22:54 5 07/28 22:53 Order name: Cardiac monitoring; Complete Time: 23:02 5 07/28 22:53 Order name: EKG - Nurse/Tech; Complete Time: 23:02 5 07/28 22:53 Order name: IV Saline Lock; Complete Time: 23:02 5 07/28 22:53 Order name: Labs collected and sent; Complete Time: 23:02 5 07/28 22:53 Order name: O2 Per Protocol; Complete Time: 23:02 5 07/28 22:53 Order name: O2 Sat Monitoring; Complete Time: 23:02 5 Administered Medications: 07/28 23:04 Not Given (Duplicate Order): Aspirin Chewable Tablet 324 mg PO once; 81 mg tablets x 4 dm5 23:05 CANCELLED (Duplicate Order): Aspirin 81 mg PO once 5 23:25 Drug: Aspirin 243 mg Route: PO; 5 07/29 00:00 Follow up: Response: No adverse reaction jb4 00:32 Drug: morphine 2 mg Route: IVP; Site: right antecubital; 4 01:00 Follow up: Response: No adverse reaction; Pain is decreased; RASS: Alert and Calm (0) 4 00:53 Not Given (Duplicate Order): morphine 2 mg IVP once; RASS on ADMIN: Combtv4, Very jb4 Agttd3, Agttd2, Rstlss1, AlertClm0, Drwsy-1, Lt Sdtn-2, Mod Sdtn-3, Dp Sdtn-4, UnArsble-5 Disposition: 07/29/20 00:44 Hospitalization ordered by Keyonna Vaughn for Observation. Preliminary diagnosis is Chest pain, unspecified. - Bed requested for Intensive Care Unit. - Status is Observation. jb4 - Condition is Stable. - Problem is an acute exacerbation. - Symptoms have improved. Signatures: Dispatcher [employer] EDMS Marta Ashford RN RN dm5 Jazmyn Junior RN RN mw Bryson, James, RN RN jb4 Campos Parmar MD MD mh7 Corrections: (The following items were deleted from the chart) 07/28 23:05 23:05 Aspirin 81 mg PO once ordered. dm5 dm5 07/29 00:58 00:44 Hospitalization Ordered by Keyonna Vaughn MD for Observation. Preliminary mw diagnosis is Chest pain, unspecified. Bed requested for Telemetry/MedSurg (observation). Status is Observation. Condition is Stable. Problem is an acute exacerbation. Symptoms have improved. mh7 :20 00:58 07/29/2020 00:44 Hospitalization Ordered by Keyonna Vaughn MD for Observation. mw Preliminary diagnosis is Chest pain, unspecified. Bed requested for Telemetry/MedSurg (observation). Status is Observation. Condition is Stable. Problem is an acute exacerbation. Symptoms have improved. mw 01:27 01:20 07/29/2020 00:44 Hospitalization Ordered by Keyonna Vaughn MD for Observation. mw Preliminary diagnosis is Chest pain, unspecified. Bed requested for Intensive Care Unit. Status is Observation. Condition is Stable. Problem is an acute exacerbation. Symptoms have improved. mw 03:50 01:27 07/29/2020 00:44 Hospitalization Ordered by Keyonna Vaughn MD for Observation. jb4 Preliminary diagnosis is Chest pain, unspecified. Bed requested for Intensive Care Unit. Status is Observation. Condition is Stable. Problem is an acute exacerbation. Symptoms have improved. mw
--- NOTE | 2020-07-29 02:04 | P.HP ---
Certification for Inpatient Patient admitted to: Observation With expected LOS: <2 Midnights Patient will require the following post-hospital care: None Practitioner: I am a practitioner with admitting privileges, knowledge of patient current condition, hospital course, and medical plan of care. Services: Services provided to patient in accordance with Admission requirements found in Title 42 Section 412.3 of the Code of Federal Regulations <Brad Roman - Last Filed: 07/29/20 01:59> Patient History Date of Service: 07/29/20 Reason for admission: Chest pain History of Present Illness: This is a 60-year-old male with a history of xke-qumxtfy-hfekenatl diabetes mellitus, hypercholesterolemia, coronary artery disease, hypertension, with multiple cardiac an peripheral stents along with cardiac bypass history in the past. Presented to the emergency room tonight with sudden onset chest pressure with mild radiation. Denies any secondary symptoms. Stated that a kind of worried him tonight as he does not normally have lingering substernal chest pressure. Stated that he took 2 nitroglycerin at home with only minimal relief. Patient was worked up in the emergency room and was given pain medicine with moderate relief. EKG without acute findings for ST segment elevated myocardial infarction. Patient does have atrial paced rhythm. Patient had troponin drawn which 1st 1 was negative. Chest x-ray unremarkable. No other acute findings noted by emergency room staff. Hospital team was consulted at that time for chest pain observation. It is also noted in recent history that patient was admitted last week and was found to have dysrhythmia and was started on anti dysrhythmic 's. Patient subsequently was tested for COVID upon admission and was found to be positive and was resulted 2 days ago. Has been asymptomatic though. The patient on exam in emergency room was stable and without acute external findings on physical exam. Home medications list reviewed: Yes - Past Medical/Surgical History Has patient received pneumonia vaccine in the past: No Diabetic: No -: hypertension -: Coronary artery disease -: Carotid artery disease -: Peripheral arterial disease -: Bilateral knee replacements -: pacemaker/defibrillator -: CABG -: Fem-pop bypass -: Carotid artery stent multiple -: Cardiac catheterization -: tumor removed from spine -: Bilateral knee replacements -: ballon/stent placement 05/2019 - Family History Father -: Heart disease Brother -: Heart disease Notes: CABG x4 Mother -: Diabetes - Social History Smoking Status: Unknown if ever smoked Smoking therapy provided: No Alcohol use: Yes CD- Drugs: No Caffeine use: Yes Place of Residence: Home <Brad Roman - Last Filed: 07/29/20 01:59> Date of Service: 07/29/20 <Keyonna Vaughn - Last Filed: 08/01/20 03:16> Allergies No Known Allergies Allergy (Verified 07/20/20 22:19) Home Medications: Aspirin [Aspirin EC 325 MG] 325 mg PO DAILY 07/21/20 Atorvastatin Calcium [Lipitor] 80 mg PO BEDTIME 07/21/20 Clopidogrel Bisulfate [Plavix*] 75 mg PO DAILY 07/21/20 Metformin HCl [Glucophage*] 500 mg PO DAILY 07/21/20 Amiodarone HCl [Cordarone*] 200 mg PO DAILY 07/29/20 Codeine/APAP [Tylenol W/Codeine #3 tab] 1 tab PO Q6HP PRN #20 tab 07/29/20 Isosorbide Mononitrate [Isosorbide Mononitrate ER] 30 mg PO DAILY #30 tab.er.24h 07/29/20 Lisinopril [Zestril] 10 mg PO DAILY #30 tablet 07/29/20 Metoprolol Tartrate [Lopressor*] 50 mg PO BID 07/29/20 Nitroglycerin 0.4 mg SL SEECOM PRN 08/01/20 Review of Systems General: Unremarkable Eyes: Unremarkable ENT: Unremarkable Respiratory: Unremarkable Cardiovascular: Chest Pain Gastrointestinal: Unremarkable Genitourinary: Unremarkable Musculoskeletal: Unremarkable Neurological: Unremarkable Lymphatics: Unremarkable <Brad Roman - Last Filed: 07/29/20 01:59> Physical Examination - Vital Signs Temperature: 97.3 F Blood Pressure: 148/76 Pulse: 60 Respirations: 18 Pulse Ox (%): 100 (Room air) - Physical Exam General: Alert, In no apparent distress, Oriented x3 HEENT: Normocephalic, PERRLA, Mucous membr. moist/pink, EOMI Neck: Supple, 2+ carotid pulse no bruit, JVD not distended, No Thyromegaly Respiratory: Clear to auscultation bilaterally, Normal air movement Cardiovascular: No edema, Normal pulses, Regular rate/rhythm, Normal S1 S2, No gallops, No rubs, No murmurs Capillary refill: <2 Seconds Gastrointestinal: Normal bowel sounds, Soft and benign, Non-distended, No ascites, No tenderness, No masses, No rebound, No guarding Musculoskeletal: No clubbing, No swelling, No contractures, No erythema, No tenderness, No warmth Integumentary: No rashes, No breakdown, No significant lesion, No tenderness/swelling, No erythema, No warmth, No cyanosis Neurological: Normal speech, Normal strength at 5/5 x4 extr, Normal tone, S ensation intact, Cranial nerves 3-12 intact, Normal affect Lymphatics: No axilla or inguinal lymphadenopathy - Studies Laboratory Data (last 24 hrs) 07/28/20 23:23: PT 11.5, INR 0.97 07/28/20 23:23: WBC 7.5 D, Hgb 14.2, Hct 41.9, Plt Count 219 07/28/20 23:23: Sodium 144, Potassium 4.0, BUN 17, Creatinine 1.10, Glucose 133 H, Magnesium 2.0, Total Bilirubin 0.2, AST 20, ALT 25, Alkaline Phosphatase 97 <Brad Roman - Last Filed: 07/29/20 01:59> Assessment and Plan - Problems (Diagnosis) (1) Diabetes mellitus Status: Chronic Qualifiers: Diabetes mellitus type: type 2 Diabetes mellitus group home insulin use: with group home use Diabetes mellitus complication status: with circulatory complication Diabetes mellitus complication detail: with other circulatory complications Qualified Code(s): E11.59 - Type 2 diabetes mellitus with other circulatory complications; Z79.4 - terminal computer operator (current) use of insulin (2) CAD (coronary artery disease) Onset Date: 03/23/18 Status: Acute Qualifiers: Coronary Disease-Associated Artery/Lesion type: bypass graft [place] vs. transplanted heart: [place] heart Associated angina: with unspecified angina Qualified Code(s): I25.709 - Atherosclerosis of coronary artery bypass graft(s), unspecified, with unspecified angina pectoris (3) Chest pain Status: Acute Qualifiers: Chest pain type: unspecified Qualified Code(s): R07.9 - Chest pain, unspecified (4) Hx of CABG Onset Date: 03/23/18 Status: Chronic (5) Hyperlipidemia Onset Date: 01/03/18 Status: Chronic Qualifiers: Hyperlipidemia type: unspecified Qualified Code(s): E78.5 - Hyperlipidemia, unspecified (6) Hypertension Onset Date: 03/23/18 Status: Chronic Qualifiers: Hypertension type: essential hypertension (7) Peripheral arterial disease Onset Date: 09/10/17 Status: Chronic - Plan 1. Will monitor patient over the next 24 hr for hemodynamic stability and for any acute EKG or chest pain symptoms that worsened 2. Patient will have serial troponin drawn to determine if they elevate or not 3. Will consult cardiology for chest pain symptoms 4. Patient's blood pressure will be manage with antihypertensives 5. Will check all other blood work tomorrow morning for stability 6. Will monitor glucose while admitted and adjust as needed with sliding scale Discharge Plan: Home Plan to discharge in: 24 Hours - Advance Directives Does patient have a Living Will: No Does patient have a Durable POA for Healthcare: No - Code Status/Comfort Care Code Status Assessed: Yes Code Status: Full Code Critical Care: No Time Spent Managing Pts Care (In Minutes): 70 <Brad Roman - Last Filed: 07/29/20 01:59> Date of Service: 07/29/20 Agree with findings as mentioned above. Patient is clinically doing well. Spoke with cardiology and they wanted pt to follow up Friday morning for further evaluation. Please see discharge summary. <Keyonna Vaughn - Last Filed: 08/01/20 03:16>
[2020-07-29] MEDS ORDERED: ONDANSETRON 4 MG/2 ML VIAL IV PRN (02:59)
[2020-07-29 04:07] VITALS: BMI 32.5
[2020-07-29] MEDS: MORPHINE 4 MG/ML SYR IV PRN ×2 (04:11→11:17)
[2020-07-29] MEDS ORDERED: D50W 25 GM/50 ML SYRINGE IV PRN (04:19)
[2020-07-29] MEDS ORDERED: GLUCAGON 1 MG/VIAL IM PRN (04:19)
[2020-07-29] MEDS ORDERED: MORPHINE 2 MG/ML SYR IV ONE (04:58)
[2020-07-29] MEDS ORDERED: NITROGLYCERIN 1 GM PKT TD SCH (06:00)
[2020-07-29] MEDS: INSULIN -REGULAR HUMAN 50 UNIT/0.5 ML ML SQ SCH ×2 (07:30→11:30)
--- NOTE | 2020-07-29 08:19 | RAD REPORT ---
EXAM DESCRIPTION: Brain Single View07/28/2020 11:34 pm CLINICAL HISTORY: Chest pain COMPARISON: July 20, 2020 FINDINGS: The lungs appear clear of acute infiltrate. The heart is mildly enlarged. Postsurgical changes involve the chest. Pacemaker leads in place IMPRESSION: No acute abnormalities displayed
[2020-07-29 08:36] VITALS: O2SAT 100
[2020-07-29] MEDS ORDERED: ASPIRIN EC 81 MG TAB PO SCH (09:00)
--- NOTE | 2020-07-29 11:39 | P.DS ---
Discharge Date: 07/29/20 Discharge Condition: GOOD Reason for Admission: Chest pain Brief History of Present Illness: This is a 60-year-old male with a history of xhu-vvcjkaw-sdlktbxsj diabetes mellitus, hypercholesterolemia, coronary artery disease, hypertension, with multiple cardiac an peripheral stents along with cardiac bypass history in the past. Presented to the emergency room tonight with sudden onset chest pressure with mild radiation. Denies any secondary symptoms. Stated that a kind of worried him tonight as he does not normally have lingering substernal chest pressure. Stated that he took 2 nitroglycerin at home with only minimal relief. Patient was worked up in the emergency room and was given pain medicine with moderate relief. EKG without acute findings for ST segment elevated myocardial infarction. Patient does have atrial paced rhythm. Patient had troponin drawn which 1st 1 was negative. Chest x-ray unremarkable. No other acute findings noted by emergency room staff. Hospital team was consulted at that time for chest pain observation. It is also noted in recent history that patient was admitted last week and was found to have dysrhythmia and was started on anti dysrhythmic 's. Patient subsequently was tested for COVID upon admission and was found to be positive and was resulted 2 days ago. Has been asymptomatic though. The patient on exam in emergency room was stable and without acute external findings on physical exam. Vital Signs/Physical Exam: Temp Pulse Resp BP Pulse Ox 97 F 60 15 131/67 100 07/29/20 03:50 07/29/20 08:00 07/29/20 08:00 07/29/20 08:00 07/29/20 08:00 Laboratory Data at Discharge: WBC 7.5 K/uL (4.3-10.9) D 07/28/20 23:23 Hgb 14.2 g/dL (13.6-17.9) 07/28/20 23:23 Hct 41.9 % (39.6-49.0) 07/28/20 23:23 Plt Count 219 K/uL (152-406) 07/28/20 23:23 PT 11.5 SECONDS (9.5-12.5) 07/28/20 23:23 INR 0.97 07/28/20 23:23 Sodium 144 mmol/L (136-145) 07/28/20 23:23 Potassium 4.0 mmol/L (3.5-5.1) 07/28/20 23:23 BUN 17 mg/dL (7-18) 07/28/20 23:23 Creatinine 1.10 mg/dL (0.55-1.3) 07/28/20 23:23 Glucose 133 mg/dL (74-106) H 07/28/20 23:23 Magnesium 2.0 mg/dL (1.8-2.4) 07/28/20 23:23 Total Bilirubin 0.2 mg/dL (0.2-1.0) 07/28/20 23:23 AST 20 U/L (15-37) 07/28/20 23:23 ALT 25 U/L (12-78) 07/28/20 23:23 Alkaline Phosphatase 97 U/L (45-117) 07/28/20 23:23 Troponin I < 0.02 ng/mL (0.0-0.045) 07/29/20 07:07 Home Medications: Aspirin [Aspirin EC 325 MG] 325 mg PO DAILY 07/21/20 Atorvastatin Calcium [Lipitor] 80 mg PO BEDTIME 07/21/20 Clopidogrel Bisulfate [Plavix*] 75 mg PO DAILY 07/21/20 Lisinopril [Zestril] 20 mg PO DAILY 07/21/20 Metformin HCl [Glucophage*] 500 mg PO DAILY 07/21/20 Amiodarone HCl [Cordarone Tab] 200 mg PO DAILY 07/29/20 Metoprolol Tartrate [Lopressor] 50 mg PO BID 07/29/20 Followup: J Luis Gleason MD [Primary Care Provider] -
--- NOTE | 2020-07-29 11:45 | P.DS ---
Discharge Date: 07/29/20 Disposition: ROUTINE DISCHARGE Discharge Condition: GOOD Reason for Admission: Chest pain Consultations: Cardiology Brief History of Present Illness: Patient is a 60-year-old gentleman who came into the hospital with chest pain. Patient was ruled out for acute coronary syndrome. She has a significant cardiac disease. As spoke with cardiology regarding patient. Dr. Alejandro knows the patient really well. Has been ruled out for acute coronary syndrome. Hospital Course: Cardiology wanted to follow up with the patient as an outpatient. We did add Imdur to patient's regimen. Cardiology to follow up Friday morning at 830. Vital Signs/Physical Exam: Temp Pulse Resp BP Pulse Ox 97 F 60 15 131/67 100 07/29/20 03:50 07/29/20 08:00 07/29/20 08:00 07/29/20 08:00 07/29/20 08:00 General: Alert, In no apparent distress, Oriented x3 Laboratory Data at Discharge: WBC 7.5 K/uL (4.3-10.9) D 07/28/20 23:23 Hgb 14.2 g/dL (13.6-17.9) 07/28/20 23:23 Hct 41.9 % (39.6-49.0) 07/28/20 23:23 Plt Count 219 K/uL (152-406) 07/28/20 23:23 PT 11.5 SECONDS (9.5-12.5) 07/28/20 23:23 INR 0.97 07/28/20 23:23 Sodium 144 mmol/L (136-145) 07/28/20 23:23 Potassium 4.0 mmol/L (3.5-5.1) 07/28/20 23:23 BUN 17 mg/dL (7-18) 07/28/20 23:23 Creatinine 1.10 mg/dL (0.55-1.3) 07/28/20 23:23 Glucose 133 mg/dL (74-106) H 07/28/20 23:23 Magnesium 2.0 mg/dL (1.8-2.4) 07/28/20 23:23 Total Bilirubin 0.2 mg/dL (0.2-1.0) 07/28/20 23:23 AST 20 U/L (15-37) 07/28/20 23:23 ALT 25 U/L (12-78) 07/28/20 23:23 Alkaline Phosphatase 97 U/L (45-117) 07/28/20 23:23 Troponin I < 0.02 ng/mL (0.0-0.045) 07/29/20 07:07 Home Medications: Aspirin [Aspirin EC 325 MG] 325 mg PO DAILY 07/21/20 Atorvastatin Calcium [Lipitor] 80 mg PO BEDTIME 07/21/20 Clopidogrel Bisulfate [Plavix*] 75 mg PO DAILY 07/21/20 Metformin HCl [Glucophage*] 500 mg PO DAILY 07/21/20 Amiodarone HCl [Cordarone*] 200 mg PO DAILY 07/29/20 Codeine/APAP [Tylenol W/Codeine #3 tab] 1 tab PO Q6HP PRN #20 tab 07/29/20 Isosorbide Mononitrate [Isosorbide Mononitrate ER] 30 mg PO DAILY #30 tab.er.24h 07/29/20 Lisinopril [Zestril] 10 mg PO DAILY #30 tablet 07/29/20 Metoprolol Tartrate [Lopressor*] 50 mg PO BID 07/29/20 Nitroglycerin 0.4 mg SL SEECOM PRN 08/01/20 New Medications: Isosorbide Mononitrate [Isosorbide Mononitrate ER] 30 mg PO DAILY #30 tab.er.24h Codeine/APAP [Tylenol W/Codeine #3 tab] 1 tab PO Q6HP PRN #20 tab PRN Reason: Pain Lisinopril [Zestril] 10 mg PO DAILY #30 tablet Patient Discharge Instructions: OK TO DC IV AND DC HOME. FOLLOW-UP WITH PRIMARY CARE PROVIDER IN 1-2 WEEKS. FOLLOW-UP WITH CARDIOLOGY ON FRIDAY MORNING AT 8:30 A.M. IN THE MORNING. RETURN TO THE ER IF SYMPTOMS WORSEN. CALL or TEXT DR. DAVE AT [phone] IF ANY QUESTIONS REGARDING HOSPITAL STAY. PLEASE CALL THE FLOOR AT [phone] IF ANY MEDICATION OR NURSING QUESTIONS. Diet: AHA Activity: Fall precautions Followup: Matty Alejandro MD [ACTIVE - CAN ADMIT] - J Luis Gleason MD [Primary Care Provider] - Time spent managing pt's care (in minutes): 35
[2020-07-29 13:14] VITALS: BP 132/68; TEMP 96.9
[2020-07-29] MEDS ORDERED: ATORVASTATIN 80 MG TAB PO SCH (21:00)
[2020-07-29] MEDS ORDERED: METOPROLOL TAR 50 MG TAB PO SCH (21:00)
[2020-07-30] MEDS ORDERED: AMIODARONE HCL 200 MG TAB PO SCH (09:00)
[2020-07-30] MEDS ORDERED: ASPIRIN EC 325 MG TABLET PO SCH (09:00)
[2020-07-30] MEDS ORDERED: METFORMIN HCL 500 MG TAB PO SCH (09:00)
[2020-07-30] MEDS ORDERED: CLOPIDOGREL 75 MG TABLET PO SCH (09:00)
== END 2020-07-29 13:18 | disposition home or self-care (01) ==
LOC: ER 22:40 → ERHOLD 07-29 00:50 → 3RD-ICU 07-29 03:32
PROVIDERS: ADMIT Hospitalist; ATTEND Hospitalist
DX: R07.9 Chest pain, unspecified (principal); I25.10 Atherosclerotic heart disease of native coronary artery without angina pectoris; I10 Essential (primary) hypertension; Z95.5 Presence of coronary angioplasty implant and graft; Z95.1 Presence of aortocoronary bypass graft; E11.59 Type 2 diabetes mellitus with other circulatory complications; E78.00 Pure hypercholesterolemia, unspecified; Z96.653 Presence of artificial knee joint, bilateral; Z95.810 Presence of automatic (implantable) cardiac defibrillator; Z86.19 Personal history of other infectious and parasitic diseases; R94.31 Abnormal electrocardiogram [ECG] [EKG]; Z79.82 Long term (current) use of aspirin; Z79.02 Long term (current) use of antithrombotics/antiplatelets; Z79.84 Long term (current) use of oral hypoglycemic drugs; E78.5 Hyperlipidemia, unspecified
CPT/HCPCS: 36415; 71045; 80048; 80076; 82947; 83735; 83880; 84484; 85025; 85610; 93005; 96374; 99285; G0378; J2270

== ENCOUNTER 2020-07-31 19:25 | Inpatient (IN) | payer MEDICARE ==
--- OUTSIDE RECORDS SUMMARY | 2020-07-31 19:28 | XMS REPORT | Continuity of Care Document ---
:[address] [facility] t Address [address] [place] [address] Care Team Providers Name Role Phone Sharpless Primary Care Physician Urbano Attending Clinician Unavailable PATTY Attending Clinician Unavailable Urbano Admitting Clinician Unavailable PATTY Admitting Clinician Unavailable Problems Condition Condition Condition Status Onset Resolution Last Treating Co mments Source Name Details Category Date Date Treatment Clinician Date Angina Angina Disease Active 2017-[address] [facility] [address] p[facility]is pectoris 0[facility]20 [facility] - [facility]: Medical [address] [place] [address] Coronary Coronary Disease Active [facility] artery [facility] Hypertensi Hypertensi Disease Active [facility] Peripheral Peripheral Disease Active C [facility] vascular vascular [facility] Hyperlipid Hyperlipid Disease Active [facility] emia emia [facility] Myocardial Myocardial Disease Active C [facility] infarction infarction [facility] Allergies, Adverse Reactions, Alerts This patient has no known allergies or adverse reactions. Social History Social Habit Start Date Stop Date Quantity Comments Source History of tobacco Cigarette Smoker [facility] - use [facility] Sex Assigned At [facility] Cigarettes smoked 2018-06-30 2018-06-30 [facility] - current (pack per 00:00:00 00:00:00 [facility] day) - Reported Cigarette 2018-06-30 2018-06-30 [facility] - pack-years 00:00:00 00:00:00 [facility] Tobacco use and 2018-06-30 2018-06-30 Never used [facility] - exposure 00:00:00 00:00:00 [facility] Alcohol intake 2018-06-30 2018-06-30 Current drinker [facility] - 00:[facility]00 00:00:00 of alcohol [facility] (finding) Alcohol Comment 2017-07-15 2017-07-[address] [facility] - 00:00[facility]00 [facility]00 [facility] Smoking Status Start Date Stop Date Source Current every day smoker 2018-06-30 00:00:00 [facility] Medications Ordered Filled Start Stop Current Ordering Indication Dosage Frequency Signature Comments Components Source Medication Medication Date Date Medication? Clinician (SIG) Name Name clopidogrel 2017-09 Yes Coronary 75mg QD Take [address] [facility] (PLAVIX) 75 0-23 artery by mouth [facility] - mg tablet 14:03: disease of daily. Medical [facility] bypass Center graft of [place] heart with stable angina pectoris (HCC) aspirin 81 2017-09 Yes Coronary 81mg QD Take [address] MG EC 0-23 artery by mouth [facility] - tablet 14:03: disease of daily. Med ical [facility] Center graft of [place] heart with stable angina pectoris (HCC) atorvastati [...] Test 00:00:00 (procedure) [code = Medical Center 06962980] Future Scheduled [address] [facility] - Test 00:00:00 0-64 YRS (1 of 1 - Medical C enter PPSV23) [code = PNEUMOCOCCAL VACCINE 0-64 YRS (1 of 1 - PPSV23)] Future Scheduled [address] [facility] - Test 00:00:00 malignant neoplasm of Medica l Center colon (procedure) [code = 482691481] Results Test Description Test Time Test Comments [...] code = CA) 8.3 mg/dL 7.8-10.44 N [id number] 03:18:00 Test Item Value Reference Range Interpretation Comments Chemistry (test 0.013 ng/mL < 0.028 code = TROPI-T) Reference Ra nge 0.0 0 - 0.028 ng/mL Negative 0.0 29 - 0.29 ng/mL Indeterminate Greater or Equal to 0.3 ng/mL [facility] [id number] 23:53:00 Test Item Value Reference Range Interpretation Comments Chemistry (test 0.023 ng/mL < 0.028 code = TROPI-T) Reference Ra nge 0.0 0 - 0.028 ng/mL Negative 0.0 29 - 0.29 ng/mL Indeterminate Greater or Equal to 0.3 ng/mL Strongly [facility] [id number] 20:51:00 Test Item Value Reference Range Interpretation Comments Chemistry (test Less than < 0.028 code = TROPI-T) 0.010 ng/mL Reference Ra nge 0. 00 - 0.028 ng/mL Negative 0.029 - 0.29 n g/mL Indeterminate Greater or Equa l to 0.3 ng/mL [facility] [id number] 18:21:00 Test Item Value Reference Range Interpretation [...] Urine Source: Urine VoidedChemistry - BNP, HgbA1c, [id number] 17:24:00 Test Item Value Reference Range Interpretation Comments Chemistry - BNP, HgbA1c, PTHi 59.8 pg/mL 0-100 N (test code = BNP) [id number] 17:22:00 Test Item Value Reference Range Interpretation Comments Chemistry (test 0.010 ng/mL < 0.028 code = TROPI-R) Reference Ra nge 0.0 0 - 0.028 ng/mL Negative 0.0 29 - 0.29 ng/mL Indeterminate Greater or Equal to 0.3 ng/mL Strongly sugge [place] [id number] 17:20:00 Test Item Value Reference Range Interpretation [...] code 22 U/L 8-55 N = ALT) [id number] 17:20:00 Test Item Value Reference Range Interpretation Comments Chemistry (test code = CK) 75 U/L 30-200 N [id number] 16:55:00 Test Item Value Reference Range Interpretation [...] code = BASO#) 0.1 thou/uL 0.0-0.2 N [id number] 00:59:00 Test Item Value Reference Range Interpretation Comments MAGNESIUM (BEAKER) 2.2 mg/dL 1.6-2.6 Specimen slightly (test code = 627) hemolyzed BASIC METABOLIC [id number] 00:59:00 Test Item Value Reference Range Interpretation [...] PATIEN TS. CBC W/PLT COUNT & AUTO [id number] 00:43:00 Test Item Value Reference Range Interpretation [...] 0-1 PERCENT (BEAKER) (test code = 2801) [id number] 00:20:00 Test Item Value Reference Range Interpretation Comments ACTIVATED CLOTTING TIME 109 sec TEST ED AT [place] [address] [facility] (test code = RACHEL Rios [facility] 441) [id number] 20:55:00 Test Item Value Reference Range Interpretation Comments ACTIVATED CLOTTING TIME 191 sec TEST ED AT [place] [address] ([facility]) (test code = CARISSACT Blanca [facility] 441) [id number] 18:15:00 Test Item Value Reference Range Interpretation Comments ACTIVATED CLOTTING TIME 318 sec TEST ED AT [place] [address] ([facility] (test code = [facility] Blanca [facility] 441) [id number] POCT-GLUCOSE [id number] 07:26:00 Test Item Value Reference Range Interpretation Comments POC-GLUCOSE METER 113 mg/dL 70-110 H TESTED AT [place] [address] ([facility]) (test code = RACHEL Rios [place] 1538) [address] [id number] 07:16:00 Test Item Value Reference Range Interpretation Comments MAGNESIUM (BEAKER) (test code = 2.0 mg/dL 1.6-2.6 627) BASIC METABOLIC [id number] 07:16:00 Test Item Value Reference Range Interpretation [...] S NOT APPLICABLE FOR DIALYSIS PATIEN TS. [id number] 06:58:00 Test Item Value Reference Range Interpretation [...] = 2801) CBC W/PLT COUNT & AUTO [id number] 05:30:00 Test Item Value Reference Range Interpretation [...] (BEAKER) (test code = 2801) BASIC METABOLIC [id number] 05:12:00 Test Item Value Reference Range Interpretation [...] S NOT APPLICABLE FOR DIALYSIS PATIEN TS. [id number] 15:55:00 Test Item Value Reference Range Interpretation Comments PARTIAL THROMBOPLASTIN TIME 51.7 seconds 22.5-36.0 H (BEAKER) (test code = 760) TROPONIN [id number] 14:06:00 Test Item Value Reference Range Interpretation [...] acidosis, acute neurological disease, and persistent tachyarrhythmia.HEMOGLOBIN [id number] 11:57:00 Test Item Value Reference Range Interpretation Comments HEMOGLOBIN A1C (BEAKER) (test code = 7.5 % 4.3-6.1 H 368) [id number] 09:48:00 Test Item Value Reference Range Interpretation Comments PARTIAL THROMBOPLASTIN TIME 48.9 seconds 22.5-36.0 H (BEAKER) (test code = 760) URINALYSIS W/ [id number] 08:06:00 Test Item Value Reference Range Interpretation [...] = 2795) RAD, CHEST, 1 VIEW, NON [id number] 04:11:00Reason for exam:->angina pectorisShould this be performed [...] MDReport Verified Date/Time: 06/27/2018 04:11:12 Reading Location: [address] Body Reading Room CREATINE KINASE (CK), TOTAL AND [id number] 03:24:00 Test Item Value Reference Range Interpretation Comments CREATINE KINASE TOTAL (BEAKER) 61 U/L 29-200 (test code = 380) CREATINE KINASE-MB (BEAKER) (test 1.5 ng/mL 0.0-6.6 code = 750) CREATINE KINASE-MB INDEX (BEAKER) 2.5 % (test code = 395) CK-MB Reference Range:<6.7 Normal6.7-10.0 Borderline>10.0 AbnormalTROPONIN [id number] 03:24:00 Test Item Value Reference Range Interpretation [...] acute neurological disease, and persistent tachyarrhythmia.BASIC METABOLIC [id number] 03:18:00 Test Item Value Reference Range Interpretation [...] = 700) CBC W/PLT COUNT & AUTO [id number] 02:58:00 Test Item Value Reference Range Interpretation [...] 0-1 PERCENT (BEAKER) (test code = 2801) [id number] 02:51:00 Test Item Value Reference Range Interpretation Comments PARTIAL THROMBOPLASTIN TIME 48.4 seconds 22.5-36.0 H (BEAKER) (test code = 760) XR Chest [address] [facility] Pt Name: Pool Aranda [address] [place] Phys: Ludy Puente PA-C BRET Michele [phone] : 1960 Age: 59 SEX:M [phone] Exam Date: 04/05/19 Status: REG ER Acct: [id number] Loc: ERS Pt Unit #: [id number] Report #: [id number] CC: Ludy Puente PA-C IMAGING SERVICES REPORT Order # Category/Exam [id number] RAD/XR Chest 1 View Portable ([id number]): . Results PORTABLE AP CHEST X-RAY: HISTORY: [...] intact. IMPRESSION: No acute cardiopulmonary process. POS: [facility] Reported By: Marc Osborne MD Electronically Signed Date/Time: 04/05/19 183 Technologist: STEPHAN Dictated Date/Time: 04/05/19 180 Transcribed Date/Time: 04/05/19 182
--- OUTSIDE RECORDS SUMMARY | 2020-07-31 19:28 | XMS REPORT | Clinical Summary ---
:1960 Author Organization [facility] Address [address] [place] [address] Care Team Providers Name Role Phone Garrett Primary Care Provider Allergies No Known Allergies Medications Medication Sig Dispensed Refills Start Date End Date Status clopidogrel (PLAVIX) 75 Take 75 mg by 0 Active mg tabletIndications: mouth daily. 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) atorvastatin [...] (#1) 2020 06/27/2018 Implants Implanted Type Area Net Software Architect Device Shelf Model / Identifier Expiration Serial / Date Lot Synergy Cardiovascular N/A: [place] [id number] 04/07/2020 [id number] / Implanted: Qty: 1 on 06/29/2018 by Jose Romero MD at [facility] [employer] / [id number] Description:PROXIMAL LAD Results Not on fileafter 07/31/2019 Insurance Payer Benefit Plan / Subscriber ID Effective Dates Phone Addre ss Type Group [facility]/MEDICARE [id number] 2016-Present MEDICARE MGD CARE COMPLETE Advance Directives For more information, please contact: [phone] Code Status Date Activated Date Inactivated Comments Full Code 06/27/2018 2:44 AM 06/30/2018 4:04 PM This code status was determined by: Patient
[2020-07-31] MEDS ORDERED: AMIODARONE HCL 150 MG/3 ML INJ IV ONE ×2 (20:11→20:13)
[2020-07-31] MEDS ORDERED: D5W 100 ML IV ONE (20:12)
--- NOTE | 2020-07-31 20:19 | EDPHYS ---
Physician Documentation [facility] Name: Pool Aden Age: 60 yrs Sex: Male : 1960 Arrival Date: 07/31/2020 Time: 19:27 Bed 5 Private MD: J Luis Gleason ED Physician Rubio Gutierrez HPI: 07/31 19:58 This 60 yrs old Male presents to ER via Ambulatory with complaints of jr8 Pacemaker going off. 19:58 Patient stated that he felt his ICD go off a couple of times. Cardiology downloaded jr8 report and found that it was Ventricular Tachycardia. Called up to ED to inform us and wants him admitted for heart cath tomorrow. Patient doing well at this time. Hemodynamically stable. Will admit to medicine with cardiology consult . Severity of symptoms: At their worst the symptoms were moderate in the emergency department the symptoms have improved. The patient has experienced a previous episode. The patient has been recently seen by a physician:. ROS: 19:58 Eyes: Negative for injury, pain, redness, and discharge, ENT: Negative for injury, jr8 pain, and discharge, Neck: Negative for injury, pain, and swelling, Cardiovascular: Negative for chest pain, palpitations, and edema, Respiratory: Negative for shortness of breath, cough, wheezing, and pleuritic chest pain, Abdomen/GI: Negative for abdominal pain, nausea, vomiting, diarrhea, and constipation, Back: Negative for injury and pain, MS/Extremity: Negative for injury and deformity, Skin: Negative for injury, rash, and discoloration, Neuro: Negative for headache, weakness, numbness, tingling, and seizure. Exam: 19:58 Eyes: Pupils equal round and reactive to light, extra-ocular motions intact. Lids and jr8 lashes normal. Conjunctiva and sclera are non-icteric and not injected. Cornea within normal limits. Periorbital areas with no swelling, redness, or edema. ENT: Nares patent. No nasal discharge, no septal abnormalities noted. Tympanic membranes are normal and external auditory canals are clear. Oropharynx with no redness, swelling, or masses, exudates, or evidence of obstruction, uvula midline. Mucous membranes moist. Neck: Trachea midline, no thyromegaly or masses palpated, and no cervical lymphadenopathy. Supple, full range of motion without nuchal rigidity, or vertebral point tenderness. No Meningismus. Cardiovascular: Regular rate and rhythm with a normal S1 and S2. No gallops, murmurs, or rubs. Normal PMI, no JVD. No pulse deficits. Respiratory: Lungs have equal breath sounds bilaterally, clear to auscultation and percussion. No rales, rhonchi or wheezes noted. No increased work of breathing, no retractions or nasal flaring. Abdomen/GI: Soft, non-tender, with normal bowel sounds. No distension or tympany. No guarding or rebound. No evidence of tenderness throughout. Back: No spinal tenderness. No costovertebral tenderness. Full range of motion. Skin: Warm, dry with normal turgor. Normal color with no rashes, no lesions, and no evidence of cellulitis. MS/ Extremity: Pulses equal, no cyanosis. Neurovascular intact. Full, normal range of motion. Neuro: Awake and alert, GCS 15, oriented to person, place, time, and situation. Cranial nerves II-XII grossly intact. Motor strength 5/5 in all extremities. Sensory grossly intact. Cerebellar exam normal. Normal gait. Vital Signs: 19:37 BP 131 / 72; Pulse 61; Resp 18; Temp 97.6; Pulse Ox 97% on R/A; Weight 102.06 kg; dm5 Height 5 ft. 11 in. (180.34 cm); Pain 0/10; 21:06 BP 133 / 75; Pulse 60; Resp 18; Pulse Ox 99% on R/A; Pain 0/10; em 19:37 Body Mass Index 31.38 (102.06 kg, 180.34 cm) dm5 MDM: 19:50 Patient medically screened. jr8 19:58 Data reviewed: vital signs, nurses notes, lab test result(s), EKG, and as a result, [facility] will admit patient. Data interpreted: Pulse oximetry: on room air is 97 %. Interpretation: normal. Counseling: I had a detailed discussion with the patient and/or guardian regarding: the historical points, exam findings, and any diagnostic results supporting the discharge/admit diagnosis, lab results, the need for further work-up and treatment in the hospital. 07/31 19:45 Order name: Basic Metabolic Panel; Complete Time: 21:41 snw 07/31 19:45 Order name: CBC with Diff snw 07/31 19:45 Order name: LFT's; Complete Time: 21:41 snw 07/31 19:45 Order name: Magnesium; Complete Time: 21:41 snw 07/31 19:45 Order name: NT PRO-BNP; Complete Time: 21:41 snw 07/31 19:45 Order name: PT-INR; Complete Time: 20:28 snw 07/31 19:45 Order name: Troponin (emerg Dept Use Only); Complete Time: 21:41 snw 07/31 19:45 Order name: EKG; Complete Time: 19:46 snw 07/31 19:45 Order name: Cardiac monitoring; Complete Time: 20:03 snw 07/31 20:27 Order name: Manual Differential EDMS 07/31 19:45 Order name: EKG - Nurse/Tech; Complete Time: 20:04 snw 07/31 19:45 Order name: IV Saline Lock; Complete Time: 20:24 snw 07/31 19:45 Order name: Labs collected and sent; Complete Time: 20:04 snw 07/31 19:45 Order name: O2 Per Protocol; Complete Time: 20:04 snw 07/31 19:45 Order name: O2 Sat Monitoring; Complete Time: 20:03 snw Administered Medications: 20:10 Drug: amiodarone 150 mg Volume: 100 ml; Route: IVPB; Infused Over: 10 mins; Site: left em hand; 20:20 Follow up: Response: No adverse reaction; IV Status: Completed infusion; IV Intake: em 100ml 20:20 Drug: amiodarone 900 mg, D5W 500 ml Route: IVPB; Rate: 1 mg/min; Site: left hand; em 22:30 Follow up: Response: No adverse reaction; IV Status: Infusion continued upon admission em 20:24 Drug: Ativan 0.5 mg Route: IVP; Site: left hand; em 21:00 Follow up: Response: No adverse reaction; Marked relief of symptoms em Disposition: 08/01 09:20 Co-signature as Attending Physician, Rubio HOSKINS I agree with the assessment and sandeep plan of care. Disposition: 07/31/20 20:16 Hospitalization ordered by J Luis Gleason for Inpatient Admission. Preliminary diagnosis is Ventricular tachycardia. - Bed requested for Intensive Care Unit. - Status is Inpatient Admission. ea - Condition is Stable. - Problem is new. - Symptoms have improved. Signatures: Dispatcher [employer] Zaida Landeros, RN ZINA Anthony Georges RN RN Rubio Gutierrez MD MD cha Waters, Shelly, [place] Jose Gibson, RN RN em Saurabh Roman, PA PA jr8 Nico Jackson, [place] [place]Cla1 Veronika Jurado RN RN ea Corrections: (The following items were deleted from the chart) 07/31 21:19 20:16 Hospitalization Ordered by J Luis Gleason MD for Inpatient Admission. Preliminary sg diagnosis is Ventricular tachycardia. Bed requested for Intensive Care Unit. Status is Inpatient Admission. Condition is Stable. Problem is new. Symptoms have improved. jr8 21:19 21:19 07/31/2020 20:16 Hospitalization Ordered by J Luis Gleason MD for Inpatient sg Admission. Preliminary diagnosis is Ventricular tachycardia. Bed requested for [facility] ER HOLD. Status is Inpatient Admission. Condition is Stable. Problem is new. Symptoms have improved. 21:29 21:19 07/31/2020 20:16 Hospitalization Ordered by J Luis Gleason MD for Inpatient dw Admission. Preliminary diagnosis is Ventricular tachycardia. Bed requested for [facility] ER HOLD. Status is Inpatient Admission. Condition is Stable. Problem is new. Symptoms have improved. 22:53 21:29 07/31/2020 20:16 Hospitalization Ordered by J Luis Gelason MD for Inpatient ea Admission. Preliminary diagnosis is Ventricular tachycardia. Bed requested for Intensive Care Unit. Status is Inpatient Admission. Condition is Stable. Problem is new. Symptoms have improved. dw
--- NOTE | 2020-07-31 20:19 | ER ---
Nurse's Notes [facility] Name: Pool Aden Age: 60 yrs Sex: Male : 1960 Arrival Date: 07/31/2020 Time: 19:27 Bed 5 Private MD: J Luis Gleason Diagnosis: Ventricular tachycardia Presentation: 07/31 19:37 Chief complaint: Patient states: passed out twice and pace maker went off twice. Made dm5 an appointment for cathead worker for tomorrow morning at 10 but Javon said to come in to the ED now. Coronavirus screen: Client reports previous positive COVID test result. Date of collection: July 20, 2020. Ebola Screen: Patient negative for fever greater than or equal to 101.5 degrees Fahrenheit, and additional compatible Ebola Virus Disease symptoms Patient denies exposure to infectious person. Patient denies travel to an Ebola-affected area in the 21 days before illness onset. No symptoms or risks identified at this time. Initial Sepsis Screen: Does the patient meet any 2 criteria? No. Patient's initial sepsis screen is negative. Does the patient have a suspected source of infection? No. Patient's initial sepsis screen is negative. Risk Assessment: Do you want to hurt yourself or someone else? Patient reports no desire to harm self or others. Onset of symptoms was July 31, 2020. 19:37 Method Of Arrival: Ambulatory dm5 19:37 Acuity: SUSAN 2 dm5 Screenin:00 Abuse screen: Denies threats or abuse. Nutritional screening: No deficits noted. em Tuberculosis screening: No symptoms or risk factors identified. Fall Risk None identified. Assessment: 19:50 General: Appears in no apparent distress. comfortable, Behavior is calm, cooperative, em appropriate for age. Pain: Denies pain. Neuro: Level of Consciousness is awake, alert, obeys commands, Oriented to person, place, time, situation, Appropriate for age Reports a syncopal episode. Cardiovascular: Denies chest pain, shortness of breath, Capillary refill < 3 seconds Patient's skin is warm and dry. Respiratory: Airway is patent Respiratory effort is even, unlabored, Respiratory pattern is regular, symmetrical. GI: Patient currently denies nausea, vomiting. Derm: Skin is intact, is healthy with good turgor, Skin is pink, warm \T\ dry. Musculoskeletal: Capillary refill < 3 seconds. 21:06 Reassessment: Patient appears in no apparent distress at this time. Patient and/or em family updated on plan of care and expected duration. Pain level reassessed. Patient is alert, oriented x 3, equal unlabored respirations, skin warm/dry/pink. Patient denies pain at this time. Patient states feeling better. Vital Signs: 19:37 BP 131 / 72; Pulse 61; Resp 18; Temp 97.6; Pulse Ox 97% on R/A; Weight 102.06 kg; dm5 Height 5 ft. 11 in. (180.34 cm); Pain 0/10; 21:06 BP 133 / 75; Pulse 60; Resp 18; Pulse Ox 99% on R/A; Pain 0/10; em 19:37 Body Mass Index 31.38 (102.06 kg, 180.34 cm) dm5 ED Course: 19:27 Patient arrived in ED. am2 19:27 J Luis Gelason MD is Private Physician. am2 19:42 Triage completed. dm5 19:50 Saurabh Roman PA is PHCP. jr8 19:50 Rubio Gutierrez MD is Attending Physician. jr8 19:50 Arm band placed on. em 19:50 Missed attempt(s): 20 gauge in right forearm. Bleeding controlled, band aid applied, em catheter tip intact. 20:00 Patient has correct armband on for positive identification. Placed in gown. Bed in low em position. Call light in reach. Side rails up X2. Adult w/ patient. ekg monitor tech on. Pulse ox on. NIBP on. 20:03 Jose Gibson, ZINA is Primary Nurse. em 20:15 J Luis Gleason MD is Hospitalizing Provider. jr8 22:31 No provider procedures requiring assistance completed. Patient admitted, IV remains in em place. Administered Medications: 20:10 Drug: amiodarone 150 mg Volume: 100 ml; Route: IVPB; Infused Over: 10 mins; Site: left em hand; 20:20 Follow up: Response: No adverse reaction; IV Status: Completed infusion; IV Intake: em 100ml 20:20 Drug: amiodarone 900 mg, D5W 500 ml Route: IVPB; Rate: 1 mg/min; Site: left hand; em 22:30 Follow up: Response: No adverse reaction; IV Status: Infusion continued upon admission em 20:24 Drug: Ativan 0.5 mg Route: IVP; Site: left hand; em 21:00 Follow up: Response: No adverse reaction; Marked relief of symptoms em Intake: 20:20 IV: 100ml; Total: 100ml. em Outcome: 20:16 Decision to Hospitalize by Provider. brittanie 22:31 Admitted to ICU accompanied by nurse, via stretcher, room 6. em 22:31 Condition: good 22:31 Instructed on the need for admit, Demonstrated understanding of instructions. 22:53 Patient left the ED. ea Signatures: Marta Ashford, RN RN dm5 Jose Gibson RN RN Saurabh Jules PA PA jr8 Savana Jarquin Elena RN ZINA pantoja
[2020-07-31 20:23] LABS: Absolute Lymphocytes (CBC) 2.7 K/uL (0.7-4.9); Basophils % 0.6 % (0-1.3); Lymphocytes % 48.4 % (15.3-44.8); MPV 9.6 fL (7.6-11.3); RBC Red Blood Cell Count 4.97 M/uL (4.33-5.43)
[2020-07-31 20:24] LABS: Protime INR 1.07
[2020-07-31] MEDS ORDERED: LORazepam 2 MG/ML VIAL ONE (20:30)
[2020-07-31 20:36] LABS: Albumin 3.6 g/dL (3.4-5.0); Bilirubin Direct 0.1 mg/dL (0-0.2); Bilirubin Total 0.6 mg/dL (0.2-1.0); Magnesium 2.2 mg/dL (1.8-2.4); Potassium 4.1 mmol/L (3.5-5.1); Protein, Total 8.1 g/dL (6.4-8.2); Troponin (Emerg Dept Use Only) 0.18 ng/mL (0.0-0.045)
[2020-07-31] MEDS ORDERED: MORPHINE 2 MG/ML SYR IV PRN (21:43)
[2020-07-31] MEDS ORDERED: PROMETHAZINE INJ 25 MG/ML AMP IV PRN (21:43)
[2020-07-31] MEDS ORDERED: AMIODARONE HCL 900 MG in Dextrose 5%-Water 482 ML IV SCH (21:43)
[2020-07-31] MEDS ORDERED: LORazepam 2 MG/ML VIAL IV PRN (21:43)
[2020-07-31 22:09] LABS: Blood Morphology Comment NOT SEEN (NOT SEEN); Platelet Estimate ADEQ
[2020-07-31] MEDS ORDERED: GLUCAGON 1 MG/VIAL IM PRN (22:35)
[2020-07-31] MEDS ORDERED: D50W 25 GM/50 ML SYRINGE IV PRN (22:35)
[2020-07-31 23:11] VITALS: BMI 31.4
[2020-07-31] MEDS: NA CHLORIDE 0.9% 1,000 ML IV SCH (23:14)
[2020-07-31] MEDS: INSULIN -REGULAR HUMAN 50 UNIT/0.5 ML ML SQ SCH (23:44)
[2020-08-01 05:08] LABS: Absolute Lymphocytes (CBC) 2.7 K/uL (0.7-4.9); Basophils % 0.8 % (0-1.3); Hematocrit 40.3 % (39.6-49.0); Lymphocytes % 46.7 % (15.3-44.8); RBC Red Blood Cell Count 4.77 M/uL (4.33-5.43)
[2020-08-01 05:11] LABS: Protime INR 1.11
[2020-08-01 05:23] LABS: Potassium 3.9 mmol/L (3.5-5.1)
[2020-08-01] MEDS: INSULIN -REGULAR HUMAN 50 UNIT/0.5 ML ML SQ SCH ×3 (06:00→17:29)
[2020-08-01 09:08] VITALS: O2SAT 98
[2020-08-01] MEDS: NA CHLORIDE 0.9% 1,000 ML IV SCH (11:03)
[2020-08-01] MEDS ORDERED: CLOPIDOGREL 75 MG TABLET PO SCH (12:30)
[2020-08-01] MEDS ORDERED: ASPIRIN 325 MG TAB PO SCH (12:30)
[2020-08-01] MEDS: METOPROLOL TAR 50 MG TAB PO SCH ×2 (12:41→20:19)
[2020-08-01] MEDS ORDERED: LIDOCAINE 1% 20 ML MDV ONE (13:42)
[2020-08-01] MEDS ORDERED: HEPA 1000U/500MLS 2,000 UNIT/1,000 ML BAG IV ONE (13:42)
[2020-08-01] MEDS ORDERED: NA CHLORIDE 0.9% 0 ML ONE (13:43)
[2020-08-01] MEDS ORDERED: NITROGLYCERIN 100 MCG/ML SYR (for cath lab use only) IV ONE (13:43)
[2020-08-01] MEDS ORDERED: ATROPINE SULF 1 MG/10 ML SYR IV ONE (13:43)
[2020-08-01] MEDS ORDERED: NITROGLYCERIN/D5W 25 MG/250 ML BTL IV ONE (13:43)
[2020-08-01] MEDS ORDERED: FENTANYL CITR 100 MCG/2 ML ONE (14:25)
[2020-08-01] MEDS ORDERED: MIDAZOLAM HCL 2 MG/2 ML INJ ONE ×2 (14:25→15:12)
[2020-08-01] MEDS ORDERED: MIDAZOLAM HCL 5 MG/5 ML INJ ONE (15:49)
[2020-08-01] MEDS ORDERED: ENOXAPARIN 40 MG/0.4 ML SQ SCH (17:00)
[2020-08-01] MEDS ORDERED: Magnesium Sulfate 2gm IVPB 2 G/50 ML BAG IV SCH (17:00)
[2020-08-01] MEDS ORDERED: ACETAMINOPHEN 325 MG TABLET PO PRN (17:20)
[2020-08-01] MEDS ORDERED: NITROGLYCERIN 0.4 MG/TAB SL PRN (17:20)
[2020-08-01] MEDS ORDERED: NACHLORIDE 0.45% 1,000 ML IV SCH (18:00)
--- NOTE | 2020-08-01 18:12 | EKG ---
Test Date: 2020-08-01 Test Time: 08:19:12 Principal Developer: WAYNE MEASUREMENT RESULTS: Intervals: Rate: 60 NC: 164 QRSD: 126 QT: 490 QTc: 490 [place]: P: 41 NC: 164 QRS: 58 T: 106 INTERPRETIVE STATEMENTS: Electronic atrial pacemaker Nonspecific intraventricular block Abnormal ECG Compared to ECG 07/28/2020 22:48:08 Ventricular-paced complex(es) or rhythm no longer present Sinus rhythm no longer present Myocardial infarct finding no longer present ST (T wave) deviation no longer present Possible ischemia no longer present Electronically Signed On 08-01-20 18:11:18 HEAD OF LOSS PREVENTION by Matty Alejandro
--- NOTE | 2020-08-01 18:13 | EKG ---
Test Date: 2020-07-31 Test Time: 19:46:26 Road Grader: MIKEY MEASUREMENT RESULTS: Intervals: Rate: 60 VT: 180 QRSD: 122 QT: 478 QTc: 478 [place]: P: 57 VT: 180 QRS: 59 T: 106 INTERPRETIVE STATEMENTS: Electronic atrial pacemaker Nonspecific intraventricular conduction delay Borderline ECG Compared to ECG 07/28/2020 22:48:08 Intraventricular conduction delay now present Ventricular-paced complex(es) or rhythm no longer present Sinus rhythm no longer present Myocardial infarct finding no longer present ST (T wave) deviation no longer present Possible ischemia no longer present Electronically Signed On 08-01-20 18:11:24 CISCO CERTIFIED INTERNETWORK EXPERT by Matty Alejandro
[2020-08-01] MEDS ORDERED: TEMAZEPAM 15 MG CAP PO PRN (18:26)
[2020-08-01 20:21] VITALS: BP 124/66
[2020-08-01] MEDS ORDERED: AMIODARONE IN DEXTROSE,ISO-OSM 360 MG/200 ML BAG IV ONE (20:57)
[2020-08-01] MEDS ORDERED: INSULIN -REGULAR HUMAN 50 UNIT/0.5 ML ML SQ SCH (21:00)
[2020-08-01 22:12] VITALS: TEMP 97.4
--- NOTE | 2020-08-02 03:17 | OP ---
Date of Procedure: 08/01/2020 Surgeon: Matty Alejandro MD Mother Tester: Hannah Becker. Procedure: Left heart catheterization, selective coronary arteriogram, PERLA injection. Indication: Cardiac arrest with multiple AICD shock and history of coronary artery disease, unstable angina. History Of Present Illness: Mr. Aden was brought to the catheter builder as an inpatient on 08/01/2020. H e was prepped and draped in routine sterile fashion. 6-Namibian sheath was introduced in the right com mon femoral artery successfully. StarClose was used to close the case. Angiography done with a JL4 initially of the left main, which revealed severe stenosis in the distal left main all the way to the mid LAD with restenoses on multiple section of long overlap stent. Patient had a DOMINIQUE-2 flow. Circ umflex was opened. JR4 catheter was used to cannulate the PERLA which goes to the OM ironically, but the PERLA is patent. I did not inject the RCA because it is known to be completely occluded. He also had a NATACHA that is completely occluded from previous catheterization a year ago. Patient had multip le episodes of ventricular tachycardia requiring AICD, cardioversion. The cardioversion was all succ essful. No intervention was done. Blood Loss: 5 cc. Final Diagnoses: Severe coronary artery disease, ventricular tachycardia. He is status post multipl e AICD shocks. Plan: To continue IV amiodarone and transfer the patient to [facility] for possible interve ntion of the LAD or maybe another third bypass surgery which may be challenging. The case was discus sed with the family and with Dr. Ata Tanner who accepted the patient and transfer to [facility] spital. Anesthesia: Total conscious sedation was 30 minutes. NB/MODL Voice ID: [id number] Report ID: [id number]
--- NOTE | 2020-08-02 04:53 | CON ---
Date of Consultation: 08/01/2020 Reason For Consultation: Cardiac arrest, multiple AICD shocks, unstable angina, and coronary artery disease. History Of Present Illness: Mr. Aden is a 60-year-old white male who is very well known to me from office visits and multiple procedures. In simple, he has an AICD and biventricular pacemaker that w as placed in 2012. He has had a long history of coronary artery disease. He has had 2 separate bynv ss surgeries. The last catheterization a year ago showed an occluded NATACHA to the RCA and occluded na tive RCA. He had a normal circumflex, but he had a PERLA that goes to the OM. His LAD had always bee n an issue proximally and has had multiple stents in the LAD. LAD somehow was never bypassed, althou gh he has had 2 separate bypass surgeries. Over these years, he has had multiple restenoses issue. Recently, I found out that he has been having some ventricular tachycardia on an event monitor and he was placed on amiodarone 400 b.i.d. loaded and switched to 200 mg daily. The day he switched to 200 mg, he had an AICD shock at home. He came to the emergency room and was placed on IV amiodarone the rapy and admitted to the ICU. He has had substernal chest pressure with shortness of breath with exe rtion as well. Past Medical History: Positive for hypertension, dyslipidemia, and tobacco abuse. Medications: At home include aspirin, lisinopril, metoprolol, statin, as well as amiodarone. Review of Systems: Negative. Social History: Positive for tobacco. Family History: Noncontributory. Physical Examination: General: When I saw him, his pressure is 130/70, pulse is 61, respiratory rate is 18. He was afebri le. Pulse oximeter was 97% on room air. HEENT: Negative. Neck: Supple. No bruit. Chest: Clear. Cardiac: Regular rhythm and rate. No murmurs, gallops, or rubs. Abdomen: Benign. Extremities: No clubbing, cyanosis, or edema. Diagnostic Data: EKG showed an electronic atrial pacemaker with nonspecific intraventricular conduct ion block. His chest x-ray was unremarkable. His glucose was 193, hemoglobin was 14, his creatinine was 1.05. His troponin was 0.18. BNP was 781. Impression And Plan: This is a patient with history of coronary artery disease, unstable angina, pos itive troponin, ventricular tachycardia requiring automatic implantable cardioverter defibrillator sh ock. He is on IV amiodarone. We will continue his other regimen. Plan an emergent heart catheteriz ation rather the day after he came in. We will define his coronary anatomy and make further decision s. Patient may down the road need brachytherapy for his LAD restenosis or another bypass. He also s hould be considered for a ventricular tachycardia ablation. Patient and family understand the plan a nd the benefits and risks of the procedures and agreed to proceed. PABLO/KEATON Voice ID: [id number] Report ID: [id number]
== END 2020-08-01 22:13 | disposition short-term general hospital (02) | DRG 287 ==
LOC: ER 19:25 → ERHOLD 20:30 → 3RD-ICU 22:34
PROVIDERS: ADMIT Family Medicine; ATTEND Family Medicine
PROC: 4A023N7 Measurement of Cardiac Sampling and Pressure, Left Heart, Percutaneous Approach (ICD-10-PCS; principal; 2020-08-01)
PROC: B2111ZZ Fluoroscopy of Multiple Coronary Arteries using Low Osmolar Contrast (ICD-10-PCS; 2020-08-01)
DX: I47.2 Ventricular tachycardia (principal); I10 Essential (primary) hypertension; I25.10 Atherosclerotic heart disease of native coronary artery without angina pectoris; E78.5 Hyperlipidemia, unspecified; Z95.810 Presence of automatic (implantable) cardiac defibrillator; Z20.828 Contact with and (suspected) exposure to other viral communicable diseases
CPT/HCPCS: 36415; 71045; 80048; 80053; 80076; 82947; 83735; 83880; 84484; 85025; 85610; 93005; 93455; 96365; 96366; 96374; 96375; 99285; C1760; C1893; G0378; J0282; J0583; J1644; J1650; J2250; J2270; J3010; J3475; J7030; J7060